=== PATIENT | male | born 1945 | race Caucasian/White ===

== ENCOUNTER 2016-10-11 10:42 | Emergency (ER) | payer OTHER ==
[~2016-10-11] VITALS: Ht 170.2 cm; Wt 93.2 kg
[~2016-10-11 10:42] MED LIST: ADVIN25/60 INH; AMLO-114 PO; ASPI-435 PO; CLR10 PO; CZR25 PO; FLUT0.15 NAE; HYDR25TA4 PO; MELA1TAB5 PO; ONDA8TAB6 PO; PRLSR20 PO; TAMS0.4C38 PO; VNTHFA/IN INH
[2016-10-11 10:55] VITALS: TEMP 36.9; Ht 170.2 cm; Wt 93.2 kg
[2016-10-11] MEDS ORDERED: SODIUM CHLORIDE 0.9% 1000ML 1,000 ML IV STA (11:31)
[2016-10-11 11:40] LABS: BASO % 0.4 %; BASO ABS # 0.02 K/uL (0-0.2); COMPLETE YES; EOS % 0.7 %; HEMATOCRIT 41.5 % (42-52); LYMPH % 12.1 %; LYMPH ABS # 0.68 K/uL (1.2-3.4); MEAN CELL VOLUME 82.7 fL (80-100); MEAN CORPUSCULAR HEMOGLOBIN 29.5 pg (25-34); MEAN CORPUSCULAR HGB CONC 35.7 g/dl (32-36); MEAN PLATELET VOLUME 9.1 fL (7.4-10.4); NEUT % 78.8 %; PLATELET COUNT 169 K/uL (130-400); RED BLOOD COUNT 5.02 M/uL (4.7-6.1)
[2016-10-11 11:44] VITALS: O2SAT 95
[2016-10-11 11:49] LABS: BUN/CREATININE RATIO 13.7 (10-20); CALCIUM 8.9 mg/dl (8.5-10.1); CREATININE 0.94 mg/dl (0.60-1.40); MAGNESIUM 2.2 mg/dl (1.8-2.4); POTASSIUM 3.7 mmol/L (3.5-5.1)
[2016-10-11 12:00] LABS: ALB/GLOB RATIO 1.2 (0.9-2); CKMB/CK RATIO 1.2 (0-3.0); THYROID STIMULATING HORMONE 1.34 uIu/ml (0.300-4.500)
[2016-10-11 12:10] LABS: MANUAL MICROSCOPIC REQUIRED? NO; REVIEW REQ? NO; URINE APPEARANCE CLEAR (CLEAR); URINE BILIRUBIN NEG (NEG); URINE COLOR YELLOW; URINE NITRITE NEG (NEG); URINE PH 6.5 (4.5-7.5); UROBILINOGEN NEG (NEG); ZZUR CULT IF INDIC CLEAN CATCH NO
--- NOTE | 2016-10-11 12:28 | DIAGNOSTIC IMAGING REPORT ---
CHEST 2 VIEWS ROUTINE CLINICAL HISTORY: chest congestion cough COMPARISON STUDY: 07/14/2015 FINDINGS: The bones soft tissues and hemidiaphragms are normal. The cardiomediastinal silhouette is normal. The lungs are clear. The pulmonary vasculature is normal. IMPRESSION: Negative chest. Electronically signed by: Ez Frank M.D. 10/11/2016 12:27 PM Dictated Date/Time: 10/11/2016 12:27 PM
[2016-10-11] MEDS ORDERED: RANI300T2 PO (12:46)
[2016-10-11] MEDS ORDERED: ZINC1TAB PO (12:46)
[2016-10-11] MEDS ORDERED: QUET1TAB30 PO (12:46)
[2016-10-11] MEDS ORDERED: LIDOCAINE HCL 2% VISCOUS SOLN 1.25 ML, DiphenhydrAMINE HCL SYRUP 3.125 MG, ALUMINUM/MAG... MT SCH ×4 (13:15)
[2016-10-11] MEDS ORDERED: MAGIC SWIZZLE PO ONE (13:15)
--- NOTE | 2016-10-11 13:38 | EMERGENCY ROOM VISIT NOTE ---
ED Visit Note First contact with patient: 11:22 This Patient was discussed with the physician assistant shift supervisor, Yassine Chatman PA-C. The pertinent historical and physical exam findings were confirmed. I agree with the studies ordered and with the interpretations of these studies. I agree with the disposition and care plan.
--- NOTE | 2016-10-11 13:47 | EMERGENCY ROOM VISIT NOTE ---
History First contact with patient: 11:22 Chief Complaint: OTHER COMPLAINT Stated Complaint: GAGS WHEN EATING, TONGUE IS BURNING, WATER IS SOUR History of Present Illness The patient is a 70 year old male who presents to the Emergency Department by private vehicle for evaluation of his ongoing tongue burning sensation for the past year. He is tried multiple medications including nystatin which was prescribed by his primary care provider without relief of symptoms. The patient also reports that water is tasted sour recently. He reports the symptoms are not new. He complains of some chest congestion and cough for the past week. He's had no fevers, chills, chest pain, but dictations, shortness of breath, nausea, vomiting, or abdominal pain. The patient rates his current discomfort as a 0/10. He denies any headaches, dizziness, lightheadedness, nausea, or vomiting. He reports no slurred speech, facial droop, or unilateral weakness/numbness. Review of Systems A complete 10-point Review of Systems was discussed with the patient, with pertinent positives and negatives listed in the History of Present Illness. All remaining Review of Systems questions can be considered negative unless otherwise specified. Past Medical/Surgical History Medical Problems: (1) Appendectomy (2) Benign hypertension (3) Chronic back pain (4) Insomnia Family History Diabetes mellitus FH: heart disease Social History Smoking Status: Former Smoker Alcohol Use: none Drug Use: none Marital Status: Occupation Status: retired Current/Historical Medications Scheduled Albuterol Hfa (Ventolin Hfa), 2 PUFFS INH Q4 Amlodipine (Norvasc), 10 MG PO DAILY Aspirin (Aspirin 81), 81 MG PO DAILY Fluticasone Propionate (Nasal) (Flonase Allergy Relief), 2 SPRAYS BATSHEVA DAILY Loratadine (Claritin), 10 MG PO DAILY Losartan Potassium (Losartan Potassium), 12.5 MG PO DAILY Omeprazole (Prilosec), 20 MG PO DAILY Quetiapine Fumarate (Seroquel), 25 MG PO HS Ranitidine (Zantac), 300 MG PO HS Tamsulosin Hcl (Flomax), 0.4 MG PO DAILY Zinc Gluconate (Zinc), 50 MG PO DAILY Allergies Coded Allergies: No Known Allergies (Unverified , 10/11/16) Physical Exam Vital Signs Date Time Temp Pulse Resp B/P Pulse Ox O2 Delivery O2 Flow Rate FiO2 10/11/16 13:55 63 18 151/90 96 10/11/16 12:41 58 18 165/94 96 Room Air 10/11/16 11:44 95 Room Air 10/11/16 11:20 62 10/11/16 10:55 36.9 102 20 151/95 96 Room Air Pain Rating (0-10): 0 Physical Exam VITAL SIGNS - Vital signs and nursing notes were reviewed. GENERAL - 70-year-old male appearing his stated age who is in no acute distress. Communicates well with provider and answers questions appropriately. HEAD - NC/AT. EYES - PERRL with EOMI bilaterally. Sclera anicteric. Palpebral conjunctiva pink and moist with no injection noted. EARS - No deformities of external structures noted on gross examination bilaterally. No pain elicited with palpation of the tragus bilaterally. External auditory canals without discharge or otorrhea. Tympanic membranes pearly [place] without retraction or bulging. NOSE - Midline and without cyanosis. No epistaxis or purulent drainage noted. Septum midline without deviation or septal hematoma noted. MOUTH/OROPHARYNX - Without perioral cyanosis. Buccal mucosa pink and moist and without leukoplakia. Tongue midline with equal elevation of palate bilaterally. No tonsillar hypertrophy, erythema, or exudates noted. Poor dentition noted. NECK - Neck with FROM. Supple to palpation. LUNGS - Chest wall symmetric without accessory muscle use, intercostals retractions, or central cyanosis. Normal vesicular breath sounds CTA B/L. No wheezes, rales, or rhonchi appreciated. CARDIAC - RRR with S1/S2. No murmur, rubs, or gallops appreciated. No reproducible tenderness to palpation appreciated over the anterior chest wall. ABDOMEN - Abdominal contour obese and without pulsations or visible masses. BS normoactive all four quadrants. No tenderness, palpable masses, hepatosplenomegaly, or ascites noted. EXTREMITIES - No clubbing or peripheral cyanosis. No pretibial edema present. +3 /5 radial and dorsalis pedis pulses palpated throughout. +5/5 strength noted in UE/LE bilaterally. NEUROLOGIC - Cranial nerves II through XII grossly intact. Sensory intact to light touch throughout. PSYCH - A&Ox3 and cooperates fully with examiner. Pt is very pleasant and interacts well with examiner. Medical Decision & Procedures ER Provider Diagnostic Interpretation: Radiological imaging and reports were reviewed by myself. Radiologist's Interpretation as follows: CHEST 2 VIEWS ROUTINE CLINICAL HISTORY: chest congestion cough COMPARISON STUDY: 07/14/2015 FINDINGS: The bones soft tissues and hemidiaphragms are normal. The cardiomediastinal silhouette is normal. The lungs are clear. The pulmonary vasculature is normal. IMPRESSION: Negative chest. Laboratory Results 10/11/16 11:10 Red Blood Count 5.02, Mean Corpuscular Volume 82.7, Mean Corpuscular Hemoglobin 29.5, Mean Corpuscular Hemoglobin Concent 35.7, Mean Platelet Volume 9.1, Neutrophils (%) (Auto) 78.8, Lymphocytes (%) (Auto) 12.1, Monocytes (%) (Auto) 8.0, Eosinophils (%) (Auto) 0.7, Basophils (%) (Auto) 0.4, Neutrophils # (Auto) 4.41, Lymphocytes # (Auto) 0.68, Monocytes # (Auto) 0.45, Eosinophils # (Auto) 0.04, Basophils # (Auto) 0.02 10/11/16 11:10 Test 10/11/16 11:10 10/11/16 11:45 White Blood Count 5.60 K/uL (4.8-10.8) Red Blood Count 5.02 M/uL (4.7-6.1) Hemoglobin 14.8 g/dL (14.0-18.0) Hematocrit 41.5 % (42-52) Mean Corpuscular Volume 82.7 fL (80-100) Mean Corpuscular Hemoglobin 29.5 pg (25-34) Mean Corpuscular Hemoglobin Concent 35.7 g/dl (32-36) Platelet Count 169 K/uL (130-400) Mean Platelet Volume 9.1 fL (7.4-10.4) Neutrophils (%) (Auto) 78.8 % Lymphocytes (%) (Auto) 12.1 % Monocytes (%) (Auto) 8.0 % Eosinophils (%) (Auto) 0.7 % Basophils (%) (Auto) 0.4 % Neutrophils # (Auto) 4.41 K/uL (1.4-6.5) Lymphocytes # (Auto) 0.68 K/uL (1.2-3.4) Monocytes # (Auto) 0.45 K/uL (0.11-0.59) Eosinophils # (Auto) 0.04 K/uL (0-0.5) Basophils # (Auto) 0.02 K/uL (0-0.2) RDW Standard Deviation 39.7 fL (36.4-46.3) RDW Coefficient of Variation 13.1 % (11.5-14.5) Immature Granulocyte % (Auto) 0.0 % Immature Granulocyte # (Auto) 0.00 K/uL (0.00-0.02) Anion Gap 11.0 mmol/L (3-11) Est Creatinine Clear Calc Drug Dose 77.3 ml/min Estimated GFR () 93.5 Estimated GFR (Non- 80.7 BUN/Creatinine Ratio 13.7 (10-20) Calcium Level 8.9 mg/dl (8.5-10.1) Magnesium Level 2.2 mg/dl (1.8-2.4) Total Bilirubin 0.6 mg/dl (0.2-1) Aspartate Amino Transf (AST/SGOT) 20 U/L (15-37) Alanine Aminotransferase (ALT/SGPT) 32 U/L (12-78) Alkaline Phosphatase 93 U/L (45-117) Total Creatine Kinase 131 U/L (39-308) Creatine Kinase MB 1.6 ng/ml (0.5-3.6) Creatine Kinase MB Ratio 1.2 (0-3.0) Troponin I < 0.015 ng/ml (0-0.045) Total Protein 8.2 gm/dl (6.4-8.2) Albumin 4.4 gm/dl (3.4-5.0) Globulin 3.8 gm/dl (2.5-4.0) Albumin/Globulin Ratio 1.2 (0.9-2) Lipase 182 U/L (73-393) Thyroid Stimulating Hormone (TSH) 1.340 uIu/ml (0.300-4.500) Urine Color YELLOW Urine Appearance CLEAR (CLEAR) Urine pH 6.5 (4.5-7.5) Urine Specific [place] 1.000 (1.000-1.030) Urine Protein NEG (NEG) Urine Glucose (UA) NEG (NEG) Urine Ketones NEG (NEG) Urine Occult Blood NEG (NEG) Urine Nitrite NEG (NEG) Urine Bilirubin NEG (NEG) Urine Urobilinogen NEG (NEG) Urine Leukocyte Esterase TRACE (NEG) Urine WBC (Auto) 1-5 /hpf (0-5) Urine RBC (Auto) 0-4 /hpf (0-4) Urine Hyaline Casts (Auto) 0 /lpf (0-5) Urine Epithelial Cells (Auto) 5-10 /lpf (0-5) Urine Bacteria (Auto) NEG (NEG) Medications Administered Medications (Trade) Dose Ordered Sig/Radha Route Start Time Stop Time Status Last Admin Dose Admin Sodium Chloride 1,000 ml @ 125 mls/hr Q8H STAT IV 10/11/16 11:31 10/11/16 14:29 DC 10/11/16 11:31 125 MLS/HR Lidocaine HCl/ Diphenhydramine HCl/Al Hydroxide/ Mg Hydroxide/ Glycerin/Barcode (VISCOUS LIDOCAINE 2% Soln/ Benadryl Syrup/ Maalox Susp/ Glycerin Anhydrous Soln) TODAY@1315 MT 10/11/16 13:15 10/11/16 14:29 DC 10/11/16 13:15 5 ML Procedure Patient was placed on the monitor and storage bin tender and monitored throughout the entire extent of their stay. In addition, the patient's pulse oximetry was monitored throughout the entire stay. Any abnormalities or aberrancies were addressed appropriately. ECG Indication: other (cough) Rate (beats per minute): 64 Rhythm: normal sinus Findings: 1st degree AV block, no acute ischemic change Change: no significant change (from 07/14/2015.) ED Course Patient was seen and evaluated by myself. Labs were drawn, saline lock in place. EKG and chest x-rays were obtained. The patient was hydrated with normal saline at a rate of 125 mL per hour. Laboratory results demonstrate no acute leukocytosis, worrisome anemia, or bandemia. The patient has no significant electrolyte abnormalities. Cardiac enzymes are negative. Troponin is unremarkable. Patient was provided magic's was allowed to wash with mild relief of symptoms. The patient will continue to follow with his primary care provider for ongoing symptoms. The case was discussed with my attending physician who independently evaluated the patient and agrees with the diagnostic approach and treatment plan. Patient educated on worrisome symptoms for return visit to the emergency department. Patient discharged home in good condition. Medical Decision Given the patient's presentation and stated complaint, I did elect to perform the above-mentioned workup. The patient presents today with multiple complaints. He complains of a dry tongue which seems to be his primary complaint today. This is been ongoing for the last year or so. The patient was provided magic swizzle mouthwash. His cardiac evaluation is negative given the patient's complaint of chest congestion. He has had no chest pain or other concerning symptoms. His cardiac evaluation was negative. Chest x-ray demonstrates no consolidation. The patient will continue to follow with his primary care provider from today's visit. He was educated on worrisome symptoms for return visit to the emergency department. Patient discharged home afebrile and in good condition. In the evaluation and treatment of this patient, the following differential diagnoses were considered: NV, ASC, Dysrhythmia, Angina, Mediastinitis, GERD, Esophagitis, PE, Pneumonia, Bronchitis, Costochondritis, Rib Fracture, Zoster. Impression Primary Impression: Tongue burning sensation Additional Impression: Chest congestion Departure Information Dispostion Home / Self-Care Condition GOOD Referrals Radha Dias M.D. (PCP) Patient Instructions My [facility] Additional Instructions You have been treated in the Emergency Department for your Chest Congestion and burning tongue. You can use Biotene over the counter for ongoing symptoms. For pain control, you can use the following [id number] medicines (if >12 yo): - Regular strength (325mg/tab) Tylenol (acetaminophen) 2 tabs every 4-6 hours as needed. Do not exceed 12 tablets in a 24 hour period. Avoid taking more than 4 grams (4000 mg) of Tylenol per day. This includes any other sources of acetaminophen you may take on a regular basis. - Regular strength (200 mg/tab) Advil (ibuprofen) 1-2 tabs every 4-6 hours as needed. Do not exceed a dose of 3200 mg per day. You should schedule a follow-up appointment with your Primary Care Provider in 2 -3 days for further evaluation from today's Emergency Department visit. Return to the Emergency Department if your current symptoms worsen despite treatment course outlined above, or if you develop any of the following symptoms : worsening chest pain, associated jaw/arm pain, nausea, dizziness, shortness of breath, bloody cough, or fainting. Problem Qualifiers
[2016-10-11 13:55] VITALS: BP 151/90; PULSE 63; O2SAT 96
== END 2016-10-11 13:56 | disposition home or self-care (01) ==
LOC: C.EDB 10:45 → C.EDA 13:56
DX: K14.6 Glossodynia (principal); R09.89 Other specified symptoms and signs involving the circulatory and respiratory systems; I10 Essential (primary) hypertension; Z83.3 Family history of diabetes mellitus; Z82.49 Family history of ischemic heart disease and other diseases of the circulatory system; Z87.891 Personal history of nicotine dependence; Z79.82 Long term (current) use of aspirin; Z79.899 Other long term (current) drug therapy

== ENCOUNTER 2017-05-20 09:38 | Emergency (ER) | payer OTHER ==
[~2017-05-20] VITALS: Ht 170.2 cm; Wt 93.4 kg
[~2017-05-20 09:38] MED LIST changes: -ADVIN25/60 INH; -HYDR25TA4 PO; -MELA1TAB5 PO; -ONDA8TAB6 PO; +QUET1TAB30 PO; +RANI300T2 PO; +ZINC1TAB PO
[2017-05-20 09:54] VITALS: TEMP 36.7; Ht 170.2 cm; Wt 93.4 kg
[2017-05-20 10:02] VITALS: O2SAT 95
[2017-05-20] MEDS ORDERED: TRAZ100T29 PO (10:06)
[2017-05-20] MEDS ORDERED: ADVIN10/60 INH (10:06)
[2017-05-20] MEDS ORDERED: QUET1TAB9 PO (10:06)
[2017-05-20] MEDS ORDERED: MECLIZINE HCL 25 MG TAB PO STA (10:20)
[2017-05-20] MEDS ORDERED: SODIUM CHLORIDE 0.9% 1000ML 1,000 ML IV STA (10:20)
[2017-05-20 10:53] LABS: COMPLETE YES; HEMATOCRIT 42.4 % (42-52); IG% 0.6 %; LYMPH % 3.7 %; LYMPH ABS # 0.53 K/uL (1.2-3.4); MEAN CELL VOLUME 86.9 fL (80-100); MEAN CORPUSCULAR HEMOGLOBIN 29.1 pg (25-34); MEAN CORPUSCULAR HGB CONC 33.5 g/dl (32-36); MEAN PLATELET VOLUME 8.9 fL (7.4-10.4); MONO % 4.5 %; NEUT % 91.2 %; PLATELET COUNT 213 K/uL (130-400); RED BLOOD COUNT 4.88 M/uL (4.7-6.1); URINE APPEARANCE CLEAR (CLEAR); URINE BILIRUBIN NEG (NEG); URINE COLOR YELLOW; URINE NITRITE NEG (NEG); URINE SPECIFIC GRAVITY 1.011 (1.000-1.030); UROBILINOGEN NEG (NEG); WHITE BLOOD COUNT 14.22 K/uL (4.8-10.8)
--- NOTE | 2017-05-20 10:55 | DIAGNOSTIC IMAGING REPORT ---
HEAD CT NONCONTRAST CT DOSE: 537.48 mGy.cm HISTORY: EVALUATE WEAKNESS TECHNIQUE: Multiaxial CT images of the head were performed without the use of intravenous contrast. Automated exposure control was utilized for this study. A dose lowering technique was utilized adhering to the principles of ALARA. Comparison: None. Findings: The paranasal sinuses and mastoid air cells are clear. The calvarium and skull base are intact. The ventricles and sulci are within normal limits. There is no mass, hematoma, midline shift, or acute infarct. Impression: No acute intracranial abnormality. Electronically signed by: Shadi Fiore M.D. 05/20/2017 10:54 AM Dictated Date/Time: 05/20/2017 10:53 AM
[2017-05-20 10:57] LABS: MANUAL MICROSCOPIC REQUIRED? NO; REVIEW REQ? NO
[2017-05-20 11:11] LABS: INR 1.1 (0.9-1.1); PARTIAL THROMBOPLASTIN RATIO 1.1; PROTHROMBIN TIME (PATIENT) 11.9 SECONDS (9.0-12.0)
[2017-05-20 11:14] LABS: ALT/SGPT 34 U/L (12-78); BLOOD UREA NITROGEN 19 mg/dl (7-18); BUN/CREATININE RATIO 21.4 (10-20); CARBON DIOXIDE 23 mmol/L (21-32); CHLORIDE 97 mmol/L (98-107); CREATININE 0.87 mg/dl (0.60-1.40); GLUCOSE 104 mg/dl (70-99); POTASSIUM 4.2 mmol/L (3.5-5.1); SODIUM 132 mmol/L (136-145)
[2017-05-20 11:19] LABS: ALKALINE PHOSPHATASE 76 U/L (45-117); AST/SGOT 21 U/L (15-37)
--- NOTE | 2017-05-20 11:32 | DIAGNOSTIC IMAGING REPORT ---
Brain MRI WITHOUT CONTRAST HISTORY: dizzy TECHNIQUE: Multiplanar multisequence MRI of the brain was performed without the use of contrast. COMPARISON STUDY: Head CT 05/20/2017. FINDINGS: There is no mass, hematoma, midline shift, or acute infarct. Small retention cysts within the right maxillary sinus. The mastoid air cells are clear. The ventricles and sulci are within normal limits. A few scattered foci of T2 hyperintensity seen within the periventricular and subcortical white matter are nonspecific but suggestive of minimal microvascular ischemic changes. The major vascular flow voids at the skull base are well-maintained. IMPRESSION: No acute intracranial abnormality. Electronically signed by: Shadi Fiore M.D. 05/20/2017 11:30 AM Dictated Date/Time: 05/20/2017 11:26 AM
--- NOTE | 2017-05-20 11:35 | DIAGNOSTIC IMAGING REPORT ---
CHEST ONE VIEW PORTABLE HISTORY: EVALUATE WEAKNESS COMPARISON: Chest 10/11/2016. FINDINGS: The lungs are clear. Cardiac silhouette is normal in size. No pleural effusions. No pneumothorax. Low lung volumes. IMPRESSION: No acute process. Electronically signed by: Shadi Fiore M.D. 05/20/2017 11:34 AM Dictated Date/Time: 05/20/2017 11:31 AM
[2017-05-20] MEDS ORDERED: MECL-91 PO (12:08)
[2017-05-20 12:27] VITALS: BP 163/96; PULSE 77; O2SAT 96
--- NOTE | 2017-05-20 14:39 | EMERGENCY ROOM VISIT NOTE ---
History Report prepared by Sb: Hyun Jackson Under the Supervision of: Dr. Misha Rodríguez D.O. First contact with patient: 10:03 Chief Complaint: DIZZY Stated Complaint: DIZZINESS/PRESSURE IN EAR Nursing Triage Summary: PT presents from home via ALS. C/o left ear pressure/dizziness for one week, seen at [place] ED yesterday and diagnosed with sinusitis, sent home with decongestant. Pt verbalizes dizziness worsened today despite taking decongestant, difficulty ambulating because of it. History of Present Illness The patient is a 71 year old male who presents to the Emergency Room with complaints of persistent dizziness with movement that began today. The patient states that he went to [facility] emergency department yesterday for left ear pain. He additionally reports a cough, tongue burning, dry mouth, and sore throat. The patient states that he woke this morning feeling dizzy. He denies ever having this in the past. Dizziness is only present with changing positions. If he stays still completely abates. No trauma. No weakness or numbness in his arms or legs. Patient does not some fullness in his left ear. He is currently being treated for a sinusitis. The patient reports increased symptoms with dizziness. Pt denies headache, change in vision, runny nose, fevers, ringing in his ears, chest pain, shortness of breath, nausea, vomiting, diarrhea, pain with urination, and melena. He denies any history of a previous stroke. Source of History: patient Onset: today Position: other (global) Quality: other (dizziness) Timing: other (persistent) Modifying Factors (Worsening): movement Associated Symptoms: + sorethroat, + cough Note: Associated symptoms: tongue burning, dry mouth Review of Systems See HPI for pertinent positives & negatives. A total of 10 systems reviewed and were otherwise negative. Past Medical & Surgical Medical Problems: (1) Appendectomy (2) Benign hypertension (3) Chronic back pain (4) Insomnia Family History Diabetes mellitus FH: heart disease Social History Smoking Status: Never Smoker Alcohol Use: none Drug Use: none Marital Status: Occupation Status: retired Current/Historical Medications Scheduled Albuterol Hfa (Ventolin Hfa), 2 PUFFS INH Q4 Amlodipine (Norvasc), 10 MG PO DAILY Aspirin (Aspirin 81), 81 MG PO DAILY Fluticasone Propionate (Nasal) (Flonase Allergy Relief), 2 SPRAYS BATSHEVA DAILY Loratadine (Claritin), 10 MG PO DAILY Losartan Potassium (Losartan Potassium), 12.5 MG PO DAILY Meclizine HCl (Meclizine 25), 25 MG PO TID Omeprazole (Prilosec), 20 MG PO BID Quetiapine Fumarate (Seroquel), 100 MG PO TID Ranitidine (Zantac), 300 MG PO HS Tamsulosin Hcl (Flomax), 0.4 MG PO DAILY Trazodone Hcl (Trazodone), 100 MG PO TID Zinc Gluconate (Zinc), 50 MG PO DAILY Allergies Coded Allergies: No Known Allergies (Unverified , 05/20/17) Physical Exam Vital Signs Date Time Temp Pulse Resp B/P (MAP) Pulse Ox O2 Delivery O2 Flow Rate FiO2 05/20/17 12:27 77 18 163/96 96 Room Air 05/20/17 11:23 66 18 164/94 96 Room Air 05/20/17 10:02 95 Room Air 05/20/17 09:58 70 137/78 73 145/87 78 130/81 05/20/17 09:54 36.7 67 18 145/78 95 Room Air 05/20/17 09:47 68 Physical Exam GENERAL: alert, sitting up in bed, well appearing, well nourished, no distress, non-toxic, talking in full sentences. EYE EXAM: disconjugate gaze, PERRL and EOM's grossly intact EARS: TMs clear bilaterally OROPHARYNX: no exudate, no erythema, lips, buccal mucosa, and tongue normal and mucous membranes are moist NECK: supple, no nuchal rigidity, no adenopathy, non-tender LUNGS: Clear to auscultation. Normal chest wall mechanics HEART: no murmurs, S1 normal and S2 normal ABDOMEN: abdomen soft, non-tender, normo-active bowel sounds, no masses, no rebound or guarding. BACK: Back is symmetrical on inspection and there is no deformity, no midline tenderness, no CVA tenderness. SKIN: no rashes and no bruising UPPER EXTREMITIES: upper extremities are grossly normal. LOWER EXTREMITIES: No pitting edema. NEURO EXAM: Normal sensorium, cranial nerves II-XII intact, normal speech, no weakness of arms, no weakness of legs. No drift. Finger to nose intact. Gross sensation intact. Rapid alternating movements of upper extremities are intact. Ambulates without difficulty in the room and into the hallway. Medical Decision & Procedures ER Provider Diagnostic Interpretation: Radiology results as stated below per my review and the radiologist's interpretation: HEAD CT NONCONTRAST CT DOSE: 537.48 mGy.cm HISTORY: EVALUATE WEAKNESS TECHNIQUE: Multiaxial CT images of the head were performed without the use of intravenous contrast. Automated exposure control was utilized for this study. A dose lowering technique was utilized adhering to the principles of ALARA. Comparison: None. Findings: The paranasal sinuses and mastoid air cells are clear. The calvarium and skull base are intact. The ventricles and sulci are within normal limits. There is no mass, hematoma, midline shift, or acute infarct. Impression: No acute intracranial abnormality. Electronically signed by: Shadi Fiore M.D. 05/20/2017 10:54 AM Dictated Date/Time: 05/20/2017 10:53 AM CHEST ONE VIEW PORTABLE HISTORY: EVALUATE WEAKNESS COMPARISON: Chest 10/11/2016. FINDINGS: The lungs are clear. Cardiac silhouette is normal in size. No pleural effusions. No pneumothorax. Low lung volumes. IMPRESSION: No acute process. Electronically signed by: Shadi Fiore M.D. 05/20/2017 11:34 AM Dictated Date/Time: 05/20/2017 11:31 AM Brain MRI WITHOUT CONTRAST HISTORY: dizzy TECHNIQUE: Multiplanar multisequence MRI of the brain was performed without the use of contrast. COMPARISON STUDY: Head CT 05/20/2017. FINDINGS: There is no mass, hematoma, midline shift, or acute infarct. Small retention cysts within the right maxillary sinus. The mastoid air cells are clear. The ventricles and sulci are within normal limits. A few scattered foci of T2 hyperintensity seen within the periventricular and subcortical white matter are nonspecific but suggestive of minimal microvascular ischemic changes. The major vascular flow voids at the skull base are well-maintained. IMPRESSION: No acute intracranial abnormality. Electronically signed by: Shadi Fiore M.D. 05/20/2017 11:30 AM Dictated Date/Time: 05/20/2017 11:26 AM Laboratory Results 05/20/17 09:40 Red Blood Count 4.88, Mean Corpuscular Volume 86.9, Mean Corpuscular Hemoglobin 29.1, Mean Corpuscular Hemoglobin Concent 33.5, Mean Platelet Volume 8.9, Neutrophils (%) (Auto) 91.2, Lymphocytes (%) (Auto) 3.7, Monocytes (%) (Auto) 4.5, Eosinophils (%) (Auto) 0.0, Basophils (%) (Auto) 0.0, Neutrophils # (Auto) 12.97, Lymphocytes # (Auto) 0.53, Monocytes # (Auto) 0.64, Eosinophils # (Auto) 0.00, Basophils # (Auto) 0.00 05/20/17 09:40 Test 05/20/17 09:40 05/20/17 10:30 White Blood Count 14.22 K/uL (4.8-10.8) Red Blood Count 4.88 M/uL (4.7-6.1) Hemoglobin 14.2 g/dL (14.0-18.0) Hematocrit 42.4 % (42-52) Mean Corpuscular Volume 86.9 fL (80-100) Mean Corpuscular Hemoglobin 29.1 pg (25-34) Mean Corpuscular Hemoglobin Concent 33.5 g/dl (32-36) Platelet Count 213 K/uL (130-400) Mean Platelet Volume 8.9 fL (7.4-10.4) Neutrophils (%) (Auto) 91.2 % Lymphocytes (%) (Auto) 3.7 % Monocytes (%) (Auto) 4.5 % Eosinophils (%) (Auto) 0.0 % Basophils (%) (Auto) 0.0 % Neutrophils # (Auto) 12.97 K/uL (1.4-6.5) Lymphocytes # (Auto) 0.53 K/uL (1.2-3.4) Monocytes # (Auto) 0.64 K/uL (0.11-0.59) Eosinophils # (Auto) 0.00 K/uL (0-0.5) Basophils # (Auto) 0.00 K/uL (0-0.2) RDW Standard Deviation 44.2 fL (36.4-46.3) RDW Coefficient of Variation 14.1 % (11.5-14.5) Immature Granulocyte % (Auto) 0.6 % Immature Granulocyte # (Auto) 0.08 K/uL (0.00-0.02) Prothrombin Time 11.9 SECONDS (9.0-12.0) Prothromb Time International Ratio 1.1 (0.9-1.1) Activated Partial Thromboplast Time 27.3 SECONDS (21.0-31.0) Partial Thromboplastin Ratio 1.1 Urine Color YELLOW Urine Appearance CLEAR (CLEAR) Urine pH 7.0 (4.5-7.5) Urine Specific [place] 1.011 (1.000-1.030) Urine Protein NEG (NEG) Urine Glucose (UA) NEG (NEG) Urine Ketones NEG (NEG) Urine Occult Blood NEG (NEG) Urine Nitrite NEG (NEG) Urine Bilirubin NEG (NEG) Urine Urobilinogen NEG (NEG) Urine Leukocyte Esterase NEG (NEG) Anion Gap 12.0 mmol/L (3-11) Est Creatinine Clear Calc Drug Dose 82.4 ml/min Estimated GFR () 99.2 Estimated GFR (Non- 85.6 BUN/Creatinine Ratio 21.4 (10-20) Calcium Level 9.0 mg/dl (8.5-10.1) Total Bilirubin 0.8 mg/dl (0.2-1) Direct Bilirubin 0.2 mg/dl (0-0.2) Aspartate Amino Transf (AST/SGOT) 21 U/L (15-37) Alanine Aminotransferase (ALT/SGPT) 34 U/L (12-78) Alkaline Phosphatase 76 U/L (45-117) Troponin I < 0.015 ng/ml (0-0.045) Total Protein 7.5 gm/dl (6.4-8.2) Albumin 3.8 gm/dl (3.4-5.0) Bedside Glucose 102 mg/dl (70-99) Laboratory results per my review. Medications Administered Medications (Trade) Dose Ordered Sig/Radha Route Start Time Stop Time Status Last Admin Dose Admin Sodium Chloride 1,000 ml @ 999 mls/hr Q1H1M STAT IV 05/20/17 10:20 05/20/17 11:20 DC 05/20/17 11:23 999 MLS/HR Meclizine HCl (Antivert Tab) 25 mg NOW STAT PO 05/20/17 10:20 05/20/17 10:22 DC 05/20/17 11:22 25 MG ECG Indication: other (dizziness) Rate (beats per minute): 66 Rhythm: sinus rhythm Findings: PAC, other (normal axis, normal intervals) ED Course ED COURSE: Vital signs were reviewed and showed hypertensive The patients medical record was reviewed The above diagnostic studies were performed and reviewed. ED treatments and interventions as stated above. 1013: The patient was evaluated in room B7. A complete history and physical examination was performed. 1020: Ordered Antivert Tab 25 mg PO, Sodium Chloride 1000 ml @ 999 mls/hr IV. 1201: Upon reevaluation, the patient is resting comfortably. I ambulated the patient in the hallway without difficulty. I discussed my findings with the patient and he understands and agrees with the treatment plan. Based on the patients age, coexisting illnesses, exam and lab findings the decision to treat as an outpatient was made. The patient remained stable while under my care. The patient appeared well at the time of discharge. Medical Decision Differential diagnosis includes etiologies such as benign positional vertigo, dehydration, hypovolemia, anemia, tumor, infection, hypoglycemia, electrolyte abnormalities, cardiac sources, intracerebral event, toxicologic, neurologic, as well as others were entertained. Patient is a 71-year-old male that presents to ER for dizziness which started this morning along with left ear fullness. TMs clear. His pain treated for sinusitis. CT head was negative. He is completely neurologically intact. He is able to ambulate without difficulty. No cerebellar signs on exam. MRI brain was unremarkable. He had minimal improvement with Antivert. Slight leukocytosis of 14,000. No signs meningitis or encephalitis. No nuchal rigidity. BMP is unremarkable. Bilirubin all LFTs and troponin was negative. UA was negative. Chest x-ray was unremarkable. Patient was updated in regards to findings and was discharged to follow-up with PCP. I do not believe that this is a CVA with his unremarkable exam and negative MRI brain at this time. He was discharged with Antivert follow-up with PCP. Instructed not to drive until symptoms completely resolved. Discussed with Pt concerning signs and symptoms to watch out for. Pt was instructed to follow up with their PCP and discussed with the patient their option to return to the ED at anytime for persistent or worsening symptoms. The appropriate anticipatory guidance and out- patient management, including indications for return to the emergency department , were explained at length to the patient and understood. Medication Reconcilliation Current Medication List: was personally reviewed by me Blood Pressure Screening Patient's blood pressure: Elevated blood pressure Blood pressure disposition: Elevated BP felt to be situational, Did not require urgent referral Impression Primary Impression: Benign positional vertigo Scribe Attestation The scribe's documentation has been prepared under my direction and personally reviewed by me in its entirety. I confirm that the note above accurately reflects all work, treatment, procedures, and medical decision making performed by me. Departure Information Dispostion Home / Self-Care Prescriptions Meclizine HCl (Meclizine 25) 25 Mg Tab 25 MG PO TID, #30 Prov: Misha Rodríguez, DO 05/20/17 Referrals Radha Dias M.D. (PCP) Forms HOME CARE DOCUMENTATION FORM, IMPORTANT VISIT INFORMATION Patient Instructions ED BPV Vertigo, My [facility] Additional Instructions Please follow up with your primary care doctor or if you are a student, [facility] with in the next 24 hours. Any worsening of your symptoms, please return to the ED immediately. This includes any fevers greater than 100.4, worsening pain, chest pain, shortness breath, weakness in arms or legs, persistent nausea, vomiting, unable to eat or drink, or any other concerning signs or symptoms from your standpoint. You were found to have a blood pressure greater than 120 systolic over 90 diastolic. Due to the new Medicare guidelines, we are now recommending that you follow up with your primary care doctor in regards to this elevated blood pressure. Problem Qualifiers Primary Impression: Benign positional vertigo Laterality: unspecified laterality Qualified Codes: H81.10 - Benign paroxysmal vertigo, unspecified ear
== END 2017-05-20 12:31 | disposition home or self-care (01) ==
LOC: EDBD 09:38 → C.EDB 09:42
DX: H81.10 Benign paroxysmal vertigo, unspecified ear (principal); I10 Essential (primary) hypertension; Z90.89 Acquired absence of other organs; G47.00 Insomnia, unspecified; Z83.3 Family history of diabetes mellitus; Z79.82 Long term (current) use of aspirin; Z79.899 Other long term (current) drug therapy

== ENCOUNTER 2017-05-25 07:06 | Emergency (ER) | payer OTHER ==
[~2017-05-25] VITALS: Ht 170.2 cm; Wt 93.6 kg
[2017-05-25 07:01] VITALS: TEMP 36.6; Ht 170.2 cm; Wt 93.6 kg
[~2017-05-25 07:06] MED LIST changes: +MECL-91 PO; -QUET1TAB30 PO; +QUET1TAB9 PO; +TRAZ100T29 PO
[2017-05-25] MEDS ORDERED: MDRDP21 PO (07:51)
[2017-05-25] MEDS ORDERED: BXN500 PO (07:51)
[2017-05-25] MEDS ORDERED: BENZOCAINE 20% (ORAJEL) 11.9 GM TUBE MT ONE (09:45)
--- NOTE | 2017-05-25 09:59 | EMERGENCY ROOM VISIT NOTE ---
History Report prepared by Sb: Jen Hollingsworth Under the Supervision of: Dr. Fermín Love D.O. First contact with patient: 07:17 Chief Complaint: HEADACHE Stated Complaint: HEAD PAIN History of Present Illness The patient is a 71 year old male who presents to the Emergency Room with complaints of a constant headache for the past week. His pain is located in the front of his head and he rates it as a 5/10 in severity. He is also complaining of left ear pain, dry mouth, and burning tongue pain for the past week. The patient called his PCP earlier this week and was unable to get an appointment so he was advised to come to the ED for further evaluation. He was brought to the ED today by ambulance. The patient's was moved to a longterm about 1 month ago. The patient was evaluated at [place] ER less than 48 hours ago for these same symptoms. He had a CT of the head that was unremarkable and a CXR that was normal. He had blood work and a urinalysis. He was discharged with nystatin. He was also seen on the for similar complaints at [facility]. and was discharged with clarithromycin and methylprednisolone. He was also provided with ENT referral at that time. Source of History: patient, EMS Onset: 1 week ago Position: head Symptom Intensity: 5/10 Quality: burning Timing: constant Note: Pt has left ear pain, tongue pain, and dry mouth. Review of Systems See HPI for pertinent positives & negatives. A total of 10 systems reviewed and were otherwise negative. Past Medical & Surgical Medical Problems: (1) Appendectomy (2) Benign hypertension (3) Chronic back pain (4) Insomnia Family History Diabetes mellitus FH: heart disease Social History Smoking Status: Never Smoker Alcohol Use: none Drug Use: none Marital Status: Housing Status: lives alone Occupation Status: retired Current/Historical Medications Scheduled Albuterol Hfa (Ventolin Hfa), 2 PUFFS INH Q4 Amlodipine (Norvasc), 10 MG PO DAILY Aspirin (Aspirin 81), 81 MG PO DAILY Clarithromycin (Clarithromycin), 500 MG PO DAILY Fluticasone Propionate (Nasal) (Flonase Allergy Relief), 2 SPRAYS BATSHEVA DAILY Loratadine (Claritin), 10 MG PO DAILY Losartan Potassium (Losartan Potassium), 12.5 MG PO DAILY Meclizine HCl (Meclizine 25), 25 MG PO TID Methylprednisolone (Methylprednisolone Dose P), 1 DOSE PO UD Omeprazole (Prilosec), 20 MG PO BID Quetiapine Fumarate (Seroquel), 100 MG PO TID Ranitidine (Zantac), 300 MG PO HS Tamsulosin Hcl (Flomax), 0.4 MG PO DAILY Trazodone Hcl (Trazodone), 100 MG PO TID Zinc Gluconate (Zinc), 50 MG PO DAILY Allergies Coded Allergies: No Known Allergies (Unverified , 05/20/17) Physical Exam Vital Signs Date Time Temp Pulse Resp B/P (MAP) Pulse Ox O2 Delivery O2 Flow Rate FiO2 05/25/17 10:02 76 16 145/97 94 05/25/17 09:17 76 16 145/97 94 Room Air 05/25/17 07:01 36.6 75 17 129/55 94 Room Air Physical Exam CONSTITUTIONAL/VITAL SIGNS: Reviewed / noted above. GENERAL: Non-toxic in appearance. INTEGUMENTARY: Warm, dry, and [place]. HEAD: Normocephalic. EYES: without scleral icterus or trauma. ENT/OROPHARYNX: clear and moist. LYMPHADENOPATHY/NECK: Is supple without lymphadenopathy or meningismus. RESPIRATORY: Lungs clear and equal. CARDIOVASCULAR: Regular rate and rhythm. GI/ABDOMEN: Soft and nontender. No organomegaly or pulsatile mass. No rebound or guarding. Normal bowel sounds. EXTREMITIES: Warm and well perfused. BACK: No CVA tenderness. NEUROLOGICAL: Intact without focal deficits. PSYCHIATRIC: normal affect. MUSCULOSKELETAL: Normally developed with good muscle tone. Medical Decision & Procedures Medications Administered Medications (Trade) Dose Ordered Sig/Radha Route Start Time Stop Time Status Last Admin Dose Admin Benzocaine (Orajel 20% Oral Gel) 1 appln ONE ONCE MT 05/25/17 09:45 05/25/17 09:46 DC 05/25/17 09:54 1 APPLN ED Course 0717: Previous medical records were reviewed. The patient was evaluated in room B5. A complete history and physical examination was performed. 0931: I reassessed the patient at this time. He is feeling better and resting comfortably. I discussed the results and treatment plan with the patient. I answered all pertaining questions that he had. He expressed understanding and verbalized agreement. The patient will be discharged home. 0945: Benzocaine 1 appln [place] Medical Decision Differential includes: Acute intracranial bleed, trauma, meningitis, encephalitis, increased intracranial pressure, mass or mass effect, facial or dental infection, temporal arteritis, CVA, TIA, acute hypertensive emergency, sinusitis, and carbon monoxide exposure. This is a 71-year-old male who presents to the ED with a chief complaint of burning of his tongue and a sensation of dry mouth. The patient has had the symptoms in addition to a headache for a couple of weeks. The patient's symptoms have been evaluated at least 3 times in the past week. The patient was at [facility] emergency Department twice and here once. The last time he was at [place] emergency department was less than 48 hours ago. He was discharged on nystatin swish and swallow. The patient has been using this without improvement. He reports that the anterior portion of his tongue is burning and he feels like his mouth is dry. He has recently on his other 2 visits had a CAT scan of his head, MRI of his brain, blood work and is also had a course of antibiotics which did not help. The patient's did not reveal any abnormalities to his tongue and his mucous membranes are moist. He does have some decayed dentition in the lower aspect of his mouth. He has no lymphadenopathy and his exam is otherwise normal. The patient after reviewing his records and discussing options, was placed on benzocaine oral. This did help with his symptoms. He was told to follow-up with his dentist. He was also noted to have been given a referral to see ENT specialist in [place]. Medication Reconcilliation Current Medication List: was personally reviewed by me Blood Pressure Screening Patient's blood pressure: Normal blood pressure Impression Primary Impression: Tongue burning sensation Scribe Attestation The scribe's documentation has been prepared under my direction and personally reviewed by me in its entirety. I confirm that the note above accurately reflects all work, treatment, procedures, and medical decision making performed by me. Departure Information Dispostion Home / Self-Care Referrals Radha Dias M.D. (PCP) Patient Instructions My [facility] Additional Instructions Benzocaine up to 5 times daily to the tip of the tongue for burning sensation. Follow-up with your doctor and your dentist for further evaluation. Call today for an appointment. Follow-up with your doctor for further care and evaluation in 1-2 days. Return to the emergency department for worsening or new symptoms or any concerns. You have been examined and treated today on an emergency basis only. This is not a substitute for, or an effort to provide, complete comprehensive medical care. It is impossible to recognize and treat all injuries or illnesses in a single emergency department visit. It is therefore important that you follow up closely with your doctor. Call as soon as possible for an appointment.
[2017-05-25 10:02] VITALS: BP 145/97; PULSE 76; O2SAT 94
== END 2017-05-25 10:02 | disposition home or self-care (01) ==
LOC: EDBD 07:06 → C.EDB 07:07
DX: K14.6 Glossodynia (principal); R68.2 Dry mouth, unspecified; R51 Headache; K02.9 Dental caries, unspecified; I10 Essential (primary) hypertension; M54.9 Dorsalgia, unspecified; G89.29 Other chronic pain; G47.00 Insomnia, unspecified; Z83.3 Family history of diabetes mellitus; Z79.82 Long term (current) use of aspirin

== ENCOUNTER → 2017-10-26 | Outpatient (CLI) | payer OTHER ==
[~2017-10-26] MED LIST changes: +BXN500 PO; +MDRDP21 PO
== END | disposition home or self-care (01) ==
LOC: C.LABSPEC 14:59
PROVIDERS: ATTEND Internal Medicine
DX: C61 Malignant neoplasm of prostate (principal)

== ENCOUNTER 2022-01-02 07:06 | Inpatient (IN) ==
[2022-01-02] MEDS ORDERED: ACETAMINOPHEN 500 MG TAB PO STA (07:18)
--- NOTE | 2022-01-02 07:23 | Emergency Department Note ---
Impression & Plan Weakness, Fatigue, Acute hyponatremia, Persistent cough ED Provider Note Name: RAYSA BELLE Age: 76 Sex: M Arrives Via: Ambulance Informant: Patient ED Provider: Alexandro Lopez MD Chief Complaint: weakness Impression: As Per Impressions Above Medical Decision Making: Pleasant 76-year-old gentleman with past medical history of hypertension GERD, depression amongst other comorbidities arrives for evaluation of persistent cough in the setting of increasing weakness over the last few days/week. On examination he is comfortable not hypoxic and is breathing without difficulty. His work-up is quite remarkable for significant hyponatremia which is new for the patient. He does not appear septic or in acute renal failure. I do not see any clear evidence of acute infection at this time. Patient is comfortable plan for hospitalization for further work-up on his cause of hyponatremia. Prior Medical Record and Triage/Nursing Notes reviewed by Me Additional history obtained from differentials:Infection, dehydration, metabolic abnormality, hypo/hyperglycemia, electrolyte disturbance, anemia, hypoxia, cardiac sources, intracerebral event, toxicologic, neurologic, as well as other pathologies. Vital Signs: reviewed and remarkable for no significant abnormalities Labs:Reviewed and remarkable for acute hyponatremia Imaging:See Below EKG:Per My Interpretation: Indication weakness: Sinus with first-degree AV block at 65 bpm and a QTC of 422. When compared to November 29, 2018 EKG there is no significant changes. Cardiac/Tele Monitoring: Cardiac Monitoring: An Order was placed for continuous cardiac monitoring. The monitor shows a rate of 60with a normal sinus rhythm. Consults:Hospitalist Plan: Disposition:Hospitalization. Condition: Good History of Present Illness:68-year-old gentleman arrives for evaluation of shortness of breath. Patient notes he has been sick for about a week. He has had a productive cough, shortness of breath and some exertional dyspnea. Over the last few days he started develop a right flank discomfort. He notes it is worse with movement and better with rest. This last day he states he has been urinating as much. He denies any urinary burning or frequency. He just says that it does not urinate very much. He reports being on a steroid and antibiotic for the last few days. He does not know when he was last tested for COVID and has not had a chest x-ray. He states he could use some Tylenol for the pain. He denies any falls, trauma, injuries. He denies any fevers, syncope, chest pain, back pain, abdominal pain, nausea, vomiting, leg swelling b eyond baseline, rashes, headache, sore throat, runny nose no other symptoms. He had COVID last year and was vaccinated now. ROS: See above HPI for pertinent positives & negatives. A total of 10 systems reviewed and were otherwise negative. Past Medical History:GERD, anxiety depression, sleep difficulty, hypertension, BPH Past Surgical History:See Below Family History:See Below Social History:See Below Home Medications:See Below Allergies:NKDA Vitals:Blood Pressure: 151/79, Pulse 60, RR 20, T 36.6 C, O2 97% on RA Physical Exam: GENERAL: Patient is tired/anxious appearing and in mild distress. EYES: No scleral icterus, unremarkable pupils. ENT: Mucous membranes moist, no nasal congestion. NECK: No masses appreciated, nomeningismus, trachea is midline. RESPIRATORY: No dyspnea. Clear to auscultation and equal bilaterally. No wheeze, no rhonchi. CARDIOVASCULAR: Regular rate and rhythm.No murmurs, rubs, gallops appreciated. GASTROINTESTINAL: Abdomen soft, non-tender, no peritonitis.Bowel sounds positive.No masses appreciated. BACK: No midline tenderness, mild left CVA tenderness EXTREMITIES: Normal motion all extremities, no cyanosis, no edema. NEUROLOGIC: Alert and oriented, no acute motor or sensory deficits, no focal weakness, cranial nerves grossly intact. SKIN: No rash, no jaundice, no diaphoresis. PSYCH: Appropriate GCS: 15 ED Course: Times/Reassessments: Patient appears well throughout no distress and breathing comfortably. He is agreeable to hospitalization for further work-up and evaluation. Alexandro Lopez MD Past Med/Surg History Medical History Allergic rhinitis Anemia BPH (benign prostatic hyperplasia) Chronic back pain Degenerative disc disease Depression GERD (gastroesophageal reflux disease) HTN (hypertension) Insomnia MRSA (methicillin resistant Staphylococcus aureus) Osteoarthritis Prostate cancer (04/21/15) Renal calculus Rising PSA level Surgical History H/O adenoidectomy H/O colonoscopy H/O esophagogastroduodenoscopy H/O prostatectomy 10/03/17 Dr. Renee H/O sinus surgery History of cystoscopy Hx of appendectomy Hx of tonsillectomy Family History Mother , 75yo Myocardial infarction Father , 74yo Myocardial infarction Liver disease "Drank too much beer" Brother Prostate cancer Brother Myocardial infarction Brother Suicide Brother Accident Sister Cancer Sister Natural with unknown cause Son No problems noted. Son Hypertension Other Family history non-contributory Social History Smoking Status: Unknown if ever smoked Second Hand Exposure: No; Do You Dip or Chew Tobacco: No; Tobacco Cessation Education Requested by Patient: No Hx Alcohol Use: No Hx Substance Use: No Preferred Language: Maldivian Communication Ability: Effective Visual Impairment: No Limitations Hearing Ability: Normal Oriental Rug Stretcher Required: No Beliefs That Will Affect Care: None marital status: / Current Living Situation: Alone current occupational status: retired Other Information That Helps Us Care for You: No Feels Safe at Home: Yes Safety Concerns: Feels Safe At This Time caffeine: Yes (3 cups/day) during the past year weight has: remained stable Assistive Devices: Cane Allergies Allergies Allergy/AdvReac Type Severity Reaction Status Date / Time No Known Allergies Allergy Verified 01/02/22 07:59 Home Meds Home Medications Medication Instructions Recorded Confirmed amlodipine 10 mg tablet (Norvasc) 10 mg PO QAM 11/29/18 01/02/22 aspirin 81 mg tablet,delayed 81 mg PO QAM 11/29/18 01/02/22 release loratadine 10 mg tablet (Claritin) 10 mg PO QAM 11/29/18 01/02/22 omeprazole 20 mg capsule,delayed 20 mg PO BIDM 11/29/18 01/02/22 release trazodone 150 mg tablet 150 mg PO HS 11/29/18 01/02/22 zinc 50 mg tablet 50 mg PO QAM 11/29/18 01/02/22 quetiapine 50 mg tablet (Seroquel) 50 mg PO HS 08/11/19 01/02/22 docusate sodium 100 mg capsule 100 mg PO DAILY PRN cap 11/19/20 01/02/22 (Colace) losartan 50 mg-hydrochlorothiazide 1 tab PO DAILY 11/19/20 01/02/22 12.5 mg tablet mecobalamin (vitamin B12) 1,000 1,000 mcg SUBLINGUAL DAILY 11/19/20 01/02/22 mcg disintegrating tablet,sublingual pregabalin 50 mg capsule 50 mg PO TID 11/19/20 01/02/22 amoxicillin 875 mg-potassium 1 tab PO DAILY 01/02/22 01/02/22 clavulanate 125 mg tablet pantoprazole 20 mg tablet,delayed 20 mg PO DAILY 01/02/22 01/02/22 release prednisone 20 mg tablet 20 mg PO DAILY 01/02/22 01/02/22 Results & Data (ED) Vital Signs Vital Signs - 24 hr 01/02/22 07:15 01/02/22 07:26 Temperature 36.8 C Temperature Source Oral Pulse Rate 68 Pulse Rhythm Regular Pulse Strength Normal Respiratory Rate 20 Respiratory Effort / Characteristics Non-Labored Respiratory Depth Normal Respiratory Pattern Regular Blood Pressure 164/85 H Blood Pressure Mean 111 Blood Pressure Position Lying Pulse Oximetry 98 Oxygen Delivery Method Room Air Room Air Oxygen Flow Rate 98 Sepsis Recent Fever Within 48 Hours No Sepsis New/Unexplained Change in Mental Status N/A Sepsis Action Taken by Nursing No Action Required Laboratory Data Result diagrams: 01/04/22 06:47 01/04/22 06:47 Lab Results 01/02/22 01/02/22 01/02/22 Range/Units 07:25 07:25 07:25 WBC (4.8-10.8) K/uL RBC (4.7-6.1) M/uL Hgb (14.0-18.0) g/dL Hct (42-52) % MCV (80-100) fL MCH (25-34) pg MCHC (32-36) g/dL RDW Std Deviation (36.4-46.3) fL RDW Coeff of Thanh (11.5-14.5) % Plt Count (130-400) K/uL MPV (7.4-10.4) fL Immature Gran % (Auto) % Neut % (Auto) % Lymph % (Auto) % Isabella % (Auto) % Eos % (Auto) % Baso % (Auto) % Neut # (Auto) (1.4-6.5) K/uL Lymph # (Auto) (1.2-3.4) K/uL Isabella # (Auto) (0.11-0.59) K/uL Eos # (Auto) (0-0.5) K/uL Baso # (Auto) (0-0.2) K/uL Immature Gran # (Auto) (0.00-0.02) K/uL Sodium (136-145) mmol/L Potassium (3.5-5.1) mmol/L Chloride (98-107) mmol/L Carbon Dioxide (21-32) mmol/L Anion Gap (3-11) BUN (6-23) mg/dl Creatinine (0.6-1.4) mg/dl Est Cr Clr Drug Dosing ml/min Est GFR ( Amer) ml/min Est GFR (Non-Af Amer) ml/min BUN/Creatinine Ratio (10-20) Glucose (70-99(Fasting)) mg/dl Osmolality (280-300) mOsm/kg Calcium (8.5-10.1) mg/dl Total Bilirubin (0.2-1.0) mg/dl Direct Bilirubin (0-0.2) mg/dl AST (13-39) U/L ALT (7-52) U/L Alkaline Phosphatase (34-104) U/L Troponin I High Sens (0-20) pg/ml B-Natriuretic Peptide 32 (0-100) pg/ml Total Protein (6.0-8.3) gm/dl Albumin (3.4-5.0) gm/dl Lipase (11-82) U/L Procalcitonin (0-0.5) ng/ml TSH (0.300-4.500) uIu/ml Free T4 (0.61-1.60) ng/dl Urine Color Yellow Urine Appearance Clear (Clear) Urine pH 6.5 (4.5-7.5) Ur Specific [place] 1.015 (1.000-1.030) Urine Protein Negative (Negative) Urine Glucose (UA) Negative (Negative) Urine Ketones Negative (Negative) Urine Blood 1+ H (Negative) Urine Nitrite Negative (Negative) Urine Bilirubin Negative (Negative) Urine Urobilinogen Negative (Negative) Ur Leukocyte Esterase Negative (Negative) Urine WBC (Auto) 1-5 (0-5) /hpf Urine RBC (Auto) 10-30 H (0-4) /hpf U Hyaline Cast (Auto) 1-5 (0-5) /lpf U Epithel Cells (Auto) 10-20 H (0-5) /lpf Urine Bacteria (Auto) Negative (Negative) SARS-CoV-2 (PCR) NEGATIVE (Negative) Influenza Type A (PCR) Negative (Neg) Influenza Type B (PCR) Negative (Neg) RSV (RT-PCR) Negative (Neg) 01/02/22 01/02/22 01/02/22 Range/Units 07:27 07:27 07:27 WBC 6.29 (4.8-10.8) K/uL RBC 4.62 L (4.7-6.1) M/uL Hgb 13.6 L (14.0-18.0) g/dL Hct 39.7 L (42-52) % MCV 85.9 (80-100) fL MCH 29.4 (25-34) pg MCHC 34.3 (32-36) g/dL RDW Std Deviation 43.7 (36.4-46.3) fL RDW Coeff of Thanh 13.9 (11.5-14.5) % Plt Count 195 (130-400) K/uL MPV 9.6 (7.4-10.4) fL Immature Gran % (Auto) 0.3 % Neut % (Auto) 74.8 % Lymph % (Auto) 13.5 % Isabella % (Auto) 10.0 % Eos % (Auto) 1.1 % Baso % (Auto) 0.3 % Neut # (Auto) 4.70 (1.4-6.5) K/uL Lymph # (Auto) 0.85 L (1.2-3.4) K/uL Isabella # (Auto) 0.63 H (0.11-0.59) K/uL Eos # (Auto) 0.07 (0-0.5) K/uL Baso # (Auto) 0.02 (0-0.2) K/uL Immature Gran # (Auto) 0.02 (0.00-0.02) K/uL Sodium 123 L (136-145) mmol/L Potassium 3.2 L (3.5-5.1) mmol/L Chloride 89 L (98-107) mmol/L Carbon Dioxide 24 (21-32) mmol/L Anion Gap 10 (3-11) BUN 17 (6-23) mg/dl Creatinine 0.90 (0.6-1.4) mg/dl Est Cr Clr Drug Dosing 80.8 ml/min Est GFR ( Amer) 94.5 ml/min Est GFR (Non-Af Amer) 81.5 ml/min BUN/Creatinine Ratio 18.9 (10-20) Glucose 174 H (70-99(Fasting)) mg/dl Osmolality 266 L (280-300) mOsm/kg Calcium 8.6 (8.5-10.1) mg/dl Total Bilirubin 0.8 (0.2-1.0) mg/dl Direct Bilirubin 0.1 (0-0.2) mg/dl AST 56 H (13-39) U/L ALT 53 H (7-52) U/L Alkaline Phosphatase 76 (34-104) U/L Troponin I High Sens 9.7 (0-20) pg/ml B-Natriuretic Peptide (0-100) pg/ml Total Protein 6.9 (6.0-8.3) gm/dl Albumin 4.0 (3.4-5.0) gm/dl Lipase 44 (11-82) U/L Procalcitonin (0-0.5) ng/ml TSH (0.300-4.500) uIu/ml Free T4 (0.61-1.60) ng/dl Urine Color Urine Appearance (Clear) Urine pH (4.5-7.5) Ur Specific [place] (1.000-1.030) Urine Protein (Negative) Urine Glucose (UA) (Negative) Urine Ketones (Negative) Urine Blood (Negative) Urine Nitrite (Negative) Urine Bilirubin (Negative) Urine Urobilinogen (Negative) Ur Leukocyte Esterase (Negative) Urine WBC (Auto) (0-5) /hpf Urine RBC (Auto) (0-4) /hpf U Hyaline Cast (Auto) (0-5) /lpf U Epithel Cells (Auto) (0-5) /lpf Urine Bacteria (Auto) (Negative) SARS-CoV-2 (PCR) (Negative) Influenza Type A (PCR) (Neg) Influenza Type B (PCR) (Neg) RSV (RT-PCR) (Neg) 01/02/22 01/02/22 Range/Units 07:27 07:27 WBC (4.8-10.8) K/uL RBC (4.7-6.1) M/uL Hgb (14.0-18.0) g/dL Hct (42-52) % MCV (80-100) fL MCH (25-34) pg MCHC (32-36) g/dL RDW Std Deviation (36.4-46.3) fL RDW Coeff of Thanh (11.5-14.5) % Plt Count (130-400) K/uL MPV (7.4-10.4) fL Immature Gran % (Auto) % Neut % (Auto) % Lymph % (Auto) % Isabella % (Auto) % Eos % (Auto) % Baso % (Auto) % Neut # (Auto) (1.4-6.5) K/uL Lymph # (Auto) (1.2-3.4) K/uL Isabella # (Auto) (0.11-0.59) K/uL Eos # (Auto) (0-0.5) K/uL Baso # (Auto) (0-0.2) K/uL Immature Gran # (Auto) (0.00-0.02) K/uL Sodium (136-145) mmol/L Potassium (3.5-5.1) mmol/L Chloride (98-107) mmol/L Carbon Dioxide (21-32) mmol/L Anion Gap (3-11) BUN (6-23) mg/dl Creatinine (0.6-1.4) mg/dl Est Cr Clr Drug Dosing ml/min Est GFR ( Amer) ml/min Est GFR (Non-Af Amer) ml/min BUN/Creatinine Ratio (10-20) Glucose (70-99(Fasting)) mg/dl Osmolality (280-300) mOsm/kg Calcium (8.5-10.1) mg/dl Total Bilirubin (0.2-1.0) mg/dl Direct Bilirubin (0-0.2) mg/dl AST (13-39) U/L ALT (7-52) U/L Alkaline Phosphatase (34-104) U/L Troponin I High Sens (0-20) pg/ml B-Natriuretic Peptide (0-100) pg/ml Total Protein (6.0-8.3) gm/dl Albumin (3.4-5.0) gm/dl Lipase (11-82) U/L Procalcitonin 0.10 (0-0.5) ng/ml TSH 5.962 H (0.300-4.500) uIu/ml Free T4 0.94 (0.61-1.60) ng/dl Urine Color Urine Appearance (Clear) Urine pH (4.5-7.5) Ur Specific [place] (1.000-1.030) Urine Protein (Negative) Urine Glucose (UA) (Negative) Urine Ketones (Negative) Urine Blood (Negative) Urine Nitrite (Negative) Urine Bilirubin (Negative) Urine Urobilinogen (Negative) Ur Leukocyte Esterase (Negative) Urine WBC (Auto) (0-5) /hpf Urine RBC (Auto) (0-4) /hpf U Hyaline Cast (Auto) (0-5) /lpf U Epithel Cells (Auto) (0-5) /lpf Urine Bacteria (Auto) (Negative) SARS-CoV-2 (PCR) (Negative) Influenza Type A (PCR) (Neg) Influenza Type B (PCR) (Neg) RSV (RT-PCR) (Neg) Administered Medications Amlodipine Besylate (Amlodipine Besylate 5 Mg Tab) 10 mg PO [facility] Stop: 02/01/22 09:59 Last Admin: 01/04/22 07:48 Dose: 10 mg Documented by: [id number] Admin: 01/03/22 08:19 Dose: 10 mg Documented by: [id number] Admin: 01/02/22 10:16 Dose: 10 mg Documented by: [id number] Aspirin (Aspirin 81 Mg Ectab) 81 mg PO [facility] Stop: 02/02/22 08:59 Last Admin: 01/04/22 07:49 Dose: 81 mg Documented by: [id number] Admin: 01/03/22 08:17 Dose: 81 mg Documented by: [id number] Calcium Carbonate (Calcium Carbonate 500 Mg Chewable Tab) 1,000 mg PO TID [facility] Stop: 01/05/22 09:01 Last Admin: 01/04/22 07:49 Dose: 1,000 mg Documented by: [id number] Admin: 01/03/22 21:06 Dose: 1,000 mg Documented by: [id number] Admin: 01/03/22 14:08 Dose: 1,000 mg Documented by: [id number] Admin: 01/03/22 08:24 Dose: 1,000 mg Documented by: [id number] Admin: 01/02/22 21:28 Dose: 1,000 mg Documented by: [id number] Admin: 01/02/22 13:25 Dose: 1,000 mg Documented by: [id number] Cyanocobalamin (Cyanocobalamin (B-12) 500 Mcg Tablet) 1,000 mcg PO DAILY [facility] Stop: 02/02/22 08:59 Last Admin: 01/04/22 07:49 Dose: 1,000 mcg Documented by: [id number] Admin: 01/03/22 08:18 Dose: 1,000 mcg Documented by: [id number] Enoxaparin Sodium (Enoxaparin Inj 40 Mg/0.4 Ml Syr) 40 mg SQ QAM [facility] Stop: 02/02/22 08:59 Last Admin: 01/04/22 07:49 Dose: 40 mg Documented by: [id number] Admin: 01/03/22 09:45 Dose: Not Given Documented by: [id number] Famotidine (Famotidine 20 Mg Tab) 20 mg PO BID [facility] Stop: 02/01/22 10:15 Last Admin: 01/04/22 07:50 Dose: 20 mg Documented by: [id number] Admin: 01/03/22 21:06 Dose: 20 mg Documented by: [id number] Admin: 01/03/22 08:17 Dose: 20 mg Documented by: [id number] Admin: 01/02/22 21:27 Dose: 20 mg Documented by: [id number] Admin: 01/02/22 13:21 Dose: 20 mg Documented by: [id number] Loratadine (Loratadine 10 Mg Tab) 10 mg PO QAM [facility] Stop: 02/02/22 08:59 Last Admin: 01/04/22 07:50 Dose: Not Given Documented by: [id number] Admin: 01/03/22 08:18 Dose: 10 mg Documented by: [id number] Losartan Potassium (Losartan Potassium 50 Mg Tab) 50 mg PO QAM [facility] Stop: 02/01/22 09:59 Last Admin: 01/04/22 07:50 Dose: 50 mg Documented by: [id number] Admin: 01/03/22 08:18 Dose: 50 mg Documented by: [id number] Admin: 01/02/22 13:22 Dose: 50 mg Documented by: [id number] Nystatin (Nystatin Susp 500,000 U/5 Ml Udc) 5 ml PO QID [facility] Stop: 01/14/22 12:59 Last Admin: 01/04/22 11:39 Dose: 5 ml Documented by: [id number] Pantoprazole Sodium (Pantoprazole 40 Mg Tab) 40 mg PO BID [facility] Stop: 02/01/22 10:15 Last Admin: 01/04/22 07:50 Dose: 40 mg Documented by: [id number] Admin: 01/03/22 21:07 Dose: 40 mg Documented by: [id number] Admin: 01/03/22 08:17 Dose: 40 mg Documented by: [id number] Admin: 01/02/22 21:28 Dose: 40 mg Documented by: [id number] Admin: 01/02/22 13:22 Dose: 40 mg Documented by: [id number] Pregabalin (Pregabalin 50 Mg Cap) 50 mg PO TID [facility] Stop: 02/01/22 13:59 Last Admin: 01/04/22 07:50 Dose: 50 mg Documented by: [id number] Admin: 01/03/22 21:09 Dose: 50 mg Documented by: [id number] Admin: 01/03/22 13:44 Dose: 50 mg Documented by: [id number] Admin: 01/03/22 08:23 Dose: 50 mg Documented by: [id number] Admin: 01/02/22 21:28 Dose: 50 mg Documented by: [id number] Admin: 01/02/22 13:25 Dose: 50 mg Documented by: [id number] Quetiapine Fumarate (Quetiapine Fumarate 25 Mg Tablet) 50 mg PO HS [facility] Stop: 02/01/22 20:59 Last Admin: 01/03/22 21:05 Dose: 50 mg Documented by: [id number] Admin: 01/02/22 21:28 Dose: 50 mg Documented by: [id number] Zinc Sulfate (Zinc Sulfate 220 Mg Capsule) 220 mg PO QAM [facility] Stop: 02/02/22 08:59 Last Admin: 01/04/22 07:50 Dose: 220 mg Documented by: [id number] Admin: 01/03/22 08:18 Dose: 220 mg Documented by: [id number] Discontinued Medications Acetaminophen (Acetaminophen 500 Mg Tab) 1,000 mg PO NOW STA Stop: 01/02/22 07:19 Last Admin: 01/02/22 07:34 Dose: 1,000 mg Documented by: [id number] Sodium Chloride (Nss 1000ml) 500 mls @ 999 mls/hr IV .Q31M ONE Stop: 01/02/22 09:15 Last Infusion: 01/02/22 09:59 Dose: 0 mls/hr Documented by: [id number] Admin: 01/02/22 09:28 Dose: 999 mls/hr Documented by: [id number] Sodium Chloride (Nss 1000ml) 1,000 mls @ 80 mls/hr IV .[id number] [facility] Stop: 01/03/22 10:59 Last Infusion: 01/03/22 14:03 Dose: 0 mls/hr Documented by: [id number] Admin: 01/03/22 01:27 Dose: 80 mls/hr Documented by: [id number] Infusion: 01/03/22 01:25 Dose: 0 mls/hr Documented by: [id number] Admin: 01/02/22 12:20 Dose: 80 mls/hr Documented by: [id number] Potassium Chloride (K Sumeet / Wtr) 10 meq in 100 mls @ 100 mls/hr IV Q1H [facility]; Protocol Stop: 01/02/22 13:59 Last Infusion: 01/02/22 16:38 Dose: 0 mls/hr Documented by: [id number] Admin: 01/02/22 15:35 Dose: 100 mls/hr Documented by: [id number] Infusion: 01/02/22 15:06 Dose: 0 mls/hr Documented by: [id number] Admin: 01/02/22 13:21 Dose: 100 mls/hr Documented by: [id number] Infusion: 01/02/22 13:21 Dose: 0 mls/hr Documented by: [id number] Admin: 01/02/22 12:20 Dose: 100 mls/hr Documented by: [id number] Infusion: 01/02/22 11:32 Dose: 0 mls/hr Documented by: [id number] Admin: 01/02/22 10:18 Dose: 100 mls/hr Documented by: [id number] Sodium Chloride (Nss 1000ml) 1,000 mls @ 80 mls/hr IV .[id number] [facility] Stop: 02/02/22 16:59 Last Infusion: 01/04/22 11:39 Dose: 0 mls/hr Documented by: [id number] Admin: 01/04/22 05:48 Dose: 80 mls/hr Documented by: [id number] Infusion: 01/04/22 05:47 Dose: 0 mls/hr Documented by: [id number] Admin: 01/03/22 17:22 Dose: 80 mls/hr Documented by: [id number] Menthol (Cough Drop (Sugar Free) Leydi 24 Leydi/1 Box) Confirm Administered Dose 24 leydi BUCCAL .STK-MED ONE Stop: 01/04/22 09:59 Last Admin: 01/04/22 10:15 Dose: 24 leydi Documented by: [id number] Potassium Chloride (Potassium Chloride Crtab 20 Meq Tabcr) 40 meq PO NOW STA Stop: 01/02/22 09:58 Last Admin: 01/02/22 10:16 Dose: 40 meq Documented by: [id number] Imaging Data Radiologist's Impression: Chest X-Ray 01/02/22 07:18 XR chest 1V portable CLINICAL HISTORY: shortness of breath COMPARISON STUDY: Chest radiograph May 20, 2017. FINDINGS: Patient is rotated. This accounts for the prominence. Mild cardiomegaly. No pneumothorax or pleural effusion present. Mild interstitial thickening is present. IMPRESSION: Cardiomegaly. Interstitial thickening which may reflect mild pulmonary edema or less likely an infectious process. ACT 112: Negative or not required by law. Electronically signed by: Vci Avendaño M.D. 01/02/2022 7:38 AM Discharge Plan Visit Data Chief Complaint: Shortness of Breath/Dyspnea ED Provider: Alexandro Lopez Discharge Problem: Weakness, Fatigue, Acute hyponatremia, Persistent cough Patient Disposition: Admitted As Inpatient Discharge Instructions Interventions: ED Discharge Assessment Last Done: 01/02/22 10:51 Discharge Problem: Fatigue Qualifiers: Fatigue type: unspecified Qualified Code(s): R53.83 - Other fatigue
--- NOTE | 2022-01-02 07:39 | XRay Report ---
XR chest 1V portable CLINICAL HISTORY: shortness of breath COMPARISON STUDY: Chest radiograph May 20, 2017. FINDINGS: Patient is rotated. This accounts for the prominence. Mild cardiomegaly. No pneumothorax or pleural effusion present. Mild interstitial thickening is present. IMPRESSION: Cardiomegaly. Interstitial thickening which may reflect mild pulmonary edema or less lik sal an infectious process. ACT 112: Negative or not required by law. Electronically signed by: Vic Avendaño M.D. 01/02/2022 7:38 AM
[2022-01-02 07:54] LABS: Basophils # (auto) 0.02 K/uL (0-0.2); Basophils % (auto) 0.3 %; Eosinophils # (auto) 0.07 K/uL (0-0.5); Eosinophils % (auto) 1.1 %; Hematocrit (blood only) 39.7 % (42-52); Hemoglobin 13.6 g/dL (14.0-18.0); Immature Granulocytes # (auto) 0.02 K/uL (0.00-0.02); Immature Granulocytes % (auto) 0.3 %; Lymphocytes # (auto) 0.85 K/uL (1.2-3.4); Lymphocytes % (auto) 13.5 %; Mean Corpuscular Hemoglobin 29.4 pg (25-34); Mean Corpuscular Hgb Conc 34.3 g/dL (32-36); Mean Corpuscular Volume 85.9 fL (80-100); Mean Platelet Volume 9.6 fL (7.4-10.4); Monocytes # (auto) 0.63 K/uL (0.11-0.59); Neutrophils % (auto) 74.8 %; Platelet Count 195 K/uL (130-400); RDW Coefficient of Variation 13.9 % (11.5-14.5); RDW Standard Deviation 43.7 fL (36.4-46.3); Red Blood Count 4.62 M/uL (4.7-6.1); White Blood Count 6.29 K/uL (4.8-10.8)
[2022-01-02 08:00] LABS: Appearance Urine Clear (Clear); Bacteria Urine Automated Negative (Negative); Bilirubin Urine Negative (Negative); Blood Urine 1+ (Negative); Color Urine Yellow; Glucose Urine UA Negative (Negative); Ketones Urine Negative (Negative); Leukocyte Esterase Urine Negative (Negative); Nitrite Urine Negative (Negative); Protein Urine Negative (Negative); Specific Gravity Urine 1.015 (1.000-1.030); Urobilinogen Urine Negative (Negative); pH Urine 6.5 (4.5-7.5)
[2022-01-02 08:16] LABS: BUN Creatinine Ratio 18.9 (10-20); Bilirubin Direct 0.1 mg/dl (0-0.2); Bilirubin,Total 0.8 mg/dl (0.2-1.0); Calcium 8.6 mg/dl (8.5-10.1); Creatinine Clr Calc Pharmacy 80.8 ml/min; Est GFR (African American) 94.5 ml/min; Est GFR (Non-African American) 81.5 ml/min; Potassium 3.2 mmol/L (3.5-5.1); Total Protein 6.9 gm/dl (6.0-8.3)
[2022-01-02 08:18] LABS: Troponin I High Sensitivity 9.7 pg/ml (0-20)
[2022-01-02 08:34] LABS: Influenza A virus by PCR Negative (Neg); Influenza B virus by PCR Negative (Neg); RSV by PCR Negative (Neg); SARS CoV2 RNA(COVID-19) InHosp NEGATIVE (Negative)
[2022-01-02] MEDS ORDERED: SODIUM CHLORIDE 0.9% 1000ML 500 ML IV ONE (08:45)
[2022-01-02] MEDS ORDERED: POTASSIUM CHLORIDE CRTAB 20 MEQ TABCR PO STA (09:57)
[2022-01-02 10:08] LABS: Thyroid Stimulating Hormone 5.962 uIu/ml (0.300-4.500)
--- NOTE | 2022-01-02 10:15 | History & Physical Report ---
Date of Service January 02, 2022 Assessment & Plan (1) Hyponatremia: Plan: #. Hyponatremia: unsure of chronicity #. Hypokalemia Outpatient lab review with sodium level around 140 Admitting sodium of 123, patient reports decreased appetite due to dry mouth since last 1 week and had 3 diarrhea on the day of arrival. Admitting potassium 3.2 Likely secondary to decreased oral intake coupled with diarrhea versus medication side effect [patient is on high-dose antipsychotic therapy] Will hold trazodone only at this point, continue with other antipsychotics, follow-up BMP. HCTZ held. Get urine sodium, urine osmole, serum osmolality, TSH. NSS at 80 mL an hour. Nephrology consult. Get BNP, if elevated get echo to rule out heart failure. Some concern of pulmonary edema and admitting CXR. Repeat BMP at 4 PM, follow-up results. Correct hypokalemia. #. History of GERD #. Likely worsening GERD Patient complains of increased burping and some belly discomfort, recently completed course of steroid We will put him on PPI, H2 gemma and Tums Continue to monitor clinically, softer diet as tolerated due to dry mouth. #. Major depressive disorder #. On high-dose antipsychotic therapy We will continue home antipsychotics, currently trazodone on hold due to concerns of hyponatremia If further change in medications needed, consider psychiatry consult. #. Mild transaminitis #. History of Marvin Admitting AST and ALT minimally elevated, consistent with outpatient lab review. Continue to monitor. #. Mild pulmonary edema Admitting CXR suggestive of mild pulmonary edema versus infectious process [patient recently was treated with Augmentin for 6 days for sinusitis] Get BNP, echo if BNP elevated. Clinically crackles could not be appreciated. reviewed, sinus rhythm with first-degree heart block with no acute ST or T changes. Continue to monitor clinically, patient on IV fluid, monitor for volume overload . #. Other chronic medical conditions: Resume/continue with home meds as and when appropriate. DVT prophylaxis: Enoxaparin DNR/DNI History of Present Illness Chief Complaint: Generalized complaints for a week. Primary Care Provider: Wendi Love DO 76-year-old male with PMH of Marvin [with minimal transaminitis upon OP lab review], GERD, esophageal dysmotility, history of prostate cancer status post treatment, prediabetes, major depressive disorder on high-dose antipsychotic drug therapy, tardive dyskinesia presented to our ED 01/02 with a week worth of generalized complaints. Per patient, he was started on prednisone and Augmentin almost a week ago for his sinusitis. He is done with prednisone course and he took 6 days worth of Augmentin. Patient is complaining of having headache, dizziness, dry mouth, dry cough, difficulty eating due to dry mouth for about a week. Patient denies sore throat, chest pain, palpitation, belly pain, pain or burning while passing urine, increased frequency or change in color of the urine. Patient also reports having diarrhea 3 times on the day of arrival. Patient reports he is trying to drink enough to keep up with fluid intake. Patient also complains of bloating sensation and burping which has increased lately. Patient denies smoking tobacco/alcohol use/recreational drug use. No personal family history of blood clot. Personal history of prostate cancer status posttreatment. Family history of bowel cancer in nephew and may be lung cancer in sister. He worked in [employer]. DNR/DNI. Allergies Allergy/AdvReac Type Severity Reaction Status Date / Time No Known Allergies Allergy Verified 01/02/22 07:59 Home Medications Medication Instructions Recorded Confirmed Type amlodipine 10 mg tablet (Norvasc) 10 mg PO QAM 11/29/18 01/02/22 History aspirin 81 mg tablet,delayed 81 mg PO QAM 11/29/18 01/02/22 History release loratadine 10 mg tablet (Claritin) 10 mg PO QAM 11/29/18 01/02/22 History omeprazole 20 mg capsule,delayed 20 mg PO BIDM 11/29/18 01/02/22 History release trazodone 150 mg tablet 150 mg PO HS 11/29/18 01/02/22 History zinc 50 mg tablet 50 mg PO QAM 11/29/18 01/02/22 History quetiapine 50 mg tablet (Seroquel) 50 mg PO HS 08/11/19 01/02/22 History docusate sodium 100 mg capsule 100 mg PO DAILY PRN cap 11/19/20 01/02/22 History (Colace) losartan 50 mg-hydrochlorothiazide 1 tab PO DAILY 11/19/20 01/02/22 History 12.5 mg tablet mecobalamin (vitamin B12) 1,000 1,000 mcg SUBLINGUAL DAILY 11/19/20 01/02/22 History mcg disintegrating tablet,sublingual pregabalin 50 mg capsule 50 mg PO TID 11/19/20 01/02/22 History amoxicillin 875 mg-potassium 1 tab PO DAILY 01/02/22 01/02/22 History clavulanate 125 mg tablet pantoprazole 20 mg tablet,delayed 20 mg PO DAILY 01/02/22 01/02/22 History release prednisone 20 mg tablet 20 mg PO DAILY 01/02/22 01/02/22 History Past Med/Surg History Medical History (Updated 01/02/22 @ 10:22 by Jose Li MD) Allergic rhinitis Anemia BPH (benign prostatic hyperplasia) Chronic back pain Degenerative disc disease Depression GERD (gastroesophageal reflux disease) HTN (hypertension) Insomnia MRSA (methicillin resistant Staphylococcus aureus) Osteoarthritis Prostate cancer (04/21/15) Renal calculus Rising PSA level Surgical History (Updated 11/19/20 @ 10:50 by Dyana Ramirez, ASA) H/O adenoidectomy H/O colonoscopy H/O esophagogastroduodenoscopy H/O prostatectomy 10/03/17 Dr. Duran H/O sinus surgery History of cystoscopy Hx of appendectomy Hx of tonsillectomy Family History (Updated 11/19/20 @ 10:15 by Dyana Ramirez, RN) Mother , 75yo Myocardial infarction Father , 74yo Myocardial infarction Liver disease "Drank too much beer" Brother Prostate cancer Brother Myocardial infarction Brother Suicide Brother Accident Sister Cancer Sister Natural with unknown cause Son No problems noted. Son Hypertension Other Family history non-contributory Social History (Updated 11/19/20 @ 10:22 by Dyana Ramirez, RN) Smoking Status: Never smoker Hx Alcohol Use: No Preferred Language: Swedish Communication Ability: Effective Visual Impairment: No Limitations Hearing Ability: Normal Cable Braider Required: No Beliefs That Will Affect Care: None marital status: / Current Living Situation: Alone current occupational status: retired Feels Safe at Home: Yes caffeine: Yes (3 cups/day) during the past year weight has: remained stable Review of Systems Review of Systems: Negative as otherwise mentioned in H&P Physical Exam Physical Exam: GENERAL: Alert and oriented x3. Mild distress, on RA. HEENT: No pallor, no icterus. Pupils equal, round and reactive to light. Oral mucosa dry. NECK: No JVD, no neck masses. HEART: S1 and S2 heard. Regular rate and rhythm. No murmur, no gallop. RESPIRATORY SYSTEM: Normal AP diameter. No accessory muscle use. No wheezing, no crackles. Decreased breath sounds. ABDOMEN: Soft, bowel sounds present, nontender, no distention. CENTRAL NERVOUS SYSTEM: No facial droop. Speech is clear. Obeys simple commands. Moves extremities. EXTREMITIES: No edema, no erythema seen. Results & Data Results & Data ([facility]) Vital Signs (Past 12 Hours) Vital Signs Temp Pulse Resp BP Pulse Ox 01/02/22 09:00 57 L 25 H 148/85 H 96 01/02/22 08:30 60 18 147/86 H 97 01/02/22 08:00 63 21 150/86 H 95 01/02/22 07:30 70 20 156/78 H 97 01/02/22 07:15 36.8 C 68 20 164/85 H 98 Code Status & VTE Plan VTE Prophylaxis Plan VTE Prophylaxis will be ordered: Yes
[2022-01-02] MEDS: amLODIPine BESYLATE 5 MG TAB PO SCH (10:16)
[2022-01-02] MEDS: POTASSIUM CHLORIDE / WTR 10 MEQ/100 ML PLCT IV SCH ×4 (10:18→15:35)
[2022-01-02 10:54] LABS: T4 Free Thyroxine 0.94 ng/dl (0.61-1.60)
[2022-01-02] MEDS ORDERED: DOCUSATE SODIUM 100 MG CAP PO PRN (11:30)
[2022-01-02] MEDS: SODIUM CHLORIDE 0.9% 1000ML 1,000 ML IV SCH (12:20)
--- NOTE | 2022-01-02 12:32 | Nephrology Consultation ---
Date of Consultation January 02, 2022 Assessment & Plan (1) Hyponatremia: Chronic hyponatremia, ie unknown duration therefore presumed chronic; hypovolemic by history, though at risk for euvolemic /SIADH hyponatremia in the setting of decreased oral intake with a day of diarrhea and pre-existing thiazide use. Goal sNa for tomorrow AM is 129. Continue normal saline for now current rate Recheck basic metabolic panel now -40 mEq K repletion will not likely be enough > getting IV K; give po if/as possible -agree w/ no fluid limit for now -agree w/ holding ARB/thiazide, though could likely give former if needed -Further recommendations to depend on f/u labs History of Present Illness Reason for Consultation: Hyponatremia Requesting Physician: Dr. Li Attending Physician: Jose Li MD History of Present Illness 76-year-old male whom I am asked to evaluate for hyponatremia was admitted this morning for sodium 123 in the setting of outpatient thiazide use with poor p.o. intake for the past week and 1 day of diarrhea prior to admission. Past medical history includes hypertension on losartan/hydrochlorothiazide and amlodipine, JOHN, esophageal dysmotility and GERD, major depressive disorder on high-dose antipsychotic medication complicated by tardive dyskinesia, history of prostate cancer status posttreatment. The patient presented 1 week into a course of prednisone and Augmentin therapy for sinusitis. He endorses significant dry mouth in the same timeframe which contributed to challenges maintaining oral intake. Also had 3 loose bowel movements on day of presentation. He was started this morning on normal saline at 80 mL hourly. Osmolality studies and urine sodium are pending. Allergies Allergy/AdvReac Type Severity Reaction Status Date / Time No Known Allergies Allergy Verified 01/02/22 07:59 Home Medications Medication Instructions Recorded Confirmed Type amlodipine 10 mg tablet (Norvasc) 10 mg PO QAM 11/29/18 01/02/22 History aspirin 81 mg tablet,delayed 81 mg PO QAM 11/29/18 01/02/22 History release loratadine 10 mg tablet (Claritin) 10 mg PO QAM 11/29/18 01/02/22 History omeprazole 20 mg capsule,delayed 20 mg PO BIDM 11/29/18 01/02/22 History release trazodone 150 mg tablet 150 mg PO HS 11/29/18 01/02/22 History zinc 50 mg tablet 50 mg PO QAM 11/29/18 01/02/22 History quetiapine 50 mg tablet (Seroquel) 50 mg PO HS 08/11/19 01/02/22 History docusate sodium 100 mg capsule 100 mg PO DAILY PRN cap 11/19/20 01/02/22 History (Colace) losartan 50 mg-hydrochlorothiazide 1 tab PO DAILY 11/19/20 01/02/22 History 12.5 mg tablet mecobalamin (vitamin B12) 1,000 1,000 mcg SUBLINGUAL DAILY 11/19/20 01/02/22 History mcg disintegrating tablet,sublingual pregabalin 50 mg capsule 50 mg PO TID 11/19/20 01/02/22 History amoxicillin 875 mg-potassium 1 tab PO DAILY 01/02/22 01/02/22 History clavulanate 125 mg tablet pantoprazole 20 mg tablet,delayed 20 mg PO DAILY 01/02/22 01/02/22 History release prednisone 20 mg tablet 20 mg PO DAILY 01/02/22 01/02/22 History Patient History Medical History Allergic rhinitis Anemia BPH (benign prostatic hyperplasia) Chronic back pain Degenerative disc disease Depression GERD (gastroesophageal reflux disease) HTN (hypertension) Insomnia MRSA (methicillin resistant Staphylococcus aureus) Osteoarthritis Prostate cancer (04/21/15) Renal calculus Rising PSA level Surgical History H/O adenoidectomy H/O colonoscopy H/O esophagogastroduodenoscopy H/O prostatectomy 10/03/17 Dr. Duran H/O sinus surgery History of cystoscopy Hx of appendectomy Hx of tonsillectomy Family History Mother , 75yo Myocardial infarction Father , 74yo Myocardial infarction Liver disease "Drank too much beer" Brother Prostate cancer Brother Myocardial infarction Brother Suicide Brother Accident Sister Cancer Sister Natural with unknown cause Son No problems noted. Son Hypertension Other Family history non-contributory Social History Smoking Status: Unknown if ever smoked Second Hand Exposure: No; Do You Dip or Chew Tobacco: No; Tobacco Cessation Education Requested by Patient: No Hx Alcohol Use: No Hx Substance Use: No Preferred Language: Persian Communication Ability: Effective Visual Impairment: No Limitations Hearing Ability: Normal Churn Operator Margarine Required: No Beliefs That Will Affect Care: None marital status: / Current Living Situation: Alone current occupational status: retired Other Information That Helps Us Care for You: No Feels Safe at Home: Yes Safety Concerns: Feels Safe At This Time caffeine: Yes (3 cups/day) during the past year weight has: remained stable Assistive Devices: Cane Review of Systems Review of Systems: All systems reviewed & are unremarkable except as noted in HPI & below Physical Exam Constitutional: well developed and + obese; no acute distress Eyes: EOM intact bilaterally ENMT: Ears: no external ear abnormality Nose: no external nose abnormality Mouth: + dry oral mucous membranes Neck: no nuchal rigidity Respiratory: normal respiratory effort Auscultation: lungs clear to auscultation bilaterally (on RA) and + diminished lung sounds Cardiovascular: Rate/Rhythm: regular rate and regular rhythm Extremities: no edema Gastrointestinal (Abdomen): Inspection/Auscultation: normal bowel sounds Percussion/Palpation: abdomen soft; abdomen nontender Musculoskeletal: Extremities: strength 5/5 throughout Skin: no rashes, warm and dry Neurologic: harris, fluent though limited speech, no tremor; some abnormal but symmetric facial grimaces Psychiatric: Orientation: oriented x 3 Results & Data ([facility]) Vital Signs (Past 12 Hours) Vital Signs Temp Pulse Pulse Resp BP BP Pulse Ox 01/02/22 11:51 36.2 C L 68 16 174/80 H 98 01/02/22 09:00 57 L 25 H 148/85 H 96 01/02/22 08:30 60 18 147/86 H 97 01/02/22 08:00 63 21 150/86 H 95 01/02/22 07:30 70 20 156/78 H 97 01/02/22 07:15 36.8 C 68 20 164/85 H 98 Laboratory Results 01/02/22 07:27 01/02/22 07:27 Diagnostic Findings Chest x-ray this morning IMPRESSION: Cardiomegaly. Interstitial thickening which may reflect mild pulmonary edema or less likely an infectious process.
[2022-01-02] MEDS: FAMOTIDINE 20 MG TAB PO SCH ×2 (13:21→21:27)
[2022-01-02] MEDS: LOSARTAN POTASSIUM 50 MG TAB PO SCH (13:22)
[2022-01-02] MEDS: PANTOprazole 40 MG TAB PO SCH ×2 (13:22→21:28)
[2022-01-02] MEDS: PREGABALIN 50 MG CAP PO SCH ×2 (13:25→21:28)
[2022-01-02] MEDS: CALCIUM CARBONATE 500 MG CHEWABLE TAB PO SCH ×2 (13:25→21:28)
[2022-01-02 15:24] LABS: BUN Creatinine Ratio 12.2 (10-20); Calcium 8.8 mg/dl (8.5-10.1); Creatinine Clr Calc Pharmacy 74.2 ml/min; Est GFR (African American) 85.2 ml/min; Est GFR (Non-African American) 73.6 ml/min; Potassium 4.3 mmol/L (3.5-5.1)
[2022-01-02] MEDS ORDERED: traZODone HCL 50 MG TAB PO SCH ×2 (21:00)
[2022-01-02] MEDS: QUEtiapine FUMARATE 25 MG TABLET PO SCH (21:28)
[2022-01-02 23:37] LABS: BUN Creatinine Ratio 13.3 (10-20); Calcium 8.7 mg/dl (8.5-10.1); Creatinine Clr Calc Pharmacy 80.8 ml/min; Est GFR (African American) 94.5 ml/min; Est GFR (Non-African American) 81.5 ml/min; Potassium 4.2 mmol/L (3.5-5.1)
[2022-01-03] MEDS: SODIUM CHLORIDE 0.9% 1000ML 1,000 ML IV SCH ×2 (01:27→17:22)
--- NOTE | 2022-01-03 04:19 | Communication Note ---
Date of Service: January 03, 2022 12:15 AM Patient with either sinus pauses or block PACs on the monitor as per RN. Patient sleeping as per RN. AP Episodic sinus pauses Rule out symptomatic bradycardia as explanation for patient dizziness complaints stated in HPI Continue telemetry monitoring Cardiology consult Re: Episodic sinus pauses N.p.o. until patient evaluated by cardiology. Will relay to AM provider.
--- NOTE | 2022-01-03 06:07 | Electrocardiogram Report ---
Test Reason : Blood Pressure : / mmHG Vent. Rate : 065 BPM Atrial Rate : 065 BPM P-R Int : 224 ms QRS Dur : 116 ms QT Int : 406 ms P-R-T Axes : 048 -10 038 degrees QTc Int : 422 ms Poor data quality, interpretation may be adversely affected Sinus rhythm with 1st degree A-V block Incomplete right bundle branch block Borderline ECG When compared with ECG of 29-NOV-2018 07:16, No significant change was found Confirmed by Jarocho Sands ([id number]) on 01/03/2022 6:07:24 AM Referred By: REFERRED SELF Confirmed By:Jarocho Sands
[2022-01-03 06:29] LABS: Hematocrit (blood only) 39.7 % (42-52); Hemoglobin 13.4 g/dL (14.0-18.0); Mean Corpuscular Hemoglobin 29.5 pg (25-34); Mean Corpuscular Hgb Conc 33.8 g/dL (32-36); Mean Corpuscular Volume 87.3 fL (80-100); Mean Platelet Volume 9.5 fL (7.4-10.4); Platelet Count 204 K/uL (130-400); RDW Coefficient of Variation 14.1 % (11.5-14.5); RDW Standard Deviation 45.4 fL (36.4-46.3); Red Blood Count 4.55 M/uL (4.7-6.1); White Blood Count 5.76 K/uL (4.8-10.8)
[2022-01-03 07:06] LABS: Anion Gap 4 (3-11); BUN Creatinine Ratio 14.6 (10-20); Blood Urea Nitrogen 14 mg/dl (6-23); Calcium 8.9 mg/dl (8.5-10.1); Carbon Dioxide 30 mmol/L (21-32); Chloride 95 mmol/L (98-107); Creatinine Clr Calc Pharmacy 71.6 ml/min; Est GFR (African American) 87.4 ml/min; Est GFR (Non-African American) 75.4 ml/min; Glucose 100 mg/dl (70-99(Fasting)); Magnesium 2.2 mg/dl (1.7-2.4); Phosphorus 2.9 mg/dl (2.5-4.9); Sodium 129 mmol/L (136-145)
[2022-01-03] MEDS: PANTOprazole 40 MG TAB PO SCH ×2 (08:17→21:07)
[2022-01-03] MEDS: FAMOTIDINE 20 MG TAB PO SCH ×2 (08:17→21:06)
[2022-01-03] MEDS: ASPIRIN 81 MG ECTAB PO SCH (08:17)
[2022-01-03] MEDS: LORATADINE 10 MG TAB PO SCH (08:18)
[2022-01-03] MEDS: LOSARTAN POTASSIUM 50 MG TAB PO SCH (08:18)
[2022-01-03] MEDS: CYANOCOBALAMIN (B-12) 500 MCG TABLET PO SCH (08:18)
[2022-01-03] MEDS: ZINC SULFATE 220 MG CAPSULE PO SCH (08:18)
[2022-01-03] MEDS: amLODIPine BESYLATE 5 MG TAB PO SCH (08:19)
--- NOTE | 2022-01-03 08:22 | Cardiology Consultation ---
Date of Consultation January 03, 2022 Assessment & Plan (1) PAC (premature atrial contraction): (2) Hyponatremia: (3) Weakness: (4) Fatigue: Telemetry reviewed, sinus rhythm with blocked PAC's while sleeping no structural abnormality on echo may consider outpatient sleep study or nocturnal pulse ox while admitted no treatment necessary at this time History of Present Illness Reason for Consultation: pause Requesting Physician: Dr. Diaz Attending Physician: Purvi Guillermo DO History of Present Illness 76 yo male admitted for symptomatic hyponatremia. On tele found to have possible sinus pauses or blocked PAC's while sleeping. Denies cardiac symptoms. Main complaint is that of a dry mouth Allergies Allergy/AdvReac Type Severity Reaction Status Date / Time No Known Allergies Allergy Verified 01/02/22 07:59 Home Medications Medication Instructions Recorded Confirmed Type amlodipine 10 mg tablet (Norvasc) 10 mg PO QAM 11/29/18 01/02/22 History aspirin 81 mg tablet,delayed 81 mg PO QAM 11/29/18 01/02/22 History release loratadine 10 mg tablet (Claritin) 10 mg PO QAM 11/29/18 01/02/22 History omeprazole 20 mg capsule,delayed 20 mg PO BIDM 11/29/18 01/02/22 History release trazodone 150 mg tablet 150 mg PO HS 11/29/18 01/02/22 History zinc 50 mg tablet 50 mg PO QAM 11/29/18 01/02/22 History quetiapine 50 mg tablet (Seroquel) 50 mg PO HS 08/11/19 01/02/22 History docusate sodium 100 mg capsule 100 mg PO DAILY PRN cap 11/19/20 01/02/22 History (Colace) losartan 50 mg-hydrochlorothiazide 1 tab PO DAILY 11/19/20 01/02/22 History 12.5 mg tablet mecobalamin (vitamin B12) 1,000 1,000 mcg SUBLINGUAL DAILY 11/19/20 01/02/22 History mcg disintegrating tablet,sublingual pregabalin 50 mg capsule 50 mg PO TID 11/19/20 01/02/22 History amoxicillin 875 mg-potassium 1 tab PO DAILY 01/02/22 01/02/22 History clavulanate 125 mg tablet pantoprazole 20 mg tablet,delayed 20 mg PO DAILY 01/02/22 01/02/22 History release prednisone 20 mg tablet 20 mg PO DAILY 01/02/22 01/02/22 History Patient History Medical History Allergic rhinitis Anemia BPH (benign prostatic hyperplasia) Chronic back pain Degenerative disc disease Depression GERD (gastroesophageal reflux disease) HTN (hypertension) Insomnia MRSA (methicillin resistant Staphylococcus aureus) Osteoarthritis Prostate cancer (04/21/15) Renal calculus Rising PSA level Surgical History H/O adenoidectomy H/O colonoscopy H/O esophagogastroduodenoscopy H/O prostatectomy 10/03/17 Dr. Duran H/O sinus surgery History of cystoscopy Hx of appendectomy Hx of tonsillectomy Family History Mother , 75yo Myocardial infarction Father , 74yo Myocardial infarction Liver disease "Drank too much beer" Brother Prostate cancer Brother Myocardial infarction Brother Suicide Brother Accident Sister Cancer Sister Natural with unknown cause Son No problems noted. Son Hypertension Other Family history non-contributory Social History Smoking Status: Unknown if ever smoked Second Hand Exposure: No; Do You Dip or Chew Tobacco: No; Tobacco Cessation Education Requested by Patient: No Hx Alcohol Use: No Hx Substance Use: No Preferred Language: Croatian Communication Ability: Effective Visual Impairment: No Limitations Hearing Ability: Normal Hotel Breakfast Attendant Required: No Beliefs That Will Affect Care: None marital status: / Current Living Situation: Alone current occupational status: retired Other Information That Helps Us Care for You: No Feels Safe at Home: Yes Safety Concerns: Feels Safe At This Time caffeine: Yes (3 cups/day) during the past year weight has: remained stable Assistive Devices: Cane Review of Systems Review of Systems: All systems reviewed & are unremarkable except as noted in HPI & below Physical Exam Physical Exam: General: Awake, alert and oriented x 3. No acute distress. HEENT: Normocephalic, atraumatic. Pupils equal, round and reactive to light and accommodation. Extraocular muscles are intact. Anicteric sclera. Moist mucous membranes. Neck: No JVD. No bruit. Cardiovascular: Regular. Positive S-4. Normal S-1 and S-2. No S-3. No murmurs or rubs. Pulmonary: Clear to auscultation B/L. No rales, rhonchi or wheezing Abdomen: Bowel sounds x 4, soft. No rebound, guarding or tenderness. No o rganomegaly. Extremities: No clubbing, cyanosis or edema. +2 pedal pulses bilaterally. Skin: Warm and dry. Results & Data ([facility]) Vital Signs (Past 12 Hours) Vital Signs Temp Pulse Pulse Resp BP BP Pulse Ox 01/03/22 07:48 36.5 C 60 18 161/85 H 96 01/03/22 06:15 59 L 01/03/22 04:16 36.8 C 60 18 137/82 94 01/02/22 23:41 36.8 C 54 L 18 134/74 95 01/02/22 23:00 51 L (1) Fatigue Fatigue type: unspecified Qualified Code(s): R53.83 - Other fatigue
[2022-01-03] MEDS: PREGABALIN 50 MG CAP PO SCH ×3 (08:23→21:09)
[2022-01-03] MEDS: CALCIUM CARBONATE 500 MG CHEWABLE TAB PO SCH ×3 (08:24→21:06)
[2022-01-03] MEDS: ENOXAPARIN INJ 40 MG/0.4 ML SYR SQ SCH (09:45)
--- NOTE | 2022-01-03 13:25 | Hospitalist Progress Note ---
Date of Service January 03, 2022 Assessment & Plan (1) Hyponatremia: Plan: Multifactorial. Cont plan per nephrology including NSS and holding ARB/thiazide. Close monitoring with BMP. (2) Cough: Plan: Procalcitonin is normal, cough is improved, no overt infectious symptoms and patient recently completed a short course of Augmentin as outpatient for a presumed "sinus infection." No facial pain at this time. There was interstitial thickening on CXR which may reflect mild pulmonary edema. Would consider Lasix but only if cough persists and once sodium is more normalized. Currently he is breathing well on room air. (3) Hypokalemia: Plan: replaced and now at goal. (4) Belching: Plan: recently completed a 5-day course of prednisone. Home protonix was increased from 20mg daily to 40mg PO BID. Pepcid was added twice daily. (5) Depression: Plan: Continues on home seroquel. Trazodone on hold in setting of low sodium (6) Transaminitis: Plan: Mild LFT elevation and known h/o JOHN. Will trend in am. (7) DVT prophylaxis: Plan: Lovenox DNR Dispo-uncertain at this time. Awaiting correction of electrolytes and for patient to feel better clinically. Purvi [facility]ill[facility] Ad[facility] and Anticipated Discharge Date Admission Date: January 02, 2022 Subjective 76 yo M presented with weakness after recent URI. No longer reporting fevers, and productive cough is now more dry. He is hungry Asking for ice cream and soda. Nurses report he told them he has been eating ice cream and drinking soda all weekend. Overnight there was concern for sinus pauses, and pt was held NPO Denies CP, SOB. Review of Systems Review of Systems: All systems reviewed & are unremarkable except as noted in Subjective Physical Exam Physical Exam: CONSTITUTIONAL: WNWD, vitals as above, generally well- appearing, NAD EYES: normal conjunctivae, no scleral icterus ENT: external ear and nose normal, MMM NECK: trachea midline RESPIRATORY: clear to auscultation bilaterally, no crackles, rales or wheezes, normal respiratory effort CARDIOVASCULAR: regular rate and rhythm, S1 and 2 heard without murmurs, gallops or rubs, no JVD, no peripheral edema CHEST: inspection of chest was normal GASTROINTESTINAL: soft, nontender, ND, no guarding MUSCULOSKELETAL: strength 5/5 throughout, head is normocephalic and atraumatic, neck supple, normal palpation of chest wall without tenderness SKIN: warm and dry NEUROLOGIC: +tardive dyskinesia, CN 2-12 grossly intact, no sensory deficit, normal cognition, normal speech, no tremor PSYCHIATRIC: alert cooperative and oriented to person, place and time. Results & Data Results & Data ([facility]) Vital Signs (Past 12 Hours) Vital Signs Temp Pulse Pulse Resp BP Pulse Ox 01/03/22 11:38 36.4 C L 61 18 157/75 H 97 01/03/22 07:48 36.5 C 60 18 161/85 H 96 01/03/22 06:15 59 L 01/03/22 04:16 36.8 C 60 18 137/82 94 Laboratory Results Short CBC 01/03/22 Range/Units 05:58 WBC 5.76 (4.8-10.8) K/uL Hgb 13.4 L (14.0-18.0) g/dL Hct 39.7 L (42-52) % Plt Count 204 (130-400) K/uL BMP 01/02/22 01/02/22 01/03/22 14:36 22:33 05:58 Sodium 125 L 127 L 129 L Potassium 4.3 D 4.2 TNP Chloride 92 L 95 L 95 L Carbon Dioxide 25 27 30 BUN 12 12 14 Creatinine 0.98 0.90 0.96 Glucose 160 H 110 H 100 H Calcium 8.8 8.7 8.9 01/03/22 07:20 Sodium Potassium 4.3 Chloride Carbon Dioxide BUN Creatinine Glucose Calcium Medications Administered Current Inpatient Medications Amlodipine Besylate (Amlodipine Besylate 5 Mg Tab) [facility] [place]: 02/01/22 09:59 Last Admin: 01/03/22 08:19 Dose: 10 mg Documented by: Aspirin (Aspirin 81 Mg Ectab) [facility]: 02/02/22 08:59 Last Admin: 01/03/22 08:17 Dose: 81 mg Documented by: Calcium Carbonate (Calcium Carbonate 500 Mg Chewable Tab) 1,000 mg PO TID [facility] Stop: 01/05/22 09:01 Last Admin: 01/03/22 08:24 Dose: 1,000 mg Documented by: Cyanocobalamin (Cyanocobalamin (B-12) 500 Mcg Tablet) 1,000 mcg PO DAILY [facility] Stop: 02/02/22 08:59 Last Admin: 01/03/22 08:18 Dose: 1,000 mcg Documented by: Docusate Sodium (Docusate Sodium 100 Mg Cap) 100 mg PO DAILY PRN PRN Reason: Constipation Stop: 02/01/22 11:29 Enoxaparin Sodium (Enoxaparin Inj 40 Mg/0.4 Ml Syr) 40 mg SQ QAM [facility] Stop: 02/02/22 08:59 Last Admin: 01/03/22 09:45 Dose: Not Given Documented by: Famotidine (Famotidine 20 Mg Tab) 20 mg PO BID [facility] Stop: 02/01/22 10:15 Last Admin: 01/03/22 08:17 Dose: 20 mg Documented by: Loratadine (Loratadine 10 Mg Tab) 10 mg PO QAM [facility] Stop: 02/02/22 08:59 Last Admin: 01/03/22 08:18 Dose: 10 mg Documented by: Losartan Potassium (Losartan Potassium 50 Mg Tab) 50 mg PO QAM [facility] Stop: 02/01/22 09:59 Last Admin: 01/03/22 08:18 Dose: 50 mg Documented by: Pantoprazole Sodium (Pantoprazole 40 Mg Tab) 40 mg PO BID [facility] Stop: 02/01/22 10:15 Last Admin: 01/03/22 08:17 Dose: 40 mg Documented by: Pregabalin (Pregabalin 50 Mg Cap) 50 mg PO TID [facility] Stop: 02/01/22 13:59 Last Admin: 01/03/22 08:23 Dose: 50 mg Documented by: Quetiapine Fumarate (Quetiapine Fumarate 25 Mg Tablet) 50 mg PO HS [facility] Stop: 02/01/22 20:59 Last Admin: 01/02/22 21:28 Dose: 50 mg Documented by: Zinc Sulfate (Zinc Sulfate 220 Mg Capsule) 220 mg PO QAM [facility] Stop: 02/02/22 08:59 Last Admin: 01/03/22 08:18 Dose: 220 mg Documented by: (1) Depression Depression Type: unspecified Qualified Code(s): F32.A - Depression, unspecified
--- NOTE | 2022-01-03 16:53 | Nephrology Progress Note ---
Date of Service January 03, 2022 Assessment & Plan (1) Hyponatremia: Plan: Chronic hyponatremia, ie unknown duration therefore presumed chronic; hypovolemic by history and clinically, though at risk for euvolemic /SIADH hyponatremia in the setting of decreased oral intake with a day of diarrhea and pre-existing thiazide use. Goal sNa for today was 129. Goal sNa for tomorrow is wnl sNa. Continue normal saline for now 80 ml/hr-- this was running when I saw him; will reorder Recheck basic metabolic panel daily -if K needed, give po if/as possible -agree w/ no fluid limit for now -agree w/ holding ARB/thiazide, though could likely give former if needed Admission and Anticipated Discharge Date Admission Date: January 02, 2022 Subjective getting TTE today and cardiology eval for PACs on monitor w/ sleep; OP sleep study or noct pulse ox pt c/o dry mouth, missing his dog. no sob, no n/v, no edema, no uncontrolled musculoskeletal pain Review of Systems Review of Systems: All systems reviewed & are unremarkable except as noted in Subjective Physical Exam Constitutional: well developed and + obese; no acute distress Eyes: EOM intact bilaterally ENMT: Ears: no external ear abnormality Nose: no external nose abnormality Mouth: + dry oral mucous membranes Neck: no nuchal rigidity Respiratory: normal respiratory effort Auscultation: lungs clear to auscultation bilaterally (on RA) and + diminished lung sounds Cardiovascular: Rate/Rhythm: regular rate and regular rhythm Extremities: no edema Gastrointestinal (Abdomen): Inspection/Auscultation: + abdomen distended, normal bowel sounds and + caput medusae present Percussion/Palpation: abdomen soft; abdomen nontender Musculoskeletal: Extremities: strength 5/5 throughout Skin: no rashes, warm and dry Neurologic: harris, fluent speech; some facial grimaces at times Psychiatric: Orientation: oriented x 3 Results & Data ([facility]) Vital Signs (Past 12 Hours) Vital Signs Temp Pulse Pulse Resp BP Pulse Ox 01/03/22 16:39 36.5 C 64 16 136/64 95 01/03/22 14:17 70 01/03/22 11:38 36.4 C L 61 18 157/75 H 97 01/03/22 07:48 36.5 C 60 18 161/85 H 96 05/09/22 06:15 59 L Laboratory Results 01/03/22 05:58 01/03/22 07:20
[2022-01-03] MEDS ORDERED: CALCIUM CARBONATE 500 MG CHEWABLE TAB PO PRN (18:13)
[2022-01-03] MEDS: QUEtiapine FUMARATE 25 MG TABLET PO SCH (21:05)
[2022-01-04] MEDS: SODIUM CHLORIDE 0.9% 1000ML 1,000 ML IV SCH (05:48)
[2022-01-04 07:06] LABS: Hematocrit (blood only) 40.2 % (42-52); Hemoglobin 13.6 g/dL (14.0-18.0); Mean Corpuscular Hgb Conc 33.8 g/dL (32-36); Mean Corpuscular Volume 88.5 fL (80-100); Mean Platelet Volume 9.1 fL (7.4-10.4); Platelet Count 201 K/uL (130-400); RDW Coefficient of Variation 13.8 % (11.5-14.5); RDW Standard Deviation 45.2 fL (36.4-46.3); Red Blood Count 4.54 M/uL (4.7-6.1); White Blood Count 5.72 K/uL (4.8-10.8)
--- NOTE | 2022-01-04 07:40 | Nephrology Progress Note ---
Date of Service January 04, 2022 Assessment & Plan (1) Hyponatremia: Plan: Chronic hyponatremia, ie unknown duration therefore presumed chronic; hypovolemic by history and clinically, though at risk for euvolemic /SIADH hyponatremia in the setting of decreased oral intake with a day of diarrhea and pre-existing thiazide use. ? thrush on 01/04 per hospitalist. Goal sNa for today was wnl sNa but sodium moved only minimally -- change/transition approach from hypovolemic to euvolemic stopped NS 1130 am -rechecked labs > 128 Na, K 4.1 this PM -ordered FR 1.5L Recheck basic metabolic panel daily -if K needed, give po if/as possible -agree w/ holding ARB/thiazide, though could likely give former if needed Admission and Anticipated Discharge Date Admission Date: January 02, 2022 Subjective no inteval events. c/o of "greasy" taste in his mouth and poor po d/t this. tells me he had diarrhea again today Review of Systems Review of Systems: All systems reviewed & are unremarkable except as noted in Subjective Physical Exam Constitutional: well developed and + obese; no acute distress Eyes: EOM intact bilaterally ENMT: Ears: no external ear abnormality Nose: no external nose abnormality Mouth: + dry oral mucous membranes Neck: no nuchal rigidity Respiratory: normal respiratory effort Auscultation: lungs clear to auscultation bilaterally (on RA) and + diminished lung sounds Cardiovascular: Rate/Rhythm: regular rate and regular rhythm Extremities: no edema Gastrointestinal (Abdomen): Inspection/Auscultation: + abdomen distended, normal bowel sounds and + caput medusae present Percussion/Palpation: abdomen soft; abdomen nontender Musculoskeletal: Extremities: strength 5/5 throughout Skin: no rashes, warm and dry Psychiatric: Orientation: oriented x 3 Results & Data ([facility]) Vital Signs (Past 12 Hours) Vital Signs Temp Pulse Pulse Resp BP Pulse Ox 01/04/22 06:16 75 01/04/22 03:32 36.8 C 53 L 18 142/74 H 94 01/03/22 23:00 54 L 01/03/22 22:35 36.8 C 54 L 18 106/60 94 Laboratory Results 01/04/22 06:47 01/04/22 15:42 01/04/22 06:47
[2022-01-04 07:45] LABS: BUN Creatinine Ratio 14.4 (10-20); Calcium 8.9 mg/dl (8.5-10.1); Creatinine Clr Calc Pharmacy 75.1 ml/min; Est GFR (African American) 94.5 ml/min; Est GFR (Non-African American) 81.5 ml/min; Magnesium 2.1 mg/dl (1.7-2.4)
[2022-01-04] MEDS: amLODIPine BESYLATE 5 MG TAB PO SCH (07:48)
[2022-01-04] MEDS: CALCIUM CARBONATE 500 MG CHEWABLE TAB PO SCH ×3 (07:49→20:20)
[2022-01-04] MEDS: CYANOCOBALAMIN (B-12) 500 MCG TABLET PO SCH (07:49)
[2022-01-04] MEDS: ENOXAPARIN INJ 40 MG/0.4 ML SYR SQ SCH (07:49)
[2022-01-04] MEDS: ASPIRIN 81 MG ECTAB PO SCH (07:49)
[2022-01-04] MEDS: LOSARTAN POTASSIUM 50 MG TAB PO SCH (07:50)
[2022-01-04] MEDS: PREGABALIN 50 MG CAP PO SCH ×3 (07:50→20:20)
[2022-01-04] MEDS: FAMOTIDINE 20 MG TAB PO SCH ×2 (07:50→20:20)
[2022-01-04] MEDS: PANTOprazole 40 MG TAB PO SCH ×2 (07:50→20:19)
[2022-01-04] MEDS: ZINC SULFATE 220 MG CAPSULE PO SCH (07:50)
[2022-01-04] MEDS: LORATADINE 10 MG TAB PO SCH (07:50)
[2022-01-04] MEDS ORDERED: COUGH DROP (SUGAR FREE) LOZ 24 LOZ/1 BOX BUCCAL ONE (09:58)
--- NOTE | 2022-01-04 10:36 | XRay Report ---
XR chest 1V portable HISTORY: cough, r/o pneumonia COMPARISON: Chest 01/02/2022. FINDINGS: The heart remains enlarged. Mild diffuse interstitial thickening persists.. No new focal yoel ng consolidations to suggest pneumonia. Stable volume loss within the right hemithorax with elevation of the right hemidiaphragm. No pleural effusions. No pneumothorax. IMPRESSION: 1. Stable cardiomegaly and diffuse interstitial thickening. This may be chronic or represent mild con gestive change. 2. No new focal lung consolidations. ACT 112: Negative or not required by law. Electronically signed by: Shadi Fiore M.D. 01/04/2022 10:35 AM
--- NOTE | 2022-01-04 10:44 | Hospitalist Progress Note ---
Date of Service January 04, 2022 Assessment & Plan (1) Hyponatremia: Plan: per Dr. Guillermo's notes with addendum: Multifactorial component of Dehydration Cont plan per nephrology including NSS and holding ARB/thiazide. 01/04 Na still at 130 continue NSS holding ARB/thiazide. (2) Cough: Plan: Procalcitonin is normal, cough is improved, no overt infectious symptoms and patient recently completed a short course of Augmentin as outpatient for a presumed "sinus infection." No facial pain at this time. There was interstitial thickening on CXR which may reflect mild pulmonary edema. Would consider Lasix but only if cough persists and once sodium is more normalized. Currently he is breathing well on room air. 01/04 repeat CXR: no signs of pneumonia sputum culture pending no leukocytosis will not start additional antibiotics at this time Oral Thrush - start Nystatin (3) Hypokalemia: Plan: replaced and now at goal. (4) Belching: Plan: recently completed a 5-day course of prednisone. Home protonix was increased from 20mg daily to 40mg PO BID. Pepcid was added twice daily. 01/04 resolved (5) Depression: Plan: Continues on home seroquel. Trazodone on hold in setting of low sodium 01/04 will consult Psych for medication management (6) Transaminitis: Plan: Mild LFT elevation and known h/o JOHN. Will trend in am. add LFTs to labs today (7) DVT prophylaxis: Plan: Lovenox DNR Dispo-uncertain at this time. Awaiting correction of electrolytes and for patient to feel better clinically. PT/OT ordered Admission and Anticipated Discharge Date Admission Date: January 02, 2022 Subjective ff up for weakness, hyponatremia, etc seen sitting up at the edge of the bed, comfortable states he feels about the same still has some weakness (+) cough with white phlegm, no fever/chills, shortness of breath mouth feels very dry no chest pain, dyspnea, palpitations, dizziness no other symptoms Review of Systems Review of Systems: all noted and negative except for above Physical Exam Constitutional: General- oriented x 3, not in distress, speaks in sentences with no effort or accessory muscle use Head- atraumatic Eyes- PERRL, EOMI, anicteric ENT- (+) mild thrush Neck- supple, no JVD, no adenopathy, no thyromegaly; carotids +2/2, no bruits appreciated Lungs- clear to auscultation bilaterally, no rales/wheezes Heart- normal rate, regular rhythm; no murmur, no gallop, no rub appreciated Abdomen- normal bowel sounds, nondistended, soft, nontender, no masses or hepatosplenomegaly Extremities- no pretibial edema, no calf tenderness; peripheral pulses intact Neuro- alert, oriented x 3; CN 2-12 grossly intact; motor 5/5 bilaterally;sensation 100% on all extremities; no other gross focal neurologic deficits Skin- warm & dry Results & Data Results & Data ([facility]) Vital Signs (Past 12 Hours) Vital Signs Temp Pulse Pulse Resp BP Pulse Ox 01/04/22 07:44 36.6 C 104 H 18 153/79 H 94 01/04/22 06:16 75 01/04/22 03:32 36.8 C 53 L 18 142/74 H 94 01/03/22 23:00 54 L all noted and reviewed including below (1) Depression Depression Type: unspecified Qualified Code(s): F32.A - Depression, unspecified
[2022-01-04 11:30] LABS: Bilirubin Direct 0.2 mg/dl (0-0.2); Bilirubin,Total 0.8 mg/dl (0.2-1.0); Total Protein 7.2 gm/dl (6.0-8.3)
[2022-01-04] MEDS: NYSTATIN SUSP 500,000 U/5 ML UDC PO SCH ×3 (11:39→20:20)
[2022-01-04 16:20] LABS: Calcium 9.3 mg/dl (8.5-10.1); Creatinine Clr Calc Pharmacy 72.6 ml/min; Est GFR (African American) 90.8 ml/min; Est GFR (Non-African American) 78.4 ml/min; Potassium 4.1 mmol/L (3.5-5.1)
[2022-01-04] MEDS ORDERED: COUGH DROP (SUGAR FREE) LOZ 24 LOZ/1 BOX BUCCAL PRN (17:09)
[2022-01-04] MEDS: QUEtiapine FUMARATE 25 MG TABLET PO SCH (20:19)
[2022-01-05] MEDS: amLODIPine BESYLATE 5 MG TAB PO SCH (08:24)
[2022-01-05] MEDS: CYANOCOBALAMIN (B-12) 500 MCG TABLET PO SCH (08:24)
[2022-01-05] MEDS: ASPIRIN 81 MG ECTAB PO SCH (08:24)
[2022-01-05] MEDS: CALCIUM CARBONATE 500 MG CHEWABLE TAB PO SCH (08:24)
[2022-01-05] MEDS: ENOXAPARIN INJ 40 MG/0.4 ML SYR SQ SCH (08:24)
[2022-01-05] MEDS: PANTOprazole 40 MG TAB PO SCH ×2 (08:25→20:03)
[2022-01-05] MEDS: NYSTATIN SUSP 500,000 U/5 ML UDC PO SCH ×4 (08:25→20:03)
[2022-01-05] MEDS: LOSARTAN POTASSIUM 50 MG TAB PO SCH (08:25)
[2022-01-05] MEDS: FAMOTIDINE 20 MG TAB PO SCH ×2 (08:25→20:02)
[2022-01-05] MEDS: ZINC SULFATE 220 MG CAPSULE PO SCH (08:25)
[2022-01-05] MEDS: PREGABALIN 50 MG CAP PO SCH ×3 (08:25→20:03)
[2022-01-05] MEDS: LORATADINE 10 MG TAB PO SCH (08:25)
[2022-01-05] MEDS ORDERED: FUROSEMIDE INJ 20 MG/2 ML VIAL IV ONE (09:55)
[2022-01-05] MEDS ORDERED: POTASSIUM CHLORIDE CRTAB 20 MEQ TABCR PO ONE (09:56)
--- NOTE | 2022-01-05 09:57 | Nephrology Progress Note ---
Date of Service January 05, 2022 Assessment & Plan (1) Hyponatremia: Plan: Chronic hyponatremia, ie unknown duration therefore presumed chronic; hypovolemic by history and clinically, though at risk for euvolemic /SIADH hyponatremia in the setting of decreased oral intake with a day of diarrhea and pre-existing thiazide use. ? thrush on 01/04 per hospitalist. Goal sNa for today was wnl sNa but sodium moved only minimally -- change/transition approach from hypovolemic to euvolemic stopped NS 01/04 -rechecked labs > 129 Na, K 4.1 this PM ; 128 this am -cont FR 1.5L -lasix 20 mg IV x 1 and K 20 mEq po x 1 ordered Recheck basic metabolic panel 1600 -if K needed, give po if/as possible -hold thiazide; agree w/ continue ARB Admission and Anticipated Discharge Date Admission Date: January 02, 2022 Subjective c/o dry mouth is back and very bothersome to pt; biotene spray, sponge solutions do not help he states; no pain. no sob Review of Systems Review of Systems: All systems reviewed & are unremarkable except as noted in Subjective Physical Exam Constitutional: well developed and + obese; no acute distress Eyes: EOM intact bilaterally ENMT: Ears: no external ear abnormality Nose: no external nose abnormality Mouth: + dry oral mucous membranes Neck: no nuchal rigidity Respiratory: normal respiratory effort Auscultation: lungs clear to auscultation bilaterally (on RA) and + diminished lung sounds Cardiovascular: Rate/Rhythm: regular rate and regular rhythm Extremities: no edema Gastrointestinal (Abdomen): Inspection/Auscultation: + abdomen distended, normal bowel sounds and + caput medusae present Percussion/Palpation: abdomen soft; abdomen nontender Musculoskeletal: Extremities: strength 5/5 throughout Skin: no rashes, warm and dry Neurologic: harris, fluent speech, no tremor but + involuntary movement tics facial/limbs Psychiatric: Orientation: oriented x 3 Results & Data ([facility]) Vital Signs (Past 12 Hours) Vital Signs Temp Pulse Resp BP Pulse Ox 01/05/22 07:44 36.7 C 62 20 141/65 H 95 01/05/22 03:31 36.7 C 60 16 134/68 95 01/04/22 23:29 36.7 C 54 L 16 122/69 97 Laboratory Results 01/04/22 06:47 01/04/22 15:42
--- NOTE | 2022-01-05 13:54 | Hospitalist Progress Note ---
Date of Service January 05, 2022 Assessment & Plan (1) Hyponatremia: Plan: per Dr. Guillermo's notes with addendum: Multifactorial component of Dehydration Cont plan per nephrology including NSS and holding ARB/thiazide. 01/05 Na pending NSS on hold holding ARB/thiazide. (2) Cough: Plan: Procalcitonin is normal, cough is improved, no overt infectious symptoms and patient recently completed a short course of Augmentin as outpatient for a presumed "sinus infection." No facial pain at this time. There was interstitial thickening on CXR which may reflect mild pulmonary edema. Would consider Lasix but only if cough persists and once sodium is more normalized. Currently he is breathing well on room air. 01/05 repeat CXR: no signs of pneumonia sputum culture pending no leukocytosis will not start additional antibiotics at this time Oral Thrush - started Nystatin (3) Hypokalemia: Plan: replaced and now at goal. (4) Belching: Plan: recently completed a 5-day course of prednisone. Home protonix was increased from 20mg daily to 40mg PO BID. Pepcid was added twice daily. 01/04 resolved (5) Depression: Plan: Continues on home seroquel. Trazodone on hold in setting of low sodium 01/04 will consult Psych for medication management (6) Transaminitis: Plan: Mild LFT elevation and known h/o JOHN. Will trend in am. add LFTs to labs today (7) DVT prophylaxis: Plan: Lovenox DNR Dispo-uncertain at this time. Awaiting correction of electrolytes and for patient to feel better clinically. PT/OT ordered Admission and Anticipated Discharge Date Admission Date: January 02, 2022 Subjective Follow-up for hyponatremia, etc. Seen resting in bedside chair, not in distress Chief complaint is that his mouth feels very dry Denies pain in his oral mucosa No fevers or chills Weakness gradually improved No other symptom Review of Systems Review of Systems: all noted and negative except for above Physical Exam Physical Exam: General- oriented x 3, not in distress, speaks in sentences with no effort or accessory muscle use Eyes- anicteric Oral mucosa-positive thrush on the tongue Moist Neck- no JVD Lungs- clear breath sounds bilaterally, no rales/wheezes Heart- normal rate, regular rhythm; no murmurs Abdomen- normal bowel sounds, nondistended, soft, nontender Extremities- no pretibial edema, no calf tenderness Neuro- alert, oriented x 3; no gross focal neurologic deficits Skin- warm & dry Results & Data Results & Data ([facility]) Vital Signs (Past 12 Hours) Vital Signs Temp Pulse Pulse Resp BP Pulse Ox 01/05/22 11:03 36.5 C 60 18 148/73 H 97 01/05/22 09:56 63 01/05/22 07:44 36.7 C 62 20 141/65 H 95 01/05/22 03:31 36.7 C 60 16 134/68 95 all noted and reviewed including below (1) Depression Depression Type: unspecified Qualified Code(s): F32.A - Depression, unspecified
[2022-01-05 15:09] LABS: BUN Creatinine Ratio 12.8 (10-20); Calcium 9.3 mg/dl (8.5-10.1); Creatinine Clr Calc Pharmacy 78.1 ml/min; Est GFR (African American) 89.6 ml/min; Est GFR (Non-African American) 77.3 ml/min; Potassium 3.8 mmol/L (3.5-5.1)
[2022-01-05] MEDS: QUEtiapine FUMARATE 25 MG TABLET PO SCH (20:02)
[2022-01-06 06:25] LABS: BUN Creatinine Ratio 15.7 (10-20); Calcium 9.2 mg/dl (8.5-10.1); Creatinine Clr Calc Pharmacy 88.4 ml/min; Est GFR (African American) 97.7 ml/min; Est GFR (Non-African American) 84.3 ml/min; Potassium 3.8 mmol/L (3.5-5.1)
[2022-01-06] MEDS: PREGABALIN 50 MG CAP PO SCH ×3 (07:50→20:13)
[2022-01-06] MEDS: ASPIRIN 81 MG ECTAB PO SCH (07:50)
[2022-01-06] MEDS: NYSTATIN SUSP 500,000 U/5 ML UDC PO SCH ×4 (07:50→20:12)
[2022-01-06] MEDS: CYANOCOBALAMIN (B-12) 500 MCG TABLET PO SCH (07:51)
[2022-01-06] MEDS: FAMOTIDINE 20 MG TAB PO SCH ×2 (07:51→20:12)
[2022-01-06] MEDS: ENOXAPARIN INJ 40 MG/0.4 ML SYR SQ SCH (07:51)
[2022-01-06] MEDS: ZINC SULFATE 220 MG CAPSULE PO SCH (07:51)
[2022-01-06] MEDS: PANTOprazole 40 MG TAB PO SCH ×2 (07:51→20:13)
[2022-01-06] MEDS: LOSARTAN POTASSIUM 50 MG TAB PO SCH (07:51)
[2022-01-06] MEDS: amLODIPine BESYLATE 5 MG TAB PO SCH (07:51)
--- NOTE | 2022-01-06 08:44 | Nephrology Progress Note ---
Date of Service January 06, 2022 Assessment & Plan (1) Hyponatremia: Plan: Chronic hyponatremia, ie unknown duration therefore presumed chronic; hypovolemic by history and clinically, though at risk for euvolemic /SIADH hyponatremia in the setting of decreased oral intake with a day of diarrhea and pre-existing thiazide use. ? thrush on 01/04 per hospitalist. Goal sNa for today was wnl sNa but sodium moved only minimally -- change/transition approach from hypovolemic to euvolemic stopped NS 01/04 -rechecked labs > 129 Na, K 4.1 this PM ; 128 this am -tightened FR to 1.2L Recheck basic metabolic panel 1600 <>K 3.8 and K 129; for more K, lasix this evening -if K needed, give po if/as possible -hold thiazide; agree w/ continue ARB DISCHARGE RECOMMENDATIONS (FOR TOMORROW at [facility]) -check bmp next monday then weekly x 3 total > to be ordered by renal nurse at d/c -hospital follow up appt sussy xie or Dr Sanchez in 1-2 weeks after discharge -d/c med recommendations to follow Admission and Anticipated Discharge Date Admission Date: January 02, 2022 Subjective seen on rounds this am 0950; c/o dry mouth; no sob, no n/v, no voiding c/o Review of Systems Review of Systems: All systems reviewed & are unremarkable except as noted in Subjective Physical Exam Constitutional: well developed and + obese; no acute distress Eyes: EOM intact bilaterally ENMT: Ears: no external ear abnormality Nose: no external nose abnormality Mouth: + dry oral mucous membranes Neck: no nuchal rigidity Respiratory: normal respiratory effort Auscultation: lungs clear to auscult ation bilaterally (on RA) and + diminished lung sounds Cardiovascular: Rate/Rhythm: regular rate and regular rhythm Extremities: + edema (trace) Gastrointestinal (Abdomen): Inspection/Auscultation: + abdomen distended, normal bowel sounds and + caput medusae present Percussion/Palpation: abdomen soft; abdomen nontender Musculoskeletal: Extremities: strength 5/5 throughout Skin: no rashes, warm and dry Psychiatric: Orientation: oriented x 3 Results & Data ([facility]) Vital Signs (Past 12 Hours) Vital Signs Temp Pulse Resp BP BP Pulse Ox 01/06/22 07:11 37 C 66 20 156/79 H 93 01/06/22 03:31 36.6 C 57 L 18 134/74 94 01/05/22 23:00 36.8 C 66 18 139/72 95 Laboratory Results 01/04/22 06:47 01/06/22 05:48
[2022-01-06] MEDS: FUROSEMIDE 40 MG/4 ML VIAL IV SCH ×2 (09:25→16:48)
[2022-01-06] MEDS: POTASSIUM CHLORIDE CRTAB 20 MEQ TABCR PO SCH ×2 (09:25→16:47)
--- NOTE | 2022-01-06 13:20 | Hospitalist Progress Note ---
Date of Service January 06, 2022 Assessment & Plan (1) Hyponatremia: Plan: per Dr. Guillermo's notes with addendum: Multifactorial component of Dehydration Cont plan per nephrology including NSS and holding ARB/thiazide. 01/06 Na 129 NSS on hold Lasix given holding ARB/thiazide. Nephrology on board (2) Cough: Plan: Procalcitonin is normal, cough is improved, no overt infectious symptoms and patient recently completed a short course of Augmentin as outpatient for a presumed "sinus infection." No facial pain at this time. There was interstitial thickening on CXR which may reflect mild pulmonary edema. Would consider Lasix but only if cough persists and once sodium is more normalized. Currently he is breathing well on room air. 01/06 repeat CXR: no signs of pneumonia sputum culture moderate normal mariya no leukocytosis Cough resolved will not start additional antibiotics at this time Oral Thrush -Continue nystatin day #3 (3) Hypokalemia: Plan: replaced and now at goal. (4) Belching: Plan: recently completed a 5-day course of prednisone. Home protonix was increased from 20mg daily to 40mg PO BID. Pepcid was added twice daily. 01/06 resolved (5) Depression: Plan: Continues on home seroquel. Trazodone on hold in setting of low sodium (6) Transaminitis: Plan: Mild LFT elevation and known h/o JOHN. Improving (7) DVT prophylaxis: Plan: Lovenox DNR Dispo-uncertain at this time. Awaiting correction of electrolytes and for patient to feel better clinically. PT/OT ordered Admission and Anticipated Discharge Date Admission Date: January 02, 2022 Subjective Follow-up for hyponatremia, weakness, etc. Seen sitting up in bed, comfortable, not distressed Main complaint today is still having dry mouth No mucosal pain, sore throat, dysphagia No cough, no fevers or chills Weakness improving No other symptoms Review of Systems Review of Systems: all noted and negative except for above Physical Exam Physical Exam: General- oriented x 3, not in distress, speaks in sentences with no effort or accessory muscle use Eyes- anicteric Neck- no JVD Lungs- clear breath sounds,, no crackles or wheezing bilaterally Heart- normal rate, regular rhythm; no murmurs Abdomen- normal bowel sounds, nondistended, soft, nontender Extremities- no pretibial edema, no calf tenderness Neuro- alert, oriented x 3; no gross focal neurologic deficits Skin- warm & dry Results & Data Results & Data ([facility]) Vital Signs (Past 12 Hours) Vital Signs Temp Pulse Pulse Resp BP BP Pulse Ox 01/06/22 10:45 36.8 C 66 18 120/67 94 01/06/22 09:45 65 01/06/22 09:44 68 151/73 H 01/06/22 09:43 68 150/77 H 01/06/22 07:11 37 C 66 20 156/79 H 93 01/06/22 03:31 36.6 C 57 L 18 134/74 94 all noted and reviewed including below (1) Depression Depression Type: unspecified Qualified Code(s): F32.A - Depression, unspecified
[2022-01-06] MEDS: QUEtiapine FUMARATE 25 MG TABLET PO SCH (20:13)
[2022-01-07 07:32] VITALS: O2SAT 95
[2022-01-07] MEDS: POTASSIUM CHLORIDE CRTAB 20 MEQ TABCR PO SCH (07:44)
[2022-01-07] MEDS: ENOXAPARIN INJ 40 MG/0.4 ML SYR SQ SCH (07:45)
[2022-01-07] MEDS: ASPIRIN 81 MG ECTAB PO SCH (07:45)
[2022-01-07] MEDS: CYANOCOBALAMIN (B-12) 500 MCG TABLET PO SCH (07:45)
[2022-01-07] MEDS: amLODIPine BESYLATE 5 MG TAB PO SCH (07:45)
[2022-01-07 07:46] LABS: BUN Creatinine Ratio 14.5 (10-20); Calcium 9.4 mg/dl (8.5-10.1); Creatinine Clr Calc Pharmacy 55.6 ml/min; Est GFR (Non-African American) 51.8 ml/min
[2022-01-07] MEDS: FUROSEMIDE 40 MG/4 ML VIAL IV SCH (07:46)
[2022-01-07] MEDS: LOSARTAN POTASSIUM 50 MG TAB PO SCH (07:46)
[2022-01-07] MEDS: FAMOTIDINE 20 MG TAB PO SCH (07:46)
[2022-01-07] MEDS: ZINC SULFATE 220 MG CAPSULE PO SCH (07:47)
[2022-01-07] MEDS: NYSTATIN SUSP 500,000 U/5 ML UDC PO SCH ×2 (07:47→12:04)
[2022-01-07] MEDS: PANTOprazole 40 MG TAB PO SCH (07:47)
[2022-01-07] MEDS: PREGABALIN 50 MG CAP PO SCH ×2 (07:48→14:28)
--- NOTE | 2022-01-07 09:50 | Nephrology Progress Note ---
Date of Service January 07, 2022 Assessment & Plan (1) Hyponatremia: Plan: Chronic hyponatremia, ie unknown duration therefore presumed chronic; hypovolemic by history and clinically, though at risk for euvolemic /SIADH hyponatremia in the setting of decreased oral intake with a day of diarrhea and pre-existing thiazide use. ? thrush on 01/04 per hospitalist. Goal sNa for today was wnl sNa but sodium moved only minimally -- change/transition approach from hypovolemic to euvolemic sodium stable/slightly better; K ok -will sign off DISCHARGE RECOMMENDATIONS -check bmp next monday then weekly x 3 total > to be ordered by renal nurse at d/c -hospital follow up appt with me or Dr Sanchez in 1-2 weeks after discharge -discharge on fluid limit 1.2L daily -discharge on lasix 80 mg po twice daily with 2nd dose no less than 4 hrs after first -discharge on current losartan dose -discharge on K 20 mEq po bid -do not resume thiazide at d/c Admission and Anticipated Discharge Date Admission Date: January 02, 2022 Subjective seen on rounds at 1025; c/o ongoing dry mouth as previous days; no n/v, no edema, no sob Review of Systems Review of Systems: All systems reviewed & are unremarkable except as noted in Subjective Physical Exam Constitutional: well developed and + obese; no acute distress Eyes: EOM intact bilaterally ENMT: Ears: no external ear abnormality Nose: no external nose abnormality Mouth: + dry oral mucous membranes Neck: no nuchal rigidity Respiratory: normal respiratory effort Auscultation: lungs clear to auscultation bilaterally (on RA) and + diminished lung sounds Cardiovascular: Rate/Rhythm: regular rate and regular rhythm Extremities: + edema (trace) Gastrointestinal (Abdomen): Inspection/Auscultation: + abdomen distended, normal bowel sounds and + caput medusae present Percussion/Palpation: abdomen soft; abdomen nontender Musculoskeletal: Extremities: strength 5/5 throughout Skin: no rashes, warm and dry Psychiatric: Orientation: oriented x 3 Results & Data ([facility]) Vital Signs (Past 12 Hours) Vital Signs Temp Pulse Pulse Resp BP BP Pulse Ox 01/07/22 07:31 36.3 C L 63 18 134/75 95 01/07/22 06:13 62 01/07/22 05:03 51 L 01/07/22 04:00 36.5 C 88 18 121/77 96 01/06/22 23:00 36.7 C 57 L 18 109/68 94 Laboratory Results 01/04/22 06:47 01/07/22 06:26
[2022-01-07 11:50] VITALS: PULSE 76; TEMP 98.1
--- NOTE | 2022-01-07 12:07 | Hospitalist Progress Note ---
Date of Service January 07, 2022 Assessment & Plan (1) Hyponatremia: Plan: per Dr. Guillermo's notes with addendum: Multifactorial component of Dehydration Cont plan per nephrology including NSS and holding ARB/thiazide. 01/07 Na has been steadily improving gradually though, 1 28-1 29-1 30 Initially was given NSS then held Transition to Lasix holding ARB/thiazide. Nephrology on board-Dr. Paul Discharge recommendations: -check bmp next monday then weekly x 3 total > to be ordered by renal nurse at d/c -hospital follow up appt with me or Dr Sanchez in 1-2 weeks after discharge -discharge on fluid limit 1.2L daily -discharge on lasix 80 mg po twice daily with 2nd dose no less than 4 hrs after first -discharge on current losartan dose -discharge on K 20 mEq po bid -do not resume thiazide at d/c (2) Cough: Plan: Procalcitonin is normal, cough is improved, no overt infectious symptoms and patient recently completed a short course of Augmentin as outpatient for a presumed "sinus infection." No facial pain at this time. There was interstitial thickening on CXR which may reflect mild pulmonary edema. Would consider Lasix but only if cough persists and once sodium is more normalized. Currently he is breathing well on room air. 01/07 repeat CXR: no signs of pneumonia sputum culture moderate normal mariya no leukocytosis Cough resolved No antibiotics given while admitted Oral Thrush -Continue nystatin day #4/10 Sensation dry mouth -Positive moist oral mucosa -From oral thrush? On nystatin -From Claritin? Claritin discontinued -Encouraged frequent sips of water, ice chips, chew gum/use lozenges -Follow-up with PCP next week (3) Hypokalemia: Plan: replaced and now at goal. (4) Belching: Plan: recently completed a 5-day course of prednisone. Home protonix was increased from 20mg daily to 40mg PO BID. Pepcid was added twice daily. 01/06 resolved (5) Depression: Plan: Continues on home seroquel. Trazodone on hold in setting of low sodium-okay as per psych (6) Transaminitis: Plan: Mild LFT elevation and known h/o JOHN. Improving (7) DVT prophylaxis: Plan: Lovenox DNR Dispo-PT OT recommend to return home Discharge to home with home health services Follow-up with PCP in 1 week Follow-up with cnc grinder Dr. Paul or Dr. Sanchez in 1 to 2 weeks Admission and Anticipated Discharge Date Admission Date: January 02, 2022 Subjective Follow-up for weakness, hyponatremia, etc. Seen sitting up in bedside chair, comfortable, not in distress States he feels fine overall Still reports mouth feels dry No cough, sore throat, dysphagia, shortness of breath No headache, no dizziness, no chest pain, no palpitations, no nausea vomiting, no problems with urination or bowel movement States he is ambulating well No other symptoms States he is ready and agreeable for discharge today Review of Systems Review of Systems: all noted and negative except for above Physical Exam Physical Exam: General- oriented x 3, not in distress, speaks in sentences with no effort or accessory muscle use Eyes- anicteric Neck- no JVD Lungs- clear breath sounds bilaterally, no wheezing, no crackles noted Mouth-very moist oral mucosa Thrush on the proximal tongue improving No erythema/lesions/exudates noted Heart- normal rate, regular rhythm; no murmurs Abdomen- normal bowel sounds, nondistended, soft, nontender Extremities- no pretibial edema, no calf tenderness Neuro- alert, oriented x 3; no gross focal neurologic deficits Skin- warm & dry Results & Data Results & Data ([facility]) Vital Signs (Past 12 Hours) Vital Signs Temp Pulse Pulse Resp BP BP Pulse Ox 01/07/22 11:49 36.7 C 76 20 147/73 H 95 01/07/22 07:31 36.3 C L 63 18 134/75 95 01/07/22 06:13 62 01/07/22 05:03 51 L 01/07/22 04:00 36.5 C 88 18 121/77 96 all noted and reviewed including below (1) Depression Depression Type: unspecified Qualified Code(s): F32.A - Depression, unspecified
[2022-01-07 12:14] VITALS: BP 134/75
--- NOTE | 2022-01-07 12:30 | Discharge Summary ---
Date of Service January 07, 2022 Admission HPI Per Admitting Provider 76-year-old male with PMH of Marvin [with minimal transaminitis upon OP lab review], GERD, esophageal dysmotility, history of prostate cancer status post treatment, prediabetes, major depressive disorder on high-dose antipsychotic drug therapy, tardive dyskinesia presented to our ED 01/02 with a week worth of generalized complaints. Per patient, he was started on prednisone and Augmentin almost a week ago for his sinusitis. He is done with prednisone course and he took 6 days worth of Augmentin. Patient is complaining of having headache, dizziness, dry mouth, dry cough, difficulty eating due to dry mouth for about a week. Patient denies sore throat, chest pain, palpitation, belly pain, pain or burning while passing urine, increased frequency or change in color of the urine. Patient also reports having diarrhea 3 times on the day of arrival. Patient reports he is trying to drink enough to keep up with fluid intake. Patient also complains of bloating sensation and burping which has increased lately. Patient denies smoking tobacco/alcohol use/recreational drug use. No personal family history of blood clot. Personal history of prostate cancer status posttreatment. Family history of bowel cancer in nephew and may be lung cancer in sister. He worked in [employer]. DNR/DNI. Admission Exam Per Admitting Provider GENERAL: Alert and oriented x3. Mild distress, on RA. HEENT: No pallor, no icterus. Pupils equal, round and reactive to light. Oral mucosa dry. NECK: No JVD, no neck masses. HEART: S1 and S2 heard. Regular rate and rhythm. No murmur, no gallop. RESPIRATORY SYSTEM: Normal AP diameter. No accessory muscle use. No wheezing, no crackles. Decreased breath sounds. ABDOMEN: Soft, bowel sounds present, nontender, no distention. CENTRAL NERVOUS SYSTEM: No facial droop. Speech is clear. Obeys simple commands. Moves extremities. EXTREMITIES: No edema, no erythema seen. Principal Diagnosis Hyponatremia, weakness Discharge Exam General- oriented x 3, not in distress, speaks in sentences with no effort or accessory muscle use Eyes- anicteric Neck- no JVD Lungs- clear breath sounds bilaterally, no wheezing, no crackles noted Mouth-very moist oral mucosa Thrush on the proximal tongue improving No erythema/lesions/exudates noted Heart- normal rate, regular rhythm; no murmurs Abdomen- normal bowel sounds, nondistended, soft, nontender Extremities- no pretibial edema, no calf tenderness Neuro- alert, oriented x 3; no gross focal neurologic deficits Skin- warm & dry Discharge Data Allergies Allergy/AdvReac Type Severity Reaction Status Date / Time No Known Allergies Allergy Verified 01/02/22 07:59 Consultations 01/02/22 09:09 ED Decision to Admit Stat 01/02/22 09:57 Consult Nephrology Routine 01/03/22 00:25 Consult Cardiology Routine Hospital Course (1) Hyponatremia: per Dr. Guillermo's notes with addendum: Multifactorial component of Dehydration Cont plan per nephrology including NSS and holding ARB/thiazide. 01/07 Na has been steadily improving gradually though, 1 28-1 29-1 30 Initially was given NSS then held Transition to Lasix holding ARB/thiazide. Nephrology on board-Dr. Paul Discharge recommendations: -check bmp next monday then weekly x 3 total > to be ordered by renal nurse at d/c -hospital follow up appt with me or Dr Sanchez in 1-2 weeks after discharge -discharge on fluid limit 1.2L daily -discharge on lasix 80 mg po twice daily with 2nd dose no less than 4 hrs after first -discharge on current losartan dose -discharge on K 20 mEq po bid -do not resume thiazide at d/c (2) Cough: Procalcitonin is normal, cough is improved, no overt infectious symptoms and patient recently completed a short course of Augmentin as outpatient for a presumed "sinus infection." No facial pain at this time. There was interstitial thickening on CXR which may reflect mild pulmonary edema. Would consider Lasix but only if cough persists and once sodium is more normalized. Currently he is breathing well on room air. 01/07 repeat CXR: no signs of pneumonia sputum culture moderate normal mariya no leukocytosis Cough resolved No antibiotics given while admitted Oral Thrush -Continue nystatin day #4/10 Sensation dry mouth -Positive moist oral mucosa -From oral thrush? On nystatin -From Claritin? Claritin discontinued -Encouraged frequent sips of water, ice chips, chew gum/use lozenges -Follow-up with PCP next week (3) Hypokalemia: replaced and now at goal. (4) Belching: recently completed a 5-day course of prednisone. Home protonix was increased from 20mg daily to 40mg PO BID. Pepcid was added twice daily. 01/06 resolved (5) Depression: Continues on home seroquel. Trazodone on hold in setting of low sodium- okay as per psych (6) Transaminitis: Mild LFT elevation and known h/o MARVIN. Improving (7) DVT prophylaxis: Lovenox DNR Dispo-PT OT recommend to return home Discharge to home with home health services Follow-up with PCP in 1 week Follow-up with education spec Dr. Paul or Dr. Sanchez in 1 to 2 weeks Total Time Total Time Spent Total Time Spent (In Minutes): >30 minutes Discharge Plan Discharge Items Patient Disposition: Home - Home Health Services Reason For Visit: GENERALIZED COMPLAINTS Discharge Diagnosis: WEAKNESS, HYPONATREMIA Activity: Resume your previous activity Activity Comment: Always be careful with ambulation to prevent falls Driving/Machine Use: No driving until reevaluated and allowed by primary care physician Non-emergency contact: Primary Care Provider Call non-emergency contact if: you have any medication questions, your symptoms worsen, your pain is not controlled, your pain is worsening, your pain is unusual for you, your pain is concerning for you and you have a fever Follow-up/Referrals: Ignacia Abrams MD, PhD [Physician] - (Date & Time 01/28/2022 1:00 PM Provider Ignacia Abrams [place] [address] ) Wendi Love DO [Primary Care Provider] - (Date & Time 01/14/2022 2:50 PM Provider Wendi Love DO Department Family Medicine [facility] ) Diet: Heart Healthy Fluids: 1200ml (5 cups) Addtl Attending Provider Instructions: PLEASE REFER TO YOUR NEW MEDICATION LIST AND FOLLOW INSTRUCTIONS CAREFULLY. YOUR NEW MEDICATIONS INCLUDE: Lasix-diuretic for low sodium level Potassium supplement Nystatin-for treatment of oral thrush PLEASE CALL YOUR PRIMARY CARE PHYSICIAN OR RETURN TO THE ER IF WITH WORSENING OF SYMPTOMS, INCLUDING Weakness, persistent dryness of the mouth or pain in your mouth, Problems with urination or decreased urination, Fever/chills, cough, shortness of breath FOLLOW UP WITH PRIMARY CARE PHYSICIAN AND KIDNEY SPECIALIST OUTLINED ABOVE. Pending Studies at Discharge: Yes Studies:: Repeat blood work on basic metabolic profile on Monday, January 10, 2022. Stand-Alone Forms: [facility] [employer], Smoking Cessation Medications and DC Order Prescriptions: New losartan 50 mg Tablet 50 mg PO QAM 30 Days Qty: 30 RF: 2 nystatin 100,000 unit/mL Suspension 5 ml PO QID 6 Days Qty: 120 RF: 0 furosemide [Lasix] 80 mg tablet 80 mg PO BID 30 Days Qty: 60 RF: 0 potassium chloride 20 mEq Tablet,Er Particles/Crystals 20 meq PO BIDM 30 Days Qty: 60 RF: 0 Continued pregabalin 50 mg capsule 50 mg PO TID RF: 0 mecobalamin (vitamin B12) 1,000 mcg tablet,disintegrating 1,000 mcg sublingual DAILY RF: 0 aspirin 81 mg Tablet,Delayed Release (Dr/Ec) 81 mg PO QAM RF: 0 amlodipine [Norvasc] 10 mg Tablet 10 mg PO QAM RF: 0 zinc 50 mg Tablet 50 mg PO QAM RF: 0 docusate sodium [Colace] 100 mg capsule 100 mg PO DAILY PRN (Reason: Constipation) RF: 0 quetiapine [Seroquel] 50 mg tablet 50 mg PO HS RF: 0 pantoprazole 20 mg tablet,delayed release (DR/EC) 20 mg PO DAILY RF: 0 Discontinued losartan-hydrochlorothiazide 50-12.5 mg tablet 1 tab PO DAILY RF: 0 trazodone 150 mg Tablet 150 mg PO HS RF: 0 omeprazole 20 mg Capsule,Delayed Release(Dr/Ec) 20 mg PO BIDM RF: 0 loratadine [Claritin] 10 mg Tablet 10 mg PO QAM RF: 0 prednisone 20 mg tablet 20 mg PO DAILY RF: 0 amoxicillin-pot clavulanate 875-125 mg tablet 1 tab PO DAILY RF: 0 Discharge Orders: Discharge Order (Routine); Ordered 01/07/22 Ordered By: Robert Armenta Admission Data Admit Date/Time: 01/02/22 09:47 Attending Provider: Robert Armenta Admit Provider: Jose Li Primary Care Provider: Wendi Love Other Providers: Jose Li ; Kartik Sanchez ; Joseph Wahl ; Bryson Liu ; Enrique Villafuerte ; Rufino Hope ; Zheng Maddox. ; Ez Valentin ; Deborah Adams ; Fe Blood ; Beth Chang ; Thai farfan ; Fidencio Huerta [facility] ; Purvi Guillermo Other Interventions: Discharge Summary Assessment (RN) Last Done: 01/07/22 12:11
== END 2022-01-07 15:15 | disposition home health service (06) | DRG 641 ==
LOC: ED 07:06 → 2N 09:47 → SUATTDRO 09:47 → 2N 10:51

== ENCOUNTER 2022-01-10 02:01 | Inpatient (IN) ==
[2022-01-10] MEDS ORDERED: SODIUM CHLORIDE 0.9% 500 ML IV STA (02:17)
--- NOTE | 2022-01-10 02:19 | Emergency Department Note ---
Impression & Plan Hyponatremia ADMIT ED Provider Note HPI: The patient is a 76-year-old gentleman with history of recently diagnosed hyponatremia thought to be multifactorial and with a component of dehydration, presents the emergency department with chief complaint of generalized weakness, lightheadedness, and a sensation of dry mouth that has been worsening over the past 2 days. Patient did recently have an inpatient stay for hyponatremia that was thought to be multifactorial in nature. He is on diuretic therapy. Patient states he has had a sensation of dry mouth during this time which is given him some difficulty with p.o. intake. He arrives to the emergency department hyp ertensive but otherwise in no acute distress on my initial evaluation. ROS: -General: Generalized weakness -HEENT: Sensation of dry mouth *10 point review systems was conducted and is otherwise negative unless stated above *Outpatient medications and allergy history reviewed PE: General: Alert, NAD HEENT: Normocephalic, atraumatic, mildly dry mucous membranes Eyes: Extraocular eye movement is intact, no scleral erythema Pulmonary: Clear to auscultation bilaterally, no wheezing Cardio: Regular rate and rhythm GI: Abdomen is soft, nontender : No suprapubic tenderness MSK: No evidence of trauma or malformation of the extremities, no edema Skin: No evidence of rash Neuro: Alert, no focal deficits Psychiatric: Cooperative monitor car operator: - An order was placed for continuous cardiac monitoring - Patient was noted to be in sinus rhythm with rate of 59 EKG: Rate: 56 Rhythm: Sinus rhythm Intervals: MA interval 242 ms, QRS 122 ms, QTC [address] changes: No ST elevation Time: 0231 Medical Decision Making: Patient presented to the emergency department with a chief complaint of concern for dehydration, lack of urination, states he also has a dry mouth and some generalized weakness. Lab work shows evidence of hyponatremia again at 129, slight hypochloremia as well. Patient's lab work is otherwise generally unremarkable. EKG shows sinus rhythm with a rate of 56. Patient was given some oral intake here in the ED without issue. He also later complained of a se nsation of some diminished urine output but denies any sensation of urinary retention, denies any suprapubic pain. Denies any flank pain or abdominal pain. Patient was given a small bolus of IV fluid of 500 cc normal saline. On my reassessment he states he continues to have some generalized weakness and does not feel well for home. I did therefore discussed the case with the [facility] hospitalist, Dr. Martin, and [facility] of symptomatic hyponatremia. Urinalysis is pending at the time of admission. Diagnosis: 1. Symptomatic hyponatremia 2. Generalized weakness 3. Diminished urine output 4. Sensation of dry mouth Disposition: Admission Ez Weldon DO Emergency Medicine Past Med/Surg History Medical History Allergic rhinitis Anemia BPH (benign prostatic hyperplasia) Chronic back pain Degenerative disc disease Depression GERD (gastroesophageal reflux disease) HTN (hypertension) Insomnia MRSA (methicillin resistant Staphylococcus aureus) Osteoarthritis Prostate cancer (04/21/15) Renal calculus Rising PSA level Surgical History H/O adenoidectomy H/O colonoscopy H/O esophagogastroduodenoscopy H/O prostatectomy 10/03/17 Dr. Duran H/O sinus surgery History of cystoscopy Hx of appendectomy Hx of tonsillectomy Family History Mother , 75yo Myocardial infarction Father , 74yo Myocardial infarction Liver disease "Drank too much beer" Brother Prostate cancer Brother Myocardial infarction Brother Suicide Brother Accident Sister Cancer Sister Natural with unknown cause Son No problems noted. Son Hypertension Other Family history non-contributory Social History Smoking Status: Never smoker Second Hand Exposure: No; Hx Alcohol Use: No Hx Substance Use: No Preferred Language: Cook Islander Communication Ability: Effective Visual Impairment: No Limitations Hearing Ability: Normal E Commerce Marketing Manager Required: No Beliefs That Will Affect Care: None marital status: / Current Living Situation: Alone current occupational status: retired Feels Safe at Home: Yes caffeine: Yes (3 cups/day) during the past year weight has: remained stable Assistive Devices: Cane Allergies Allergies Allergy/AdvReac Type Severity Reaction Status Date / Time No Known Allergies Allergy Verified 01/10/22 02:31 Home Meds Home Medications Medication Instructions Recorded Confirmed amlodipine 10 mg tablet (Norvasc) 10 mg PO QAM 11/29/18 01/10/22 aspirin 81 mg tablet,delayed 81 mg PO QAM 11/29/18 01/10/22 release zinc 50 mg tablet 50 mg PO QAM 11/29/18 01/10/22 quetiapine 50 mg tablet (Seroquel) 50 mg PO HS 08/11/19 01/10/22 docusate sodium 100 mg capsule 100 mg PO DAILY PRN cap 11/19/20 01/10/22 (Colace) mecobalamin (vitamin B12) 1,000 1,000 mcg SUBLINGUAL DAILY 11/19/20 01/10/22 mcg disintegrating tablet,sublingual pregabalin 50 mg capsule 50 mg PO TID 11/19/20 01/10/22 pantoprazole 20 mg tablet,delayed 20 mg PO DAILY 01/02/22 01/10/22 release trazodone 150 mg tablet 150 mg PO HS 01/10/22 01/10/22 Previous Rx's Medication Instructions Recorded furosemide 80 mg tablet (Lasix) 80 mg PO BID 30 Days #60 tab 01/07/22 losartan 50 mg tablet 50 mg PO QAM 30 Days #30 tab 01/07/22 nystatin 100,000 unit/mL oral 5 ml PO QID 6 Days #120 ml 01/07/22 suspension potassium chloride 20 mEq 20 meq PO BIDM 30 Days #60 tab 01/07/22 tablet,extended release(part/cryst) Results & Data (ED) Vital Signs Vital Signs - 24 hr 01/10/22 02:06 01/10/22 02:32 01/10/22 02:33 Temperature 36.9 C Temperature Source Oral Pulse Rate 62 58 L Pulse Rate [Apical] 57 L Pulse Rhythm Regular Pulse Rhythm [Apical] Regular Pulse Strength [Apical] Normal Respiratory Rate 20 18 18 Respiratory Effort / Characteristics Non-Labored Spontaneous Non-Labored Spontaneous Respiratory Depth Normal Normal Respiratory Pattern Regular Blood Pressure 173/74 H Blood Pressure [Left Arm] 173/74 H Blood Pressure Mean 107 Blood Pressure Mean [Left Arm] 107 Blood Pressure Position Sitting Blood Pressure Position [Left Arm] Semi-fowlers Pulse Oximetry 96 96 96 Oxygen Delivery Method Room Air Room Air Sepsis New/Unexplained Change in Mental Status No Sepsis Action Taken by Nursing No Action Required Laboratory Data Result diagrams: 01/10/22 02:40 01/10/22 02:40 Lab Results 01/10/22 01/10/22 Range/Units 02:40 02:40 WBC 5.31 (4.8-10.8) K/uL RBC 4.34 L (4.7-6.1) M/uL Hgb 13.0 L (14.0-18.0) g/dL Hct 38.5 L (42-52) % MCV 88.7 (80-100) fL MCH 30.0 (25-34) pg MCHC 33.8 (32-36) g/dL RDW Std Deviation 44.9 (36.4-46.3) fL RDW Coeff of Thanh 13.8 (11.5-14.5) % Plt Count 156 (130-400) K/uL MPV 8.9 (7.4-10.4) fL Immature Gran % (Auto) 0.0 % Neut % (Auto) 68.9 % Lymph % (Auto) 16.8 % [place] % (Auto) 11.5 % Eos % (Auto) 2.4 % Baso % (Auto) 0.4 % Neut # (Auto) 3.66 (1.4-6.5) K/uL Lymph # (Auto) 0.89 L (1.2-3.4) K/uL [place] # (Auto) 0.61 H (0.11-0.59) K/uL Eos # (Auto) 0.13 (0-0.5) K/uL Baso # (Auto) 0.02 (0-0.2) K/uL Immature Gran # (Auto) 0.00 (0.00-0.02) K/uL Sodium 129 L (136-145) mmol/L Potassium 3.6 (3.5-5.1) mmol/L Chloride 96 L (98-107) mmol/L Carbon Dioxide 25 (21-32) mmol/L Anion Gap 8 (3-11) BUN 17 (6-23) mg/dl Creatinine 0.74 (0.6-1.4) mg/dl Est Cr Clr Drug Dosing Not Reportable Est GFR ( Amer) 102.4 ml/min Est GFR (Non-Af Amer) 88.3 ml/min BUN/Creatinine Ratio 23.0 H (10-20) Glucose 119 H (70-99(Fasting)) mg/dl Calcium 8.8 (8.5-10.1) mg/dl Total Bilirubin 0.8 (0.2-1.0) mg/dl AST 39 (13-39) U/L ALT 40 (7-52) U/L Alkaline Phosphatase 68 (34-104) U/L Total Protein 6.9 (6.0-8.3) gm/dl Albumin 3.9 (3.4-5.0) gm/dl Globulin 3.0 (2.5-4.0) gm/dl Albumin/Globulin Ratio 1.3 (0.9-2) Lipase 51 (11-82) U/L Administered Medications Discontinued Medications Sodium Chloride (Nss) 500 mls @ 999 mls/hr IV .Q31M STA Stop: 01/10/22 02:47 Last Infusion: 01/10/22 03:23 Dose: 0 mls/hr Documented by: [id number] Admin: 01/10/22 02:44 Dose: 999 mls/hr Documented by: [id number] Discharge Plan Visit Data Chief Complaint: Dehydration Stated Complaint: DIZZY, TROUBLE URINATING ED Provider: Ez Weldon Discharge Problem: Hyponatremia Forms Stand Alone Forms: [facility] Prescriptions Prescriptions: No Action pregabalin 50 mg capsule 50 mg PO TID RF: 0 mecobalamin (vitamin B12) 1,000 mcg tablet,disintegrating 1,000 mcg sublingual DAILY RF: 0 aspirin 81 mg Tablet,Delayed Release (Dr/Ec) 81 mg PO QAM RF: 0 amlodipine [Norvasc] 10 mg Tablet 10 mg PO QAM RF: 0 zinc 50 mg Tablet 50 mg PO QAM RF: 0 docusate sodium [Colace] 100 mg capsule 100 mg PO DAILY PRN (Reason: Constipation) RF: 0 quetiapine [Seroquel] 50 mg tablet 50 mg PO HS RF: 0 trazodone 150 mg tablet 150 mg PO HS RF: 0 pantoprazole 20 mg tablet,delayed release (DR/EC) 20 mg PO DAILY RF: 0 losartan 50 mg Tablet 50 mg PO QAM 30 Days Qty: 30 RF: 2 nystatin 100,000 unit/mL Suspension 5 ml PO QID 6 Days Qty: 120 RF: 0 furosemide [Lasix] 80 mg tablet 80 mg PO BID 30 Days Qty: 60 RF: 0 potassium chloride 20 mEq Tablet,Er Particles/Crystals 20 meq PO BIDM 30 Days Qty: 60 RF: 0 Referrals Referrals: Wendi Love DO [Primary Care Provider] -
[2022-01-10 02:52] LABS: Basophils # (auto) 0.02 K/uL (0-0.2); Basophils % (auto) 0.4 %; Eosinophils # (auto) 0.13 K/uL (0-0.5); Eosinophils % (auto) 2.4 %; Hematocrit (blood only) 38.5 % (42-52); Lymphocytes # (auto) 0.89 K/uL (1.2-3.4); Lymphocytes % (auto) 16.8 %; Mean Corpuscular Hgb Conc 33.8 g/dL (32-36); Mean Corpuscular Volume 88.7 fL (80-100); Mean Platelet Volume 8.9 fL (7.4-10.4); Monocytes # (auto) 0.61 K/uL (0.11-0.59); Monocytes % (auto) 11.5 %; Neutrophils # (auto) 3.66 K/uL (1.4-6.5); Neutrophils % (auto) 68.9 %; Platelet Count 156 K/uL (130-400); RDW Coefficient of Variation 13.8 % (11.5-14.5); RDW Standard Deviation 44.9 fL (36.4-46.3); Red Blood Count 4.34 M/uL (4.7-6.1); White Blood Count 5.31 K/uL (4.8-10.8)
[2022-01-10 03:14] LABS: Alanine Aminotransferase 40 U/L (7-52); Albumin Globulin Ratio 1.3 (0.9-2); Albumin Level 3.9 gm/dl (3.4-5.0); Alkaline Phosphatase 68 U/L (34-104); Anion Gap 8 (3-11); Aspartate Aminotransferase 39 U/L (13-39); Bilirubin,Total 0.8 mg/dl (0.2-1.0); Blood Urea Nitrogen 17 mg/dl (6-23); Calcium 8.8 mg/dl (8.5-10.1); Carbon Dioxide 25 mmol/L (21-32); Chloride 96 mmol/L (98-107); Est GFR (African American) 102.4 ml/min; Est GFR (Non-African American) 88.3 ml/min; Glucose 119 mg/dl (70-99(Fasting)); Lipase 51 U/L (11-82); Potassium 3.6 mmol/L (3.5-5.1); Sodium 129 mmol/L (136-145); Total Protein 6.9 gm/dl (6.0-8.3)
[2022-01-10] MEDS ORDERED: NITROGLYCERIN SL 0.4 MG/TAB TAB SL PRN (06:09)
[2022-01-10] MEDS ORDERED: DOCUSATE SODIUM 100 MG CAP PO PRN (06:09)
[2022-01-10] MEDS ORDERED: ACETAMINOPHEN 325 MG TAB PO PRN (06:09)
[2022-01-10] MEDS ORDERED: POLYETHYLENE (MIRALAX) 17 GM PACK PO PRN (06:09)
--- NOTE | 2022-01-10 06:42 | XRay Report ---
XR chest 1V portable HISTORY: 76 years-old Male Weak acute weakness COMPARISON: Chest radiograph 01/04/2022 TECHNIQUE: Portable AP view of the chest FINDINGS: The cardiac silhouette is enlarged. Stable right hemidiaphragmatic elevation. Pulmonary vascular marquita estion with slightly progressed interstitial coarsening. There is no pneumothorax or large pleural ef fusion. Mild bibasilar densities. Degenerative changes of the shoulders and spine. IMPRESSION: Cardiomegaly with pulmonary vascular congestion and slightly progressed interstitial coar sening suggestive of pulmonary edema. ACT 112: Negative or not required by law. The above report was generated using voice recognition software. It may contain grammatical, syntax o r spelling errors. Electronically signed by: Joss Mirza M.D. 01/10/2022 6:41 AM
[2022-01-10 07:28] LABS: BUN Creatinine Ratio 17.9 (10-20); Calcium 8.8 mg/dl (8.5-10.1); Est GFR (African American) 97.2 ml/min; Est GFR (Non-African American) 83.9 ml/min; Potassium 4.2 mmol/L (3.5-5.1)
[2022-01-10] MEDS: HEPARIN SOD 5,000 UNIT/0.5 ML VIAL SQ SCH ×3 (08:12→20:25)
[2022-01-10] MEDS: LOSARTAN POTASSIUM 50 MG TAB PO SCH (08:12)
[2022-01-10] MEDS: amLODIPine BESYLATE 5 MG TAB PO SCH (08:12)
[2022-01-10] MEDS: ZINC SULFATE 220 MG CAPSULE PO SCH (08:13)
[2022-01-10] MEDS: ASPIRIN 81 MG ECTAB PO SCH (08:13)
[2022-01-10] MEDS: CYANOCOBALAMIN (B-12) 500 MCG TABLET PO SCH (08:13)
[2022-01-10] MEDS: PANTOprazole 40 MG TAB PO SCH (08:14)
[2022-01-10] MEDS: PREGABALIN 50 MG CAP PO SCH ×3 (08:17→20:25)
[2022-01-10] MEDS ORDERED: NYSTATIN SUSP 500,000 U/5 ML UDC PO SCH (09:00)
--- NOTE | 2022-01-10 10:07 | History and Physical Report ---
DATE OF ADMISSION: 01/10/2022. CHIEF COMPLAINT: Hyponatremia. HISTORY OF PRESENT ILLNESS: This is a 76-year-old male with past medical history significant for JOHN, GERD, esophageal dysmotility, history of prostate cancer, status post treatment, prediabetes, depression, history of tardive dyskinesia who was recently in the hospital, treated for hyponatremia, thought to be multifactorial. His thiazide was stopped and was placed on Lasix at discharge. Initially was given normal saline and then stopped. He was discharged on a fluid limit of 1.2 liters daily, Lasix 80 mg p.o. b.i.d. and potassium supplements. The patient says he has a lot of dry mouth. It looks like he is not following the fluid restrictions and he is drinking water, but it is not helping and feeling generalized weakness and feeling sore mouth, not eating much because of the dry and sore mouth, dry mouth causing some cough and sore throat. That is the reason he came to the ER. His sodium was 129, given 500 mL of fluids by the ER and tried to discharge, but the patient did not feel like going home, so we were called for admission. He feels some dizziness. Denies any headache. No blurred visions, no earache, no runny nose, no chest pain, no shortness of breath, no fevers, no nausea, no vomiting, no abdominal pain. Normal bladder movements. He says he is micturating very less, only dribbling some amount of urine. No swelling in the legs. ALLERGIES: No known drug allergies. PAST MEDICAL HISTORY: As mentioned above. PAST SURGICAL HISTORY: Colonoscopy, cystoscopy, EGD with biopsy, nasal endoscopy, radical prostate removal, appendectomy, tonsillectomy and adenoidectomy, upper teeth removed. MEDICATIONS: The patient is on amlodipine 10 mg p.o. daily, aspirin 81 mg p.o. daily, Colace 100 mg p.o. daily p.r.n., Lasix 80 mg p.o. b.i.d., losartan 50 mg p.o. a.m., vitamin B12 1000 mcg sublingual daily, nystatin 5 mL p.o. q.i.d., Protonix 20 mg p.o. daily, potassium chloride 20 mEq p.o. b.i.d., pregabalin 50 mg p.o. t.i.d., Seroquel 50 mg p.o. at bedtime, trazodone 150 mg p.o. at bedtime, zinc 50 mg p.o. a.m. FAMILY HISTORY: Significant for maternal grandmother had leukemia; brother had diabetes; sister has diabetes; father has heart disorder, liver problems; mother has heart disorder. SOCIAL HISTORY: . Former smoker, quit in 1979, smoked 20 years. No alcohol use. No drug use. REVIEW OF SYSTEMS: As per HPI. Rest of review of systems is negative. PHYSICAL EXAMINATION: GENERAL: The patient is obese, not in acute distress. VITAL SIGNS: Temperature 36.9, pulse 57, respiratory rate 18, blood pressure 173/74, oxygen 96% on room air. HEENT: Pupils equal, round and reactive to light. Oral mucosa dry and some thrush seen. NECK: No JVD. No neck masses. CARDIOVASCULAR: S1 and S2 heard. Regular rate and rhythm. No murmur, no gallop. RESPIRATORY SYSTEM: Normal AP diameter. No accessory muscle use. No wheezing, no crackles. ABDOMEN: Soft. Bowel sounds are present, nontender, no distention. CENTRAL NERVOUS SYSTEM: Cranial nerves II through XII grossly intact, nonfocal. EXTREMITIES: No edema, no erythema. LABORATORY: WBC 5.3, hemoglobin 13, hematocrit 38.5, platelets 156. Sodium 129, potassium 3.6, chloride 96, bicarb 25, BUN 17, creatinine 0.7, serum glucose 109, calcium 8.8, total bilirubin 0.8, AST 39, ALT 40, alkaline phosphatase 68, lipase 51. SARS-CoV-2 rapid test negative. Chest x-ray: No acute findings. EKG: Sinus bradycardia with sinus arrhythmia, first-degree AV block at a rate of 56, no significant change was found. ASSESSMENT AND PLAN: This is a 76-year-old male who was recently in the hospital for hyponatremia comes because of significant dry mouth and found to have sodium of 129. 1. Hyponatremia: The patient was discharged and thiazide was stopped and placed on Lasix 80 mg b.i.d. and potassium supplements, plus 1.2 liter fluid restriction. The patient seems to be not following fluid restrictions, complaining a lot of dry mouth, not able to eat and drink much because of dry mouth and sore throat. His sodium is 129, given a dose of 500 mL of normal saline in the Emergency Room. We will follow BMP q.6 hours and we will hold further fluids for now, hold the Lasix and potassium supplements for now, and consult nephrology in the a.m. for further recommendations. 2. Oral thrush: Continue nystatin, complete the course. 3. History of hypokalemia: Currently, holding the potassium supplements because Lasix will be held. We will follow the laboratories. 4. Depression: Continue Seroquel. Trazodone was discontinued on last admission because of hyponatremia. 5. History of transaminitis: Follow his liver function tests. 6. Hypertension: Continue his losartan, amlodipine and Lasix. 8. Deep venous thrombosis prophylaxis: Place him on heparin subcutaneously and sequential compression devices. DISPOSITION: Closely monitor in the [employer]. PT/OT prior to discharge. Social Service to help with discharge planning. Level 1, full code. Job ID: [id number] [facility]
[2022-01-10] MEDS ORDERED: FLUCONAZOLE 100 MG TAB PO ONE (11:00)
--- NOTE | 2022-01-10 12:05 | Hospitalist Progress Note ---
Date of Service January 10, 2022 Assessment & Plan (1) Hyponatremia: Plan: ASSESSMENT AND PLAN: This is a 76-year-old male readmitted for weakness and dry mouth, found to have mild hyponatremia 1. Hyponatremia Recently discharged January 07, 2022 after being admitted for multifactorial hyponatremia of 123, nephrology consulted, discharged home on Lasix 80 mg twice a day with potassium supplement and nystatin for oral candidiasis Returned to the ER 01/10/2022 for weakness, found to have mild hyponatremia, still having dry mouth Sodium today 130 Director Radio consulted-awaiting recommendations 2. Oral candidiasis Localized on the tongue No response with trial of nystatin, will start fluconazole 200 mg now, then 100 mg daily x7 to 10 days QT corrected interval 416 Monitor QT corrected interval daily with daily EKGs while on fluconazole 3. History of hypokalemia Potassium 4.2 4. Depression: Continue Seroquel. Trazodone was discontinued on last admission because it was causing hyponatremia. This was discussed with Dr. Tan from psychiatry service. Mood stable 5. History of transaminitis Left is within normal range today 6. Hypertension: Continue losartan, amlodipine 7. Deep venous thrombosis prophylaxis: Heparin subcutaneous Disposition Lives at home PT/OT evaluation Admission and Anticipated Discharge Date Admission Date: January 10, 2022 Subjective Follow-up for mild hyponatremia, weakness, dry mouth, etc. Seen resting in bed, sleeping but easily awakened, not in distress, comfortable Chief complaint is dry mouth with mild pain No dysphagia, odynophagia Denies active dizziness, headache, shortness of breath, cough, abdominal pain, nausea vomiting, fevers or chills States his mood is okay No other symptoms Review of Systems Review of Systems: all noted and negative except for above Physical Exam Physical Exam: General- oriented x 3, not in distress, speaks in sentences with no effort or accessory muscle use Head- atraumatic Eyes- PERRL, EOMI, anicteric ENT-positive for thrush on the tongue (worse than discharge day last week) on the oral mucosa Neck- supple, no JVD, no adenopathy, no thyromegaly; carotids +2/2, no bruits appreciated Lungs- clear to auscultation bilaterally, no rales/wheezes Heart- normal rate, regular rhythm; no murmur, no gallop, no rub appreciated Abdomen- normal bowel sounds, nondistended, soft, nontender, no masses or hepatosplenomegaly Extremities- no pretibial edema, no calf tenderness; peripheral pulses intact Neuro- alert, oriented x 3; CN 2-12 grossly intact; motor 5/5 bilaterally;sensation 100% on all extremities; no other gross focal neurologic deficits Skin- warm & dry Results & Data Results & Data ([facility]) Vital Signs (Past 12 Hours) Vital Signs Temp Pulse Pulse Pulse Resp BP BP 01/10/22 11:03 36.4 C L 81 20 150/68 H 01/10/22 07:05 63 01/10/22 06:37 36.4 C L 73 18 166/90 H 01/10/22 06:20 36.4 C L 73 18 166/90 H 01/10/22 05:23 65 22 165/86 H 01/10/22 02:33 57 L 18 173/74 H 01/10/22 02:32 58 L 18 01/10/22 02:06 36.9 C 62 20 173/74 H Pulse Ox 01/10/22 11:03 97 01/10/22 07:05 01/10/22 06:37 96 01/10/22 06:20 96 01/10/22 05:23 96 01/10/22 02:33 96 01/10/22 02:32 96 01/10/22 02:06 96 all noted and reviewed including below
--- NOTE | 2022-01-10 13:04 | Electrocardiogram Report ---
Test Reason : Blood Pressure : / mmHG Vent. Rate : 056 BPM Atrial Rate : 056 BPM P-R Int : 242 ms QRS Dur : 122 ms QT Int : 432 ms P-R-T Axes : 035 002 016 degrees QTc Int : 416 ms Sinus bradycardia with sinus arrhythmia with 1st degree A-V block Non-specific intra-ventricular conduction delay Borderline ECG When compared with ECG of 02-JAN-2022 07:16, No significant change was found Confirmed by Robbin Balderas ([id number]) on 01/10/2022 1:04:00 PM Referred By: REFERRED SELF Confirmed By:Goldy Balderas
--- NOTE | 2022-01-10 13:15 | Electrocardiogram Report ---
Test Reason : Blood Pressure : / mmHG Vent. Rate : 071 BPM Atrial Rate : 071 BPM P-R Int : 238 ms QRS Dur : 114 ms QT Int : 396 ms P-R-T Axes : 038 -09 028 degrees QTc Int : 430 ms Sinus rhythm with 1st degree A-V block Incomplete right bundle branch block Otherwise normal ECG When compared with ECG of 10-JAN-2022 02:31, (unconfirmed) No significant change was found Confirmed by Robbin Balderas ([id number]) on 01/10/2022 1:15:12 PM Referred By: REFERRED SELF Confirmed By:Goldy Balderas
[2022-01-10 13:46] LABS: Anion Gap 6 (3-11); BUN Creatinine Ratio 16.9 (10-20); Blood Urea Nitrogen 13 mg/dl (6-23); Calcium 8.7 mg/dl (8.5-10.1); Carbon Dioxide 27 mmol/L (21-32); Chloride 95 mmol/L (98-107); Est GFR (African American) 100.7 ml/min; Est GFR (Non-African American) 86.9 ml/min; Glucose 124 mg/dl (70-99(Fasting)); Sodium 128 mmol/L (136-145)
[2022-01-10 13:52] LABS: Appearance Urine Clear (Clear); Bilirubin Urine Negative (Negative); Blood Urine Negative (Negative); Color Urine Yellow; Glucose Urine UA Negative (Negative); Ketones Urine Negative (Negative); Leukocyte Esterase Urine Negative (Negative); Nitrite Urine Negative (Negative); Protein Urine Negative (Negative); Specific Gravity Urine 1.012 (1.000-1.030); Urobilinogen Urine Negative (Negative)
[2022-01-10 19:54] LABS: Calcium 9.2 mg/dl (8.5-10.1); Creatinine Clr Calc Pharmacy 91.3 ml/min; Est GFR (African American) 98.7 ml/min; Est GFR (Non-African American) 85.1 ml/min; Potassium 4.5 mmol/L (3.5-5.1)
[2022-01-10] MEDS ORDERED: QUEtiapine FUMARATE 25 MG TABLET PO SCH (21:00)
--- NOTE | 2022-01-10 21:48 | Consultation Report ---
NEPHROLOGY CONSULTATION NOTE DATE OF SERVICE: 01/10/2022 REASON FOR CONSULTATION: Hyponatremia. HISTORY OF PRESENT ILLNESS: The patient is a 76-year-old male with JOHN, GERD, esophageal dysmotility and various other medical problems, who was recently in the hospital when he was treated with hyponatremia and was discharged. Hyponatremia was attributed to multifactorial, but he was on thiazide prior to hospitalization, which was stopped and he was placed on Lasix at the time of discharge. He was discharged on a fluid limit of 1.2 liters daily and Lasix 80 twice daily with potassium supplement. He presented to the hospital via an ambulance because of feeling of burning tongue. The patient at the time of my history and physical examination was somewhat irritable and wanted to mention about the burning tongue. His sodium was 129 in the Emergency Department. The patient was not following fluid restriction at home as he was complaining of burning in his tongue and he is not eating much food because of burning mouth and tongue. Sodium initially was 129, which then became 130. He got a little bit of IV fluid, but since then has been stopped. ALLERGIES: None. PAST MEDICAL AND PAST SURGICAL HISTORY: Includes JOHN, GERD, esophageal dysmotility, history of prostate cancer, status post treatment, prediabetes, depression, history of tardive dyskinesia, recent history of hyponatremia, radical prostate surgery, appendicectomy, tonsillectomy, adenoidectomy, upper teeth removal, EGD with biopsy, colonoscopy, cystoscopy. MEDICATIONS: At home include amlodipine, aspirin, Colace, Lasix 80 twice daily, which was started recently during the hospital discharge, losartan 50 daily, vitamin B12, nystatin, Protonix, potassium chloride 20 twice daily, Lyrica 50 three times a day, Seroquel, trazodone, and zinc. FAMILY HISTORY: No significant history of renal disease or dialysis. SOCIAL HISTORY: . Former smoker, quit in 1979, smoked for 20 years. No alcohol, no drugs at this time. REVIEW OF SYSTEMS: Very hard to obtain as the patient was not very cooperative with the history and physical. PHYSICAL EXAMINATION: GENERAL: The patient is morbidly obese. He is not in any acute respiratory distress. He is awake, alert, oriented x3. VITAL SIGNS: Show blood pressure 150/68, pulse rate 81, temperature 36.4, 97% on room air. HEENT: Mucous membrane is moist. NECK: Supple. No jugular venous distention. CHEST: Bilaterally clear to auscultation. CARDIOVASCULAR: S1 and S2 regular. ABDOMEN: Soft, nontender. EXTREMITIES: Show trace edema. LABORATORY TEST: The patient had a serum sodium of 130 at the time of discharge on 01/07. He came into the hospital with exactly the same sodium and it is still around 130. ASSESSMENT AND RECOMMENDATIONS: At this point, there is no further workup needed for hyponatremia. This is most likely secondary to multifactorial etiology with excessive fluid intake with some underlying syndrome of inappropriate antidiuretic hormone, which was worsened by the use of hydrochlorothiazide recently; however, there has not been a massive improvement in his sodium even after hydrochlorothiazide was stopped a while ago. However, the serum sodium is not at a dangerous level. 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 Most critical is to follow the fluid restriction, which he is not doing because of his complaint of burning tongue and mouth. I do not know what is the etiology of his burning tongue, but the tongue does not look dry. I will defer the etiology and management of burning tongue to the primary team. I would restart the Lasix 80 twice daily, no more IV fluid. Check urine osmolality and urine sodium. Laboratories once a day at this point. Job ID: [id number] [facility]
[2022-01-11] MEDS: HEPARIN SOD 5,000 UNIT/0.5 ML VIAL SQ SCH ×3 (05:34→20:03)
[2022-01-11 05:55] LABS: Basophils # (auto) 0.01 K/uL (0-0.2); Basophils % (auto) 0.2 %; Eosinophils # (auto) 0.09 K/uL (0-0.5); Eosinophils % (auto) 1.7 %; Hematocrit (blood only) 38.5 % (42-52); Hemoglobin 13.1 g/dL (14.0-18.0); Immature Granulocytes # (auto) 0.01 K/uL (0.00-0.02); Immature Granulocytes % (auto) 0.2 %; Lymphocytes # (auto) 1.14 K/uL (1.2-3.4); Lymphocytes % (auto) 22.1 %; Mean Corpuscular Hemoglobin 30.3 pg (25-34); Mean Corpuscular Volume 88.9 fL (80-100); Mean Platelet Volume 9.2 fL (7.4-10.4); Monocytes # (auto) 0.54 K/uL (0.11-0.59); Monocytes % (auto) 10.5 %; Neutrophils # (auto) 3.37 K/uL (1.4-6.5); Neutrophils % (auto) 65.3 %; Platelet Count 165 K/uL (130-400); RDW Coefficient of Variation 13.6 % (11.5-14.5); RDW Standard Deviation 44.6 fL (36.4-46.3); Red Blood Count 4.33 M/uL (4.7-6.1); White Blood Count 5.16 K/uL (4.8-10.8)
[2022-01-11 06:24] LABS: Albumin Level 3.8 gm/dl (3.4-5.0); BUN Creatinine Ratio 16.9 (10-20); Bilirubin Direct 0.2 mg/dl (0-0.2); Bilirubin,Total 0.8 mg/dl (0.2-1.0); Calcium 9.2 mg/dl (8.5-10.1); Creatinine Clr Calc Pharmacy 88.6 ml/min; Est GFR (African American) 97.7 ml/min; Est GFR (Non-African American) 84.3 ml/min; Magnesium 2.1 mg/dl (1.7-2.4); Potassium 4.2 mmol/L (3.5-5.1); Total Protein 6.7 gm/dl (6.0-8.3)
[2022-01-11] MEDS: PANTOprazole 40 MG TAB PO SCH (07:40)
[2022-01-11] MEDS: ZINC SULFATE 220 MG CAPSULE PO SCH (07:40)
[2022-01-11] MEDS: ASPIRIN 81 MG ECTAB PO SCH (07:41)
[2022-01-11] MEDS: CYANOCOBALAMIN (B-12) 500 MCG TABLET PO SCH (07:41)
[2022-01-11] MEDS: amLODIPine BESYLATE 5 MG TAB PO SCH (07:41)
[2022-01-11] MEDS: LOSARTAN POTASSIUM 50 MG TAB PO SCH (07:41)
[2022-01-11] MEDS: PREGABALIN 50 MG CAP PO SCH ×3 (07:45→20:08)
[2022-01-11] MEDS ORDERED: FLUCONAZOLE 100 MG TAB PO SCH (09:00)
--- NOTE | 2022-01-11 09:49 | Nephrology Progress Note ---
Date of Service January 11, 2022 Assessment & Plan Admission and Anticipated Discharge Date Admission Date: January 10, 2022 Subjective S--no new issues. C/o dry/Burning tongue and mouth. PHYSICAL EXAMINATION: GENERAL: The patient is morbidly obese. He is not in any acute respiratory distress. He is awake, alert, oriented x3. HEENT: Mucous membrane is moist. NECK: Supple. No jugular venous distention. CHEST: Bilaterally clear to auscultation. CARDIOVASCULAR: S1 and S2 regular. ABDOMEN: Soft, nontender. EXTREMITIES: Show trace edema. LABORATORY TEST: The patient had a serum sodium of 130 at the time of discharge on 01/07. He came into the hospital with exactly the same sodium and it is still around 130. ASSESSMENT AND RECOMMENDATIONS: At this point, there is no further workup needed for hyponatremia. This is most likely secondary to multifactorial etiology with excessive fluid intake with some underlying syndrome of inappropriate antidiuretic hormone, which was worsened by the use of hyd rochlorothiazide recently; however, there has not been a massive improvement in his sodium even after hydrochlorothiazide was stopped a while ago. However, the serum sodium is not at a dangerous level. 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 Most critical is to follow the fluid restriction, which he is not doing because of his complaint of burning tongue and mouth. I do not know what is the etiology of his burning tongue, but the tongue does not look dry. I will defer the etiology and management of burning tongue to the primary team. Rec for today: : 1 fluid limit 1500 ml per day. 2 na remains around 130 without lasix. so Will continue with FFR alone and no lasix. 3 urine osm and urine na is consistent with SIADH 4 labs daily at this point Results & Data ([facility]) Vital Signs (Past 12 Hours) Vital Signs Temp Pulse Pulse Resp BP Pulse Ox 01/11/22 07:14 52 L 01/11/22 06:19 36.4 C L 57 L 18 162/83 H 95 01/11/22 02:23 36.6 C 51 L 18 102/56 L 94 01/10/22 22:18 36.7 C 54 L 20 131/76 94 01/10/22 22:17 50 L
[2022-01-11] MEDS: FIRST - Mouthwash BLM 119 ML PO SCH ×2 (17:18→20:08)
--- NOTE | 2022-01-11 17:56 | Hospitalist Progress Note ---
Date of Service January 11, 2022 Assessment & Plan (1) Xerostomia: Plan: Multiple possible etiologies, and is one of his main concerns. Reviewed outpatient chart. Started on Seroquel in 2016 and has been on various dosages. Currently on 50mg qHS and this can have a side effect of dry mouth. Will reduce this to 25mg qHS and ideally he should come off this altogether. He saw Neurology in 2019 and reported tongue burning and a sour taste for 3 years at that time. This is consistent with Seroquel usage. Would attempt a trial off this as a priority and if he still had dry mouth, would walk down a further investigation into autoimmune disease, etc. Also important is good dental health and a checkup will be recommended if he hasn't had one in the last 6 months. Added stomatitis solution today-swish and spit QID for comfort. Encourage sour candies, sugar free lozenges, dried fruit to act as non-drug sialogogue. (2) Lightheadedness: Plan: Lightheadedness and weakness present on readmission, also multifactorial. This patient is deconditioned and had a recent hospitalization. Persistent hyponatremia and home Lasix may have been contributing with dehydration. Medications may also be contributing including pregabalin, Lasix, trazodone, and Seroquel. Seroquel decreased by 50% and trazodone has not been continued. Lasix is currently on hold. 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 PT/OT (3) Hyponatremia: Plan: Sodium remains at 130, likely multifactorial etiology including excessive fluid intake with some underlying syndrome of inappropriate antidiuretic hormone, worsened by the recent use of hydrochlorothiazide. Serum sodium is not at a dangerous level and most critical is to follow the fluid restriction per an hour nephrology who saw him today. Continue fluid restriction of 1500 cc/day we will not start Lasix per nephrology. Continue to trend daily labs. (4) DVT prophylaxis: Plan: Heparin Full code Disposition-pending PT/OT evaluation and recommendations Purvi Guillermo DO [facility] Hospitalist Admission and Anticipated Discharge Date Admission Date: January 10, 2022 Subjective S--no new issues. C/o dry/Burning tongue and mouth. PHYSICAL EXAMINATION: GENERAL: The patient is morbidly obese. He is not in any acute respiratory distress. He is awake, alert, oriented x3. HEENT: Mucous membrane is moist. NECK: Supple. No jugular venous distention. CHEST: Bilaterally clear to auscultation. CARDIOVASCULAR: S1 and S2 regular. ABDOMEN: Soft, nontender. EXTREMITIES: Show trace edema. LABORATORY TEST: The patient had a serum sodium of 130 at the time of discharge on 01/07. He came into the hospital with exactly the same sodium and it is still around 130. ASSESSMENT AND RECOMMENDATIONS: At this point, there is no further workup needed for hyponatremia. This is most likely secondary to multifactorial etiology with excessive fluid intake with some underlying syndrome of inappropriate antidiuretic hormone, which was worsened by the use of hydrochlorothiazide recently; however, there has not been a massive improvement in his sodium even after hydrochlorothiazide was stopped a while ago. However, the serum sodium is not at a dangerous level. 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 Most critical is to follow the fluid restriction, which he is not doing because of his complaint of burning tongue and mouth. I do not know what is the etiology of his burning tongue, but the tongue does not look dry. I will defer the etiology and management of burning tongue to the primary team. Rec for today: : 1 fluid limit 1500 ml per day. 2 na remains around 130 without lasix. so Will continue with FFR alone and no lasix. 3 urine osm and urine na is consistent with SIADH 4 labs daily at this point Results & Data Results & Data ([facility]) Vital Signs (Past 12 Hours) Vital Signs Temp Pulse Pulse Resp BP Pulse Ox 01/11/22 15:38 36.7 C 62 16 128/67 96 01/11/22 14:57 67 01/11/22 10:44 37.0 C 60 18 126/68 94 01/11/22 07:14 52 L 01/11/22 06:19 36.4 C L 57 L 18 162/83 H 95 Laboratory Results Short CBC 01/11/22 Range/Units 05:19 WBC 5.16 (4.8-10.8) K/uL Hgb 13.1 L (14.0-18.0) g/dL Hct 38.5 L (42-52) % Plt Count 165 (130-400) K/uL BMP 01/10/22 01/11/22 19:07 05:19 Sodium 128 L 130 L Potassium 4.5 4.2 Chloride 95 L 95 L Carbon Dioxide 28 28 BUN 13 14 Creatinine 0.81 0.83 Glucose 107 H 103 H Calcium 9.2 9.2 Liver Function 01/11/22 Range/Units 05:19 Total Bilirubin 0.8 (0.2-1.0) mg/dl Direct Bilirubin 0.2 (0-0.2) mg/dl AST 33 (13-39) U/L ALT 39 (7-52) U/L Alkaline Phosphatase 71 (34-104) U/L Albumin 3.8 (3.4-5.0) gm/dl Medications Administered Current Inpatient Medications Acetaminophen (Acetaminophen 325 Mg Tab) 650 mg PO Q4H PRN PRN Reason: Pain or Fever Stop: 02/09/22 06:08 Amlodipine Besylate (Amlodipine Besylate 5 Mg Tab) 10 mg PO [facility] Stop: 02/09/22 08:59 Last Admin: 01/11/22 07:41 Dose: 10 mg Documented by: Aspirin (Aspirin 81 Mg Ectab) 81 mg PO [facility] Stop: 02/09/22 08:59 Last Admin: 01/11/22 07:41 Dose: 81 mg Documented by: Cyanocobalamin (Cyanocobalamin (B-12) 500 Mcg Tablet) 1,000 mcg PO DAILY [facility] Stop: 02/09/22 08:59 Last Admin: 01/11/22 07:41 Dose: 1,000 mcg Documented by: Docusate Sodium (Docusate Sodium 100 Mg Cap) 100 mg PO DAILY PRN PRN Reason: Constipation Stop: 02/09/22 06:08 Fluconazole (Fluconazole 100 Mg Tab) 100 mg PO [facility] Stop: 01/21/22 08:59 Last Admin: 01/11/22 07:40 Dose: 100 mg Documented by: Heparin Sodium (Porcine) (Heparin Sod 5,000 Unit/0.5 Ml Vial) 5,000 units SQ Q8 [facility] Stop: 02/09/22 06:29 Last Admin: 01/11/22 13:28 Dose: 5,000 units Documented by: Losartan Potassium (Losartan Potassium 50 Mg Tab) [facility] Stop: 02/09/22 08:59 Last Admin: 01/11/22 07:41 Dose: 50 mg Documented by: Multi-Ingredient Mouthwash/Gargle (First - Mouthwash Blm 119 Ml) 15 ml PO QID [facility] Stop: 02/10/22 16:59 Last Admin: 01/11/22 17:18 Dose: 15 ml Documented by: Nitroglycerin (Nitroglycerin Sl 0.4 Mg/Tab Tab) 0.4 mg SL UD PRN PRN Reason: Chest Pain Stop: 02/09/22 06:08 Pantoprazole Sodium (Pantoprazole 40 Mg Tab) 40 mg PO DAILY [facility] Stop: 02/09/22 08:59 Last Admin: 01/11/22 07:40 Dose: 40 mg Documented by: Polyethylene Glycol (Polyethylene (Miralax) 17 Gm Pack) 17 gm PO DAILY PRN PRN Reason: Constipation Stop: 02/09/22 06:08 Pregabalin (Pregabalin 50 Mg Cap) 50 mg PO TID [facility] Stop: 02/09/22 08:59 Last Admin: 01/11/22 13:28 Dose: 50 mg Documented by: Quetiapine Fumarate (Quetiapine Fumarate 25 Mg Tablet) 50 mg PO HS [facility] Stop: 02/09/22 20:59 Last Admin: 01/10/22 20:25 Dose: 50 mg Documented by: Zinc Sulfate (Zinc Sulfate 220 Mg Capsule) 220 mg PO QAM [facility] Stop: 02/09/22 08:59 Last Admin: 01/11/22 07:40 Dose: 220 mg Documented by:
[2022-01-11] MEDS: QUEtiapine FUMARATE 25 MG TABLET PO SCH (20:03)
[2022-01-12] MEDS: HEPARIN SOD 5,000 UNIT/0.5 ML VIAL SQ SCH ×3 (05:23→20:03)
[2022-01-12] MEDS: ZINC SULFATE 220 MG CAPSULE PO SCH (07:51)
[2022-01-12] MEDS: CYANOCOBALAMIN (B-12) 500 MCG TABLET PO SCH (07:51)
[2022-01-12] MEDS: LOSARTAN POTASSIUM 50 MG TAB PO SCH (07:52)
[2022-01-12] MEDS: PANTOprazole 40 MG TAB PO SCH (07:52)
[2022-01-12] MEDS: FIRST - Mouthwash BLM 119 ML PO SCH ×4 (07:52→20:03)
[2022-01-12] MEDS: amLODIPine BESYLATE 5 MG TAB PO SCH (07:53)
[2022-01-12] MEDS: ASPIRIN 81 MG ECTAB PO SCH (07:53)
[2022-01-12] MEDS: PREGABALIN 50 MG CAP PO SCH ×3 (07:57→20:02)
[2022-01-12 08:11] LABS: BUN Creatinine Ratio 17.5 (10-20); Calcium 9.4 mg/dl (8.5-10.1); Creatinine Clr Calc Pharmacy 75.8 ml/min; Est GFR (African American) 86.3 ml/min; Est GFR (Non-African American) 74.5 ml/min; Potassium 4.6 mmol/L (3.5-5.1)
--- NOTE | 2022-01-12 13:50 | Hospitalist Progress Note ---
Date of Service January 12, 2022 Assessment & Plan (1) Xerostomia: Plan: Multiple possible etiologies, and is one of his main concerns. Reviewed outpatient chart. Started on Seroquel in 2016 and has been on various dosages. Cont on reduced 25mg qHS, and ideally he should come off this altogether. He saw Neurology in 2019 and reported tongue burning and a sour taste for 3 years at that time. This is consistent with Seroquel usage with dyskinetic movements also concerning as a side effect of long-term Seroquel usage. Would attempt a trial off this as a priority and if he still had dry mouth, would walk down a further investigation into autoimmune disease, etc. Also important is good dental health and a checkup will be recommended if he hasn't had one in the last 6 months. Added stomatitis solution today-swish and spit QID for comfort. Encourage sour candies, sugar free lozenges, dried fruit to act as non-drug sialogogue. (2) Lightheadedness: Plan: Lightheadedness and weakness present on readmission, also multifactorial. This patient is deconditioned and had a recent hospitalization. Persistent hyponatremia and home Lasix may have been contributing with dehydration. Medications may also be contributing including pregabalin, Lasix, trazodone, and Seroquel. Seroquel decreased by 50% and trazodone has not been continued. Lasix is currently on hold. 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 PT/OT. May need to consider reducing pregabalin to help with lightheadedness if persistent. (3) Hyponatremia: Plan: hyponatremia likely a combination of excess fluid intake and underlying SIADH Sodium remains at 130, likely multifactorial etiology including excessive fluid intake with some underlying syndrome of inappropriate antidiuretic hormone, worsened by the recent use of hydrochlorothiazide. Serum sodium is not at a dangerous level and most critical is to follow the fluid restriction per an hour nephrology who saw him today. Continue fluid restriction of 1500 cc/day we will not start Lasix per nephrology. Continue to trend daily labs. (4) DVT prophylaxis: Plan: Heparin Full code Disposition-pending PT/OT evaluation and recommendations Purvi Guillermo DO [facility] Hospitalist Admission and Anticipated Discharge Date Admission Date: January 10, 2022 Subjective 76-year-old man who presents for readmission for lightheadedness and persistent dry mouth with burning tongue Patient reports some improvement with stomatitis solution but he is a poor historian and unsure if this He continues to discuss his dry mouth and does not know if his lightheadedness is better, but thinks so I tried to discuss side effects of Seroquel and how we are cutting this down and he continued to redirect towards his dry mouth He denies any andrew pain and I reiterated the pant plan a couple of times His questions appeared to be answered and he seems to understand the days plan Including physical and occupational therapy evaluation today. 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, PERRL, normal conjunctivae, no scleral icterus ENT: external ear and nose normal, oropharynx clear, poor dentition, MMM, no tongue changes NECK: trachea midline, no lymphadenopathy RESPIRATORY: clear to auscultation bilaterally, no crackles, rales or wheezes, normal respiratory effort CARDIOVASCULAR: regular rate and rhythm, S1 and 2 heard without murmurs, gallops or rubs, no JVD, no peripheral edema CHEST: inspection of chest was normal GASTROINTESTINAL: soft, nontender, ND, no guarding MUSCULOSKELETAL: strength 5/5 throughout, head is normocephalic and atraumatic, neck supple SKIN: warm and dry NEUROLOGIC: No facial palsy, no dysarthria. Some tongue flicking activity. CN 2-12 grossly intact, no sensory deficit, normal cognition, normal speech, no obvious tremor but there is constant movement of his hands and arms, almost suggestive of an involuntary dyskinesia. PSYCHIATRIC: alert cooperative and oriented to person, place and time. Results & Data Results & Data ([facility]) Vital Signs (Past 12 Hours) Vital Signs Temp Pulse Pulse Resp BP BP Pulse Ox 01/12/22 10:58 36.6 C 60 20 149/77 H 97 01/12/22 07:19 71 01/12/22 06:31 36.4 C L 66 20 157/77 H 95 01/12/22 03:34 36.8 C 58 L 20 125/68 95 Laboratory Results BMP 01/12/22 06:32 Sodium 130 L Potassium 4.6 Chloride 95 L Carbon Dioxide 29 BUN 17 Creatinine 0.97 Glucose 111 H Calcium 9.4 Medications Administered Current Inpatient Medications Acetaminophen (Acetaminophen 325 Mg Tab) 650 mg PO Q4H PRN PRN Reason: Pain or Fever Stop: 02/09/22 06:08 Amlodipine Besylate (Amlodipine Besylate 5 Mg Tab) [facility] Stop: 02/09/22 08:59 Last Admin: 01/12/22 07:53 Dose: 10 mg Documented by: Aspirin (Aspirin 81 Mg Ectab) [facility] Stop: 02/09/22 08:59 Last Admin: 01/12/22 07:53 Dose: 81 mg Documented by: Cyanocobalamin (Cyanocobalamin (B-12) 500 Mcg Tablet) 1,000 mcg PO DAILY [facility] Stop: 02/09/22 08:59 Last Admin: 01/12/22 07:51 Dose: 1,000 mcg Documented by: Docusate Sodium (Docusate Sodium 100 Mg Cap) 100 mg PO DAILY PRN PRN Reason: Constipation Stop: 02/09/22 06:08 Heparin Sodium (Porcine) (Heparin Sod 5,000 Unit/0.5 Ml Vial) 5,000 units SQ Q8 [facility] Stop: 02/09/22 06:29 Last Admin: 01/12/22 13:28 Dose: 5,000 units Documented by: Losartan Potassium (Losartan Potassium 50 Mg Tab) 50 mg PO QAM [facility] Stop: 02/09/22 08:59 Last Admin: 01/12/22 07:52 Dose: 50 mg Documented by: Multi-Ingredient Mouthwash/Gargle (First - Mouthwash Blm 119 Ml) 15 ml PO QID [facility] Stop: 02/10/22 16:59 Last Admin: 01/12/22 13:28 Dose: 15 ml Documented by: Nitroglycerin (Nitroglycerin Sl 0.4 Mg/Tab Tab) 0.4 mg SL UD PRN PRN Reason: Chest Pain Stop: 02/09/22 06:08 Pantoprazole Sodium (Pantoprazole 40 Mg Tab) 40 mg PO DAILY [facility] Stop: 02/09/22 08:59 Last Admin: 01/12/22 07:52 Dose: 40 mg Documented by: Polyethylene Glycol (Polyethylene (Miralax) 17 Gm Pack) 17 gm PO DAILY PRN PRN Reason: Constipation Stop: 02/09/22 06:08 Pregabalin (Pregabalin 50 Mg Cap) 50 mg PO TID [facility] Stop: 02/09/22 08:59 Last Admin: 01/12/22 13:33 Dose: 50 mg Documented by: Quetiapine Fumarate (Quetiapine Fumarate 25 Mg Tablet) 25 mg PO HS [facility] Stop: 02/10/22 20:59 Last Admin: 01/11/22 20:03 Dose: 25 mg Documented by: Zinc Sulfate (Zinc Sulfate 220 Mg Capsule) 220 mg PO QAM [facility] Stop: 02/09/22 08:59 Last Admin: 01/12/22 07:51 Dose: 220 mg Documented by:
--- NOTE | 2022-01-12 14:52 | Electrocardiogram Report ---
Test Reason : Blood Pressure : / mmHG Vent. Rate : 060 BPM Atrial Rate : 060 BPM P-R Int : 258 ms QRS Dur : 112 ms QT Int : 410 ms P-R-T Axes : 048 002 039 degrees QTc Int : 410 ms Sinus rhythm with sinus arrhythmia with 1st degree A-V block Otherwise normal ECG When compared with ECG of 11-JAN-2022 05:48, (unconfirmed) Incomplete left bundle block is no longer Present Confirmed by Robbin Balderas ([id number]) on 01/12/2022 2:52:07 PM Referred By: REFERRED SELF Confirmed By:Goldy Balderas
--- NOTE | 2022-01-12 16:12 | Electrocardiogram Report ---
Test Reason : Blood Pressure : / mmHG Vent. Rate : 062 BPM Atrial Rate : 062 BPM P-R Int : 234 ms QRS Dur : 114 ms QT Int : 416 ms P-R-T Axes : 034 004 033 degrees QTc Int : 422 ms Sinus rhythm with sinus arrhythmia with 1st degree A-V block Borderline ECG Confirmed by Robbin Balderas ([id number]) on 01/12/2022 4:11:51 PM Referred By: REFERRED SELF Confirmed By:Goldy Balderas
[2022-01-12] MEDS: QUEtiapine FUMARATE 25 MG TABLET PO SCH (20:02)
[2022-01-13] MEDS: HEPARIN SOD 5,000 UNIT/0.5 ML VIAL SQ SCH ×3 (05:11→21:16)
[2022-01-13] MEDS: ASPIRIN 81 MG ECTAB PO SCH (07:33)
[2022-01-13] MEDS: amLODIPine BESYLATE 5 MG TAB PO SCH (07:34)
[2022-01-13] MEDS: LOSARTAN POTASSIUM 50 MG TAB PO SCH (07:34)
[2022-01-13] MEDS: ZINC SULFATE 220 MG CAPSULE PO SCH (07:34)
[2022-01-13] MEDS: PREGABALIN 50 MG CAP PO SCH ×3 (07:34→21:16)
[2022-01-13] MEDS: CYANOCOBALAMIN (B-12) 500 MCG TABLET PO SCH (07:34)
[2022-01-13] MEDS: PANTOprazole 40 MG TAB PO SCH (07:34)
[2022-01-13] MEDS: FIRST - Mouthwash BLM 119 ML PO SCH ×4 (07:35→21:16)
--- NOTE | 2022-01-13 10:36 | Hospitalist Progress Note ---
Date of Service January 13, 2022 Assessment & Plan (1) Xerostomia: Plan: Multiple possible etiologies, and is one of his main concerns. Reviewed outpatient chart. Started on Seroquel in 2016 and has been on various dosages. Currently on 50mg qHS and this can have a side effect of dry mouth. Reduced to 25mg qHS foro past two nights, and ideally he should come off this altogether. He saw Neurology in 2019 and reported tongue burning and a sour taste for 3 years at that time. This is consistent with Seroquel usage. Would attempt a trial off this as a priority and if he still had dry mouth, would walk down a further investigation into autoimmune disease, etc. Also important is good dental health and a checkup will be recommended if he hasn't had one in the last 6 months. Added stomatitis solution -swish and spit QID for comfort. Encourage sour candies, sugar free lozenges, dried fruit to act as non-drug sialogogue. This is helping. Will add Mallory maguire to help him with severe insomnia. Educated him on the possibility of additional side effects. (2) Lightheadedness: Plan: Lightheadedness and weakness present on readmission, also multifactorial. This patient is deconditioned and had a recent hospitalization. Persistent hyponatremia and home Lasix may have been contributing with dehydration. Medications may also be contributing including pregabalin, Lasix, trazodone, and Seroquel. Seroquel decreased by 50% and trazodone has not been continued. Lasix is currently on hold. 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 PT/OT ok with returning home. Encouraged to ambulate and he is around the hallways. He now thinks this may be related to no sleep. Mallory maguire as above. (3) Hyponatremia: Plan: Sodium remains at 130, likely multifactorial etiology including excessive fluid intake with some underlying syndrome of inappropriate antidiuretic hormone, worsened by the recent use of hydrochlorothiazide. Serum sodium is not at a dangerous level and most critical is to follow the fluid restriction per an hour nephrology who saw him today. Continue fluid restriction of 1500 cc/day we will not start Lasix per nephrology. Continue to trend daily labs. (4) DVT prophylaxis: Plan: Heparin Full code Disposition-pending PT/OT evaluation and recommendations Purvi Guillermo DO [facility] Hospitalist Admission and Anticipated Discharge Date Admission Date: January 10, 2022 Subjective 76-year-old man who presents for readmission for lightheadedness and persistent dry mouth with burning tongue mouth still greasy but burning sensation has decreased he is concerned because he hasn't slept in two days otherwise not issues walking around without issue 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, PERRL, normal conjunctivae, no scleral icterus ENT: external ear and nose normal, oropharynx clear, poor dentition, MMM, no tongue changes NECK: trachea midline RESPIRATORY: clear to auscultation bilaterally, no crackles, rales or wheezes, normal respiratory effort CARDIOVASCULAR: regular rate and rhythm, S1 and 2 heard without murmurs, gallops or rubs, no JVD, no peripheral edema CHEST: inspection of chest was normal GASTROINTESTINAL: soft, nontender, ND, no guarding MUSCULOSKELETAL: strength 5/5 throughout, head is normocephalic and atraumatic, neck supple SKIN: warm and dry NEUROLOGIC: No facial palsy, no dysarthria. Some tongue flicking activity. CN 2-12 grossly intact, no sensory deficit, normal cognition, normal speech, no obvious tremor but there is constant movement of his hands and arms, almost suggestive of an involuntary dyskinesia. PSYCHIATRIC: alert cooperative and oriented to person, place and time. Results & Data Results & Data ([facility]) Vital Signs (Past 12 Hours) Vital Signs Temp Pulse Resp BP Pulse Ox 01/13/22 06:43 36.9 C 63 18 152/71 H 95 01/13/22 03:07 37.0 C 58 L 18 110/68 94 01/12/22 23:28 37.0 C 59 L 18 120/75 94 Medications Administered Current Inpatient Medications Acetaminophen (Acetaminophen 325 Mg Tab) 650 mg PO Q4H PRN PRN Reason: Pain or Fever Stop: 02/09/22 06:08 Amlodipine Besylate (Amlodipine Besylate 5 Mg Tab) 10 mg PO QAM [facility] Stop: 02/09/22 08:59 Last Admin: 01/13/22 07:34 Dose: 10 mg Documented by: Aspirin (Aspirin 81 Mg Ectab) 81 mg PO QAM [facility] Stop: 02/09/22 08:59 Last Admin: 01/13/22 07:33 Dose: 81 mg Documented by: Cyanocobalamin (Cyanocobalamin (B-12) 500 Mcg Tablet) 1,000 mcg PO DAILY [facility] Stop: 02/09/22 08:59 Last Admin: 01/13/22 07:34 Dose: 1,000 mcg Documented by: Docusate Sodium (Docusate Sodium 100 Mg Cap) 100 mg PO DAILY PRN PRN Reason: Constipation Stop: 02/09/22 06:08 Heparin Sodium (Porcine) (Heparin Sod 5,000 Unit/0.5 Ml Vial) 5,000 units SQ Q8 [facility] Stop: 02/09/22 06:29 Last Admin: 01/13/22 05:11 Dose: 5,000 units Documented by: Losartan Potassium (Losartan Potassium 50 Mg Tab) 50 mg PO QAM [facility] Stop: 02/09/22 08:59 Last Admin: 01/13/22 07:34 Dose: 50 mg Documented by: Multi-Ingredient Mouthwash/Gargle (First - Mouthwash Blm 119 Ml) 15 ml PO QID [facility] Stop: 02/10/22 16:59 Last Admin: 01/13/22 07:35 Dose: 15 ml Documented by: Nitroglycerin (Nitroglycerin Sl 0.4 Mg/Tab Tab) 0.4 mg SL UD PRN PRN Reason: Chest Pain Stop: 02/09/22 06:08 Pantoprazole Sodium (Pantoprazole 40 Mg Tab) 40 mg PO DAILY [facility] Stop: 02/09/22 08:59 Last Admin: 01/13/22 07:34 Dose: 40 mg Documented by: Polyethylene Glycol (Polyethylene (Miralax) 17 Gm Pack) 17 gm PO DAILY PRN PRN Reason: Constipation Stop: 02/09/22 06:08 Pregabalin (Pregabalin 50 Mg Cap) 50 mg PO TID [facility] Stop: 02/09/22 08:59 Last Admin: 01/13/22 07:34 Dose: 50 mg Documented by: Quetiapine Fumarate (Quetiapine Fumarate 25 Mg Tablet) 25 mg PO HS [facility] Stop: 02/10/22 20:59 Last Admin: 01/12/22 20:02 Dose: 25 mg Documented by: Zinc Sulfate (Zinc Sulfate 220 Mg Capsule) [facility] [place] Stop: 02/09/22 08:59 Last Admin: 01/13/22 07:34 Dose: 220 mg Documented by:
[2022-01-13] MEDS ORDERED: ZOLPIDEM TARTRATE 5 MG TAB PO SCH (21:00)
[2022-01-14] MEDS: HEPARIN SOD 5,000 UNIT/0.5 ML VIAL SQ SCH ×2 (05:46→14:46)
[2022-01-14] MEDS: CYANOCOBALAMIN (B-12) 500 MCG TABLET PO SCH (07:40)
[2022-01-14] MEDS: PANTOprazole 40 MG TAB PO SCH (07:41)
[2022-01-14] MEDS: amLODIPine BESYLATE 5 MG TAB PO SCH (07:41)
[2022-01-14] MEDS: ASPIRIN 81 MG ECTAB PO SCH (07:41)
[2022-01-14] MEDS: ZINC SULFATE 220 MG CAPSULE PO SCH (07:41)
[2022-01-14] MEDS: LOSARTAN POTASSIUM 50 MG TAB PO SCH (07:41)
[2022-01-14] MEDS: FIRST - Mouthwash BLM 119 ML PO SCH ×2 (07:44→13:08)
[2022-01-14] MEDS: PREGABALIN 50 MG CAP PO SCH ×2 (07:47→14:46)
[2022-01-14 08:19] LABS: BUN Creatinine Ratio 21.7 (10-20); Calcium 9.5 mg/dl (8.5-10.1); Creatinine Clr Calc Pharmacy 79.9 ml/min; Est GFR (Non-African American) 79.4 ml/min; Potassium 4.3 mmol/L (3.5-5.1)
--- NOTE | 2022-01-14 10:32 | Nephrology Progress Note ---
Date of Service January 14, 2022 Assessment & Plan Admission and Anticipated Discharge Date Admission Date: January 10, 2022 Subjective Subjective S--no new issues. Not C//o dry/Burning tongue and mouth anymore. Na dropped a bit. PHYSICAL EXAMINATION: GENERAL: The patient is morbidly obese. He is not in any acute respiratory distress. He is awake, alert, oriented x3. HEENT: Mucous membrane is moist. NECK: Supple. No jugular venous distention. CHEST: Bilaterally clear to auscultation. CARDIOVASCULAR: S1 and S2 regular. ABDOMEN: Soft, nontender. EXTREMITIES: Show trace edema. LABORATORY TEST: na dropped a bit now to 128. ASSESSMENT AND RECOMMENDATIONS: At this point, there is no further workup needed for hyponatremia. This is most likely secondary to multifactorial etiology with excessive fluid intake with some underlying syndrome of inappropriate antidiuretic hormone, which was worsened by the use of hydrochlorothiazide recently; however, there has not been a massive improvement in his sodium even after hydrochlorothiazide was stopped a while ago. However, the serum sodium is not at a dangerous level. 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 Most critical is to follow the fluid restriction, which he is not doing because of his complaint of burning tongue and mouth. I do not know what is the etiology of his burning tongue, but the tongue does not look dry. I will defer the etiology and management of burning tongue to the primary team. Rec for today: : 1 fluid limit 1500 ml per day. 2 na dropped without lasix. restart his home lasix 80 bid. 3 urine osm and urine na is consistent with SIADH but he also drinks a lot of fluid at home 4 labs daily at this point Results & Data ([place]) Vital Signs (Past 12 Hours) Vital Signs Temp Pulse Resp BP Pulse Ox 01/14/22 07:54 36.6 C 62 16 138/72 96
[2022-01-14] MEDS ORDERED: FUROSEMIDE 80 MG TAB PO SCH (10:45)
[2022-01-14 14:13] VITALS: TEMP 98.1; O2SAT 94
--- NOTE | 2022-01-14 16:14 | Discharge Summary ---
Date of Service January 14, 2022 Admission HPI Per Admitting Provider This is a 76-year-old male with past medical history significant for JOHN, GERD, esophageal dysmotility, history of prostate cancer, status post treatment, prediabetes, depression, history of tardive dyskinesia who was recently in the hospital, treated for hyponatremia, thought to be multifactorial. His thiazide was stopped and was placed on Lasix at discharge. Initially was given normal saline and then stopped. He was discharged on a fluid limit of 1.2 liters daily, Lasix 80 mg p.o. b.i.d. and potassium supplements. The patient says he has a lot of dry mouth. It looks like he is not following the fluid restricti ons and he is drinking water, but it is not helping and feeling generalized weakness and feeling sore mouth, not eating much because of the dry and sore mouth, dry mouth causing some cough and sore throat. That is the reason he came to the ER. His sodium was 129, given 500 mL of fluids by the ER and tried to discharge, but the patient did not feel like going home, so we were called for admission. He feels some dizziness. Denies any headache. No blurred visions, no earache, no runny nose, no chest pain, no shortness of breath, no fevers, no nausea, no vomiting, no abdominal pain. Normal bladder movements. He says he is micturating very less, only dribbling some amount of urine. No swelling in the legs. Admission Exam Per Admitting Provider GENERAL: The patient is obese, not in acute distress. VITAL SIGNS: Temperature 36.9, pulse 57, respiratory rate 18, blood pressure 173/74, oxygen 96% on room air. HEENT: Pupils equal, round and reactive to light. Oral mucosa dry and some thrush seen. NECK: No JVD. No neck masses. CARDIOVASCULAR: S1 and S2 heard. Regular rate and rhythm. No murmur, no gallop. RESPIRATORY SYSTEM: Normal AP diameter. No accessory muscle use. No wheezing, no crackles. ABDOMEN: Soft. Bowel sounds are present, nontender, no distention. CENTRAL NERVOUS SYSTEM: Cranial nerves II through XII grossly intact, nonfocal. EXTREMITIES: No edema, no erythema. 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, PERRL, normal conjunctivae, no scleral icterus ENT: external ear and nose normal, oropharynx clear, poor dentition, MMM, no tongue changes NECK: trachea midline RESPIRATORY: clear to auscultation bilaterally, no crackles, rales or wheezes, normal respiratory effort CARDIOVASCULAR: regular rate and rhythm, S1 and 2 heard without murmurs, gallops or rubs, no JVD, no peripheral edema CHEST: inspection of chest was normal GASTROINTESTINAL: soft, nontender, ND, no guarding MUSCULOSKELETAL: strength 5/5 throughout, head is normocephalic and atraumatic, neck supple SKIN: warm and dry NEUROLOGIC: No facial palsy, no dysarthria. Some tongue flicking activity. CN 2-12 grossly intact, no sensory deficit, normal cognition, normal speech, no obvious tremor but there is constant movement of his hands and arms, almost suggestive of an involuntary dyskinesia. PSYCHIATRIC: alert cooperative and oriented to person, place and time. Discharge Data Allergies Allergy/AdvReac Type Severity Reaction Status Date / Time No Known Allergies Allergy Verified 01/10/22 02:31 Consultations 01/10/22 08:00 Consult Nephrology Routine Hospital Course (1) Xerostomia: (2) Lightheadedness: (3) Hyponatremia: 76 yo M readmitted with lightheadedness. This patient lives alone and was recently admitted for lightheadedness, hyponatremia and xerostomia, the last of which has been a significant concern of his for over 6 years. Labs revealed a sodium of 129. He was given 500cc IV NSSS and admitted to the hospitalist service. He was recently on a thiazide which had been stopped and Lasix 80mg BID started in its place. Nephrology was consulted and the patient reported not following the fluid restriction that was prescribed because of his tongue symptoms, specifically burning and a greasy taste to food. There was no further workup for this hyponatremia, considered to be from excessive fluid intake with some underlying SIADH. Lasix was restarted and his sodium remained around 130 during his hospital stay. He continued to report lightheadedness and some tongue flicking and involuntary movements with his arms and head, which may be consistent with an involuntary dyskinesia was noted. With this in the setting of xerostomia that was severe, Seroquel was thought to be the culprit and he was slowly weaned off this. He should remain off this and follow-up with PCP in 1-2 weeks to monitor for symptom improvement. He should also remain off trazodone and work on his insomnia from another angle. He was educated again on fluid restriction. He did report his lightheadedness was likely from not sleeping well. He was stable for discharge home with close primary care follow-up recommended. Total Time Total Time Spent Total Time Spent (In Minutes): 60 Discharge Plan Discharge Items Patient Disposition: Home - Home Health Services Reason For Visit: DEHYDRATION Discharge Diagnosis: Lightheadedness Xerostomia Hyponatremia Condition on Discharge: Good Activity: Resume your previous activity Non-emergency contact: Primary Care Provider Call non-emergency contact if: you have any medication questions, your symptoms worsen, your pain is not controlled, your pain is worsening, your pain is unusual for you, your pain is concerning for you and you have a fever Follow-up/Referrals: Ignacia Abrams MD, PhD [Physician] - (Date & Time 01/28/2022 1:00 PM Provider Ignacia Abrams MD Department Nephrology, [facility] ) Wendi Love DO [Primary Care Provider] - (Date & Time 01/19/2022 1:40 PM Provider Minda Spencer MD Department Family Medicine [facility] ) Diet: Regular Addtl Attending Provider Instructions: Please take all medications as instructed on the medication list below. Please note changes include: STOP Seroquel (quietapine) STOP Trazodone DECREASE Pregabalin (Lyrica) to 50mg twice daily It is recommended that you follow-up with your kidney doctor and primary care doctor at the dates/times above to check on your sodium level and ensure you are doing well with these medication changes. Please continue to restrict water intake to 1.5 L daily. It was a pleasure taking care of you! Please call if you have any questions or problems. You can reach a [facility] hospitalist on duty at [facility] 24 hours a day by calling [phone]. Take care of yourself. Purvi Guillermo [facility] P[facility] Studies at Discharge: No Stand-Alone Forms: My [facility] Medications and DC Order Prescriptions: Continued mecobalamin (vitamin B12) 1,000 mcg tablet,disintegrating 1,000 mcg sublingual DAILY RF: 0 aspirin 81 mg Tablet,Delayed Release (Dr/Ec) 81 mg PO QAM RF: 0 amlodipine [Norvasc] 10 mg Tablet 10 mg PO QAM RF: 0 zinc 50 mg Tablet 50 mg PO QAM RF: 0 docusate sodium [Colace] 100 mg capsule 100 mg PO DAILY PRN (Reason: Constipation) RF: 0 pantoprazole 20 mg tablet,delayed release (DR/EC) 20 mg PO DAILY RF: 0 losartan 50 mg Tablet 50 mg PO QAM 30 Days Qty: 30 RF: 2 furosemide [Lasix] 80 mg tablet 80 mg PO BID 30 Days Qty: 60 RF: 0 potassium chloride 20 mEq Tablet,Er Particles/Crystals 20 meq PO BIDM 30 Days Qty: 60 RF: 0 Changed pregabalin 50 mg capsule 50 mg PO BID Qty: 0 RF: 0 Discontinued quetiapine [Seroquel] 50 mg tablet 50 mg PO HS RF: 0 trazodone 150 mg tablet 150 mg PO HS RF: 0 nystatin 100,000 unit/mL Suspension 5 ml PO QID 6 Days Qty: 120 RF: 0 Discharge Orders: Discharge Order (Routine); Ordered 01/14/22 Ordered By: Purvi Guillermo Admission Data Admit Date/Time: 01/10/22 04:33 Attending Provider: Purvi Guillermo Admit Provider: Ishan Martin Primary Care Provider: Wendi Love Other Providers: Fidencio Huerta [facility] ; Ignacia Abrams Other Interventions: Discharge Summary Assessment (RN) Last Done: 01/14/22 16:18
[2022-01-14 16:19] VITALS: BP 163/74; PULSE 62
== END 2022-01-14 17:16 | disposition home health service (06) | DRG 644 ==
LOC: ED 02:01 → 2N 04:33 → SUATTDRO 04:33 → 2N 06:06 → 3W 01-13 18:05

== ENCOUNTER 2023-11-13 03:32 | Inpatient (IN) ==
--- OUTSIDE RECORDS SUMMARY | 2023-11-13 03:38 | External Medical Summary | Summary of Care ---
Author Name Unknown Organization [facility] Address [address] [place] [address] Phone [phone] Care Team Providers Care Training Technician Name Role Phone Wendi Love DO Primary Care Provider Reason for Visit * Reason Onset Date Comments Advice 10/30/2023 Encounter Details Date Type Department Care Team (Late st Contact Info) Description 10/30/2023 Telephone Ancillary [address] [place] [phone] Wendi Love DO [address] [place] [address] [place] [id number] Advice Allergies Active Allergy Reactions Criticality Noted Date Comments No Known Drug Allergy 02/10/2009 documented as of this encounter (statuses as of 11/08/2023) Medications Medication Sig Dispensed Refills Start Date End Date Status aspirin enteric coated 81 MG TBEC Take 1 Tab by mouth daily. 100 Tab 0 10/20/2017 Active Zinc Gluconate 50 MG CAPS Take 1 Cap by mouth daily. 30 Cap 0 10/20/2017 Active Alpha Lipoic Acid 200 MG CAPSIndications:Burn ing mouth syndrome Take 1 Cap by mouth daily. 30 Cap 2 10/03/2019 Active Additional Information Patient taking differently:1 Capsule Oral Daily(AM),Pt is taking 100mg daily per pharmacy, Reported on 04/26/2023 B-12 2000 MCG Oral Tablet Take 2,000 mcg by mouth once. Daily 0 Active Albuterol Sulfate HFA 108 (90 Base) MCG/ACT Inhalation Aerosol SolutionIndications: COPD, moderate (HCC) inhale 2 puffs every 4 hours as needed for wheezing, shortness of breath or cough 6.7 g 5 01/18/2022 Active Mirtazapine 15 MG Oral Tablet (Remeron) Take 1 Tablet by mouth at bedtime. 30 Tablet 5 04/12/2023 Active Levothyroxine Sodium 50 MCG Oral Tablet (Levoxyl)Indications :Subclinical hypothyroidism Take 1 Tablet by mouth in the morning. In the morning.. 90 Tablet 3 05/08/2023 Active metFORMIN HCl ER 500 MG Oral Tablet Extended Release 24 Hour (Glucophage XR)Indications:Diabe nam mellitus without complication (HCC),Burning mouth syndrome TAKE ONE TABLET IN THE MORNING 90 Tablet 1 06/30/2023 Active Pantoprazole Sodium 20 MG Oral Tablet Delayed Release (Protonix)Indication s:Burning mouth syndrome,Gastro-esop hageal reflux disease without esophagitis TAKE ONE TABLET IN THE MORNING 90 Tablet 3 08/01/2023 Active Losartan Potassium 50 MG Oral Tablet (Cozaar)Indications: Essential hypertension with goal blood pressure less than 140/90 Take 1 Tablet by mouth in the morning. 90 Tablet 3 08/01/2023 Active Clotrimazole 10 MG Mouth/Throat Giselle (Mycelex Giselle) Take 1 Lozenge by mouth 5 times a day. Allow tablet to slowly dissolve in your mouth 70 Giselle 0 08/18/2023 Active Tamsulosin HCl 0.4 MG Oral Capsule (Flomax)Indications: BPH with obstruction/lower urinary tract symptoms Take 1 Capsule by mouth in the morning. 90 Capsule 3 08/30/2023 Active Vitron-C 65-125 MG Oral Tablet (Iron-Vitamin C 65-125 mg per tab) Take 1 Tablet by mouth in the morning. 30 Tablet 5 08/31/2023 Active oxyCODONE HCl 5 MG Oral Tablet (Oxy IR) Take 0.5 Tablets by mouth daily as needed for Pain, Severe. 10 Tablet 0 09/08/2023 Active amLODIPine Besylate 5 MG Oral Tablet (Norvasc) Take 1 Tablet by mouth in the morning. 30 Tablet 5 09/25/2023 Active LORazepam 0.5 MG Oral Tablet (Ativan) Take 1 Tablet by mouth every night at bedtime. 30 Tablet 2 09/25/2023 Active Zolpidem Tartrate 5 MG Oral Tablet (Ambien) Take 1 Tablet by mouth at bedtime as needed for Sleep. 30 Tablet 0 10/20/2023 Active CertaVite Senior/Antioxidant Oral Tablet Take 1 Tablet by mouth in the morning. In the morning.. 0 09/26/2023 Active Losartan Potassium 25 MG Oral Tablet (Cozaar) Take 1 Tablet by mouth in the morning. 90 Tablet 1 10/23/2023 Active Cevimeline HCl 30 MG Oral Capsule Take 1 Capsule by mouth in the morning and 1 Capsule at noon and 1 Capsule before bedtime. 270 Capsule 5 10/23/2023 Active Ramelteon 8 MG Oral Tablet (Rozerem)Indications :Primary insomnia Take 1 Tablet by mouth at bedtime. 30 Tablet 2 10/31/2023 Active Hospital, Clinic, or Other Facility Administered Medication Ordered Dose Route Frequency Start Date End Date Status albuterol sulfate (PROVENTIL) (2.5 MG/3ML) 0.083% inhalation solution 2.5 mgIndications:COPD, moderate (HCC) 2.5 mg NEBULIZER Q4H PRN 06/20/2017 Active documented as of this encounter (statuses as of 11/08/2023) Active Problems Problem Noted Date Diagnosed Date Sjogren's syndrome with dental involvement 08/29 Acquired hypothyroidism 08/29/2023 COPD, group B, by GOLD 2017 classification 05/08 Overview: Per COPD GOLD Classification Sjogren's syndrome 04/04/2023 Diabetes mellitus without complication 3 Subclinical hypothyroidism 08/03/2022 Gastro-esophageal reflux disease without esophag itis 12/27/2021 History of 2019 novel coronavirus disease (COVID -19) 01/26/2021 Overview: 08/2020 Primary osteoarthritis of left hip 01/26/2021 Unspecified asthma, uncomplicated 10/16/2020 Chronic pain of right knee 02/21/2020 Tardive dyskinesia 01/16/2019 History of MRSA infection 09/11/2018 Dry mouth 06/13/2018 Overview: (+) RO antibody. On high dose antipsychotic drug therapy 11/02/19 18 Overview: Seroquel therapy for sleep Major depressive disorder, single episode, mild 05/12/2017 Last Assessment & Plan: Difficult to get pt to engage in visit today. Admits he is depressed and thought of self harm, did not verbalize a plan. Discussed Crisis referral and he would be agreeable to talk with someone. He also reports he has family that checks on him. He is taking seroquel at this time, he denies seeing a psychiatrist. Referral made to Crisis to evaluate pt. Spoke with Carissa. Given [facility] number to call with update regarding whether he is agreeable to support. Advised pt to keep pcp appt tomorrow. Update/chart routed to provider seeing pt and pcp. 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 Avoided mirapex d/t possibly making dyskinesia worse, changed to lyrica. Patient had extensive lab work to evaluate for burning mouth syndrome including B6 and zinc all of which been unremarkable. Lumbar degenerative disc disease 08/19/2015 Esophageal dysmotility 08/12/2015 Prostate cancer 04/27/2015 Overview: Giovanna score = 6. Radiation therapy 10/2020 due to rising PSA following radical prostatectomy Last Assessment & Plan: S/p radical prostatectomy 10/10/17. Referred to [facility] 10/2020 d/t rising PSA Continues to follow up with [facility] urology JOHN (nonalcoholic steatohepatitis) 04/02/2015 Last Assessment & Plan: Mildly elevated ALT, continue to monitor. Other allergic rhinitis 12/28/2010 Overview: ICD-10 update of inactive term documented as of this encounter (statuses as of 11/08/2023) Resolved Problems Problem Noted Date Diagnosed Date Resolved Date Hypokalemia 03/25/2022 02/17/2023 Hyponatremia 03/25/2022 02/17/2023 Morbid (severe) obesity due to excess calories 03/02/2022 08/03/2022 Type 2 diabetes mellitus wit h diabetic nephropathy 03/02/2022 03/02/2022 BPH with obstruction/lower u rinary tract symptoms 01/26/2022 02/17/2023 Acute respiratory failure with hypoxia 10/16/2020 01/26/2021 Morbid (severe) obesity due to excess calories 10/16/2020 01/26/2021 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 01/26/2021 Type 2 diabetes mellitus wit h hemoglobin A1c goal of less than 8.0% 08/05/2019 03/02/2022 Overview: Per Prediabetes protocol H/O prostate cancer 05/18/2018 01/27/20 21 Moderate persistent asthma w ithout complication 06/07/2017 06/07/2017 Esophageal ring, acquired 10/13/2015 Benign esophageal stricture 10/13/2015 06/07/2017 Gastroesophageal reflux dise ase with esophagitis 08/19/2015 01/17/2022 Esophageal stricture 08/17/2015 015 Stricture esophagus 08/12/2015 06/07/20 17 Overview: At GE junction Degenerative disc disease, cervical 08/03/2015 06/07/2017 Gastroesophageal reflux dise ase without esophagitis 06/15/2015 06/15/2015 Constipation due to slow transit 10/16/2014 06/07/2017 COPD, moderate 08/02/2013 05/11/2023 Overview: Per COPD GOLD Classification Impaired fasting glucose 07/26/201306/2017 Asthma, mild persistent 07/18/201306/29 Benign prostatic hyperplasia with urinary obstruction 02/06/2013 05/18/2018 Overview: ICD-10 update of inactive term MRSA (methicillin resistant staph aureus) culture positive 06/07/2012 09/11/2018 Persistent insomnia 10/27/2011 02/21/20 20 BPH without obstruction/lowe r urinary tract symptoms 10/05/2011 02/06/2013 Slow transit constipation 09/24/2011 HTN, goal below 140/90 08/12/200907/26 Degeneration of lumbosacral intervertebral disc 03/07/2009 06/07/2017 HYPERTENSION NOS 07/15/2009 Overview: Modified per HTN protocol #16. SPINAL STENOSIS-LUMBAR 06/07 Anemia 06/15/2010 Calculus of kidney 7 Localized osteoarthrosis not specified whether primary or secondary, pelvic region and thigh 06/07/2017 Polyp of intestine 7 Jessie esophagitis 06/07/20 12 Diverticulosis 02/26/2014 documented as of this encounter (statuses as of 11/08/2023) Immunizations Name Administration Dates Next Due COVID-19 mRNA, LNP-s, No Pre serve, 2-Dose Series (V-Key) 08/03/2021,12/10/2020,11/12/2020 Covid-19, Mrna, Lnp-s, Pf, B ivalent, 30 Mcg, IM, 12 yrs and above (Pfizer) 06/28/2022 Pneumococcal Conjugate Vacc, 13 Valent (Prevnar) 10/16/2014 Pneumococcal Polysaccharide PPV23 (Pneumovax) 02/10/2009 Season Influenza, Quad, PF, Adjuvanted, 65+ Yrs, IM (FLUAD) 05/14/2020 Seasonal Influenza Virus Vac cine, Unspecified Formulation 05/11/2021,05/14/2020,05/07/2019,05/18,06/07/2017,05/18/2016,06/30/2014 ,06/11/2013,06/02/2012,05/23/2011,05/28,10/13/2009 Seasonal Influenza, PF, 6 M & above, IM , (FluLaval or Fluzone) 05/18/2018,06/07/2017 Seasonal Influenza, Quadriva lent Hd (Fluzone Hd) 05/10/2023,05/12/2022,05/11/2021 Seasonal Influenza, Quadriva lent, No Preserve, IM 05/18/2016,05/27/2015 Seasonal Influenza, Split, I IV3, With Preserve, Inj 06/30/2014,06/11/2013,06/02/2012,05/23,06/15/2010,10/13/2009 Seasonal Influenza, Trivalen t, Adjuvanted, 65+ yrs 05/07/2019 TDAP (age 10 and older)(Boostrix) 09/27/2017 Zoster Vaccine Recombinant (Shingrix) 08/03/2022 documented as of this encounter Social History Tobacco Use Types Packs/Day Years Used Date Smoking Tobacco: Former Cigars Smokeless Tobacco: Former Chew Quit: 02/25/2012 Comments:Occasional cigars Alcohol Use Standard Drinks/Week Comments No 0 (1 standard drink = 0.6 oz pur e alcohol) none since 1981 PHQ-2 Answer Date Recorded PHQ Adult Total Score 1 04/17/2023 Hunger Vital Sign Answer Date Recorded Within the past 12 months, y ou worried that your food would run out before you got the money to buy more. Never true 04/17/20 23 Within the past 12 months, t he food you bought just didn't last and you didn't have money to get more. Never true 04/17/2023 Sex and Gender Information Value Date Recorded Sex Assigned at Male 03/23/2021 10:08 AM EDT Gender Identity Male 03/23/2021 10:08 AM EDT Sexual Orientation Straight 03/23/2021 10 :08 AM EDT Job Start Date Occupation Industry Not on file Not on file Not on file documented as of this encounter Miscellaneous Notes * Telephone Encounter - Gabby Roberst RN - 11/08/2023 8:06 AM EDT Patient called me from [facility], patient states he went to the ER around 6am, patient states his mouth is so dry " he can't even spit" Patient states tongue is "white like paste". Patient did not sleep at all last night, patient states he just sat in the recliner and couldn't fall asleep. I asked if the ER looked in his mouth to see if he possible had thrush, but he said they did not look in his mouth and told him there is nothing they can do for him. I counseled patient Dr. Love will be in later this morning. Patient daughter in law was picking him up from the hospital and takinghim home. Message sent to provider for advice. Reason for Call: Advice Contact: Telephone Call Contact Type: Advice Outcome: see note Face to face time spent with Patient (minutes): 0 Total Time including non face to face (minutes): 20 * Telephone Encounter - Gabby Roberts RN - 11/07/2023 12:11 PM EDT Patient called me states he only slept from 930-130 last night with the new medication. Patient states tongue is "really bad today", burning and sour paste" patient states tongue is moist but said itlooks white all over. Patient did eat Dearal with milk and toast for breakfast Lunch he had white rice and chicken yves , jello and the water "dried his mouth out" He said his symptoms are worse after he eats. Message sent to provider. Reason for Call: Advice Contact: Telephone Call Contact Type: Advice Outcome: see note Face to face time spent with Patient (minutes): 0 Total Time including non face to face (minutes): 20 * Telephone Encounter - Gabby Roberts RN - 11/06/2023 4:21 PM EDT Patient called back states tongue is more sour and "paste", counsled patient to continue doing whathe's doing , pushing water, sugar free sour candy. And give it a few days to see if symptoms improve with the sleep. I counsled him I will let Wendi Love, DO know he called. Reason for Call: Advice Contact: Telephone Call Contact Type: Advice Outcome: see note Face to face time spent with Patient (minutes): 0 Total Time including non face to face (minutes): 20 * Telephone Encounter - Gabby Roberts RN - 11/06/2023 10:09 AM EDT Mr. Walsh called again this morning, patient did sleep better he slept from 10pm -4am , continued to reassure him he is doing well. Patient is to continue lemon water with honey, his son did get him some SF sour candy and bottled marce. Patient to continue doing what his is, he will call me back if no improvements. 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 We did suggest increasing his water if bottle water is available then do that add lemon juice and honey to water, maybe try nick to help with the nausea and stimulate saliva , also try sugar free gum or sugar free sour candy. Patient to stay away from sugary foods, sodas, salty or spicey foods. Patient to give a few days of taking his new medication at bedtime to see if sleep improves. * Telephone Encounter - Gabby Roberts RN - 11/01/2023 8:40 AM EST Patient called back states he only slept 2 hours, and his new meds aren't working. I counseled patient its going to take a few days for his body to regulate. Patient states he went to the ER at [facility] for a "dry mouth" at approx 5am. Patient states they told him they couldn't help and he needed to call his doctor. Patient called me states his mouth is "so dry, paste, and sour" I asked specifically if this was different then prior due to dryness, he said no its the same symptoms . Per Dr. Spencer patient can try sour hard candy, but its important that patient get some regular sleep. Counseled patient to try and nap a few hours today, patient states he doesn't think he can because of his mouth. Patient states he is going to the store for sugar free gum and SF candy and will call back if not any better. Counseled patient cucumbers and watermelon on good food that may notdry mouth out. Patient states he is not going to buy any. I can tell patient is very frustrated with symptoms today. Reason for Call: Advice Contact: Telephone Call Contact Type: Advice Outcome: see notes Face to face time spent with Patient (minutes): 0 Total Time including non face to face (minutes): 30 * Telephone Encounter - Gabby Roberts RN - 10/31/2023 9:53 AM EST Patient notified, I did also go to the pharmacy , patient is requesting it be delivered . Per Dr. Spencer we will not include it in our pill pack as of now. Patient states he will call me back ifsymptoms worsen. * Telephone Encounter - Minda Spencer MD - 10/31/2023 8:04 AM EST Ill try remelteon with his current meds * Telephone Encounter - Gabby Roberts RN - 10/31/2023 7:52 AM EST Patient called states his tongue is "really bad this morning" Patient states is getting worse. Patient states it kept him up all night . Patient only slept about 2hrs , Patient has noticed nose running and not sure if its sinus issues, patient states he has blew his nose 4 times this morning, and coughing slight mucous and clearing throat on the phone. Counseled patient to continue to push fluidsand that will help thin the mucous. * Telephone Encounter - Gabby Roberts RN - 10/30/2023 8:07 AM EST Patient called me this morning, his toungue is "burning and greasy", patient states he did get his new pill packs and he also received a letter from his insurance stating the Zolpidem is not on formulary and may be limited to the amount he can get. Patient states it did not cost him any more money as of now. Counseled patient to give the new pill a week and we will see if his sleep improves. Patient to make sure he brushes his gums and tongue and he states he will call me if symptoms worsen. Reason for Call: Advice Contact: Telephone Call Contact Type: Advice Outcome: see note Face to face time spent with Patient (minutes): 0 Total Time including non face to face (minutes): 10 documented in this encounter Plan of Treatment Upcoming Encounters Date Type Department Care Team (Late st Contact Info) Description 03/29/2024 10:30 AM EDT Office Visit Family Medicine [address] [place] [phone] Wendi [address] [place] [address] 04/19/2024 11:00 AM EDT Nurse Only Ancillary [address] [place] [address] Karie[place], Nurse [address] [place] [address] 09/23/2024 9:40 AM EST Office Visit Rheumatology [address] [place] [phone] Akin Will MD [address] [facility] [place] [address] Health Maintenance Due Date Last Done Comments Alpha-1 Antitrypsin 12/24/1963 Diabetic Eye Exam 12/24/1963 Hepatitis C Screening 12/24/1963 Zoster Vaccines (2 of 2) 09/28/2022 08/03/2022 COVID-19 Vaccine (2022- season) 2023 06/28/2022, 08/03/2021, 12/10/2020, Additional history exists Diabetic Foot Exam 02/18/2024 02/17/2023 HbA1c 02/27/2024 08/29/2023, 09/2022, 01/18/2022, Additional history exists Depression Screening 04/17/2024 04/17/2023 Albumin/Creatinine Ratio 06/16/2024 06/16/2023, 02/2022 GFR 08/29/2024 08/29/2023, 03/28, 03/10/2023, Additional history exists O2 ASSESSMENT COMPLETED IN PAST YEAR FOR COPD 08/29/2024 08/29/2023, 02/15/2017 TSH 08/29/2024 08/29/2023, 10/2022, 08/03/2022, Additional history exists DTaP,Tdap,and Td Vaccines (2 - Td or Tdap) 09/27/2027 09/27/2017 Pneumococcal Vaccine: 65+ Years Completed 10/16/2014, 02/10/2009 Influenza Vaccine (FLU shot) Completed , 05/12/2022, 05/11/2021, Additional history exists GARDASIL-HPV IMMUNIZATION SERIES Aged Out No longer eligible based on patient's age to complete this topic Hepatitis B Aged Out No longer eligi ble based on patient's age to complete this topic MENINGOCOCCAL (MENACTRA/MENVEO) Aged Out No longer eligible based on patient's age to complete this topic documented as of this encounter Medical Devices Not on filedocumented as of this encounter Visit Diagnoses Diagnosis Primary insomnia- Primary Persistent disorder of initiating or maintaining sleep documented in this encounter Care Teams Training Technician Relationship Specialty Start Date End Date Wendi Love DO [address] [place] [address] [place] [id number] PCP - General Internal Medicine 06/07/17 documented as of this encounter
--- OUTSIDE RECORDS SUMMARY | 2023-11-13 03:39 | External Medical Summary | Summary of Care ---
Author Name Unknown Organization [facility] Address [address] [place] [address] Phone [phone] Care Team Providers Care Vegetable Washing Machine Operator Name Role Phone Wendi Love DO Primary Care Provider Reason for Visit * Reason Onset Date Comments Advice 10/30/2023 Encounter Details Date Type Department Care Team (Late st Contact Info) Description 10/30/2023 Telephone Ancillary [address] [place] [phone] Wendi Love DO [address] [place] [address] [place] [phone] Advice Allergies Active Allergy Reactions Criticality Noted Date Comments No Known Drug Allergy 02/10/2009 documented as of this encounter (statuses as of 11/01/2023) Medications Medication Sig Dispensed Refills Start Date [...] as of this encounter (statuses as of 11/01/2023) Active Problems Problem Noted Date Diagnosed Date [...] to evaluate pt. Spoke with Carissa. Given [facility] number to call with update regarding [...] rising PSA Continues to follow up with [facility] urology JOHN (nonalcoholic steatohepatitis) 04/02/2015 Last Assessment & Plan: Mildly elevated ALT, continue to monitor. Other allergic rhinitis 12/28/2010 Overview: ICD-10 update of inactive term documented as of this encounter (statuses as of 11/01/2023) Resolved Problems Problem Noted Date Diagnosed Date [...] as of this encounter (statuses as of 11/01/2023) Immunizations Name Administration Dates Next Due COVID-19 mRNA, LNP-s, No Pre serve, 2-Dose Series (Smartvue) 08/03/2021,12/10/2020,11/12/2020 Covid-19, Mrna, Lnp-s, Pf, B ivalent, [...] Miscellaneous Notes * Telephone Encounter - Gabby Roberts RN - 11/01/2023 1:53 PM EST Spoke to patient son Mikel, patient verbally gave me permission to discuss some suggestions and if I would 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 [...] states he went to the ER at [facility] for a "dry mouth" at approx 5am. [...] 10:30 AM EDT Office Visit Family Medicine [address] [place] [phone] Wendi Love, [address] [place] [address] 04/19/2024 11:00 AM EDT Nurse Only Ancillary [address] [place] [address] [place], Nurse [address] [place] [address] 09/23/2024 9:40 AM EST Office Visit Rheumatology [address] [place] [phone] Akin Will MD [address] [email or web address] [place] [id number] Health Maintenance Due Date Last Done Comments Alpha-1 Antitrypsin 12/24/1963 Diabetic Eye Exam 12/24/1963 Hepatitis C Screening 12/24/1963 Zoster Vaccines (2 of 2) 09/28/2022 08/03/2022 COVID-19 Vaccine (2022- season) 2023 06/28/2022, 08/03/2021, 12/10/2020, Additional history exists Diabetic Foot Exam 02/18/2024 02/17/2023 HbA1c 02/27/2024 08/29/2023, 0609/2022, 01/18/2022, Additional history exists Depression Screening 04/17/2024 04/17/2023 Albumin/Creatinine Ratio 06/16/2024 06/16/2023, 12/0 02/2022 GFR 08/29/2024 08/29/2023, 0801/2023, 03/10/2023, Additional history exists O2 ASSESSMENT COMPLETED IN PAST YEAR FOR COPD 08/29/2024 08/29/2023, 02/15/2017 TSH 08/29/2024 08/29/2023, 04/0 10/2022, 08/03/2022, Additional history exists DTaP,Tdap,and Td [...] sleep documented in this encounter Care Teams Vegetable Washing Machine Operator Relationship Specialty Start Date End Date Wendi Love DO [address] [place] [address] [place] [phone] PCP - General Internal Medicine 06/07/17 documented as of this encounter
--- OUTSIDE RECORDS SUMMARY | 2023-11-13 03:39 | External Medical Summary | Summary of Care ---
Author Name Unknown Organization [facility] Address [address] [place] [address] Phone [phone] Care Team Providers Care Welt Slasher Name Role Phone Wendi Love DO Primary Care Provider [phone] Reason for Visit * Reason Onset Date Comments Advice 10/30/2023 Encounter Details Date Type Department Care Team (Late st Contact Info) Description 10/30/2023 Telephone Ancillary [address] [place] [address] Wendi Love DO [address] [place] [address] [place] [address] Advice Allergies Active Allergy Reactions Criticality Noted Date Comments No Known Drug Allergy 02/10/2009 documented as of this encounter (statuses as of 10/31/2023) Medications Medication Sig Dispensed Refills Start Date [...] as of this encounter (statuses as of 10/31/2023) Active Problems Problem Noted Date Diagnosed Date [...] to evaluate pt. Spoke with Carissa. Given [facility] number to call with update regarding whether [...] rising PSA Continues to follow up with [facility] urology JOHN (nonalcoholic steatohepatitis) 04/02/2015 Last Assessment & Plan: Mildly elevated ALT, continue to monitor. Other allergic rhinitis 12/28/2010 Overview: ICD-10 update of inactive term documented as of this encounter (statuses as of 10/31/2023) Resolved Problems Problem Noted Date Diagnosed Date [...] as of this encounter (statuses as of 10/31/2023) Immunizations Name Administration Dates Next Due COVID-19 mRNA, LNP-s, No Pre serve, 2-Dose Series ([employer]) 08/03/2021,12/10/2020,11/12/2020 Covid-19, Mrna, Lnp-s, Pf, B ivalent, [...] 10:30 AM EDT Office Visit Family Medicine [address] [place] [phone] [place] [address] 04/19/2024 11:00 AM EDT Nurse Only Ancillary [address] [place] [address] Movkezia, Nurse [address] [place] [address] 09/23/2024 9:40 AM EST Office Visit Rheumatology [address] [place] [phone] Akin Will MD [address] [facility] [place] [address] Health Maintenance Due Date Last Done Comments Alpha-1 Antitrypsin 12/24/1961 Diabetic Eye Exam 12/24/1961 Hepatitis C Screening 12/24/1961 Zoster Vaccines (2 of 2) 09/28/2022 08/03/2022 COVID-19 Vaccine ( season) 2023 06/28/2022, 08/03/2021, 12/10/2020, Additional history [...] sleep documented in this encounter Care Teams Welt Slasher Relationship Specialty Start Date End Date Wendi Love DO [address] [place] [address] [place] [phone] PCP - General Internal Medicine 06/07/17 documented as of this encounter
--- OUTSIDE RECORDS SUMMARY | 2023-11-13 03:39 | External Medical Summary | Summary of Care ---
Author Name Unknown Organization [facility] Address [address] [place] [address] Phone [phone] Care Team Providers Care Instructional Interventionist Name Role Phone Wedni Love DO Primary Care Provider Reason for Visit * Reason Onset Date Comments Advice 10/30/2023 Encounter Details Date Type Department Care Team (Late st Contact Info) Description 10/30/2023 Telephone Ancillary [address] [place] [address] Wendi Love DO [address] [place] [address] [place] [address] Advice Allergies Active Allergy Reactions Criticality Noted Date Comments No Known Drug Allergy 02/10/2009 documented as of this encounter (statuses as of 11/06/2023) Medications Medication Sig Dispensed Refills Start Date [...] as of this encounter (statuses as of 11/06/2023) Active Problems Problem Noted Date Diagnosed Date [...] to evaluate pt. Spoke with Carissa. Given [facility] number to call with update regarding whether [...] rising PSA Continues to follow up with [facility] urology JOHN (nonalcoholic steatohepatitis) 04/02/2015 Last Assessment & Plan: Mildly elevated ALT, continue to monitor. Other allergic rhinitis 12/28/2010 Overview: ICD-10 update of inactive term documented as of this encounter (statuses as of 11/06/2023) Resolved Problems Problem Noted Date Diagnosed Date [...] as of this encounter (statuses as of 11/06/2023) Immunizations Name Administration Dates Next Due COVID-19 mRNA, LNP-s, No Pre serve, 2-Dose Series ([employer]) 08/03/2021,12/10/2020,11/12/2020 Covid-19, Mrna, Lnp-s, Pf, B ivalent, [...] and if I would ask him to tack picker the things on his way home. We [...] states he went to the ER at [facility] for a "dry mouth" at approx [...] - 10/31/2023 8:04 AM EST Ill try remvenuseon with his current meds * Telephone Encounter [...] 10:30 AM EDT Office Visit Family Medicine [address] [place] [phone] Wnedi Love [address] [place] [address] 04/19/2024 11:00 AM EDT Nurse Only Ancillary [address] [place] [address] Kariey, Nurse [facility] [address] [place] [address] [place] [address] 09/23/2024 9:40 AM EST Office Visit Rheumatology [address] [place] [phone] Akin Will MD [address] [facility] [place] [address] Health Maintenance Due Date Last Done Comments Alpha-1 Antitrypsin 12/24/1961 Diabetic Eye Exam 12/24/1961 Hepatitis C Screening 12/24/1961 Zoster Vaccines (2 of 2) 09/28/2022 08/03/2022 COVID-19 Vaccine (2022- season) 2023 06/28/2022, 08/03/2021, 12/10/2020, Additional history exists Diabetic Foot Exam 02/18/2024 02/17/2023 HbA1c 02/27/2024 08/29/2023, 0609/2022, 01/18/2022, Additional history exists Depression Screening 04/17/2024 04/17/2023 Albumin/Creatinine Ratio 06/16/2024 06/16/2023, 120 02/2022 GFR 08/29/2024 08/29/2023, 03/28, 03/10/2023, Additional history exists O2 ASSESSMENT COMPLETED IN PAST YEAR FOR COPD 08/29/2024 08/29/2023, 02/15/2017 TSH 08/29/2024 08/29/2023, 040 10/2022, 08/03/2022, Additional history exists DTaP,Tdap,and Td [...] sleep documented in this encounter Care Teams Instructional Interventionist Relationship Specialty Start Date End Date Wendi Love DO [address] [place] [address] [place] [address] PCP - General Internal Medicine 06/07/17 documented as of this encounter
--- OUTSIDE RECORDS SUMMARY | 2023-11-13 03:39 | External Medical Summary | Summary of Care ---
Author Name Unknown Organization [facility] Address [address] [place] [address] Phone [phone] Care Team Providers Care Wire Stretcher Name Role Phone Wendi Love Primary Care Provider [phone] Encounter Details Date Type Department Care Team (Late st Contact Info) Description 11/01/2023 Result Scan Unspecified Department <No scans attached> Allergies Active Allergy Reactions Criticality Noted Date Comments No Known Drug Allergy 02/10/2009 documented as of this encounter (statuses as of 11/02/2023) Medications Medication Sig Dispensed Refills Start Date [...] as of this encounter (statuses as of 11/02/2023) Active Problems Problem Noted Date Diagnosed Date [...] On high dose antipsychotic drug therapy 11/02/19 Overview: Seroquel therapy for sleep Major depressive [...] to evaluate pt. Spoke with Carissa. Given [facility] number to call with update regarding [...] Esophageal dysmotility 08/12/2015 Prostate cancer 04/27/2015 Overview: [place]rom[place] score = 6. Radiation therapy 10/2020 due to rising PSA following radical prostatectomy Last Assessment & Plan: S/p radical prostatectomy 10/10/17. Referred to RT 10/2020 d/t rising PSA Continues to follow up with [facility] urology JOHN (nonalcoholic steatohepatitis) 04/02/2015 Last Assessment & Plan: Mildly elevated ALT, continue to monitor. Other allergic rhinitis 12/28/2010 Overview: ICD-10 update of inactive term documented as of this encounter (statuses as of 11/02/2023) Resolved Problems Problem Noted Date Diagnosed Date [...] as of this encounter (statuses as of 11/02/2023) Immunizations Name Administration Dates Next Due COVID-19 mRNA, LNP-s, No Pre serve, 2-Dose Series ([employer]) 08/03/2021,12/10/2020,11/12/2020 Covid-19, Mrna, Lnp-s, Pf, B ivalent, [...] on file documented as of this encounter Plan of Treatment Upcoming Encounters Date Type Department Care Team (Late st Contact Info) Description 03/29/2024 10:30 AM EDT Office Visit Family Medicine [address] [place] [phone] Wendi Loev, [address] [place] [address] 04/19/2024 11:00 AM EDT Nurse Only Ancillary [address] [place] [address] Moval[place], Nurse Annual [address] [place] [address] 09/23/2024 9:40 AM EST Office Visit Rheumatology [address] [place] [phone] Akin Will MD [facility] [place] [address] Health Maintenance Due Date Last Done Comments Alpha-1 Antitrypsin 12/24/1961 Diabetic Eye Exam 12/24/1961 Hepatitis C Screening 12/24/1961 Zoster Vaccines (2 of 2) 09/28/2022 08/03/2022 COVID-19 Vaccine ( season) 2023 06/28/2022, 08/03/2021, 12/10/2020, Additional history exists Diabetic Foot Exam 02/18/2024 02/17/2023 HbA1c 02/27/2024 08/29/2023, 060 09/2022, 01/18/2022, Additional history exists Depression Screening [...] Not on filedocumented as of this encounter Procedures Procedure Name Priority Date/Time Associated Diagnosis Comments OUTSIDE LAB RESULTS 11/01/2023 RADIOLOGY SCANNED RESULT 11/01/2023 documented in this encounter Results * RADIOLOGY SCANNED RESULT (11/01/2023) 11/01/2023 No Physician Data Unknown DIAGNOSTIC RAD IOLOGY SERVICES * OUTSIDE LAB RESULTS (11/01/2023) 11/01/2023 No Physician Data Unknown LABORATORY documented in this encounter Care Teams Wire Stretcher Relationship Specialty Start Date End Date Wendi Love DO [address] [place] [address] [place] [address] PCP - General Internal Medicine 06/07/17 documented as of this encounter
--- OUTSIDE RECORDS SUMMARY | 2023-11-13 03:39 | External Medical Summary | Summary of Care ---
Author Name Unknown Organization [facility] Address [address] [place] [address] Phone [phone] Care Team Providers Care Behavior Interventionist Name Role Phone Wendi Love DO Primary Care Provider [phone] Reason for Visit * Reason Onset Date Comments Advice 10/30/2023 Encounter Details Date Type Department Care Team (Late st Contact Info) Description 10/30/2023 Telephone Ancillary [address] [place] [address] Wendi Love DO [address] [place] [address] [place] [address] Advice Allergies Active Allergy Reactions Criticality Noted [...] to evaluate pt. Spoke with Carissa. Given [facility] number to call with update regarding [...] PSA Continues to follow up with [facility] urology JOHN (nonalcoholic steatohepatitis) 04/02/2015 Last [...] mRNA, LNP-s, No Pre serve, 2-Dose Series ([employer]) 08/03/2021,12/10/2020,11/12/2020 Covid-19, Mrna, Lnp-s, Pf, B ivalent, [...] states he went to the ER at [facility] for a "dry mouth" at approx 5am. [...] he is going to the store for gum and candy and will call back if not any better. * Telephone Encounter - Gabby Roberts RN [...] - 10/31/2023 8:04 AM EST Ill try bryanna with his current meds * Telephone Encounter [...] 10:30 AM EDT Office Visit Family Medicine [address] [place] [phone] [address] [place] [address] 04/19/2024 11:00 AM EDT Nurse Only Ancillary [address] [place] [address] Moval[place], Nurse [address] [place] [address] 09/23/2024 9:40 AM EST Office Visit Rheumatology [address] [place] [phone] Akin Will MD [facility] [place] [address] Health Maintenance Due Date Last Done Comments Alpha-1 Antitrypsin 12/24/1961 Diabetic Eye Exam 12/24/1961 Hepatitis C Screening 12/24/1961 Zoster Vaccines (2 of 2) 09/28/2022 08/03/2022 COVID-19 Vaccine ( season) 2023 06/28/2022, 08/03/2021, 12/10/2020, Additional history exists Diabetic Foot Exam 02/18/2024 02/17/2023 HbA1c 02/27/2024 08/29/2023, 06/0 09/2022, 01/18/2022, Additional history exists Depression Screening 04/17/2024 04/17/2023 Albumin/Creatinine Ratio 06/16/2024 06/16/2023, 12/0 02/2022 GFR 08/29/2024 08/29/2023, 08/1 01/2023, 03/10/2023, Additional history exists O2 ASSESSMENT COMPLETED [...] sleep documented in this encounter Care Teams Behavior Interventionist Relationship Specialty Start Date End Date Wendi Love DO [address] [place] [address] [place] [address] PCP - General Internal Medicine 06/07/17 documented as of this encounter
--- OUTSIDE RECORDS SUMMARY | 2023-11-13 03:39 | External Medical Summary | Summary of Care ---
Author Name Unknown Organization [facility] Address [address] [place] [address] Phone [phone] Care Team Providers Care Color Buffer Name Role Phone Wendi Love DO Primary Care Provider Reason for Visit * Reason Onset Date Comments Advice 10/30/2023 Encounter Details Date Type Department Care Team (Late st Contact Info) Description 10/30/2023 Telephone Ancillary [address] [place] [address] Wendi Love DO [address] [place] [address] [place] [address] Advice Allergies Active Allergy Reactions Criticality Noted [...] to evaluate pt. Spoke with Carissa. Given [facility] number to call with update regarding whether [...] rising PSA Continues to follow up with [facility] urology JOHN (nonalcoholic steatohepatitis) 04/02/2015 Last [...] mRNA, LNP-s, No Pre serve, 2-Dose Series ([employer]) 08/03/2021,12/10/2020,11/12/2020 Covid-19, Mrna, Lnp-s, Pf, B ivalent, [...] states he went to the ER at [facility] for a "dry mouth" at [...] 10:30 AM EDT Office Visit Family Medicine [address] [place] [phone] Wendi Love, [address] [place] [address] 04/19/2024 11:00 AM EDT Nurse Only Ancillary [address] [place] [address] Movalley, Nurse [address] [place] [address] 09/23/2024 9:40 AM EST Office Visit Rheumatology [address] [place] [phone] Akin Will MD [facility] [facility] [place] [address] Health Maintenance Due Date Last Done Comments [...] sleep documented in this encounter Care Teams Color Buffer Relationship Specialty Start Date End Date Wendi Love DO [address] [place] [address] [place] [phone] PCP - General Internal Medicine 06/07/17 documented as of this encounter
--- OUTSIDE RECORDS SUMMARY | 2023-11-13 03:39 | External Medical Summary | Summary of Care ---
Author Name Unknown Organization [facility] Address [address] [place] [address] Phone [phone] Care Team Providers Care Shop Hand Name Role Phone Wendi Love DO Primary Care Provider Reason for Visit * Reason Onset Date Comments Advice 10/30/2023 Encounter Details Date Type Department Care Team (Late st Contact Info) Description 10/30/2023 Telephone Ancillary [address] [place] [address] Wendi Love DO [address] [place] [address] [place] [address] Advice Allergies Active Allergy Reactions Criticality Noted [...] to evaluate pt. Spoke with Carissa. Given [facility] number to call with update regarding [...] rising PSA Continues to follow up with [facility] urology JOHN (nonalcoholic steatohepatitis) 04/02/2015 Last Assessment [...] mRNA, LNP-s, No Pre serve, 2-Dose Series ([employer]) 08/03/2021,12/10/2020,11/12/2020 Covid-19, Mrna, Lnp-s, Pf, B ivalent, [...] and if I would ask him to moss picker the things on his way home. [...] MD - 10/31/2023 8:04 AM EST Ill dusty gould with his current meds * Telephone Encounter [...] 10:30 AM EDT Office Visit Family Medicine [address] [place] [phone] Wendi Love, [address] [place] [address] 04/19/2024 11:00 AM EDT Nurse Only Ancillary [address] [place] [address] M[place], Nurse [address] [place] [address] 09/23/2024 9:40 AM EST Office Visit Rheumatology [address] [place] [phone] Akin Will MD [facility] [place] [address] Health Maintenance Due Date Last Done Comments Alpha-1 Antitrypsin 12/24/1961 Diabetic Eye Exam 12/24/1961 Hepatitis C Screening 12/24/1961 Zoster Vaccines (2 of 2) 09/28/2022 08/03/2022 COVID-19 Vaccine ( season) 2023 06/28/2022, 08/03/2021, 12/10/2020, Additional history exists Diabetic Foot Exam 02/18/2024 02/17/2023 HbA1c 02/27/2024 08/29/2023, 0609/2022, 01/18/2022, Additional history exists Depression Screening 04/17/2024 04/17/2023 Albumin/Creatinine Ratio 06/16/2024 06/16/2023, 12/0 02/2022 GFR 08/29/2024 08/29/2023, 03/28, 03/10/2023, Additional [...] sleep documented in this encounter Care Teams Shop Hand Relationship Specialty Start Date End Date Wendi Love DO [address] [place] [address] [place] [phone] PCP - General Internal Medicine 06/07/17 documented as of this encounter
--- OUTSIDE RECORDS SUMMARY | 2023-11-13 03:39 | External Medical Summary | Summary of Care ---
Author Name Unknown Organization [facility] Address [address] [place] [address] Phone [phone] Care Team Providers Care Closing Coordinator Name Role Phone Wendi Love DO Primary Care Provider Reason for Visit * Reason Onset Date Comments Advice 10/30/2023 Encounter Details Date Type Department Care Team (Late st Contact Info) Description 10/30/2023 Telephone Ancillary [address] [place] [address] Wendi Love DO [address] [place] [address] [place] [address] Advice Allergies Active Allergy Reactions Criticality Noted [...] to evaluate pt. Spoke with Carissa. Given [facility] number to call with update regarding whether [...] rising PSA Continues to follow up with [facility] urology JOHN (nonalcoholic steatohepatitis) 04/02/2015 [...] mRNA, LNP-s, No Pre serve, 2-Dose Series ([employer]) 08/03/2021,12/10/2020,11/12/2020 Covid-19, Mrna, Lnp-s, Pf, B ivalent, [...] states he went to the ER at [facility] for a "dry mouth" at approx [...] back ifsymptoms worsen. * Telephone Encounter - Midna Spencer MD - 10/31/2023 8:04 AM EST [...] 10:30 AM EDT Office Visit Family Medicine [address] [place] [phone] Wendi Love, [address] [place] [address] 04/19/2024 11:00 AM EDT Nurse Only Ancillary [address] [place] [address] [place], Nurse [address] [place] [address] 09/23/2024 9:40 AM EST Office Visit Rheumatology [address] [place] [phone] Akin Will MD [address] [facility] [place] [address] Health Maintenance Due Date Last Done Comments [...] sleep documented in this encounter Care Teams Closing Coordinator Relationship Specialty Start Date End Date Wendi Love DO [address] [place] [address] [place] [phone] PCP - General Internal Medicine 06/07/17 documented as of this encounter
--- OUTSIDE RECORDS SUMMARY | 2023-11-13 03:39 | External Medical Summary | Summary of Care ---
Author Name Unknown Organization [facility] Address [address] [place] [address] Phone [phone] Care Team Providers Care Auto Radiator Specialist Name Role Phone Wendi Love DO Primary Care Provider Reason for Visit * Reason Onset Date Comments Advice 10/30/2023 Encounter Details Date Type Department Care Team (Late st Contact Info) Description 10/30/2023 Telephone Ancillary [address] [place] [address] Wendi Love DO [address] [place] [address] [place] [address] Advice Allergies Active Allergy Reactions Criticality Noted Date Comments No Known Drug Allergy 02/10/2009 documented as of this encounter (statuses as of 11/07/2023) Medications Medication Sig Dispensed Refills Start Date [...] as of this encounter (statuses as of 11/07/2023) Active Problems Problem Noted Date Diagnosed Date [...] to evaluate pt. Spoke with Carissa. Given [facility] number to call with update regarding [...] rising PSA Continues to follow up with [facility] urology JOHN (nonalcoholic steatohepatitis) 04/02/2015 Last Assessment & Plan: Mildly elevated ALT, continue to monitor. Other allergic rhinitis 12/28/2010 Overview: ICD-10 update of inactive term documented as of this encounter (statuses as of 11/07/2023) Resolved Problems Problem Noted Date Diagnosed Date [...] as of this encounter (statuses as of 11/07/2023) Immunizations Name Administration Dates Next Due COVID-19 mRNA, LNP-s, No Pre serve, 2-Dose Series ([employer]) 08/03/2021,12/10/2020,11/12/2020 Covid-19, Mrna, Lnp-s, Pf, B ivalent, [...] and if I would ask him to picker and packer the things on his way home. We [...] states he went to the ER at [facility] for a "dry mouth" at approx [...] AM EDT Office Visit Family Medicine [address] [place] [phone] Wendi [address] [place] [address] 04/19/2024 11:00 AM EDT Nurse Only Ancillary [address] [place] [address] [place], Nurse [address] [place] [address] 09/23/2024 9:40 AM EST Office Visit Rheumatology [address] [place] [phone] Akin Will MD [address] [facility] [place] [address] Health Maintenance Due Date Last Done Comments [...] sleep documented in this encounter Care Teams Auto Radiator Specialist Relationship Specialty Start Date End Date Wendi Love DO [address] [place] [address] [place] [address] PCP - General Internal Medicine 06/07/17 documented as of this encounter
--- OUTSIDE RECORDS SUMMARY | 2023-11-13 03:39 | External Medical Summary | Summary of Care ---
Author Name Unknown Organization [facility] Address [address] [place] [address] Phone [phone] Care Team Providers Care Acute Care Physical Therapist Name Role Phone Wendi Love DO Primary Care Provider Reason for Visit * Reason Onset Date Comments Advice 10/30/2023 Encounter Details Date Type Department Care Team (Late st Contact Info) Description 10/30/2023 Telephone Ancillary [address] [place] [address] Wendi Love DO [address] [place] [address] [place] [address] Advice Allergies Active Allergy Reactions Criticality Noted [...] to evaluate pt. Spoke with Carissa. Given [facility] number to call with update regarding [...] PSA Continues to follow up with [facility] urology JOHN (nonalcoholic steatohepatitis) 04/02/2015 Last [...] mRNA, LNP-s, No Pre serve, 2-Dose Series ([employer]) 08/03/2021,12/10/2020,11/12/2020 Covid-19, Mrna, Lnp-s, Pf, B ivalent, [...] and if I would ask him to fern picker the things on his way home. [...] states he went to the ER at [facility] for a "dry mouth" at approx 5am. [...] 10:30 AM EDT Office Visit Family Medicine [address] [place] [phone] Wendi Love, [address] [place] [address] 04/19/2024 11:00 AM EDT Nurse Only Ancillary [address] [place] [address] [place], Nurse [address] [place] [address] 09/23/2024 9:40 AM EST Office Visit Rheumatology [address] [place] [phone] Akin Will MD [facility] [place] [address] Health Maintenance Due Date Last Done Comments [...] sleep documented in this encounter Care Teams Acute Care Physical Therapist Relationship Specialty Start Date End Date Wendi Love DO [address] [place] [address] [place] [phone] PCP - General Internal Medicine 06/07/17 documented as of this encounter
--- OUTSIDE RECORDS SUMMARY | 2023-11-13 03:39 | External Medical Summary | Summary of Care ---
Author Name Unknown Organization [facility] Address [address] [place] [address] Phone [phone] Care Team Providers Care State Historical Society Director Name Role Phone Wendi Love DO Primary Care Provider Reason for Visit * Reason Onset Date Comments Advice 10/30/2023 Encounter Details Date Type Department Care Team (Late st Contact Info) Description 10/30/2023 Telephone Ancillary [address] [place] [address] Wendi Love DO [address] [place] [address] [place] [address] Advice Allergies Active Allergy Reactions Criticality Noted [...] to evaluate pt. Spoke with Carissa. Given [facility] number to call with update regarding [...] rising PSA Continues to follow up with [facility] urology JOHN (nonalcoholic steatohepatitis) 04/02/2015 Last Assessment [...] mRNA, LNP-s, No Pre serve, 2-Dose Series ([employer]) 08/03/2021,12/10/2020,11/12/2020 Covid-19, Mrna, Lnp-s, Pf, B ivalent, [...] states he went to the ER at [facility] for a "dry mouth" at approx [...] his current meds * Telephone Encounter - Gabyb Roberts RN - 10/31/2023 7:52 AM EST [...] 10:30 AM EDT Office Visit Family Medicine [address] [place] [phone] Wendi Love, [address] [place] [address] 04/19/2024 11:00 AM EDT Nurse Only Ancillary [address] [place] [address] [place], Nurse [address] [place] [address] 09/23/2024 9:40 AM EST Office Visit Rheumatology [address] [place] [phone] Akin Will MD [address] [facility] [place] [address] Health Maintenance Due Date Last Done Comments [...] sleep documented in this encounter Care Teams State Historical Society Director Relationship Specialty Start Date End Date Wendi Love DO [address] [place] [address] [place] [phone] PCP - General Internal Medicine 06/07/17 documented as of this encounter
--- OUTSIDE RECORDS SUMMARY | 2023-11-13 03:39 | External Medical Summary | Summary of Care ---
Author Name Unknown Organization [facility] Address [address] [place] [address] Phone [phone] Care Team Providers Care Wet Mix Operator Name Role Phone Wendi Love DO Primary Care Provider [phone] Reason for Visit * Reason Onset Date Comments Advice 10/30/2023 Encounter Details Date Type Department Care Team (Late st Contact Info) Description 10/30/2023 Telephone Ancillary [address] [place] [address] Wendi Love DO [address] [place] [address] [place] [address] Advice Allergies Active Allergy Reactions Criticality Noted [...] to evaluate pt. Spoke with Carissa. Given [facility] number to call with update regarding [...] rising PSA Continues to follow up with [facility] urology JOHN (nonalcoholic steatohepatitis) 04/02/2015 Last [...] mRNA, LNP-s, No Pre serve, 2-Dose Series ([employer]) 08/03/2021,12/10/2020,11/12/2020 Covid-19, Mrna, Lnp-s, Pf, B ivalent, [...] will call back if not any better. I can tell patient is very frustrated [...] AM EDT Office Visit Family Medicine [address] [place] [phone] [address] [place] [address] 04/19/2024 11:00 AM EDT Nurse Only Ancillary [address] [place] [address] [place], Nurse Annual [address] [place] [address] 09/23/2024 9:40 AM EST Office Visit Rheumatology [address] [place] [phone] Akin Will [facility] [facility] [address] Health Maintenance Due Date Last Done Comments [...] sleep documented in this encounter Care Teams Wet Mix Operator Relationship Specialty Start Date End Date Wendi Love DO [address] [place] [address] [place] [address] PCP - General Internal Medicine 06/07/17 documented as of this encounter
--- OUTSIDE RECORDS SUMMARY | 2023-11-13 03:40 | External Medical Summary | Summary of Care ---
Author Name Unknown Organization [facility] Address [address] [place] [address] Phone [phone] Care Team Providers Care Mangle Catcher Name Role Phone Reji Mathews DO Primary Care Provider Reason for Visit * Reason Onset Date Comments Medication Refill 09/22/2023 Encounter Details Date Type Department Care Team (Late st Contact Info) Description 09/22/2023 Refill Family Medicine [address] [place] [phone] Reji Mathews DO [address] [place] [address] [place] [address] Allergies Active Allergy Reactions Criticality Noted Date Comments No Known Drug Allergy 02/10/2009 documented as of this encounter (statuses as of 09/25/2023) Medications Medication Sig Dispensed Refills Start Date End Date Status aspirin enteric coated 81 MG TBEC Take 1 Tab by mouth daily. 100 Tab 0 10/20/2017 Active Zinc Gluconate 50 MG CAPS Take 1 Cap by mouth daily. 30 Cap 0 10/20/2017 Active Alpha Lipoic Acid 200 MG CAPSIndications:Bur antoine mouth syndrome Take 1 Cap by mouth daily. 30 Cap 2 10/03/2019 Active Additional Information Patient taking differently:1 Capsule Oral Daily(AM),Pt is taking 100mg daily per pharmacy, Reported on 04/26/2023 B-12 2000 MCG Oral Tablet Take 2,000 mcg by mouth once. Daily 0 Active Albuterol Sulfate HFA 108 (90 Base) MCG/ACT Inhalation Aerosol SolutionIndications :COPD, moderate (HCC) inhale 2 puffs every 4 hours as needed for wheezing, shortness of breath or cough 6.7 g 5 01/18/2022 Active Cevimeline HCl 30 MG Oral Capsule Take 1 Capsule by mouth in the morning and 1 Capsule at noon and 1 Capsule before bedtime. 90 Capsule 5 04/12/2023 Active Mirtazapine 15 MG Oral Tablet (Remeron) Take 1 Tablet by mouth at bedtime. 30 Tablet 5 04/12/2023 Active Levothyroxine Sodium 50 MCG Oral Tablet (Levoxyl)Indication s:Subclinical hypothyroidism Take 1 Tablet by mouth in the morning. In the morning.. 90 Tablet 3 05/08/2023 Active Losartan Potassium 25 MG Oral Tablet (Cozaar) Take 1 Tablet by mouth in the morning. 90 Tablet 1 05/10/2023 Active metFORMIN HCl ER 500 MG Oral Tablet Extended Release 24 Hour (Glucophage XR)Indications:Diab etes mellitus without complication (HCC),Burning mouth syndrome TAKE ONE TABLET IN THE MORNING 90 Tablet 1 06/30/2023 Active Pantoprazole Sodium 20 MG Oral Tablet Delayed Release (Protonix)Indicatio ns:Burning mouth syndrome,Gastro-eso phageal reflux disease without esophagitis TAKE ONE TABLET IN THE MORNING 90 Tablet 3 08/01/2023 Active Losartan Potassium 50 MG Oral Tablet (Cozaar)Indications :Essential hypertension with goal blood pressure less than 140/90 Take 1 Tablet by mouth in the morning. 90 Tablet 3 08/01/2023 Active Multi-Vitamins Oral Tablet Take 1 Tablet by mouth in the morning. 30 Tablet 5 08/01/2023 Active Clotrimazole 10 MG Mouth/Throat Giselle (Mycelex Giselle) Take 1 Lozenge by mouth 5 times a day. Allow tablet to slowly dissolve in your mouth 70 Giselle 0 08/18/2023 Active Tamsulosin HCl 0.4 MG Oral Capsule (Flomax)Indications :BPH with obstruction/lower urinary tract symptoms Take 1 [...] at bedtime. 30 Tablet 2 09/25/2023 Active amLODIPine Besylate 5 MG Oral Tablet (Norvasc) Take 1 Tablet by mouth in the morning. 30 Tablet 5 04/12/2023 4 Discontinu ed(Refill) LORazepam 0.5 MG Oral Tablet (Ativan) Take 1 Tablet by mouth every night at bedtime. 30 Tablet 0 06/30/2023 4 Discontinu ed(Refill) Hospital, Clinic, or Other Facility Administered Medication Ordered Dose Route Frequency Start Date End Date Status albuterol sulfate (PROVENTIL) (2.5 MG/3ML) 0.083% inhalation solution 2.5 mgIndications:COPD, moderate (HCC) 2.5 mg NEBULIZER Q4H PRN 06/20/2017 Active documented as of this encounter (statuses as of 09/25/2023) Active Problems Problem Noted Date Diagnosed Date [...] to evaluate pt. Spoke with Carissa. Given [facility] number to call with update regarding whether [...] Esophageal dysmotility 08/12/2015 Prostate cancer 04/27/2015 Overview: [place] score = 6. Radiation therapy 10/2020 due to rising PSA following radical prostatectomy Last Assessment & Plan: S/p radical prostatectomy 10/10/17. Referred to RT 10/2020 d/t rising PSA Continues to follow up with [facility] urology JOHN (nonalcoholic steatohepatitis) 04/02/2015 Last Assessment & Plan: Mildly elevated ALT, continue to monitor. Other allergic rhinitis 12/28/2010 Overview: ICD-10 update of inactive term documented as of this encounter (statuses as of 09/25/2023) Resolved Problems Problem Noted Date Diagnosed Date [...] as of this encounter (statuses as of 09/25/2023) Immunizations Name Administration Dates Next Due COVID-19 mRNA, LNP-s, No Pre serve, 2-Dose Series ([employer]) 08/03/2021,12/10/2020,11/12/2020 Covid-19, Mrna, Lnp-s, Pf, B ivalent, 30 Mcg, IM, 12 yrs and above ([employer]) 06/28/2022 Pneumococcal Conjugate Vacc, 13 Valent (Prevnar) [...] Years Used Date Smoking Tobacco: Former Cigars Q uit: 08/28/1979 Smokeless Tobacco: Former Chew Quit: 02/25/2012 Comments:Occasional [...] encounter Miscellaneous Notes * Telephone Encounter - Reji Mathews DO - 09/25/2023 1:33 PM ESTSigned Prescriptions: Disp Refills amLODIPine Besylate 5 MG Oral Tablet (Norv*30 Tab*5 Sig: Take 1 Tablet by mouth in the morning.Authorizing Provider: REJI MATHEWS LORazepam 0.5 MG Oral Tablet (Ativan) 30 Tab*2 Sig: Take 1 Tablet by mouth every night at bedtime.Authorizing Provider: REJI MATHEWS * Telephone Encounter - Reji Mathews DO - 09/25/2023 1:32 PM EST I have reviewed the patients controlled substance dispensing history in the Prescription Drug Monitoring Program in compliance with the [facility] regulations before prescribing a controlled substance. Last Tox Screen Results: No results found. However, due to the size of the patient record, not all encounters were searched.Please check Results Review for a complete set of results. * Telephone Encounter - Amy Mcknight RN - 09/25/2023 10:07 AM ESTPending Prescriptions: Disp Refills amLODIPine Besylate 5 MG Oral Tablet (Norv*30 Tab*5 Sig: Take 1 Tablet by mouth in the morning. LORazepam 0.5 MG Oral Tablet (Ativan) 30 Tab*0 Sig: Take 1 Tablet by mouth every night at bedtime. * Telephone Encounter - Zaina Peck OSA - 09/22/2023 1:16 PM EST Did you pend patient's preferred pharmacy and medication before forwarding?yes Pharmacy: [facility], [address] [place] Pending Prescriptions: Disp Refills amLODIPine Besylate 5 MG Oral Tablet (Nor*30 Tab*5 Sig: Take 1 Tablet by mouth in the morning. LORazepam 0.5 MG Oral Tablet (Ativan) 30 Tab*0 Sig: Take 1 Tablet by mouth every night at bedtime. Last Visit: 08/29/2023 (in office), Visit date not found (telemedicine) Next Visit: 03/29/2024 If no future appointments scheduled, and last appointment is greater than a year ago, please schedule patient for a follow-up appointment Last date the medication was ordered: 04.12.2023 Is this request for a controlled substance?No Urine Drug Screen:No results found. However, due to the size of the patient record, not all encounters were searched. Please check Results Review for a complete set of results. Patient Phone Numbers Labs: Lab Results Component Value Date/Time CREAT 0.8 08/29/2023 09:36 AM CREAT 1.14 03/10/2023 12:00 AM CREAT 1.0 07/08/2020 08:13 AM POTASSIUM 4.2 08/29/2023 09:36 AM POTASSIUM 4.1 03/10/2023 12:00 AM POTASSIUM 4.0 07/08/2020 08:13 AM TSH 3.10 08/29/2023 09:36 AM TSH 2.90 07/31/2019 09:51 AM LDLCALC 65 08/29/2023 09:36 AM LDLCALC 52 02/21/2020 03:49 PM LDLDIRECT NOT APPLICABLE 02/21/2020 03:49 PM ALT 28 08/29/2023 09:36 AM ALT 52 (H) 07/08/2020 08:13 AM HGBA1C 5.8 (H) 08/29/2023 09:36 AM HGBA1C 6.0 (H) 07/08/2020 08:13 AM documented in this encounter Plan of Treatment Upcoming Encounters Date Type Department Care Team (Late st Contact Info) Description 10/23/2023 11:20 AM EST Office Visit Rheumatology [address] [place] [phone] Akin Will MD [facility] [facility] [place] [address] 03/29/2024 10:30 AM EDT Office Visit Family Medicine [address] [place] [phone] [address] [place] [address] 04/19/2024 11:00 AM EDT Nurse Only Ancillary [address] [place] [address] [place], Nurse [address] [place] [address] Health Maintenance Due Date Last Done Comments Alpha-1 Antitrypsin 12/24/1961 Diabetic Eye Exam 12/24/1961 Hepatitis C Screening 12/24/1961 Hepatitis B (1 of 3 - Risk 3-dose series) 2003 Zoster Vaccines (2 of 2) 09/28/2022 08/03/2022 COVID-19 Vaccine ( season) 2023 06/28/2022, 08/03/2021, 12/10/2020, Additional history exists Diabetic Foot Exam 02/18/2024 02/17/2023 HbA1c 02/27/2024 08/29/2023, 06/0 09/2022, 01/18/2022, Additional history exists Depression Screening 04/17/2024 04/17/2023 Albumin/Creatinine Ratio 06/16/2024 06/16/2023, 12/0 02/2022 GFR 08/29/2024 08/29/2023, 081 01/2023, 03/10/2023, Additional history exists O2 ASSESSMENT [...] Not on filedocumented as of this encounter Care Teams Mangle Catcher Relationship Specialty Start Date End Date Reji Mathews DO [address] [place] [address] [place] [phone] PCP - General Internal Medicine 06/07/17 documented as of this encounter
--- OUTSIDE RECORDS SUMMARY | 2023-11-13 03:40 | External Medical Summary | Summary of Care ---
Author Name Unknown Organization [facility] Address [address] [place] [facility] [place] [address] Phone [phone] Care Team Providers Care Tight Rope Walker Name Role Phone Wendi Love DO Primary Care Provider Reason for Visit * Reason Onset Date Comments Advice 10/19/2023 I will call nigel ent Monday Encounter Details Date Type Department Care Team (Late st Contact Info) Description 10/19/2023 Refill Ancillary [place] [place] [address] Wendi Love DO [address] [place] [address] [place] [address] Allergies Active Allergy Reactions Criticality Noted Date Comments No Known Drug Allergy 02/10/2009 documented as of this encounter (statuses as of 10/20/2023) Medications Medication Sig Dispensed Refills Start Date [...] for Sleep. 30 Tablet 0 10/20/2023 Active Hospital, Clinic, or Other Facility Administered Medication Ordered Dose Route Frequency Start Date End Date Status albuterol sulfate (PROVENTIL) (2.5 MG/3ML) 0.083% inhalation solution 2.5 mgIndications:COPD, moderate (HCC) 2.5 mg NEBULIZER Q4H PRN 06/20/2017 Active documented as of this encounter (statuses as of 10/20/2023) Active Problems Problem Noted Date Diagnosed Date [...] to evaluate pt. Spoke with Carissa. Given [facility] number to call with update [...] Esophageal dysmotility 08/12/2015 Prostate cancer 04/27/2015 Overview: [place] score = 6. Radiation therapy 10/2020 due to rising PSA following radical prostatectomy Last Assessment & Plan: S/p radical prostatectomy 10/10/17. Referred to RT 10/2020 d/t rising PSA Continues to follow up with [facility] urology JOHN (nonalcoholic steatohepatitis) 04/02/2015 Last Assessment & Plan: Mildly elevated ALT, continue to monitor. Other allergic rhinitis 12/28/2010 Overview: ICD-10 update of inactive term documented as of this encounter (statuses as of 10/20/2023) Resolved Problems Problem Noted Date Diagnosed Date [...] Modified per HTN protocol #16. SPINAL STENOSIS-LUMBAR 10/11 /2017 Anemia 06/15/2010 Calculus of kidney 7 Localized osteoarthrosis not specified whether primary or secondary, pelvic region and thigh 06/07/2017 Polyp of intestine 7 Jessie esophagitis 06/07/20 12 Diverticulosis 02/26/2014 documented as of this encounter (statuses as of 10/20/2023) Immunizations Name Administration Dates Next Due COVID-19 mRNA, LNP-s, No Pre serve, 2-Dose Series ([employer]) 08/03/2021,12/10/2020,11/12/2020 Covid-19, Mrna, Lnp-s, Pf, B ivalent, 30 Mcg, IM, 12 yrs and above ([employer]) 06/28/2022 Pneumococcal Conjugate Vacc, 13 Valent (Prevnar) [...] Telephone Encounter - Gabby Roberts RN - 10/20/2023 12:51 PM EST Patient notified that we will start ambien with the next pill packs, patient is aware it will replace the lorazepam. Patient ok with advice. * Telephone Encounter - Gabby Roberts RN - 10/20/2023 11:33 AM EST I did speak to Kamille at the pharmacy and patient is due for new packs on October 27. Message sent to provider to see if she wants to wait until then. * Telephone Encounter - Gabby Roberts RN - 10/19/2023 4:22 PM EST I will check with the pharmacy tomorrow to see when he is scheduled for a delivery. * Telephone Encounter - Wendi Love DO - 10/19/2023 2:31 PM EST Do you know how many more days he has left in his current pill packs? I do not want him taking bothlorazepam and ambien, so it would be easiest to make the switch in his next set of pill packs. * Telephone Encounter - Gabby Roberts RN - 10/19/2023 8:39 AM EST Patient called back states he is still not sleeping well on the lorazepam. Patient states he has only got 3-4 hours of sleep the last 2 days. Patient states he just can't go back to sleep when he's up. Patient states his tongue is burning and "sour taste has been really bad this week. " Patient hasnoticed that the burning sensation only starts after taking his morning meds. Patient is willing to try the Ambien at night now. Message to Wendi Love DO for advice and new prescription. Reason for Call: Advice (I will call patient Monday) Contact: Telephone Call Contact Type: Advice Outcome: see tele encounter Face to face time spent with Patient (minutes): 0 Total Time including non face to face (minutes): 20 documented in this encounter Plan of Treatment Upcoming Encounters Date Type Department Care Team (Late st Contact Info) Description 10/23/2023 11:20 AM EST Office Visit Rheumatology [address] [place] [phone] Akin Will MD [facility] [address] 03/29/2024 10:30 AM EDT Office Visit Family Medicine [address] [place] [phone] Wendi Love DO [address] [place] [address] [place] [address] 04/19/2024 11:00 AM EDT Nurse Only Ancillary Efrain Rivera[address] [place] [address] Mai, Nurse [address] [place] [address] Health Maintenance Due Date Last Done Comments [...] filedocumented as of this encounter Care Teams Tight Rope Walker Relationship Specialty Start Date End Date Wendi Love DO [address] [place] [address] [place] [phone] PCP - General Internal Medicine 06/07/17 documented as of this encounter
--- OUTSIDE RECORDS SUMMARY | 2023-11-13 03:40 | External Medical Summary | Summary of Care ---
Author Name Unknown Organization [facility] Address [address] [place] [place] [place] [address] Phone [phone] Care Team Providers Care Travel Registered Nurse Icu Name Role Phone Wendi Love DO Primary Care Provider [phone] Reason for Visit * Reason Comments NEW PATIENT Right hip * Evaluate & Treat - Unlimited Visits (Within 10 days (routine)) - Authorized Specialty Diagnoses / Procedures Referred By Weston schroeder Referred To Contact Orthopaedic Surgery / Orthopedics Diagnoses Primary osteoarthritis of both hips Wendi Love DO [address] [place] [address] [place] [id number] Referral ID Status Reason Start Date Expiration Date Visits Requested Visits Authorized [id number] Authorized Specialty Services Required 08/29/[phone] Encounter Details Date Type Department Care Team (Latest Contact Info) Description 09/14/2023 9:00 AM EST Office Visit Orthopaedics [address] [phone] Harry Daniel MD [address] [place] [address] Primary osteoarthritis of right hip*; Osteoarthritis of lumbar spine, unspecified spinal osteoarthritis complication status Allergies Active Allergy Reactions Criticality Noted Date Comments No Known Drug Allergy 02/10/2009 documented as of this encounter (statuses as of 09/15/2023) Medications Medication Sig Dispensed Refills Start Date [...] or cough 6.7 g 5 01/18/2022 Active amLODIPine Besylate 5 MG Oral Tablet (Norvasc) Take 1 Tablet by mouth in the morning. 30 Tablet 5 04/12/2023 Active Cevimeline HCl 30 MG Oral Capsule [...] THE MORNING 90 Tablet 1 06/30/2023 Active LORazepam 0.5 MG Oral Tablet (Ativan) Take 1 Tablet by mouth every night at bedtime. 30 Tablet 0 06/30/2023 Active Pantoprazole Sodium 20 MG Oral [...] Pain, Severe. 10 Tablet 0 09/08/2023 Active Hospital, Clinic, or Other Facility Administered Medication Ordered Dose Route Frequency Start Date End Date Status albuterol sulfate (PROVENTIL) (2.5 MG/3ML) 0.083% inhalation solution 2.5 mgIndications:COPD, moderate (HCC) 2.5 mg NEBULIZER Q4H PRN 06/20/2017 Active Triamcinolone Acetonide (Kenalog) 40 MG/ML inj 40 mgIndications:Primary osteoarthritis of right hip 40 mg IX ONCE 09/14/2023 09/14/2023 Ended lidocaine 1 % inj 10 mgIndications:Primary osteoarthritis of right hip 10 mg IX ONCE 09/14/2023 09/14/2023 Ended documented as of this encounter (statuses as of 09/15/2023) Active Problems Problem Noted Date Diagnosed Date [...] to evaluate pt. Spoke with Carissa. Given [facility] number to call with update [...] Esophageal dysmotility 08/12/2015 Prostate cancer 04/27/2015 Overview: Nahant score = 6. Radiation therapy 10/2020 due to rising PSA following radical prostatectomy Last Assessment & Plan: S/p radical prostatectomy 10/10/17. Referred to RT 10/2020 d/t rising PSA Continues to follow up with [facility] urology JOHN (nonalcoholic steatohepatitis) 04/02/2015 Last Assessment & Plan: Mildly elevated ALT, continue to monitor. Other allergic rhinitis 12/28/2010 Overview: ICD-10 update of inactive term documented as of this encounter (statuses as of 09/15/2023) Resolved Problems Problem Noted Date Diagnosed Date [...] as of this encounter (statuses as of 09/15/2023) Immunizations Name Administration Dates Next Due COVID-19 mRNA, LNP-s, No Pre serve, 2-Dose Series ([employer]) 08/03/2021,12/10/2020,11/12/2020 Covid-19, Mrna, Lnp-s, Pf, B ivalent, 30 Mcg, IM, 12 yrs and above ([employer]) 06/28/2022 Pneumococcal Conjugate Vacc, 13 Valent (Prevnar) [...] on file documented as of this encounter Progress Notes * Harry Daniel MD - 09/14/2023 9:00 AM EST Alhaji Walsh [phone] Alhaji Walsh is a 77 year old male who presents for consultation for bilateralhip injury/pain to [facility]\. Consult requested by Wendi Love DO. Alhaji Walsh is here unaccompanied Quality: reviewed and agree with Nursing Notes for HPI elements History: History - Referred by Dr. Love for bilateral hip pain. Right lower back and hip pain that radiates down leg to salgado. right hip pain x 7-8 months. Denies numbness or tingling. Pain 6/10 today. difficulty sleeping wakes, pt up at night. 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 Calculus of kidney Jessie esophagitis (HCC) 11/02/2011 Constipation due to slow transit 10/16/2014 COPD, moderate (HCC) 08/02/2013 COVID-19 08/31/2020 Degeneration of lumbosacral intervertebral disc Degenerative disc disease, cervical 08/03/2015 Diverticulosis Esophageal dysmotility 08/12/2015 Esophageal ring, acquired 10/13/2015 Esophageal stricture 08/17/2015 Essential hypertension with goal blood pressure less than 140/90 07/26/2016 Gastroesophageal reflux disease with esophagitis 08/19/2015 Gastroesophageal reflux disease without esophagitis 06/15/2015 Impaired fasting glucose 07/26/2013 Localized osteoarthrosis not specified whether primary or secondary, pelvic region and thigh Lumbar degenerative disc disease 08/19/2015 MRSA (methicillin resistant staph aureus) culture positive 06/07/2012 JOHN (nonalcoholic steatohepatitis) 04/02/2015 On high dose antipsychotic drug therapy 11/01/2017 Seroquel therapy for sleep Persistent insomnia 10/27/2011 Polyp of intestine tubular adenoma Prostate cancer (HCC) 04/27/2015 Giovanna score = 6. 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 Employer: [employer] 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 Tobacco Use Smoking status: Former Types: Cigars Quit date: 08/28/1979 Years since quittin.0 Smokeless tobacco: Former Types: Chew Quit date: 02/25/2012 Tobacco comments: Occasional cigars Vaping Use Vaping Use: Never used Substance and Sexual Activity Alcohol use: No Comment: none since 1981 Drug use: No Sexual activity: Yes Partners: Female Other Topics Concern Service No Blood Transfusions No Caffeine Concern Yes Occupational Exposure No Hobby Hazards No Sleep Concern No Stress Concern No Weight Concern No Special Diet No Back Care Yes Exercise Yes Bike Helmet Not Asked Seat Belt Yes Self-Exams Yes Social History Narrative 07/2019. Social Determinants of Health Financial Resource Strain: Not on file Food Insecurity: No Food Insecurity (04/17/2023) Hunger Vital Sign Worried About Running Out of Food in the Last Year: Never true Ran Out of Food in the Last Year: Never true Transportation Needs: Not on file Physical Activity: Not on file Stress: Not on file Social Connections: Not on file Intimate Partner Violence: Not on file Housing Stability: Not on file Physical Exam Constitutional: Generally well-nourished and in no acute distress Psychiatric: Mood and Affect normal Eyes: EOMI Respiratory: Normal respiratory effort with regular rate and rhythm Cardiovascular: No edema in the affected extremity (s) Hip and Pelvis Exam Gait: Limp: Positive Antalgic: Positive Scars / Previous Surgery or Trauma: None Alignment: Normal Palpation: Tender palpate over the anterior hip joint Hernia: No ROM: Flexion (normal 120-130): L - 120, R - 90 Internal at 90 (normal 45): L - 30, R - 0 External at 90 (normal 50): L - 30, R - 30 Was well as flexion of the hip Strength: 5/5 with hip flexion bilateral Lumbar Spine Tests: negative SLR Radiology (I have personally reviewed the following films): 01/12/2023: X-ray series of the lumbar spine: AP, lateral and coned-down lateral views of the lumbosacral spine were obtained. FINDINGS Five [id number] lumbar type vertebral bodies. No fracture. Reversal of the lumbar lordosis. Nolisthesis. Multilevel flowing endplate osteophyte formation compatible with diffuse idiopathic skeletal hyperostosis (DISH). Moderate to advanced multilevel disc height loss and facet arthropathy throughout the lumbar spine. Moderate SI and pubic symphysis osteoarthritis. Severe right and moderate to severe left hip osteoarthritis, progressed. Surgical clips in the pelvis. IMPRESSION IMPRESSION 1. Moderate to advanced multilevel lumbar degenerative change as above. No acute findings. 2. Severe right and moderate to severe left hip osteoarthritis, progressed. Assessment and Plan: 1) right hip pain Suspect multifactorial but greatest etiology is likely the severe hip arthritis, also severe changes in his lower back and likely has a component of lumbar radiculopathy Although he also has degenerative changes noted in the left hip noted to be moderate to severe he is asymptomatic on that side Discussed treatment options including physical therapy, steroid injection, referral to Surgical colleague for evaluation for total hip replacement/arthroplasty Patient desired to try steroid injection In office follow-up in 3-5 weeks Depending on symptoms at that time may require MRI of his lumbar spine referral to pain management and/or referral to Surgical colleague related to his hip Note: Other conditions of note include diabetes, hypothyroidism, nonalcoholic steatohepatitis, tardive dyskinesia, Sjogren's syndrome and prostate cancer Note: Patient is a diabetic Most recent hemoglobin A1c value was 5.8 from 08/29/2023. He does not routinely check his blood sugar. I discussed with them that this injection may cause his blood sugar to increase in if he begins feeling abnormally he needs to call his primary care office for guidance Procedure note (hip injection), right : Time out: Prior to injection, a time out was called to confirm the administration of appropriate medicine, patient name, procedure and confirm to the best of our ability and knowledge the presence of any necessary risks and benefits. Patient verbalizes understanding. Ultrasound utilized to guide injection Ultrasound required due to: need to visualize specific joint recess Sterile techinique applied. Skin sterilized with alcohol swab. Hip injected using 3.5 inch, 22 gauge needle. Injected with 1 ml lidocaine 1%, triamcinolone acetonide 40mg/ml 1 ml. Patient tolerated procedure with no significant bleeding or adverse reaction. Patient instructed to call or return to clinic for fever or warmth and redness at injection site for potential infection. Patient also advised as to potential for steroid flare reaction including increased pain and redness at injection site which should be treated with ice and resolve within 24 hours. Note: Injection was technically difficult due to patient positioning related to his severe hip arthritis. 2 videos taken. the 1st 1 is of the injection and the 2nd video is of the needle being withdrawn from within the distal portion of the joint capsule Harry Daniel MD Primary Care Sports Medicine Orthopaedics [address] [address] documented in this encounter Nursing Notes * Alisa Fleming, RN - 09/14/2023 9:23 AM EST Pt referred by Dr. Love for bilateral hip pain. Right lower back and hip pain that radiates down leg to salgado. right hip pain x 7-8 months. Denies numbness or tingling. Pain 6/10 today. difficulty sleeping wakes, pt up at night. xr l-spine done 01/12/23 Alisa Fleming, RN documented in this encounter Plan of Treatment Upcoming Encounters Date Type Department Care Team (Late st Contact Info) Description 10/23/2023 11:20 AM EST Office Visit Rheumatology [address] [place] [phone] Akin Will MD [address] [place], [place] [address] [address] 03/29/2024 10:30 AM EDT Office Visit Family Medicine [address] [place] [phone] Wendi Love, [address] [place] [address] 04/19/2024 11:00 AM EDT Nurse Only Ancillary [address] [place] [address] [place], Nurse [address] [place] [address] Scheduled Orders Name Type Priority Associated Diagnoses Orde r Schedule POINT OF CARE US MAJOR JOINT INJECTION, ORTHO Medical Imaging Routine Primary osteoarthritis of right hip Ordered: 09/14/2023 Health Maintenance Due Date Last Done Comments [...] of this encounter Visit Diagnoses Diagnosis Primary osteoarthritis of right hip- Primary Primary localized osteoarthrosis, pelvic region and thigh Osteoarthritis of lumbar spine, unspecified spinal osteoarthritis complication status documented in this encounter Administered Medications Inactive Administered Medications - up to 3 most recent administrations Medication Order MAR Action Action Date Dose Rate Site lidocaine 1 % inj 10 mg 10 mg (1 mL), Intra-Articular, ONCE, On Beatriz 09/14/23 at 1045, For 1 dose Given 09/14/2023 2:15 PM EST 10 mg Hip R ight Triamcinolone Acetonide (Kenalog) 40 MG/ML inj 40 mg 40 mg, Intra-Articular, ONCE, On Beatriz 09/14/23 at 1045, For 1 dose Given 09/14/2023 2:15 PM EST 40 mg Hip R ight documented in this encounter Care Teams Travel Registered Nurse Icu Relationship Specialty Start Date End Date Wendi Love DO [address] [place] [address] [place] [phone] PCP - General Internal Medicine 06/07/17 documented as of this encounter
--- OUTSIDE RECORDS SUMMARY | 2023-11-13 03:40 | External Medical Summary | Summary of Care ---
Author Name Unknown Organization [facility] Address [address] [place] [address] Phone [phone] Care Team Providers Care Diesel Service Technician Name Role Phone Reji Mathews DO Primary Care Provider Reason for Visit * Reason Onset Date Comments Medication Refill 09/08/2023 Make sure nigel ent keeps ortho appointment 09/14 Encounter Details Date Type Department Care Team (Late st Contact Info) Description 09/08/2023 Telephone Ancillary [address] [place] [address] Reji Mathews DO [address] [place] [address] [place] [phone] Medication Refill (Make sure patient keeps... Allergies Active Allergy Reactions Criticality Noted Date Comments No Known Drug Allergy 02/10/2009 documented as of this encounter (statuses as of 09/14/2023) Medications Medication Sig Dispensed Refills Start Date [...] Pain, Severe. 10 Tablet 0 09/08/2023 Active oxyCODONE HCl 5 MG Oral Tablet (Oxy IR) Take 0.5 Tablets by mouth daily as needed for Pain, Severe. 5 Tablet 0 08/29/2023 4 Discontinu ed(Refill) Hospital, Clinic, or Other Facility Administered Medication Ordered Dose Route Frequency Start Date End Date Status albuterol sulfate (PROVENTIL) (2.5 MG/3ML) 0.083% inhalation solution 2.5 mgIndications:COPD, moderate (HCC) 2.5 mg NEBULIZER Q4H PRN 06/20/2017 Active documented as of this encounter (statuses as of 09/14/2023) Active Problems Problem Noted Date Diagnosed Date [...] to evaluate pt. Spoke with Carissa. Given [facility] number to call with update regarding [...] rising PSA Continues to follow up with [facility] urology JOHN (nonalcoholic steatohepatitis) 04/02/2015 Last Assessment & Plan: Mildly elevated ALT, continue to monitor. Other allergic rhinitis 12/28/2010 Overview: ICD-10 update of inactive term documented as of this encounter (statuses as of 09/14/2023) Resolved Problems Problem Noted Date Diagnosed Date [...] as of this encounter (statuses as of 09/14/2023) Immunizations Name Administration Dates Next Due COVID-19 mRNA, LNP-s, No Pre serve, 2-Dose Series ([employer]) 08/03/2021,12/10/2020,11/12/2020 Covid-19, Mrna, Lnp-s, Pf, B ivalent, [...] Telephone Encounter - Gabby Roberts RN - 09/14/2023 3:13 PM EST Patient did keep appointment with Dr. Daniel today and did get an injection. Message sent to DO christoph German * Telephone Encounter - Gabby Roberts RN - 09/12/2023 2:06 PM ESTSigned Prescriptions: Disp Refills oxyCODONE HCl 5 MG Oral Tablet (Oxy IR) 10 Tab*0 Sig: Take 0.5 Tablets by mouth daily as needed for Pain, Severe.Authorizing Provider: REJI MATHEWS * Telephone Encounter - Gabby Roberts RN - 09/12/2023 2:05 PM EST Patient does have an appointment on 09/14 with ortho * Telephone Encounter - Gabby Roberts RN - 09/08/2023 8:20 AM EST Patient calling was seen on 08/29/23 for hip pain, patient was given pain meds, patient requesting a RF of Pending Prescriptions: Disp Refills oxyCODONE HCl 5 MG Oral Tablet (Oxy IR) 5 Tabl*0 Sig: Take 0.5 Tablets by mouth daily as needed for Pain, Severe. will need sent to [facility], [address] RONALD CARRERO Counseled patient he was to use 1/2 tab prn. Patient states he was having pain every day and has taken 1/2 tab daily. Patient states pain is currently a 5/10 but gets worse with walking. Patient is sched with Dr. Daniel on 09/14/23 for eval. Message sent to provider for advice. Reason for Call: Medication Refill Contact: Telephone Call Contact Type: Follow-up Outcome: see note Face to face time spent with Patient (minutes): 0 Total Time including non face to face (minutes): 20 documented in this encounter Plan of Treatment Upcoming Encounters Date Type Department Care Team (Late st Contact Info) Description 10/23/2023 11:20 AM EST Office Visit Rheumatology [address] [place] [phone] Akin Will MD [address] [facility] [place] [address] 03/29/2024 10:30 AM EDT Office Visit Family Medicine [address] [place] [phone] Kate Reji Rivera[address] [place] [address] 04/19/2024 11:00 AM EDT Nurse Only Ancillary [address] [place] [address] [place], Nurse [facility] [address] [place] [address] [place] [address] Health Maintenance Due Date Last Done Comments [...] filedocumented as of this encounter Care Teams Diesel Service Technician Relationship Specialty Start Date End Date Reji Mathews DO [address] [place] [address] [place] [phone] PCP - General Internal Medicine 06/07/17 documented as of this encounter
--- OUTSIDE RECORDS SUMMARY | 2023-11-13 03:40 | External Medical Summary | Summary of Care ---
Author Name Unknown Organization [facility] Address [address] [place] [address] Phone [phone] Care Team Providers Care Mold Polisher Name Role Phone Wendi Love DO Primary Care Provider Reason for Visit * Reason Onset Date Comments Advice 10/13/2023 Encounter Details Date Type Department Care Team (Late st Contact Info) Description 10/13/2023 Telephone Family Medicine [address] [phone] [address]i Love [address] [address] Advice Allergies Active Allergy Reactions Criticality Noted Date Comments No Known Drug Allergy 02/10/2009 documented as of this encounter (statuses as of 10/19/2023) Medications Medication Sig Dispensed Refills Start Date [...] at bedtime. 30 Tablet 2 09/25/2023 Active Hospital, Clinic, or Other Facility Administered Medication Ordered Dose Route Frequency Start Date End Date Status albuterol sulfate (PROVENTIL) (2.5 MG/3ML) 0.083% inhalation solution 2.5 mgIndications:COPD, moderate (HCC) 2.5 mg NEBULIZER Q4H PRN 06/20/2017 Active documented as of this encounter (statuses as of 10/19/2023) Active Problems Problem Noted Date Diagnosed Date [...] to evaluate pt. Spoke with Carissa. Given [facility] number to call with update regarding [...] Esophageal dysmotility 08/12/2015 Prostate cancer 04/27/2015 Overview: Lund score = 6. Radiation therapy 10/2020 due to rising PSA following radical prostatectomy Last Assessment & Plan: S/p radical prostatectomy 10/10/17. Referred to RT 10/2020 d/t rising PSA Continues to follow up with [facility] urology JOHN (nonalcoholic steatohepatitis) 04/02/2015 Last Assessment & Plan: Mildly elevated ALT, continue to monitor. Other allergic rhinitis 12/28/2010 Overview: ICD-10 update of inactive term documented as of this encounter (statuses as of 10/19/2023) Resolved Problems Problem Noted Date Diagnosed Date [...] as of this encounter (statuses as of 10/19/2023) Immunizations Name Administration Dates Next Due COVID-19 mRNA, LNP-s, No Pre serve, 2-Dose Series ([employer]) 08/03/2021,12/10/2020,11/12/2020 Covid-19, Mrna, Lnp-s, Pf, B ivalent, [...] Telephone Encounter - Gabby Roberts RN - 10/13/2023 1:36 PM EST Patient notified, Patient notified and states he would like to stick with the lorazepam for now andwill follow up with Dr. Conklin. * Telephone Encounter - Wendi Love DO - 10/13/2023 1:21 PM EST I do not remember talking to him about an ENT referral. He is going to see rheumatology later this month. They can refer him at that time if they feel it is appropriate. We could try switching his lorazepam to Ambien if he would like to see if this helps him sleep better. * Telephone Encounter - Gabby Roberts RN - 10/13/2023 9:10 AM EST Patient called states his mouth was bad last Sat and then got better, and now bad again today with burning and paste. Patient has been trying to stay away from the salty foods. Patient is only sleeping about 3 1/2 hours the last couple nights. Patient states he has been falling asleep ok and then up 3.5 hours later and then can't get back sleep. Patient has been up since 330am. Patient is also tofollow up with Dr. Will for hip pain, patient states pain is ok when sitting or lying but whenpatient has to walk pain is a 7/10. Its not the pain that wakes him up at night. He just gets awakeand can't fall asleep again. Patient thought Wendi Love, DO was going to refer patient to a ?ENT doc for evaluation of his mouth? I do not see any other appts in [place] for mouth Message sent to provider for advice documented in this encounter Plan of Treatment Upcoming Encounters Date Type Department Care Team (Late st Contact Info) Description 10/23/2023 11:20 AM EST Office Visit Rheumatology [address] [place] [phone] Akin Will MD [address] [place] [address] [place] [address] 03/29/2024 10:30 AM EDT Office Visit Family Medicine [address] [place]8 Wendi Love, [address] [place] [address] 04/19/2024 11:00 AM EDT Nurse Only Ancillary [address] [place] [address] [place], Nurse [facility] [address] [place] [address] [place] [phone] Health Maintenance Due Date Last Done Comments [...] filedocumented as of this encounter Care Teams Mold Polisher Relationship Specialty Start Date End Date Wendi Love DO [address] [place] [address] [place] [address] PCP - General Internal Medicine 06/07/17 documented as of this encounter
--- OUTSIDE RECORDS SUMMARY | 2023-11-13 03:40 | External Medical Summary | Summary of Care ---
Author Name Unknown Organization [facility] Address [address] [place] [address] Phone [phone] Care Team Providers Care Automobile Body Customizer Name Role Phone Wendi Love DO Primary Care Provider [phone] Reason for Visit * Reason Comments NEW PATIENT Referred by Wendi yuan for sjogrens, extreme dry mouth * Evaluate & Treat - Unlimited Visits (Within 10 days (routine)) - Authorized Specialty Diagnoses / Procedures Referred By Weston schroeder Referred To Contact Rheumatology Diagnoses Dry mouth Wendi Love [address] [place] [address] Referral ID Status Reason Start Date Expiration Date Visits Requested Visits Authorized [id number] Authorized Specialty Services Required 03/10/2023 [id number] Encounter Details Date Type Department Care Team (Late st Contact Info) Description 10/23/2023 11:20 AM EST Office Visit Rheumatology [address] [place] [phone] Akin Will MD [facility] [place] [address] Sjogren's syndrome with dental involvement (HCC)*; Burning mouth syndrome Allergies Active Allergy Reactions Criticality Noted Date Comments No Known Drug Allergy 02/10/2009 documented as of this encounter (statuses as of 10/23/2023) Medications Medication Sig Dispensed Refills Start Date [...] morning. In the morning.. 0 09/26/2023 Active Multi-Vitamins Oral Tablet Take 1 Tablet by mouth in the morning. 30 Tablet 5 08/01/2023 4 Discontinu ed(Medicat ion List Clean Up) Hospital, Clinic, or Other Facility Administered Medication Ordered Dose Route Frequency Start Date End Date Status albuterol sulfate (PROVENTIL) (2.5 MG/3ML) 0.083% inhalation solution 2.5 mgIndications:COPD, moderate (HCC) 2.5 mg NEBULIZER Q4H PRN 06/20/2017 Active documented as of this encounter (statuses as of 10/23/2023) Active Problems Problem Noted Date Diagnosed Date [...] to evaluate pt. Spoke with Carissa. Given [facility] number to call with update [...] Esophageal dysmotility 08/12/2015 Prostate cancer 04/27/2015 Overview: Buhl score = 6. Radiation therapy 10/2020 due to rising PSA following radical prostatectomy Last Assessment & Plan: S/p radical prostatectomy 10/10/17. Referred to RT 10/2020 d/t rising PSA Continues to follow up with [facility] urology JOHN (nonalcoholic steatohepatitis) 04/02/2015 Last Assessment & Plan: Mildly elevated ALT, continue to monitor. Other allergic rhinitis 12/28/2010 Overview: ICD-10 update of inactive term documented as of this encounter (statuses as of 10/23/2023) Resolved Problems Problem Noted Date Diagnosed Date [...] as of this encounter (statuses as of 10/23/2023) Immunizations Name Administration Dates Next Due COVID-19 mRNA, LNP-s, No Pre serve, 2-Dose Series ([employer]) 08/03/2021,12/10/2020,11/12/2020 Covid-19, Mrna, Lnp-s, Pf, B ivalent, 30 Mcg, IM, 12 yrs and above ([employer]) 06/28/2022 Pneumococcal Conjugate Vacc, 13 Valent (Prevnar) [...] Cigars Smokeless Tobacco: Former Chew Quit: 02/25/2012 Tobacco Cessation:Counseling Given: Not Answered Comments:Occasional cigars Alcohol Use Standard Drinks/Week Comments [...] on file documented as of this encounter Last Filed Vital Signs Vital Sign Reading Time Taken Comments Blood Pressure - - Pulse - - Temperature 36.5 C (97.7 F) 10/23/2023 11:[address] Respiratory Rate - - Oxygen Saturation - - Inhaled Oxygen Concentration - - Weight 90.7 kg (200 lb) 10/23/2023 11:15 AM EST Height - - Body Mass Index 31.32 04/17/2023 11:19 AM EDT documented in this encounter Progress Notes * Akin Will MD - 10/23/2023 11:19 AM EST Reason for visit: Rheumatology consultation for sjogren's Referring Provider: Wendi Love DO HPI: Alhaji Walsh is here at the request of Wendi Love DO for further evaluation of sjogren's/burning mouth. Alhaji Walsh pmhx is listed below. He reports that he has been dealing with dry mouth for more than several years. 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 He reports that this am his mouth feels like paste. Dr Love had contacted me about his dryness and tried salagen and evoxac. At one point was taking both. In March salagen was stopped and continued with evoxac. This is notreally helping. He has had several medications stopped or reduced in dose without benefit - lyrica,seroquel, norvasc and lasix. He did have a low + SSA ab of 11. SSB was negative. No MARTHA. He is edentulous at this point. He states times he will use bnzo-llg-lompjky dryness toothpaste. He states that he has tried a lot of fiiv-qhx-nnkpusp products such as Actonel Biotene with little benefit. Does not chew gum or use candies. He states he is use lozanges in the past as well without benefit. He denies any rashes. No chest pain or shortness of breath. He does have tardive dyskinesia as well. Denies any parotid gland swelling. No salivary gland swelling. No dry eyes. Musculoskeletal ROS: . Normal Other ROS: . Constitutional: normal . Head normal . Eyes: normal . Ears, nose, throat, mouth: dry mouth-see above . Cardiovascular: normal . Respiratory: normal . Gastrointestinal: normal . Genitourinary: normal . Skin: normal All other ROS reviewed and negative Outpatient Medications Marked as Taking for the 10/23/23 encounter (Office Visit) with Akin Will MD Medication Sig CertaVite Senior/Antioxidant Oral Tablet Take 1 Tablet by mouth in the morning. In the morning.. Zolpidem Tartrate 5 MG Oral Tablet (Ambien) Take 1 Tablet by mouth at bedtime as needed for Sleep. amLODIPine Besylate 5 MG Oral Tablet (Norvasc) Take 1 Tablet by mouth in the morning. LORazepam 0.5 MG Oral Tablet (Ativan) Take 1 Tablet by mouth every night at bedtime. oxyCODONE HCl 5 MG Oral Tablet (Oxy IR) Take 0.5 Tablets by mouth daily as needed for Pain, Severe. Vitron-C 65-125 MG Oral Tablet (Iron-Vitamin C 65-125 mg per tab) Take 1 Tablet by mouth in the morning. Tamsulosin HCl 0.4 MG Oral Capsule (Flomax) Take 1 Capsule by mouth in the morning. Clotrimazole 10 MG Mouth/Throat Giselle (Mycelex Giselle) Take 1 Lozenge by mouth 5 times a day. Allow tablet to slowly dissolve in your mouth Losartan Potassium 50 MG Oral Tablet (Cozaar) Take 1 Tablet by mouth in the morning. Pantoprazole Sodium 20 MG Oral Tablet Delayed Release (Protonix) TAKE ONE TABLET IN THE MORNING metFORMIN HCl ER 500 MG Oral Tablet Extended Release 24 Hour (Glucophage XR) TAKE ONE TABLET IN THEMORNING Losartan Potassium 25 MG Oral Tablet (Cozaar) Take 1 Tablet by mouth in the morning. Levothyroxine Sodium 50 MCG Oral Tablet (Levoxyl) Take 1 Tablet by mouth in the morning. In the morning.. Cevimeline HCl 30 MG Oral Capsule Take 1 Capsule by mouth in the morning and 1 Capsule at noon and 1 Capsule before bedtime. Mirtazapine 15 MG Oral Tablet (Remeron) Take 1 Tablet by mouth at bedtime. Albuterol Sulfate HFA 108 (90 Base) MCG/ACT Inhalation Aerosol Solution inhale 2 puffs every 4 hours as needed for wheezing, shortness of breath or cough B-12 2000 MCG Oral Tablet Take 2,000 mcg by mouth once. Daily Alpha Lipoic Acid 200 MG CAPS Take 1 Cap by mouth daily. (Patient taking differently: Take 1 Capsule by mouth in the morning. Pt is taking 100mg daily per pharmacy.) aspirin enteric coated 81 MG TBEC Take 1 Tab by mouth daily. Zinc Gluconate 50 MG CAPS Take 1 Cap by mouth daily. Current Facility-Administered Medications for the 10/23/23 encounter (Office Visit) with Akin Will MD Medication albuterol sulfate (PROVENTIL) (2.5 MG/3ML) 0.083% inhalation solution 2.5 mg Past Medical History: Diagnosis Date Allergic rhinitis [...] 08/12/2015 At [facility] Thrush, oral 09/10/2016 Past Surgical History: Procedure Laterality Date COLONOSCOPY 01/02/14 Clfd, diverticulosis, internal hemorrhoids COLONOSCOPY, DIAGNOSTIC (RECTUM) 08/05/11 Dr. Pollard [facility]- tubular adenoma CT ABD/PELVIS W WO IV CONTRAST AND W ORAL CONT 07/25/11 severe prostate enlargement CYSTOSCOPY/REMOVE OBJECT, SIMPLE PAH - removal of kidney stone EGD, FLEXIBLE, DIAGNOSTIC 08/11/15 esophageral stricture- Dr. Garcias- [facility] EGD, FLEXIBLE, W/BIOPSY 11/02/11 biopsies taken await path, monilial esophagitis NASAL/SINUS ENDOSCOPY, SURGICAL PAH - Dr. Mcnamara RADICAL PROSTATE REMOVAL, W/NODES 10/03/2017 Dr. Fernando Duran, [facility] REMOVAL OF APPENDIX [place] REMOVE TONSILS & ADENOIDS, UNDER 12 [place] TOOTH ROOT REMOVAL 02/02/2017 upper teeth removed Family History Problem Relation Age of Onset Arthritis Mother Heart Disorder Mother Arthritis Father Heart Disorder Father Other (Other) Father liver problem Diabetes Sister Diabetes Brother Cancer Grandmother (Maternal) leukemia Social History Social History Tobacco Use Smoking status: Former Types: Cigars Smokeless tobacco: Former Types: Chew Quit date: 02/25/2012 Tobacco comments: Occasional cigars Vaping Use Vaping Use: Never used Substance Use Topics Alcohol use: No Comment: none since 1981 Drug use: No Physical Exam Filed Vitals: 10/23/23 1115 Temp: 36.5 C (97.7 F) TempSrc: Infrared Weight: 90.7 kg (200 lb) General: alert, healthy, and no distress HENT: normocephalic, external ears normal, no mucosal erythema, no mucosal edema, moist mucosa, no oral ulcers. No dryness noted to the mouth. No lesions noted to the mouth. Eye Exam: PERRL, EOMI, conjunctiva are pink and non-injected, sclera clear Neck: supple, no adenopathy, thyroid normal size, non-tender, without nodularity Lymph: no palpable lymphadenopathy Heart: regular rate & rhythm and no gallops Lungs: clear to auscultation , no rales, rhonchi noted at the bases Abdomen: abdomen soft, non-tender, and normal bowel sounds Extremities: no clubbing, no cyanosis Musculoskeletal Exam: . Synovitis: none . 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 On exam his mouth does not look significantly dry but his major complaint is a paced likefeeling to his mouth. He is on Evoxac with little benefit. He reports dry many mtgd-zxv-vdlqkch products with no benefit either. I do wonder if his medications are playing a role even though he has had several discontinued or reduced dosing. Spent time discussing trying different micz-mgt-mlgbpuv products to see if they help as there is not any one good maybe that is for dryness especially given the fact he is tried Salagen and Evoxac. Could consider switching Evoxac to Salagen. Will discuss with PCP. Plan 1. Consider changing evoxac to salagen 2. Discussed OTC products to use 3. Answer with any questions 4. Thank you for the consult and involving me in this patient's care. 5. Copy of today's note to Dr Love 6. Follow up in 6 months Akin Will MD Department of Rheumatology [facility] [phone] I spent a total of 40-54 minutes (exact time 45 mins) on the date of service in preparation, delivery, and documentation of the care provided to Alhaji Walsh excluding any time spent in the performance of separately billed services. documented in this encounter Nursing Notes * Mattie Rosas LPN - 10/23/2023 11:13 AM EST Chief Complaint Patient presents with NEW PATIENT Referred by Wendi Love for sjogrens, extreme dry mouth Pt seems confused, thought he had seen Dr. Will before and received an injection in his groin. documented in this encounter Plan of Treatment Upcoming Encounters Date Type Department Care Team (Late st Contact Info) Description 03/29/2024 10:30 AM EDT Office Visit Family Medicine [address] [place] [phone] Wendi Love, [address] [place] [address] 04/19/2024 11:00 AM EDT Nurse Only Ancillary [address] [place] [address] [place], Nurse [address] [place] [address] 09/23/2024 9:40 AM EST Office Visit Rheumatology [address] [place] [phone] Akin Will MD [facility]0 [facility] [place], [place] [address] Health Maintenance Due Date Last Done Comments [...] as of this encounter Visit Diagnoses Diagnosis Sjogren's syndrome with dental involvement (HCC)- Primary Burning mouth syndrome Glossodynia documented in this encounter Care Teams Automobile Body Customizer Relationship Specialty Start Date End Date Wendi Love DO [address] [place] [address] [place] [phone] PCP - General Internal Medicine 06/07/17 documented as of this encounter
--- OUTSIDE RECORDS SUMMARY | 2023-11-13 03:40 | External Medical Summary | Summary of Care ---
Author Name Unknown Organization [facility] Address [address] [place] [address] Phone [phone] Care Team Providers Care Color Buffer Name Role Phone Wendi Love DO Primary Care Provider [phone] Reason for Visit * Reason Onset Date Comments Advice 10/30/2023 Encounter Details Date Type Department Care Team (Late st Contact Info) Description 10/30/2023 Telephone Ancillary [address] [place] [address] Wendi Love DO [address] [place] [address] [place] [address] Advice Allergies Active Allergy Reactions Criticality Noted [...] to evaluate pt. Spoke with Carissa. Given [facility] number to call with update regarding whether [...] follow up with [facility] urology JOHN (nonalcoholic steatohepatitis) 04/02/2015 Last Assessment [...] mRNA, LNP-s, No Pre serve, 2-Dose Series ([employer]) 08/03/2021,12/10/2020,11/12/2020 Covid-19, Mrna, Lnp-s, Pf, B ivalent, [...] encounter Miscellaneous Notes * Telephone Encounter - Minda Spencer MD - 10/31/2023 8:04 AM EST Ashish gould with his current meds * Telephone [...] 10:30 AM EDT Office Visit Family Medicine [address] [place] [phone] [place] [address] 04/19/2024 11:00 AM EDT Nurse Only Ancillary [address] [place] [address] Mai, Nurse [address] [place] [address] 09/23/2024 9:40 AM EST Office Visit Rheumatology [address] [place] [phone] Akin Will MD [address] [place] [address] [place] [address] Health Maintenance Due Date Last Done Comments Alpha-1 Antitrypsin 12/24/1961 Diabetic Eye Exam 12/24/1961 Hepatitis C Screening 12/24/1961 Zoster Vaccines (2 of 2) 09/28/2022 08/03/2022 COVID-19 Vaccine (5 - 2022- season) 2023 06/28/2022, 08/03/2021, 12/10/2020, Additional history [...] Start Date End Date Wendi Love DO [address] [place] [address] [place] [address] PCP - General Internal Medicine 06/07/17 documented as of this encounter
--- OUTSIDE RECORDS SUMMARY | 2023-11-13 03:40 | External Medical Summary | Summary of Care ---
Author Name Unknown Organization [facility] Address [address] [place] [address] Phone [phone] Care Team Providers Care Thread Winder Automatic Name Role Phone Wendi Love DO Primary Care Provider [phone] Reason for Visit * Reason Onset Date Comments Advice 09/26/2023 Encounter Details Date Type Department Care Team (Late st Contact Info) Description 09/26/2023 Telephone Ancillary [address] [place] [address] Wendi Love DO [address] [place] [address] [place] [address] Advice Allergies Active Allergy Reactions Criticality Noted Date Comments No Known Drug Allergy 02/10/2009 documented as of this encounter (statuses as of 09/29/2023) Medications Medication Sig Dispensed Refills Start Date [...] as of this encounter (statuses as of 09/29/2023) Active Problems Problem Noted Date Diagnosed Date [...] pt. Spoke with Carissa. Given [facility] number to call with update regarding whether [...] Esophageal dysmotility 08/12/2015 Prostate cancer 04/27/2015 Overview: Cranford score = 6. Radiation therapy 10/2020 due [...] as of this encounter (statuses as of 09/29/2023) Resolved Problems Problem Noted Date Diagnosed Date [...] as of this encounter (statuses as of 09/29/2023) Immunizations Name Administration Dates Next Due COVID-19 mRNA, LNP-s, No Pre serve, 2-Dose Series ([employer]) 08/03/2021,12/10/2020,11/12/2020 Covid-19, Mrna, Lnp-s, Pf, B ivalent, [...] Telephone Encounter - Gabby Roberts RN - 09/29/2023 12:37 PM EST Patient notified he will try the fluids, I did discuss trying white noise and progressive relaxation at bedtime or when he is having difficulty falling back asleep * Telephone Encounter - Gabby Roberts RN - 09/29/2023 9:03 AM EST Tried to call patient , n/a I will try again later * Telephone Encounter - Wendi Love DO - 09/29/2023 8:30 AM EST Increase fluid intake during the day. * Telephone Encounter - Gabby Roberts RN - 09/29/2023 8:13 AM EST Patient states his mouth is about the same, burning and sour and paste feeling, but not sleeping well. Patient went to bed at 10:30 and slept until 1:45am and then he has been up ever since. Patient states he thinks his mouth get dry in the night and it wakes him up so he can take a drink. Then he can't get back to sleep. Patient did have cereal for breakfast. Patient is taking 0.5mg of Ativan atbedtime every night. . Message sent to provider for advice. * Telephone Encounter - Gabby Roberts RN - 09/26/2023 10:26 AM EST Spoke to patient and he is ok with advice, he also mentioned the lunch meat and making the "paste" feeling worse, it may also be the sodium in the lunch meet. We did discuss the restlessness, its nothis mouth that gets him up in the night, he states he just wakes up and can't get back to sleep. Patient will call if symptoms worsen. Reason for Call: Advice Contact: Telephone Call Contact Type: Advice Outcome: see note Face to face time spent with Patient (minutes): 0 Total Time including non face to face (minutes): 10 * Telephone Encounter - Wendi Love DO - 09/26/2023 9:42 AM EST Seems like salty foods seem to trigger his symptoms. Did his mouth symptoms prevent him from sleeping? Or why was he sleeping such a short period of time. Glad to hear his hip is feeling better. * Telephone Encounter - Gabby Roberts RN - 09/26/2023 8:07 AM EST Patient called states tongue started burning again on Monday. Last call for mouth concerns was >1mth ago. Patient states hip pain is good just "stiff" in the morning. Patient states last night he went to bed 11pm and slept until 3am and then unable to go back to sleep. Patient states tongue appears pink, no patches noted on tongue. Patient trying to think of what he ate on Monday that may have triggered symptoms. Patient did say he had doritos and he hasn't had them in 10yrs. Counseled patient to keep a list offoods to avoid: Potato Chips Doritos Lunch Meat Pepto These all tend to make symptoms worse Message to Wendi Love DO for advice Reason for Call: Advice Contact: Telephone Call Contact Type: Advice Outcome: see note Face to face time spent with Patient (minutes): 0 Total Time including non face to face (minutes): 10 documented in this encounter Plan of Treatment Upcoming Encounters Date Type Department Care Team (Late st Contact Info) Description 10/23/2023 11:20 AM EST Office Visit Rheumatology [address] [place] [phone] Akin Will MD [facility] [place] [address] 03/29/2024 10:30 AM EDT Office Visit Family Medicine [address] [phone] Wendi Love DO [address] [place] [address] [place] [address] 04/19/2024 11:00 AM EDT Nurse Only Ancillary [address] [place] [address] [place], Nurse Annual [address] [place] [address] Health Maintenance Due Date Last Done Comments [...] Screening 04/17/2024 04/17/2023 Albumin/Creatinine Ratio 06/16/2024 06/16/2023, 1202/2022 GFR 08/29/2024 08/29/2023, 03/28, 03/10/2023, Additional history [...] filedocumented as of this encounter Care Teams Thread Winder Automatic Relationship Specialty Start Date End Date Wendi Love DO [address] [place] [address] [place] [address] PCP - General Internal Medicine 06/07/17 documented as of this encounter
--- OUTSIDE RECORDS SUMMARY | 2023-11-13 03:40 | External Medical Summary | Summary of Care ---
Author Name Unknown Organization [facility] Address [address] [place] [address] Phone [phone] Care Team Providers Care Obiee Consultant Name Role Phone Wendi Love DO Primary Care Provider [phone] Reason for Visit * Reason Onset Date Comments Advice 10/19/2023 I will call nigel ent Monday Encounter Details Date Type Department Care Team (Late st Contact Info) Description 10/19/2023 Refill Ancillary [place] [place] [address] Wendi Love DO [address] [place] [address] [place] [address] Allergies Active Allergy Reactions Criticality Noted Date Comments No Known Drug Allergy 02/10/2009 documented as of this encounter (statuses as of 10/25/2023) Medications Medication Sig Dispensed Refills Start Date [...] for Sleep. 30 Tablet 0 10/20/2023 Active Cevimeline HCl 30 MG Oral Capsule Take 1 Capsule by mouth in the morning and 1 Capsule at noon and 1 Capsule before bedtime. 90 Capsule 5 04/12/2023 4 Discontinu ed(Refill) Losartan Potassium 25 MG Oral Tablet (Cozaar) Take 1 Tablet by mouth in the morning. 90 Tablet 1 05/10/2023 4 Discontinu ed(Refill) Multi-Vitamins Oral Tablet Take 1 Tablet by [...] as of this encounter (statuses as of 10/25/2023) Active Problems Problem Noted Date Diagnosed Date [...] to evaluate pt. Spoke with Carissa. Given [facility] number to call with update regarding [...] Esophageal dysmotility 08/12/2015 Prostate cancer 04/27/2015 Overview: Heath score = 6. Radiation therapy 10/2020 due to rising PSA following radical prostatectomy Last Assessment & Plan: S/p radical prostatectomy 10/10/17. Referred to RT 10/2020 d/t rising PSA Continues to follow up with [facility] urology JOHN (nonalcoholic steatohepatitis) 04/02/2015 Last Assessment & Plan: Mildly elevated ALT, continue to monitor. Other allergic rhinitis 12/28/2010 Overview: ICD-10 update of inactive term documented as of this encounter (statuses as of 10/25/2023) Resolved Problems Problem Noted Date Diagnosed Date [...] as of this encounter (statuses as of 10/25/2023) Immunizations Name Administration Dates Next Due COVID-19 mRNA, LNP-s, No Pre serve, 2-Dose Series ([employer]) 08/03/2021,12/10/2020,11/12/2020 Covid-19, Mrna, Lnp-s, Pf, B ivalent, 30 Mcg, IM, 12 yrs and above ([employer]) 06/28/2022 Pneumococcal Conjugate Vacc, 13 Valent (Prevnar) [...] encounter Miscellaneous Notes * Telephone Encounter - Wendi Love DO - 10/25/2023 8:30 AM EST Advise to brush mouth with toothpaste. Increase fluid intake. * Telephone Encounter - Gabby Roberts RN - 10/24/2023 2:33 PM EST Patient called back states tongue is burning today and paste, and sour today. Again patient notified tongue concerns starts about 30min after he takes his pills in the morning (9) pills total, he does not take his thyroid med separately. Patient states symptoms do not get worse with noon med or night time meds. Patient only slept 3 hrs last night, patient did not take a nap today and will not lay down. I did go speak to the pharmacist Bill to see if any of those meds would interact with each other and possibly cause any burning. He said they should all be fine together. They also noted the change to zolpidem Reason for Call: Advice (I will call [...] 10:30 AM EDT Office Visit Family Medicine [address] [place] [phone] Wendi Love DO [address] [place] [address] [place] [address] 04/19/2024 11:00 AM EDT Nurse Only Ancillary [address] [place] [address] Karie[place], Nurse [address] [place] [address] 09/23/2024 9:40 AM EST Office Visit Rheumatology [address] [place] [phone] Akin Will MD [address] [facility] [place] [address] Health Maintenance Due Date Last Done Comments [...] filedocumented as of this encounter Care Teams Obiee Consultant Relationship Specialty Start Date End Date Wendi Love DO [address] [place] [address] [place] [phone] PCP - General Internal Medicine 06/07/17 documented as of this encounter
--- OUTSIDE RECORDS SUMMARY | 2023-11-13 03:40 | External Medical Summary | Summary of Care ---
Author Name Unknown Organization [facility] Address [address] [place] [address] Phone [phone] Care Team Providers Care Primer Expeditor And Drier Name Role Phone Wendi Love DO Primary Care Provider Reason for Visit * Reason Onset Date Comments Advice 10/19/2023 I will call nigel ent Monday Encounter Details Date Type Department Care Team (Late st Contact Info) Description 10/19/2023 Refill Ancillary [place] [address] [place] [address] Wendi Love DO [address] [place] [address] [place] [address] Allergies Active Allergy Reactions Criticality Noted Date Comments No Known Drug Allergy 02/10/2009 documented as of this encounter (statuses as of 10/24/2023) Medications Medication Sig Dispensed Refills Start Date [...] as of this encounter (statuses as of 10/24/2023) Active Problems Problem Noted Date Diagnosed Date [...] to evaluate pt. Spoke with Carissa. Given [facility] number to call with update regarding [...] Esophageal dysmotility 08/12/2015 Prostate cancer 04/27/2015 Overview: [place] score = 6. Radiation therapy 10/2020 due to rising PSA following radical prostatectomy Last Assessment & Plan: S/p radical prostatectomy 10/10/17. Referred to RT 10/2020 d/t rising PSA Continues to follow up with [facility] urology JOHN (nonalcoholic steatohepatitis) 04/02/2015 Last Assessment & Plan: Mildly elevated ALT, continue to monitor. Other allergic rhinitis 12/28/2010 Overview: ICD-10 update of inactive term documented as of this encounter (statuses as of 10/24/2023) Resolved Problems Problem Noted Date Diagnosed Date [...] as of this encounter (statuses as of 10/24/2023) Immunizations Name Administration Dates Next Due COVID-19 mRNA, LNP-s, No Pre serve, 2-Dose Series (Kiw[employer]) 08/03/2021,12/10/2020,11/12/2020 Covid-19, Mrna, Lnp-s, Pf, B ivalent, 30 Mcg, IM, 12 yrs and above (Kiwig[employer]) 06/28/2022 Pneumococcal Conjugate Vacc, 13 Valent (Prevnar) [...] 10:30 AM EDT Office Visit Family Medicine [address] [place] [phone] Wendi Love DO [address] [place] [address] [place] [address] 04/19/2024 11:00 AM EDT Nurse Only Ancillary [address] [place] [address] [place], Nurse Annual Wellness [address] [place] [address] [place] [address] 09/23/2024 9:40 AM EST Office Visit Rheumatology [address] [place] [phone] Akin Will MD [address] [place], [place] [address] [address] Health Maintenance Due Date Last Done Comments [...] filedocumented as of this encounter Care Teams Primer Expeditor And Drier Relationship Specialty Start Date End Date Wendi Love DO [address] [place] [address] [place] [address] PCP - General Internal Medicine 06/07/17 documented as of this encounter
--- OUTSIDE RECORDS SUMMARY | 2023-11-13 03:40 | External Medical Summary | Summary of Care ---
Author Name Unknown Organization [facility] Address [address] [place] [address] Phone [phone] Care Team Providers Care Paperhanger Name Role Phone Reji Mathews DO Primary Care Provider Reason for Visit * Reason Onset Date Comments Medication Refill 10/23/2023 Encounter Details Date Type Department Care Team (Late st Contact Info) Description 10/23/2023 Refill Family Medicine [address] [place] [phone] Reji Mathews DO [address] [place] [address] [place] [phone] Allergies Active Allergy Reactions Criticality Noted Date [...] before bedtime. 270 Capsule 5 10/23/2023 Active Cevimeline HCl 30 MG Oral Capsule Take 1 Capsule by mouth in the morning and 1 Capsule at noon and 1 Capsule before bedtime. 90 Capsule 5 04/12/2023 10/23/19 24 Discontinu ed(Refill) Losartan Potassium 25 MG Oral Tablet (Cozaar) Take 1 Tablet by mouth in the morning. 90 Tablet 1 05/10/2023 10/23/19 24 Discontinu ed(Refill) Hospital, Clinic, or Other Facility [...] evaluate pt. Spoke with Carissa. Given [facility] number to call with update [...] Esophageal dysmotility 08/12/2015 Prostate cancer 04/27/2015 Overview: [place] score = 6. Radiation therapy 10/2020 due to rising PSA following radical prostatectomy Last Assessment & Plan: S/p radical prostatectomy 10/10/17. Referred to RT 10/2020 d/t rising PSA Continues to follow up with [facility] urology JOHN (nonalcoholic steatohepatitis) 04/02/2015 Last [...] mRNA, LNP-s, No Pre serve, 2-Dose Series ([employer]) 08/03/2021,12/10/2020,11/12/2020 Covid-19, Mrna, Lnp-s, Pf, B ivalent, [...] Telephone Encounter - Reji Mathews DO - 10/23/2023 3:51 PM ESTSigned Prescriptions: Disp Refills Losartan Potassium 25 MG Oral Tablet (Coza*90 Tab*1 Sig: Take 1 Tablet by mouth in the morning. Authorizing Provider: REJI MATHEWS Cevimeline HCl 30 MG Oral Capsule 270 Ca*5 Sig: Take 1 Capsule by mouth in the morning and 1 Capsule at noon and 1 Capsule before bedtime. Authorizing Provider: REJI MATHEWS --- * Telephone Encounter - Amy Mcknight RN - 10/23/2023 2:40 PM ESTPending Prescriptions: Disp Refills Losartan Potassium 25 MG Oral Tablet (Coza*90 Tab*1 Sig: Take 1 Tablet by mouth in the morning. Cevimeline HCl 30 MG Oral Capsule 270 Ca*5 Sig: Take 1 Capsule by mouth in the morning and 1 Capsule at noon and 1 Capsule before bedtime. * Telephone Encounter - Gladis Salas OSA - 10/23/2023 1:10 PM EST Did you pend patient's preferred pharmacy and medication before forwarding?yes [facility] [address] [place] Pending Prescriptions: Disp Refills Losartan Potassium 25 MG Oral Tablet (Coz*90 Tab*1 Sig: Take 1 Tablet by mouth in the morning. Cevimeline HCl 30 MG Oral Capsule 90 Cap*5 Sig: Take 1 Capsule by mouth in the morning and 1 Capsule at noon and 1 Capsule before bedtime. Last Visit: 08/29/2023 (in office), Visit date not found (telemedicine) Next Visit: 03/29/2024 If no future appointments scheduled, and last appointment is greater than a year ago, please schedule patient for a follow-up appointment Last date the medication was ordered: 05.10.23 Is this request for a controlled substance?No [...] AM EDT Office Visit Family Medicine [address] [place] [phone] Reji Mathews, [address] [place] [address] 04/19/2024 11:00 AM EDT Nurse Only Ancillary [address] [place] [address] [place], Nurse Annual [address] [place] [address] 09/23/2024 9:40 AM EST Office Visit Rheumatology [address] [place] [phone] Akin Will MD [address] [facility] [place], [place] [address] Health Maintenance Due Date Last Done Comments [...] filedocumented as of this encounter Care Teams Paperhanger Relationship Specialty Start Date End Date Reji Mathews DO [address] [place] [address] [place] [address] PCP - General Internal Medicine 06/07/17 documented as of this encounter
--- OUTSIDE RECORDS SUMMARY | 2023-11-13 03:40 | External Medical Summary | Summary of Care ---
Author Name Unknown Organization [facility] Address [address] [place] [address] Phone [phone] Care Team Providers Care Orthotic Finish Grinding Technician Name Role Phone Wendi Love DO Primary Care Provider Reason for Visit * Reason Onset Date Comments Advice 10/19/2023 I will call nigel ent Monday Encounter Details Date Type Department Care Team (Late st Contact Info) Description 10/19/2023 Refill Ancillary [place] [address] [place] [address] Wendi Love DO [address] [place] [address] [place] [address] Allergies Active Allergy Reactions Criticality Noted Date [...] to evaluate pt. Spoke with Carissa. Given [facility] number to call with update [...] Esophageal dysmotility 08/12/2015 Prostate cancer 04/27/2015 Overview: [place] score = 6. Radiation therapy 10/2020 due to rising PSA following radical prostatectomy Last Assessment & Plan: S/p radical prostatectomy 10/10/17. Referred to RT 10/2020 d/t rising PSA Continues to follow up with [facility] urology JOHN (nonalcoholic steatohepatitis) 04/02/2015 Last [...] mRNA, LNP-s, No Pre serve, 2-Dose Series (Xspand) 08/03/2021,12/10/2020,11/12/2020 Covid-19, Mrna, Lnp-s, Pf, B ivalent, 30 Mcg, IM, 12 yrs and above (Xspand) 06/28/2022 Pneumococcal Conjugate Vacc, 13 Valent (Prevnar) [...] Telephone Encounter - Gabby Roberts RN - 10/25/2023 8:47 AM EST Patient notified and I also reminded him his sleeping med will be changing with the next pill packs. Reason for Call: Advice (I will call [...] 10:30 AM EDT Office Visit Family Medicine [address] [place] [phone] Wendi Love DO [address] [place] [address] [place] [address] 04/19/2024 11:00 AM EDT Nurse Only Ancillary [address] [place] [address] [place], Nurse [address] [place] [address] 09/23/2024 9:40 AM EST Office Visit Rheumatology [address] [place] [phone] Akin Will MD [address] [facility] [place], [place] [address] Health Maintenance Due Date Last Done Comments [...] filedocumented as of this encounter Care Teams Orthotic Finish Grinding Technician Relationship Specialty Start Date End Date Wendi Love DO [address] [place] [address] [place] [address] PCP - General Internal Medicine 06/07/17 documented as of this encounter
--- OUTSIDE RECORDS SUMMARY | 2023-11-13 03:41 | External Medical Summary | Summary of Care ---
Author Name Unknown Organization [facility] Address [address] [place] [address] Phone [phone] Care Team Providers Care Procurement Analyst Name Role Phone Wendi Love DO Primary Care Provider Reason for Visit * Reason Onset Date Comments Medication Refill 09/08/2023 Encounter Details Date Type Department Care Team (Late st Contact Info) Description 09/08/2023 Refill Ancillary [place] [address] [place] [address] Wendi Love DO [address] [place] [address] [place] [address] Allergies Active Allergy Reactions Criticality Noted Date Comments No Known Drug Allergy 02/10/2009 documented as of this encounter (statuses as of 09/08/2023) Medications Medication Sig Dispensed Refills Start Date [...] as of this encounter (statuses as of 09/08/2023) Active Problems Problem Noted Date Diagnosed Date [...] to Crisis to evaluate pt. Spoke with aCrissa. Given [facility] number to call [...] Esophageal dysmotility 08/12/2015 Prostate cancer 04/27/2015 Overview: [place] score = 6. Radiation therapy 10/2020 due to rising PSA following radical prostatectomy Last Assessment & Plan: S/p radical prostatectomy 10/10/17. Referred to RT 10/2020 d/t rising PSA Continues to follow up with [facility] urology JOHN (nonalcoholic steatohepatitis) 04/02/2015 Last Assessment & Plan: Mildly elevated ALT, continue to monitor. Other allergic rhinitis 12/28/2010 Overview: ICD-10 update of inactive term documented as of this encounter (statuses as of 09/08/2023) Resolved Problems Problem Noted Date Diagnosed Date [...] as of this encounter (statuses as of 09/08/2023) Immunizations Name Administration Dates Next Due COVID-19 mRNA, LNP-s, No Pre serve, 2-Dose Series ([employer]) 08/03/2021,12/10/2020,11/12/2020 Covid-19, Mrna, Lnp-s, Pf, B ivalent, 30 Mcg, IM, 12 yrs and above ([employer]) 06/28/2022 Pneumococcal Conjugate Vacc, 13 Valent (Prevnar) [...] for Pain, Severe. will need sent to [facility], [address] [place] Counseled patient he was [...] Care Team (Late st Contact Info) Description 09/14/2023 9:00 AM EST Office Visit Orthopaedics [address] [place] [phone] Harry Daniel MD [address] [place] [address] 10/23/2023 11:20 AM EST Office Visit Rheumatology [address] [place] [phone] Akin Will MD [address] [place] [address] [place] [address] 03/29/2024 10:30 AM EDT Office Visit Family Medicine [address] [place] [phone] Wendi Love, [address] [place] [address] 04/19/2024 11:00 AM EDT Nurse Only Ancillary [address] [place] [address] [place], Nurse Annual [address] [place] [address] Health Maintenance Due Date Last Done Comments [...] filedocumented as of this encounter Care Teams Procurement Analyst Relationship Specialty Start Date End Date Wendi Love DO [address] [place] [address] [place] [phone] PCP - General Internal Medicine 06/07/17 documented as of this encounter
--- OUTSIDE RECORDS SUMMARY | 2023-11-13 03:41 | External Medical Summary | Summary of Care ---
Author Name Unknown Organization [facility] Address [address] [place] [facility] [place] [address] Phone [phone] Care Team Providers Care Bombsight Specialist Name Role Phone Wendi Love DO Primary Care Provider [phone] Reason for Visit * Reason Comments NEW PATIENT Right hip * Evaluate & Treat - Unlimited Visits (Within 10 days (routine)) - Authorized Specialty Diagnoses / Procedures Referred By Weston schroeder Referred To Contact Orthopaedic Surgery / Orthopedics Diagnoses Primary osteoarthritis of both hips Wendi Love DO [address] [place] [address] [place] [id number] Referral ID Status Reason Start Date Expiration Date Visits Requested Visits Authorized [id number] Authorized Specialty Services Required 08/29/[phone] Encounter Details Date Type Department Care Team (Latest Contact Info) Description 09/14/2023 9:00 AM EST Office Visit Orthopaedics [address] [phone] Harry Daniel MD [address] [place] [address] Primary osteoarthritis of right hip*; Osteoarthritis of [...] to evaluate pt. Spoke with Carissa. Given [facility] number to call with update [...] Esophageal dysmotility 08/12/2015 Prostate cancer 04/27/2015 Overview: [place] score = 6. Radiation therapy 10/2020 due to rising PSA following radical prostatectomy Last Assessment & Plan: S/p radical prostatectomy 10/10/17. Referred to RT 10/2020 d/t rising PSA Continues to follow up with [facility] urology JOHN (nonalcoholic steatohepatitis) 04/02/2015 [...] mRNA, LNP-s, No Pre serve, 2-Dose Series ([employer]) 08/03/2021,12/10/2020,11/12/2020 Covid-19, Mrna, Lnp-s, Pf, B ivalent, 30 Mcg, IM, 12 yrs and above ([employer]) 06/28/2022 Pneumococcal Conjugate Vacc, 13 Valent (Prevnar) [...] - 09/14/2023 9:00 AM EST Alhaji Walsh [phone] Alhaji Walsh is a 77 year old male who presents for consultation for bilateralhip injury/pain to [facility]\. 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 FINDINGS Five qqs-hxb-nadllze lumbar type vertebral bodies. No fracture. Reversal [...] Daniel MD Primary Care Sports Medicine Orthopaedics [address] [phone] documented in this encounter Nursing Notes * [...] 10/23/2023 11:20 AM EST Office Visit Rheumatology [address] [place] [phone] Akin Will MD [address] [place], [place] [address] [address] 03/29/2024 10:30 AM EDT Office Visit Family Medicine [address] [place] [phone] Wendi Love, [address] [place] [address] 04/19/2024 11:00 AM EDT Nurse Only Ancillary [address] [place] [address] [place], Nurse [address] [place] [address] Scheduled Orders Name Type Priority Associated Diagnoses [...] ight documented in this encounter Care Teams Bombsight Specialist Relationship Specialty Start Date End Date Wendi Love DO [address] [place] [address] [place] [phone] PCP - General Internal Medicine 06/07/17 documented as of this encounter
--- OUTSIDE RECORDS SUMMARY | 2023-11-13 03:41 | External Medical Summary | Summary of Care ---
Author Name Unknown Organization [facility] Address [address] [place] [address] Phone [phone] Care Team Providers Care Diffusion Operator Name Role Phone America Lovekenroy Rivera Primary Care Provider Reason for Visit * Reason Comments Outpatient Testing Encounter Details Date Type Department Care Team (Late st Contact Info) Description 08/29/2023 9:40 AM EST Laboratory Laboratory [address] [place] [phone] [place] [address] Diabetes mellitus without complication (HCC); Essential hypertension with goal blood pressure less than 140/90; Acquired hypothyroidism; Iron deficiency anemia, unspecified iron deficiency anemia type; Prostate cancer (HCC) Allergies Active Allergy Reactions Criticality Noted Date Comments No Known Drug Allergy 02/10/2009 documented as of this encounter (statuses as of 08/29/2023) Medications Medication Sig Dispensed Refills Start Date [...] or cough 6.7 g 5 01/18/2022 Active Tamsulosin HCl 0.4 MG Oral Capsule (Flomax)Indications: BPH with obstruction/lower urinary tract symptoms Take 1 Capsule by mouth in the morning. 90 Capsule 3 09/29/2022 Active Vitron-C 65-125 MG Oral Tablet (Iron-Vitamin C 65-125 mg per tab) Take 1 Tablet by mouth in the morning and 1 Tablet before bedtime. 60 Tablet 5 02/09/2023 Active amLODIPine Besylate 5 MG Oral Tablet [...] your mouth 70 Giselle 0 08/18/2023 Active oxyCODONE HCl 5 MG Oral Tablet (Oxy IR) Take 0.5 Tablets by mouth daily as needed for Pain, Severe. 5 Tablet 0 08/29/2023 Active Hospital, Clinic, or Other Facility Administered Medication Ordered Dose Route Frequency Start Date End Date Status albuterol sulfate (PROVENTIL) (2.5 MG/3ML) 0.083% inhalation solution 2.5 mgIndications:COPD, moderate (HCC) 2.5 mg NEBULIZER Q4H PRN 06/20/2017 Active documented as of this encounter (statuses as of 08/29/2023) Active Problems Problem Noted Date Diagnosed Date [...] to evaluate pt. Spoke with Carissa. Given [facility] number to call with update regarding [...] Esophageal dysmotility 08/12/2015 Prostate cancer 04/27/2015 Overview: [place] score = 6. Radiation therapy 10/2020 due to rising PSA following radical prostatectomy Last Assessment & Plan: S/p radical prostatectomy 10/10/17. Referred to RT 10/2020 d/t rising PSA Continues to follow up with [facility] urology JOHN (nonalcoholic steatohepatitis) 04/02/2015 Last Assessment & Plan: Mildly elevated ALT, continue to monitor. Other allergic rhinitis 12/28/2010 Overview: ICD-10 update of inactive term documented as of this encounter (statuses as of 08/29/2023) Resolved Problems Problem Noted Date Diagnosed Date [...] as of this encounter (statuses as of 08/29/2023) Immunizations Name Administration Dates Next Due COVID-19 mRNA, LNP-s, No Pre serve, 2-Dose Series (Crow[employer]cer) 08/03/2021,12/10/2020,11/12/2020 Covid-19, Mrna, Lnp-s, Pf, B ivalent, 30 Mcg, IM, 12 yrs and above (Crow[employer]ouncer) 06/28/2022 Pneumococcal Conjugate Vacc, 13 Valent (Prevnar) [...] 10/23/2023 11:20 AM EST Office Visit Rheumatology [address] [place] [phone] Akin Will MD [address] [place] [address] [place] [address] 04/19/2024 11:00 AM EDT Nurse Only Ancillary [address] [place] [address] [place], Nurse Annual [address] [place] [address] Pending Results Name Type Priority Associated Diagnoses Date /Time LIPID PANEL WITH DIRECT LDL IF TG IS HIGH Lab Routine Diabetes mellitus without complication (HCC) 08/29/2023 9:36 AM EST COMPREHENSIVE METABOLIC PANEL Lab Routine Essential hypertension with goal blood pressure less than 140/90 08/29/2023 9:36 AM EST HEMOGLOBIN A1C Lab Routine Diabetes mellitus without complication (HCC) 08/29/2023 9:36 AM EST TSH Lab Routine Acquired hypothyroidism 08/29/2023 9:36 AM EST CBC WITH WBC DIFFERENTIAL Lab Routine Iron deficiency anemia, unspecified iron deficiency anemia type 08/29/2023 9:36 AM EST IRON SCREEN, INCLUDING TIBC Lab Routine Iron deficiency anemia, unspecified iron deficiency anemia type 08/29/2023 9:36 AM EST FERRITIN Lab Routine Iron deficiency anemia, unspecified iron deficiency anemia type 08/29/2023 9:36 AM EST PSA Lab Routine Prostate cancer (HCC) 08/29/2023 9:36 AM EST CBC Lab Routine Iron deficiency anemia, unspecified iron deficiency anemia type 08/29/2023 9:36 AM EST DIFFERENTIAL, AUTOMATED Lab Routine Iron deficiency anemia, unspecified iron deficiency anemia type 08/29/2023 9:36 AM EST Health Maintenance Due Date Last Done Comments Alpha-1 Antitrypsin 12/24/1961 Diabetic Eye Exam 12/24/1961 Hepatitis C Screening 12/24/1961 Hepatitis B (1 of 3 - Risk 3-dose series) 2003 Zoster Vaccines (2 of 2) 09/28/2022 08/03/2022 COVID-19 Vaccine ( season) 2023 06/28/2022, 08/03/2021, 12/10/2020, Additional history exists HbA1c 07/29/2023 01/27/2023, 12/27, 01/26/2021, Additional history exists TSH 11/29/2023 11/28/2022, 02/2022, 07/01/2022, Additional history exists Diabetic Foot Exam 02/18/2024 02/17/2023 GFR 04/12/2024 04/12/2023, 0711/2022, 08/03/2022, Additional history exists Depression Screening 04/17/2024 04/17/2023 O2 ASSESSMENT COMPLETED IN PAST YEAR FOR COPD 05/10/2024 05/10/2023, 02/15/2017 Albumin/Creatinine Ratio 06/16/2024 06/16/2023, 1202/2022 DTaP,Tdap,and Td Vaccines (2 - Td or [...] as of this encounter Visit Diagnoses Diagnosis Diabetes mellitus without complication (HCC) Type II or unspecified type diabetes mellitus without mention of complication, not stated as uncontrolled Essential hypertension with goal blood pressure less than 140/90 Acquired hypothyroidism Unspecified hypothyroidism Iron deficiency anemia, unspecified iron deficiency anemia type Prostate cancer (HCC) Malignant neoplasm of prostate documented in this encounter Care Teams Diffusion Operator Relationship Specialty Start Date End Date Wendi Love DO [address] [place] [address] [place] [address] PCP - General Internal Medicine 06/07/17 documented as of this encounter
--- OUTSIDE RECORDS SUMMARY | 2023-11-13 03:41 | External Medical Summary | Summary of Care ---
Author Name Unknown Organization [facility] Address [address] [place] [address] Phone [phone] Care Team Providers Care Spa Host Name Role Phone Reji Mathews DO Primary Care Provider [phone] Reason for Visit * Reason Onset Date Comments Medication Refill 08/30/2023 Encounter Details Date Type Department Care Team (Late st Contact Info) Description 08/30/2023 Refill Family Medicine [address] [place] [phone] Reji Mathews DO [address] [place] [address] [place] [address] BPH with obstruction/lower urinary tract symptoms Allergies Active Allergy Reactions Criticality Noted Date Comments No Known Drug Allergy 02/10/2009 documented as of this encounter (statuses as of 08/30/2023) Medications Medication Sig Dispensed Refills Start Date [...] or cough 6.7 g 5 01/18/2022 Active Vitron-C 65-125 MG Oral Tablet (Iron-Vitamin [...] Pain, Severe. 5 Tablet 0 08/29/2023 Active Tamsulosin HCl 0.4 MG Oral Capsule (Flomax)Indications :BPH with obstruction/lower urinary tract symptoms Take 1 Capsule by mouth in the morning. 90 Capsule 3 08/30/2023 Active Tamsulosin HCl 0.4 MG Oral Capsule (Flomax)Indications :BPH with obstruction/lower urinary tract symptoms Take 1 Capsule by mouth in the morning. 90 Capsule 3 09/29/2022 4 Discontinu ed(Refill) Hospital, Clinic, or Other Facility Administered Medication Ordered Dose Route Frequency Start Date End Date Status albuterol sulfate (PROVENTIL) (2.5 MG/3ML) 0.083% inhalation solution 2.5 mgIndications:COPD, moderate (HCC) 2.5 mg NEBULIZER Q4H PRN 06/20/2017 Active documented as of this encounter (statuses as of 08/30/2023) Active Problems Problem Noted Date Diagnosed Date [...] to evaluate pt. Spoke with Carissa. Given [facility] number to call with update [...] Esophageal dysmotility 08/12/2015 Prostate cancer 04/27/2015 Overview: Chantilly score = 6. Radiation therapy 10/2020 due to rising PSA following radical prostatectomy Last Assessment & Plan: S/p radical prostatectomy 10/10/17. Referred to [facility] 10/2020 d/t rising PSA Continues to follow up with [facility] urology JOHN (nonalcoholic steatohepatitis) 04/02/2015 Last Assessment & Plan: Mildly elevated ALT, continue to monitor. Other allergic rhinitis 12/28/2010 Overview: ICD-10 update of inactive term documented as of this encounter (statuses as of 08/30/2023) Resolved Problems Problem Noted Date Diagnosed Date [...] as of this encounter (statuses as of 08/30/2023) Immunizations Name Administration Dates Next Due COVID-19 mRNA, LNP-s, No Pre serve, 2-Dose Series ([employer]) 08/03/2021,12/10/2020,11/12/2020 Covid-19, Mrna, Lnp-s, Pf, B [...] encounter Miscellaneous Notes * Telephone Encounter - Traci Nathan RP - 08/30/2023 12:15 PM EST Signed Prescriptions: Disp Refills Tamsulosin HCl 0.4 MG Oral Capsule (Flomax)90 Cap*3 Sig: Take 1 Capsule by mouth in the morning. Authorizing Provider: REJI MATHEWS Ordering User: TRACI NATHAN * Telephone Encounter - Nicki Jones data support analyst - 08/30/2023 11:41 AM EST [facility] calling to check on status of medication refill request. Rerouted to [facility] for refill. Pt is compliance package- requesting high priority. Thank you, Nicki Jones Tube Handler II Certified [facility] ([facility]) 08/30/2023,11:41 AM * Telephone Encounter - Gabby Roberts RN - 08/30/2023 11:27 AM ESTPending Prescriptions: Disp Refills Tamsulosin HCl 0.4 MG Oral Capsule (Flomax)90 Cap*3 Sig: Take 1 Capsule by mouth in the morning. * Telephone Encounter - Gabby Roberts RN - 08/30/2023 11:26 AM EST Message sent to Reji Mathews DO for signature. Pending Prescriptions: Disp Refills Tamsulosin HCl 0.4 MG Oral Capsule (Floma*90 Cap*3 Sig: Take 1 Capsule by mouth in the morning. will need sent to [facility], [address] [place] * Telephone Encounter - Leonora Cantor OSA - 08/30/2023 7:53 AM EST Did you pend patient's preferred pharmacy and medication before forwarding?yes Pharmacy: [email or web address] [place] Pending Prescriptions: Disp Refills Tamsulosin HCl 0.4 MG Oral Capsule (Floma*90 Cap*3 Sig: Take 1 Capsule by mouth in the morning. Last Visit: 08/29/2023 (in office), Visit date not found (telemedicine) Next Visit: 03/29/2024 If no future appointments scheduled, and last appointment is greater than a year ago, please schedule patient for a follow-up appointment Last date the medication was ordered: 09/29/2022 Is this request for a controlled substance?No [...] 09/14/2023 9:00 AM EST Office Visit Orthopaedics [address] [place] [phone] Harry Daniel MD [address] [place] [address] 10/23/2023 11:20 AM EST Office Visit Rheumatology [address] [place] [phone] Akin Will MD [email or web address] [place], [place] [address] 03/29/2024 10:30 AM EDT Office Visit Family Medicine [address] [place] [phone] Reji [address] [place] [address] 04/19/2024 11:00 AM EDT Nurse Only Ancillary [address] [place] [address] [place], Nurse Annual [address] [place] [address] Health Maintenance Due Date Last Done Comments [...] as of this encounter Visit Diagnoses Diagnosis BPH with obstruction/lower urinary tract symptoms Hypertrophy of prostate with urinary obstruction and other lower urinary tract symptoms (LUTS) documented in this encounter Care Teams Spa Host Relationship Specialty Start Date End Date Reji Mathews DO [address] [place] [address] [place] [address] PCP - General Internal Medicine 06/07/17 documented as of this encounter
--- OUTSIDE RECORDS SUMMARY | 2023-11-13 03:41 | External Medical Summary | Summary of Care ---
Author Name Unknown Organization [facility] Address [address] [place] [address] Phone [phone] Care Team Providers Care Rn Lactation Consultant Name Role Phone Wendi Love DO Primary Care Provider Reason for Visit * Reason Onset Date Comments Appointment 08/29/2023 Upper/lower endo scopy Encounter Details Date Type Department Care Team (Late st Contact Info) Description 08/29/2023 Telephone Family Medicine [address] [phone] Wendi Love DO [address] [place] [address] [place] [address] Appointment (Upper/lower endoscopy ) Allergies Active Allergy Reactions Criticality Noted Date [...] to evaluate pt. Spoke with Carissa. Given [facility] number to call with update [...] Esophageal dysmotility 08/12/2015 Prostate cancer 04/27/2015 Overview: Chaplin score = 6. Radiation therapy 10/2020 due [...] mRNA, LNP-s, No Pre serve, 2-Dose Series ([employer]) 08/03/2021,12/10/2020,11/12/2020 Covid-19, Mrna, Lnp-s, Pf, B ivalent, [...] encounter Miscellaneous Notes * Telephone Encounter - Jessica [place] OSA - 08/29/2023 11:08 AM EST Bill needs scheduled for an upper/lower endoscopy for: Iron deficiency anemia, unspecified iron deficiency anemia type [D50.9] - Primary documented in this encounter Plan of Treatment Upcoming Encounters Date Type Department Care Team (Late st Contact Info) Description 09/14/2023 9:00 AM EST Office Visit Orthopaedics [address] [place] [phone] Harry Daniel MD [address] [place] [address] 10/23/2023 11:20 AM EST Office Visit Rheumatology [address] [place] [phone] Akin Will [facility] [address] [facility] [place] [address] 03/29/2024 10:30 AM EDT Office Visit Family Medicine [address] [place] [phone] Wendi Love, [address] [place] [address] 04/19/2024 11:00 AM EDT Nurse Only Ancillary [address] [place] [address] [place], Nurse Annual [address] [place] [address] Health Maintenance Due Date Last Done Comments [...] filedocumented as of this encounter Care Teams Rn Lactation Consultant Relationship Specialty Start Date End Date Wendi Love DO [address] [place] [address] [place] [address] PCP - General Internal Medicine 06/07/17 documented as of this encounter
--- OUTSIDE RECORDS SUMMARY | 2023-11-13 03:41 | External Medical Summary | Summary of Care ---
Author Name Unknown Organization [facility] Address [address] [place] [address] Phone [phone] Care Team Providers Care Armhole Sewer Name Role Phone Reji Mathews DO Primary Care Provider Reason for Visit * Reason Onset Date Comments Medication Refill 09/08/2023 Make sure nigel ent keeps ortho appointment 09/14 Encounter Details Date Type Department Care Team (Late st Contact Info) Description 09/08/2023 Telephone Ancillary [address] [place] [address] Reji Mathews DO [address] [place] [address] [place] [address] Medication Refill (Make sure patient keeps... Allergies Active Allergy Reactions Criticality Noted Date Comments No Known Drug Allergy 02/10/2009 documented as of this encounter (statuses as of 09/13/2023) Medications Medication Sig Dispensed Refills Start Date [...] as of this encounter (statuses as of 09/13/2023) Active Problems Problem Noted Date Diagnosed Date [...] to evaluate pt. Spoke with Carissa. Given [facility] number to call with update regarding [...] Continues to follow up with [facility] urology JOHN (nonalcoholic steatohepatitis) 04/02/2015 Last Assessment & Plan: Mildly elevated ALT, continue to monitor. Other allergic rhinitis 12/28/2010 Overview: ICD-10 update of inactive term documented as of this encounter (statuses as of 09/13/2023) Resolved Problems Problem Noted Date Diagnosed Date [...] as of this encounter (statuses as of 09/13/2023) Immunizations Name Administration Dates Next Due COVID-19 mRNA, LNP-s, No Pre serve, 2-Dose Series ([employer]) 08/03/2021,12/10/2020,11/12/2020 Covid-19, Mrna, Lnp-s, Pf, B ivalent, [...] for Pain, Severe. will need sent to [facility], [address] [place] Counseled patient he was [...] 09/14/2023 9:00 AM EST Office Visit Orthopaedics [address] [phone] Harry Daniel MD [address] [place] [address] 10/23/2023 11:20 AM EST Office Visit Rheumatology [address] [place] [phone] Akin Will MD [address] [place] [address] [place] [address] 03/29/2024 10:30 AM EDT Office Visit Family Medicine [address] [phone] Reji Mathews[address] [place] [address] 04/19/2024 11:00 AM EDT Nurse Only Ancillary Zillaheliot Rivera[address] [place] [address] [place], Nurse Annual [address] [place] [address] Health Maintenance Due Date Last Done Comments [...] filedocumented as of this encounter Care Teams Armhole Sewer Relationship Specialty Start Date End Date Reji Mathews DO [address] [place] [address] [place] [address] PCP - General Internal Medicine 06/07/17 documented as of this encounter
--- OUTSIDE RECORDS SUMMARY | 2023-11-13 03:41 | External Medical Summary ---
Author Name Unknown Address Unknown Organization [id number]:[facility] [place] [address] [facility] [address] Laboratory Report Ordering Provider Test Date Status REID MENDOZA 08/29/2023 09:36:48 Final Observation Date Value Abnormality Reference (Units ) Status Triglyceride 08/29/2023 09:36:48 111 <=174 ( mg/dL) Final Triglyceride Reference Range s (mg/dL):
<150 Acceptable
150-174 Borderline high
175-499 High
>=500 Very high Cholesterol 08/29/2023 09:36:48 135 <200 (mg /dL) Final Total Cholesterol Reference Ranges (mg/dL):
<200 Desirable
200-239 Borderline high
>=240 High HDL 08/29/2023 09:36:48 48 >39 (mg/dL ) Final HDL Cholesterol Reference Ra nges (mg/dL):
>=60 High (Desirable)
<50 Low (Undesirable) For Females
<40 Low (Undesirable) For Males NON-HDL CHOLESTEROL 08/29/2023 09:36:48 87 <=159 (mg/dL) Final Non-HDL Cholesterol Referenc e Range (mg/dL):
<100 Target level for high risk ASCVD patient
<130 Optimal for general population
130-159 Near optimal for general population
160-189 Borderline High
190-219 High
>=220 Very High LDL, (calculated) 08/29/2023 09:36:48 65 <= 129 (mg/dL) Final LDL Cholesterol Reference Ra nges (mg/dL):
<70 Target level for high risk ASCVD patient
<100 Optimal for general population
100-129 Near optimal for general population
130-159 Borderline high
160-189 High
>=190 Very high Performing Location [facility] [place] [facility] [address] [facility] [address]
--- OUTSIDE RECORDS SUMMARY | 2023-11-13 03:41 | External Medical Summary | Summary of Care ---
Author Name Unknown Organization [facility] Address [address] [place] [address] Phone [phone] Care Team Providers Care Pilot Steam Yacht Name Role Phone Wendi Love DO Primary Care Provider Reason for Referral * Ancillary Services (Within 10 days (routine)) - Authorized Specialty Diagnoses / Procedures Referred By [facility] Referred To Contact Gastroenterology Diagnoses Iron deficiency anemia, unspecified iron deficiency anemia type Wendi Love DO [address] [place] [address] [place] [address] Referral ID Status Reason Start Date Expiration Date Visits Requested Visits Authorized [id number] Authorized Ancillary Services Required 08/29/[phone] Question Answer Referral Priority Within 10 days (routine) Where should this appointment be scheduled? [facility] ASGE Guidelines Anorexia and weight loss ADDITIONAL INFORMATION 1. Is the patient on Coumadin? No 2. Is the patient on Pradaxa? No * Ancillary Services (Within 10 days (routine)) - Authorized Specialty Diagnoses / Procedures [facility] Referred To Contact Gastroenterology Diagnoses Iron deficiency anemia, unspecified iron deficiency anemia type Wendi Love DO [address] [place] [address] [place] [address] Referral ID Status Reason Start Date Expiration Date Visits Requested Visits Authorized [id number] Authorized Ancillary Services Required 08/29/[phone] Question Answer Referral Priority Within 10 days (routine) Where should this appointment be scheduled? [facility] Comments ALERT: Do not order for pediatric patients (18 years or younger). Cancel off screen and order PEDS GASTROENTEROLOGY CONSULT (Type: 1 visit only-Evaluate and Treat) The following Pt. Instructions are available: - Gastro Colonoscopy Prep Instructions [[id number]] - Gastro Colonoscopy Prep Instructions (Djiboutian Version) [[id number]] Go to the Pt. Instructions section within the Visit Navigator to access. Colonoscopy ASGE Guidelines: Iron deficiency anemia ADDITIONAL INFORMATION 1. Is the patient on Coumadin? No 2. Is the patient on Pradaxa? No * Evaluate & Treat - Unlimited Visits (Within 10 days (routine)) - Authorized Specialty Diagnoses / Procedures Referred By Weston schroeder Referred To Contact Orthopaedic Surgery / Orthopedics Diagnoses Primary osteoarthritis of both hips Wendi Love[address] [place] [address] Referral ID Status Reason Start Date Expiration Date Visits Requested Visits Authorized [id number] Authorized Specialty Services Required 08/29/[phone] Question Answer Referral Priority Within 10 days (routine) Where should this appointment be scheduled? [facility] What body part is the patient being seen for? Hip What condition is the patient being seen for? Arthritis including related infection Comments Dr. Daniel Reason for Visit * Reason Comments Re-Check Pt c/o worsening rig ht hip pain, arthritis, takes tylenol but it doesn't help. Encounter Details Date Type Department Care Team (Latest Contact Info) Description 08/29/2023 8:50 AM EST Office Visit Family Medicine [address] [place] [phone] [place] [address] Iron deficiency anemia, unspecified iron deficiency anemia type*; COPD, group B, by GOLD 2017 classification (HCC); Major depressive disorder, single episode, mild (HCC); Prostate cancer (HCC); Diabetes mellitus without complication ([facility]); Essential hypertension with goal blood pressure less than 140/90; Sjogren's syndrome with dental involvement ([facility]); Acquired hypothyroidism; Primary osteoarthritis of left hip; Primary osteoarthritis of both hips Allergies Active Allergy Reactions Criticality Noted Date [...] Sjogren's syndrome 04/04/2023 Diabetes mellitus without complication Subclinical hypothyroidism 08/03/2022 Gastro-esophageal reflux disease without [...] to evaluate pt. Spoke with Carissa. Given [facility] number to call with update regarding [...] Continues to follow up with [facility] urology JOHN (nonalcoholic steatohepatitis) 04/02/2015 Last Assessment [...] mRNA, LNP-s, No Pre serve, 2-Dose Series (manetch) 08/03/2021,12/10/2020,11/12/2020 Covid-19, Mrna, Lnp-s, Pf, B ivalent, 30 Mcg, IM, 12 yrs and above (manetch) 06/28/2022 Pneumococcal Conjugate Vacc, 13 Valent (Prevnar) [...] Sign Reading Time Taken Comments Blood Pressure 152/82 08/29/2023 8:46 AM EST Pulse 86 08/29/2023 8:46 AM EST Temperature 36.2 C (97.1 F) 08/29/2023 8:46 AM ES T Respiratory Rate - - Oxygen Saturation 99% 08/29/2023 8:46 AM EST Inhaled Oxygen Concentration - - Weight 90.6 kg (199 lb 12.8 oz) 08/29/2023 8:46 AM EST Height - - Body Mass Index 31.29 04/17/2023 11:19 AM EDT documented in this encounter Progress Notes * Wendi Love, DO - 08/29/2023 9:06 AM EST Subjective: Alhaji Walsh is a 77 year old male. Chief Complaint Patient presents with Re-Check Pt c/o worsening right hip pain, arthritis, takes tylenol but it doesn't help. HPI: Alhaji Walsh presents today for routine follow up. Concerns today include right hip pain x several months. This is making it difficult for him to sleep. Pain is worst when he walks, but is okay when he is sitting. He had x-rays last year which showedsevere OA. He is not interested in hip replacement but would consider injections. Mouth is greasy and sour here today - wet paste. He was recently given clotrimazole troches and that is helping with the burning in his mouth. Breathing feels okay. He does not have to use his inhaler. No wheezing. BP is high here today, but he did take his morning pills. Uses pill packs. Sometimes forgets to take his one pill at noon. Weight is down about 20# in 3 months. He has known iron deficiency anemia. Was previously advised to have a colonoscopy but declined. Willing to schedule today. Bowels are moving today. No heartburn or early satiety. 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 Essential hypertension with goal blood pressure less than 140/90 I10 Major depressive disorder, single episode, mild (HCC) F32.0 On high dose antipsychotic drug therapy Z79.899 Dry mouth R68.2 History of MRSA infection Z86.14 Tardive dyskinesia G24.01 Chronic pain of right knee M25.561, G89.29 Unspecified asthma, uncomplicated J45.909 History of 2019 novel coronavirus disease (COVID-19) Z86.16 Primary osteoarthritis of left hip M16.12 Gastro-esophageal reflux disease without esophagitis K21.9 Subclinical hypothyroidism E03.8 Diabetes mellitus without complication ([facility]) E11.9 Sjogren's syndrome ([facility]) M35.00 COPD, group B, by GOLD 2017 classification ([facility]) J44.9 Current Outpatient Medications Medication Sig Dispense Refill aspirin enteric coated 81 MG TBEC Take 1 Tab by mouth daily. 100 Tab 0 Zinc Gluconate 50 MG CAPS Take 1 Cap by mouth daily. 30 Cap 0 Alpha Lipoic Acid 200 MG CAPS Take 1 Cap by mouth daily. (Patient taking differently: Take 1 Capsule by mouth in the morning. Pt is taking 100mg daily per pharmacy.) 30 Cap 2 B-12 2000 MCG Oral Tablet Take 2,000 mcg by mouth once. Daily Albuterol Sulfate HFA 108 (90 Base) MCG/ACT Inhalation Aerosol Solution inhale 2 puffs every 4 hours as needed for wheezing, shortness of breath or cough 6.7 g 5 Tamsulosin HCl 0.4 MG Oral Capsule (Flomax) Take 1 Capsule by mouth in the morning. 90 Capsule 3 Vitron-C 65-125 MG Oral Tablet (Iron-Vitamin C 65-125 mg per tab) Take 1 Tablet by mouth in the morning and 1 Tablet before bedtime. 60 Tablet 5 amLODIPine Besylate 5 MG Oral Tablet (Norvasc) Take 1 Tablet by mouth in the morning. 30 Tablet 5 Cevimeline HCl 30 MG Oral Capsule Take 1 Capsule by mouth in the morning and 1 Capsule at noon and 1 Capsule before bedtime. 90 Capsule 5 Mirtazapine 15 MG Oral Tablet (Remeron) Take 1 Tablet by mouth at bedtime. 30 Tablet 5 Levothyroxine Sodium 50 MCG Oral Tablet (Levoxyl) Take 1 Tablet by mouth in the morning. In the morning.. 90 Tablet 3 Losartan Potassium 25 MG Oral Tablet (Cozaar) Take 1 Tablet by mouth in the morning. 90 Tablet 1 metFORMIN HCl ER 500 MG Oral Tablet Extended Release 24 Hour (Glucophage XR) TAKE ONE TABLET IN THEMORNING 90 Tablet 1 LORazepam 0.5 MG Oral Tablet (Ativan) Take 1 Tablet by mouth every night at bedtime. 30 Tablet 0 Pantoprazole Sodium 20 MG Oral Tablet Delayed Release (Protonix) TAKE ONE TABLET IN THE MORNING 90 Tablet 3 Losartan Potassium 50 MG Oral Tablet (Cozaar) Take 1 Tablet by mouth in the morning. 90 Tablet 3 Multi-Vitamins Oral Tablet Take 1 Tablet by mouth in the morning. 30 Tablet 5 Clotrimazole 10 MG Mouth/Throat Giselle (Mycelex Giselle) Take 1 Lozenge by mouth 5 times a day. Allow tablet to slowly dissolve in your mouth 70 Giselle 0 Current Facility-Administered Medications Medication Dose Route Frequency Provider Last Rate Last Admin albuterol sulfate (PROVENTIL) (2.5 MG/3ML) 0.083% inhalation solution 2.5 mg 2.5 mg Nebulizer Q4H PRN Wendi Love DO 2.5 mg at 06/30/17 1203 Review of patient's allergies indicates: Allergen Reactions No Known Drug Allergy Objective: BP 152/82 | Pulse 86 | Temp 36.2 C (97.1 F) | Wt 90.6 kg (199 lb 12.8 oz) | SpO2 99% | BMI 31.29 kg/m | BSA 2.07 m General: alert, healthy, no distress, well nourished, and well developed Mouth: no discharge, mouth is moist Neck: supple, no adenopathy, thyroid normal size, non-tender, without nodularity Heart: regular rate & rhythm and no murmur Lungs: chest symmetric with normal AP diameter, no chest deformities noted, normal respiratory rateand rhythm, lungs clear to auscultation Abdomen: abdomen soft, non-tender, and obese Extremities: no joint deformities, effusion, or inflammation, no edema, there is pain to palpation of the right lateral hip Neuro Exam: alert & oriented x 3 with fluent speech, no focal motor/sensory deficits, ambulateswith a cane Skin: skin color, texture, turgor are normal, no rashes or significant lesions ASSESSMENT/PLAN: Iron deficiency anemia, unspecified iron deficiency anemia type (Primary) - continue vitron-C. Check labs as below and refer for bidirectional endoscopy given his iron deficiency anemia and weight loss. - CBC WITH WBC DIFFERENTIAL; Future; Expected date: 08/29/2023 - IRON SCREEN, INCLUDING TIBC; Future; Expected date: 08/29/2023 - FERRITIN; Future; Expected date: 08/29/2023 - COLONOSCOPY, GI REFERRAL OP - UPPER ENDOSCOPY GI REFERRAL OP COPD, group B, by GOLD 2017 classification (HCC) Major depressive disorder, single episode, mild (HCC) - continue remeron Prostate cancer (HCC) - PSA; Future; Expected date: 08/29/2023 Diabetes mellitus without complication (HCC) - diet controlled. - LIPID PANEL WITH DIRECT LDL IF TG IS HIGH; Future; Expected date: 08/29/2023 - HEMOGLOBIN A1C; Future; Expected date: 08/29/2023 Essential hypertension with goal blood pressure less than 140/90 - high here today. If remains high, will adjust meds at next appointment. - COMPREHENSIVE METABOLIC PANEL; Future; Expected date: 08/29/2023 Sjogren's syndrome with dental involvement (HCC) - continue cevimeline Acquired hypothyroidism - continue levothyroxine. - TSH; Future; Expected date: 08/29/2023 Primary osteoarthritis of both hips - right is most bothersome. ?trochanteric bursitis vs due to his severe OA. Oxycodone given to be used sparingly as needed for pain. - ORTHOPAEDICS REFERRAL OP Other orders - oxyCODONE HCl 5 MG Oral Tablet (Oxy IR); Take 0.5 Tablets by mouth daily as needed for Pain, Severe. Follow-up: Return in about 6 months (around 02/27/2024). | Check-out note: Labs today Wendi Love DO documented in this encounter Plan of Treatment Upcoming Encounters Date Type Department Care Team (Late st Contact Info) Description 10/23/2023 11:20 AM EST Office Visit Rheumatology [address] [place] [phone] Akin Will MD [address] [facility] [place], [place] [address] 04/19/2024 11:00 AM EDT Nurse Only Ancillary [address] [place] [address] [place], Nurse Annual [address] [place] [address] Pending Results Name Type Priority Associated Diagnoses [...] Prostate cancer (HCC) 08/29/2023 9:36 AM EST Scheduled Orders Name Type Priority Associated Diagnoses Orde r Schedule LIPID PANEL WITH DIRECT LDL IF TG IS HIGH Lab Routine Diabetes mellitus without complication (HCC) Expected: 08/29/2023, Expires: 08/29/2024 COMPREHENSIVE METABOLIC PANEL Lab Routine Essential hypertension with goal blood pressure less than 140/90 Expected: 08/29/2023 (Approximate), Expires: 08/28/2024 HEMOGLOBIN A1C Lab Routine Diabetes mellitus without complication (HCC) Expected: 08/29/2023 (Approximate), Expires: 08/28/2024 TSH Lab Routine Acquired hypothyroidism Expected: 08/29/2023 (Approximate), Expires: 08/28/2024 CBC WITH WBC DIFFERENTIAL Lab Routine Iron deficiency anemia, unspecified iron deficiency anemia type Expected: 08/29/2023 (Approximate), Expires: 08/29/2024 IRON SCREEN, INCLUDING TIBC Lab Routine Iron deficiency anemia, unspecified iron deficiency anemia type Expected: 08/29/2023 (Approximate), Expires: 08/28/2024 FERRITIN Lab Routine Iron deficiency anemia, unspecified iron deficiency anemia type Expected: 08/29/2023 (Approximate), Expires: 08/28/2024 PSA Lab Routine Prostate cancer (HCC) Expected: 08/29/2023 (Approximate), Expires: 08/28/2024 Scheduled Referrals Name Type Priority Associated Diagnoses Orde r Schedule ORTHOPAEDICS REFERRAL OP Referral Within 10 days (routine) Primary osteoarthritis of both hips Ordered: 08/29/2023 COLONOSCOPY, GI REFERRAL OP Referral Within 10 days (routine) Iron deficiency anemia, unspecified iron deficiency anemia type Ordered: 08/29/2023 UPPER ENDOSCOPY GI REFERRAL OP Referral Within 10 days (routine) Iron deficiency anemia, unspecified iron deficiency anemia type Ordered: 08/29/2023 Health Maintenance Due Date Last Done Comments Alpha-1 Antitrypsin 12/24/1961 Diabetic Eye Exam 12/24/1963 Hepatitis C Screening 12/24/1963 Hepatitis B (1 of 3 - Risk 3-dose series) 2003 Zoster Vaccines (2 of 2) 09/28/2022 08/03/2022 COVID-19 Vaccine ( season) 2023 06/28/2022, 08/03/2021, 12/10/2020, Additional history exists HbA1c 07/29/2023 01/27/2023, 05/2 11/2021, 01/26/2021, Additional history exists TSH 11/29/2023 11/28/2022, 12/0 02/2022, 07/01/2022, Additional history exists Diabetic Foot Exam 02/18/2024 02/17/2023 GFR 04/12/2024 04/12/2023, 0711/2022, 08/03/2022, Additional history exists Depression Screening 04/17/2024 04/17/2023 O2 ASSESSMENT COMPLETED IN PAST YEAR FOR COPD 05/10/2024 05/10/2023, 02/15/2017 Albumin/Creatinine Ratio 06/16/2024 06/16/2023, 12/0 02/2022 DTaP,Tdap,and Td Vaccines (2 - Td or [...] as of this encounter Visit Diagnoses Diagnosis Iron deficiency anemia, unspecified iron deficiency anemia type- Primary COPD, group B, by GOLD 2017 classification (HCC) Major depressive disorder, single episode, mild (HCC) Major depressive disorder, single episode, mild Prostate cancer (HCC) Malignant neoplasm of prostate Diabetes mellitus without complication (HCC) Type II or unspecified type diabetes mellitus without mention of complication, not stated as uncontrolled Essential hypertension with goal blood pressure less than 140/90 Sjogren's syndrome with dental involvement (HCC) Acquired hypothyroidism Unspecified hypothyroidism Primary osteoarthritis of left hip Primary localized osteoarthrosis, pelvic region and thigh Primary osteoarthritis of both hips Primary localized osteoarthrosis, pelvic region and thigh documented in this encounter Care Teams Pilot Steam Yacht Relationship Specialty Start Date End Date Wendi Love DO [address] [place] [address] [place] [address] PCP - General Internal Medicine 06/07/17 documented as of this encounter"
--- OUTSIDE RECORDS SUMMARY | 2023-11-13 03:41 | External Medical Summary | Summary of Care ---
Author Name Unknown Organization [facility] Address [address] [place] [address] Phone [phone] Care Team Providers Care Field Care Advocate Name Role Phone Wendi Love DO Primary Care Provider Reason for Visit * Reason Onset Date Comments Test Results 08/31/2023 Encounter Details Date Type Department Care Team (Late st Contact Info) Description 08/31/2023 Telephone Family Medicine [address] [phone] Wendi Love [address] [place] [address] Test Results Allergies Active Allergy Reactions Criticality Noted Date Comments No Known Drug Allergy 02/10/2009 documented as of this encounter (statuses as of 09/06/2023) Medications Medication Sig Dispensed Refills Start Date [...] the morning. 30 Tablet 5 08/31/2023 Active Vitron-C 65-125 MG Oral Tablet (Iron-Vitamin C 65-125 mg per tab) Take 1 Tablet by mouth in the morning and 1 Tablet before bedtime. 60 Tablet 5 02/09/2023 4 Discontinu ed(Refill) Hospital, Clinic, or Other Facility Administered Medication Ordered Dose Route Frequency Start Date End Date Status albuterol sulfate (PROVENTIL) (2.5 MG/3ML) 0.083% inhalation solution 2.5 mgIndications:COPD, moderate (HCC) 2.5 mg NEBULIZER Q4H PRN 06/20/2017 Active documented as of this encounter (statuses as of 09/06/2023) Active Problems Problem Noted Date Diagnosed Date [...] to evaluate pt. Spoke with Carissa. Given [facility] number to call with update [...] as of this encounter (statuses as of 09/06/2023) Resolved Problems Problem Noted Date Diagnosed Date [...] as of this encounter (statuses as of 09/06/2023) Immunizations Name Administration Dates Next Due COVID-19 mRNA, LNP-s, No Pre serve, 2-Dose Series (BitStash) 08/03/2021,12/10/2020,11/12/2020 Covid-19, Mrna, Lnp-s, Pf, B ivalent, [...] encounter Miscellaneous Notes * Telephone Encounter - Radha Cardona OSA - 09/06/2023 11:04 AM EST Pt is scheduled for tomorrow for [facility]egd at [facility]. Received message from [facility] stating pt told PAT thathe wants to cancel both procedures. They tried calling pt and I tried calling pt to confirm and to see if he wants to reschedule but was unable to leave a message. * Telephone Encounter - Ana Koenig LPN - 09/01/2023 4:17 PM EST Patient called. Informed of message. Verbalized understanding. Transferred to Beth in GI scheduling. * Telephone Encounter - Wendi Love DO - 08/31/2023 1:57 PM EST Please call patient: His labs look okay, EXCEPT that he continues to lose blood. He needs a colonoscopy/upper endoscopy as soon as possible. Is he agreeable to scheduling now? He was previously offered an appointment and declined to schedule. Please reinforce the needs to schedule now as there is a delay in getting in and this really needs to be done as soon as possible. documented in this encounter Plan of Treatment Upcoming Encounters Date Type Department Care Team (Late st Contact Info) Description 09/14/2023 9:00 AM EST Office Visit Orthopaedics [address] [place] [phone] Harry Daniel MD [address] [facility] [place] [address] 10/23/2023 11:20 AM EST Office Visit Rheumatology [address] [place] [phone] [facility] [facility] [address] 03/29/2024 10:30 AM EDT Office Visit Family Medicine [address] [place] [phone] Wendi Love DO [address] [place] [address] [place] [address] 04/19/2024 11:00 AM EDT Nurse Only Ancillary [address] [place] [address] [place], Nurse Annual Wellness [address] [place] [address] [place] [address] Health Maintenance Due Date Last Done Comments Alpha-1 Antitrypsin 12/24/1961 Diabetic Eye Exam 12/24/1961 Hepatitis C Screening 12/24/1961 Hepatitis B (1 of 3 - Risk 3-dose series) 2003 Zoster Vaccines (2 of 2) 09/28/2022 08/03/2022 COVID-19 Vaccine ( - season) 2023 06/28/2022, 08/03/2021, 12/10/2020, Additional history [...] filedocumented as of this encounter Care Teams Field Care Advocate Relationship Specialty Start Date End Date Wendi Love DO [address] [place] [address] [place] [phone] PCP - General Internal Medicine 06/07/17 documented as of this encounter
--- OUTSIDE RECORDS SUMMARY | 2023-11-13 03:41 | External Medical Summary | Summary of Care ---
Author Name Unknown Organization [facility] Address [address] [place] [address] Phone [phone] Care Team Providers Care Hair Blender Name Role Phone Reji Mathews DO Primary Care Provider Reason for Visit * Reason Onset Date Comments Medication Refill 09/08/2023 Make sure nigel ent keeps ortho appointment 09/14 Encounter Details Date Type Department Care Team (Late st Contact Info) Description 09/08/2023 Telephone Ancillary [address] [place] [address] Reji Mathews DO [address] [place] [address] [place] [id number] Medication Refill (Make sure patient keeps... Allergies Active Allergy Reactions Criticality Noted Date Comments No Known Drug Allergy 02/10/2009 documented as of this encounter (statuses as of 09/12/2023) Medications Medication Sig Dispensed Refills Start Date [...] as of this encounter (statuses as of 09/12/2023) Active Problems Problem Noted Date Diagnosed Date [...] to evaluate pt. Spoke with Carissa. Given [facility] number to call with update regarding [...] as of this encounter (statuses as of 09/12/2023) Resolved Problems Problem Noted Date Diagnosed Date [...] as of this encounter (statuses as of 09/12/2023) Immunizations Name Administration Dates Next Due COVID-19 mRNA, LNP-s, No Pre serve, 2-Dose Series (MymCart) 08/03/2021,12/10/2020,11/12/2020 Covid-19, Mrna, Lnp-s, Pf, B ivalent, [...] for Pain, Severe. will need sent to [facility], [address] RONALD CARRERO Counseled patient he was [...] 09/14/2023 9:00 AM EST Office Visit Orthopaedics [address] [phone] Harry Daniel MD [address] [place] [address] 10/23/2023 11:20 AM EST Office Visit Rheumatology [address] [place] [phone] Akin Will MD [address] [place] [address] [place] [address] 03/29/2024 10:30 AM EDT Office Visit Family Medicine [address] [phone] Reji Mathews[address] [place] [address] 04/19/2024 11:00 AM EDT Nurse Only Ancillary Bancrofteliot Rivera[address] [place] [address] [place], Nurse Annual [address] [place] [address] Health Maintenance Due Date Last Done Comments [...] filedocumented as of this encounter Care Teams Hair Blender Relationship Specialty Start Date End Date Reji Mathews DO [address] [place] [address] [place] [address] PCP - General Internal Medicine 06/07/17 documented as of this encounter
--- OUTSIDE RECORDS SUMMARY | 2023-11-13 03:41 | External Medical Summary | Summary of Care ---
Author Name Unknown Organization [facility] Address [address] [place] [address] Phone [phone] Care Team Providers Care Weatherseal Technician Name Role Phone Wendi Love DO Primary Care Provider [phone] Reason for Visit * Reason Onset Date Comments Appointment 08/29/2023 Upper/lower endo scopy Encounter Details Date Type Department Care Team (Late st Contact Info) Description 08/29/2023 Telephone Family Medicine [address] [phone] Wendi Love DO [address] [place] [address] [place] [address] Appointment (Upper/lower endoscopy ) Allergies Active Allergy [...] pt. Spoke with Carissa. Given [facility] number to call with update regarding [...] Esophageal dysmotility 08/12/2015 Prostate cancer 04/27/2015 Overview: [place] score = 6. Radiation therapy 10/2020 due to rising PSA following radical prostatectomy Last Assessment & Plan: S/p radical prostatectomy 10/10/17. Referred to RT 10/2020 d/t rising PSA Continues to follow up with [facility] urology JOHN (nonalcoholic steatohepatitis) 04/02/2015 [...] mRNA, LNP-s, No Pre serve, 2-Dose Series ([employer]) 08/03/2021,12/10/2020,11/12/2020 Covid-19, Mrna, Lnp-s, Pf, B [...] encounter Miscellaneous Notes * Telephone Encounter - Mattie Castro OSA - 08/29/2023 5:07 PM EST Spoke to pt and he wants to call back in the Spring to schedule. * Telephone Encounter - Jessica Elizabeth OSA - 08/29/2023 11:08 AM EST Bill needs scheduled for an upper/lower endoscopy for: Iron deficiency anemia, unspecified iron deficiency anemia type [D50.9] - Primary documented in this encounter Plan of Treatment Upcoming Encounters Date Type Department Care Team (Late st Contact Info) Description 09/14/2023 9:00 AM EST Office Visit Orthopaedics [address] [phone] Harry Daniel MD [address] [place] [address] 10/23/2023 11:20 AM EST Office Visit Rheumatology [address] [place] [phone] Akin Will MD [facility] [address] 03/29/2024 10:30 AM EDT Office Visit Family Medicine [address] [place] [phone] Wendi Love, [address] [place] [address] 04/19/2024 11:00 AM EDT Nurse Only Ancillary [address] [place] [address] [place], Nurse Annual [address] [place] [address] Health Maintenance Due Date Last Done Comments Alpha-1 Antitrypsin 12/24/1961 Diabetic Eye Exam 12/24/1961 Hepatitis C Screening 12/24/1961 Hepatitis B (1 of 3 - Risk 3-dose series) 2003 Zoster Vaccines (2 of 2) 09/28/2022 08/03/2022 COVID-19 Vaccine ( season) 2023 06/28/2022, 08/03/2021, 12/10/2020, Additional history exists HbA1c 07/29/2023 01/27/2023, 052 11/2021, 01/26/2021, Additional history exists TSH 11/29/2023 11/28/2022, 12/0 02/2022, 07/01/2022, Additional history exists Diabetic Foot Exam 02/18/2024 02/17/2023 GFR 04/12/2024 04/12/2023, 02/25, 08/03/2022, Additional history exists Depression Screening 04/17/2024 04/17/2023 O2 ASSESSMENT COMPLETED IN PAST YEAR FOR COPD 05/10/2024 08/29/2023, 02/15/2017 Albumin/Creatinine Ratio 06/16/2024 06/16/2023, 12/0 02/2022 [...] filedocumented as of this encounter Care Teams Weatherseal Technician Relationship Specialty Start Date End Date Wendi Love DO [address] [place] [address] [place] [address] PCP - General Internal Medicine 06/07/17 documented as of this encounter
--- OUTSIDE RECORDS SUMMARY | 2023-11-13 03:41 | External Medical Summary | Summary of Care ---
Author Name Unknown Organization [facility] Address [address] [place] [place] [place] [address] Phone [phone] Care Team Providers Care Manager Dish Name Role Phone Wendi Love DO Primary Care Provider [phone] Reason for Visit * Reason Comments NEW PATIENT Right hip * Evaluate & Treat - Unlimited Visits (Within 10 days (routine)) - Authorized Specialty Diagnoses / Procedures Referred By Weston schroeder Referred To Contact Orthopaedic Surgery / Orthopedics Diagnoses Primary osteoarthritis of both hips Wendi Love DO [address] [place] [address] [place] [address] Referral ID Status Reason Start Date Expiration Date Visits Requested Visits Authorized [id number] Authorized Specialty Services Required 08/29/[phone] Encounter Details Date Type Department Care Team (Latest Contact Info) Description 09/14/2023 9:00 AM EST Office Visit Orthopaedics [address] [phone] Harry Daniel MD [address] [place] [address] Primary osteoarthritis of right hip*; Osteoarthritis of [...] hip 40 mg IX ONCE 09/14/2023 09/14/2023 Active lidocaine 1 % inj 10 mgIndications:Primary osteoarthritis of right hip 10 mg IX ONCE 09/14/2023 09/14/2023 Active documented as of this encounter (statuses [...] to evaluate pt. Spoke with Carissa. Given [facility] number to call with update [...] rising PSA Continues to follow up with [facility] urology JOHN (nonalcoholic steatohepatitis) 04/02/2015 [...] mRNA, LNP-s, No Pre serve, 2-Dose Series ([employer]) 08/03/2021,12/10/2020,11/12/2020 Covid-19, Mrna, Lnp-s, Pf, B ivalent, 30 Mcg, IM, 12 yrs and above ([employer]) 06/28/2022 Pneumococcal Conjugate Vacc, 13 Valent (Prevnar) [...] - 09/14/2023 9:00 AM EST Alhaji Walsh [id number] Alhaji Walsh is a 77 year old male who presents for consultation for bilateralhip injury/pain to [facility]\. Consult requested [...] intestine tubular adenoma Prostate cancer (HCC) 04/27/2015 [place] score = 6. 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 FINDINGS Five [id number] lumbar type vertebral bodies. No fracture. Reversal [...] Daniel MD Primary Care Sports Medicine Orthopaedics [address] [phone] documented in this encounter Nursing Notes * [...] 10/23/2023 11:20 AM EST Office Visit Rheumatology [address] [place] [phone] Akin Will MD [address] [place], [place] [address] [address] 03/29/2024 10:30 AM EDT Office Visit Family Medicine [address] [place] [phone] Wendi Love, [address] [place] [address] 04/19/2024 11:00 AM EDT Nurse Only Ancillary [address] [place] [address] [place], Nurse [address] [place] [address] Scheduled Orders Name Type Priority Associated Diagnoses [...] osteoarthritis complication status documented in this encounter Care Teams Manager Dish Relationship Specialty Start Date End Date Wendi Love DO [address] [place] [address] [place] [address] PCP - General Internal Medicine 06/07/17 documented as of this encounter
--- OUTSIDE RECORDS SUMMARY | 2023-11-13 03:42 | External Medical Summary | Summary of Care ---
Author Name Unknown Organization [facility] Address [address] [place] [address] Phone [phone] Care Team Providers Care Demurrage Clerk Name Role Phone Wendi Love DO Primary Care Provider Reason for Visit * Reason Onset Date Comments Advice 08/11/2023 Encounter Details Date Type Department Care Team (Late st Contact Info) Description 08/11/2023 Telephone Ancillary [address] [place] [address] Wendi Love DO [address] [place] [address] [place] [address] Advice Allergies Active Allergy Reactions Criticality Noted Date Comments No Known Drug Allergy 02/10/2009 documented as of this encounter (statuses as of 08/17/2023) Medications Medication Sig Dispensed Refills Start Date [...] the morning. 30 Tablet 5 08/01/2023 Active Hospital, Clinic, or Other Facility Administered Medication Ordered Dose Route Frequency Start Date End Date Status albuterol sulfate (PROVENTIL) (2.5 MG/3ML) 0.083% inhalation solution 2.5 mgIndications:COPD, moderate (HCC) 2.5 mg NEBULIZER Q4H PRN 06/20/2017 Active documented as of this encounter (statuses as of 08/17/2023) Active Problems Problem Noted Date Diagnosed Date COPD, group B, by GOLD 2017 classification [...] to evaluate pt. Spoke with Carissa. Given [facility] number to call with update [...] Esophageal dysmotility 08/12/2015 Prostate cancer 04/27/2015 Overview: [place] score = 6. Radiation therapy 10/2020 due [...] as of this encounter (statuses as of 08/17/2023) Resolved Problems Problem Noted Date Diagnosed Date [...] Prediabetes protocol H/O prostate cancer 05/18/2018 01/27/20 Moderate persistent asthma w ithout complication 06/07/2017 [...] as of this encounter (statuses as of 08/17/2023) Immunizations Name Administration Dates Next Due COVID-19 mRNA, LNP-s, No Pre serve, 2-Dose Series ([employer]) 08/03/2021,12/10/2020,11/12/2020 Covid-19, Mrna, Lnp-s, Pf, B ivalent, [...] Telephone Encounter - Wendi Love DO - 08/17/2023 1:34 PM EST Noted. He does have intermittent back pain problems and that certainly could interfere with his sleep. * Telephone Encounter - Gabby Roberts RN - 08/17/2023 8:11 AM EST Patient called this morning, mouth is bothering him, but he is not sleeping and his back is bothering him. Patient states he has had lower back pain for mths and came and had xrays that showed arthritis. Patient denies any burning or pain with urination, tried tylenol and not helping. Patient counseled to use tylenol as needed and try a heating pad. Counseled patient to make sure he goes to family for the holiday even if mouth is bothering him. Patient to call back if symptoms worsen. * Telephone Encounter - Wendi Love DO - 08/15/2023 1:05 PM EST Any idea why he didn't sleep well at night? Is he napping during the day? Any discharge on his tongue to suggest thrush? * Telephone Encounter - Gabby Roberts RN - 08/14/2023 8:57 AM EST Patient called today, states his mouth is burning and "paste feeling" patient also mentioned he is not sleeping well again, patient only slept 3 hrs on Sat and 4hrs last night. Patient states his tongue is pink and moist. Patient has continued to do bottled water. Counseled patient I will speak to Dr. Love tomorrow for advice. Reason for Call: Advice Contact: Telephone Call Contact Type: Advice Outcome: see note Face to face time spent with Patient (minutes): 0 Total Time including non face to face (minutes): 20 * Telephone Encounter - Wendi Love DO - 08/11/2023 8:36 AM EST Noted. Thank you * Telephone Encounter - Gabby Roberts RN - 08/11/2023 7:57 AM EST Patient called states yesterday he started with symptoms . Patient states he mouth is "sour and paste-like today". Patient states tongue is not burning. Patient to continue the bottled water. Patientstates he did notice when he went to the [employer] and got an ice cream on a stick his symptoms were worse. Counseled patient to be careful with his sweets around the holiday, continue bottled waterif affordable and keep that food log of foods that make symptoms worse. Patient states symptoms arenot during the night. He will keep us updated. Reason for Call: Advice Contact: Telephone Call Contact Type: Advice Outcome: see note Face to face time spent with Patient (minutes): 0 Total Time including non face to face (minutes): 20 documented in this encounter Plan of Treatment Upcoming Encounters Date Type Department Care Team (Late st Contact Info) Description 08/29/2023 8:50 AM EST Office Visit Family Medicine [address] [place] [phone] Wendi Love DO [address] [place] [address] [place] [address] 10/23/2023 11:20 AM EST Office Visit Rheumatology [address] [place] [phone] Akin Will MD [address] [facility] [place] [address] 04/19/2024 11:00 AM EDT Nurse Only Ancillary [address] [place] [address] [place], Nurse Annual [address] [place] [address] Health Maintenance Due Date Last Done Comments [...] filedocumented as of this encounter Care Teams Demurrage Clerk Relationship Specialty Start Date End Date Wendi Love DO [address] [place] [address] [place] [address] PCP - General Internal Medicine 06/07/17 documented as of this encounter
--- OUTSIDE RECORDS SUMMARY | 2023-11-13 03:42 | External Medical Summary ---
Author Name Unknown Address Unknown Organization K01:[facility] [place] [address] [facility] [place] [address] Laboratory Report Ordering Provider Test Date Status REID MENDOZA 08/29/2023 09:36:48 Final Observation Date Value Abnormality Reference (Units ) Status BUN 08/29/2023 09:36:48 15 6-20 (mg/dL) Final Creatinine 08/29/2023 09:36:48 0.8 0.6-1.2 (mg/dL) Final Glomerular filtration rate/1.73 sq M.predicted [Volume Rate/Area] in Serum, Plasma or Blood by Creatinine-based formula (CKD-EPI) 08/29/2023 09:36:48 90 >=60 (mL/min) Final eGFR is calculated based on the CKD-EPI 2020 equation SODIUM 08/29/2023 09:36:48 140 135-146 (m mol/L) Final Potassium 08/29/2023 09:36:48 4.2 3.5-5.1 (m mol/L) Final Cl 08/29/2023 09:36:48 102 98-107 (mm ol/L) Final CO2 08/29/2023 09:36:48 26 22-32 (mmo l/L) Final Anion gap 08/29/2023 09:36:48 12 7-15 (mmol /L) Final Glucose 08/29/2023 09:36:48 113 70-120 (mg /dL) Final Albumin 08/29/2023 09:36:48 4.5 3.8-5.0 (g /dL) Final AST (Aspartate aminotransferase) 08/29/2023 09:36:48 29 10-50 (U/L) Final Alk Phos 08/29/2023 09:36:48 122 35-130 (U/ L) Final Bilirubin, Total 08/29/2023 09:36:48 0.3 <=1 .2 (mg/dL) Final Calcium 08/29/2023 09:36:48 9.6 8.4-10.2 ( mg/dL) Final Protein 08/29/2023 09:36:48 6.9 6.0-8.3 (g /dL) Final ALT (Alanine aminotransferase) 08/29/2023 09:36:48 28 10-50 (U/L) Final Performing Location [facility] [place] - [facility] N [place]. [facility] [address]
--- OUTSIDE RECORDS SUMMARY | 2023-11-13 03:42 | External Medical Summary | Summary of Care ---
Author Name Unknown Organization [facility] Address [address] [place] [address] Phone [phone] Care Team Providers Care Rn Otolaryngology Name Role Phone Reji Mathews DO Primary Care Provider Reason for Visit * Reason Onset Date Comments Medication Refill 08/01/2023 Encounter Details Date Type Department Care Team (Late st Contact Info) Description 08/01/2023 Refill Family Medicine [address] [phone] Reji Mathews DO [address] [place] [address] [place] [address] Essential hypertension with goal blood pressure less than 140/90 Allergies Active Allergy Reactions Criticality Noted Date Comments No Known Drug Allergy 02/10/2009 documented as of this encounter (statuses as of 08/01/2023) Medications Medication Sig Dispensed Refills Start Date [...] the morning. 90 Tablet 3 08/01/2023 Active Losartan Potassium 50 MG Oral Tablet (Cozaar)Indications :Essential hypertension with goal blood pressure less than 140/90 Take 1 Tablet by mouth in the morning. 90 Tablet 3 08/23/2022 3 Discontinu ed(Refill) Multi-Vitamins Oral Tablet Take 1 Tablet by mouth in the morning. 30 Tablet 5 02/17/2023 3 Discontinu ed(Refill) Hospital, Clinic, or Other Facility Administered Medication Ordered Dose Route Frequency Start Date End Date Status albuterol sulfate (PROVENTIL) (2.5 MG/3ML) 0.083% inhalation solution 2.5 mgIndications:COPD, moderate (HCC) 2.5 mg NEBULIZER Q4H PRN 06/20/2017 Active documented as of this encounter (statuses as of 08/01/2023) Active Problems Problem Noted Date Diagnosed Date [...] to evaluate pt. Spoke with Carissa. Given [facility] number to call with update regarding whether [...] Esophageal dysmotility 08/12/2015 Prostate cancer 04/27/2015 Overview: [place] score = 6. Radiation therapy 10/2020 due to rising PSA following radical prostatectomy Last Assessment & Plan: S/p radical prostatectomy 10/10/17. Referred to RT 10/2020 d/t rising PSA Continues to follow up with [facility] urology JOHN (nonalcoholic steatohepatitis) 04/02/2015 Last Assessment & Plan: Mildly elevated ALT, continue to monitor. Other allergic rhinitis 12/28/2010 Overview: ICD-10 update of inactive term documented as of this encounter (statuses as of 08/01/2023) Resolved Problems Problem Noted Date Diagnosed Date [...] as of this encounter (statuses as of 08/01/2023) Immunizations Name Administration Dates Next Due COVID-19 mRNA, LNP-s, No Pre serve, 2-Dose Series ([employer]) 08/03/2021,12/10/2020,11/12/2020 Covid-19, Mrna, Lnp-s, Pf, B ivalent, 30 Mcg, IM, 12 yrs and above ([employer]) 06/28/2022 Pneumococcal Conjugate Vacc, 13 Valent (Prevnar) 10/16/2014 Pneumococcal Polysaccharide PPV23 (Pneumovax) 02/10/2009 SEASONAL INFLUENZA, PF, 6 M & Above, IM , (FLULAVAL or FLUZONE) 05/18/2018,06/07/2017 Season Influenza, Quad, PF, Adjuvanted, 65+ Yrs, IM (FLUAD) 05/14/2020 Seasonal Influenza Virus Vac cine, Unspecified Formulation 05/11/2021,05/14/2020,05/07/2019,05/18,06/07/2017,05/18/2016,06/30/2014 ,06/11/2013,06/02/2012,05/23/2011,05/28,10/13/2009 Seasonal Influenza, Quadriva lent Hd (Fluzone Hd) [...] Telephone Encounter - Reji Mathews DO - 08/01/2023 3:35 PM ESTSigned Prescriptions: Disp Refills Losartan Potassium 50 MG Oral Tablet (Coza*90 Tab*3 Sig: Take 1 Tablet by mouth in the morning. Authorizing Provider: REJI MATHEWS * Telephone Encounter - Amy Mcknight RN - 08/01/2023 1:37 PM ESTPending Prescriptions: Disp Refills Losartan Potassium 50 MG Oral Tablet (Coza*90 Tab*3 Sig: Take 1 Tablet by mouth in the morning. * Telephone Encounter - Gladis Salas OSA - 08/01/2023 11:04 AM EST Did you pend patient's preferred pharmacy and medication before forwarding?yes Pharmacy: [facility], [address] [place] Pending Prescriptions: Disp Refills Losartan Potassium 50 MG Oral Tablet (Coz*90 Tab*3 Sig: Take 1 Tablet by mouth in the morning. Last Visit: 05/10/2023 (in office), Visit date not found (telemedicine) Next Visit: 08/29/2023 If no future appointments scheduled, and last appointment is greater than a year ago, please schedule patient for a follow-up appointment Last date the medication was ordered: 08.23.22 Is this request for a controlled substance?No Urine Drug Screen:No results found. However, due to the size of the patient record, not all encounters were searched. Please check Results Review for a complete set of results. Patient Phone Numbers Labs: Lab Results Component Value Date/Time CREAT 1.2 04/12/2023 12:31 PM CREAT 1.14 03/10/2023 12:00 AM CREAT 1.0 07/08/2020 08:13 AM POTASSIUM 4.3 04/12/2023 12:31 PM POTASSIUM 4.1 03/10/2023 12:00 AM POTASSIUM 4.0 07/08/2020 08:13 AM TSH 2.81 11/28/2022 09:47 AM TSH 2.90 07/31/2019 09:51 AM LDLCALC 59 08/03/2022 02:54 PM LDLCALC 52 02/21/2020 03:49 PM LDLDIRECT NOT APPLICABLE 02/21/2020 03:49 PM ALT 48 01/26/2022 02:12 PM ALT 52 (H) 07/08/2020 08:13 AM HGBA1C 6.6 (H) 01/27/2023 02:44 PM HGBA1C 6.0 (H) 07/08/2020 08:13 AM documented in this encounter Plan of Treatment Upcoming Encounters Date Type Department Care Team (Late st Contact Info) Description 08/29/2023 8:50 AM EST Office Visit Family Medicine [address] [place] [phone] Reji Mathews, [address] [place] [address] 10/23/2023 11:20 AM EST Office Visit Rheumatology [address] [place] [phone] Akin Will MD [facility] [place] [address] 04/19/2024 11:00 AM EDT Nurse Only Ancillary [address] [place] [address] Mai, Nurse [address] [place] [address] Health Maintenance Due Date Last Done Comments [...] as of this encounter Visit Diagnoses Diagnosis Essential hypertension with goal blood pressure less than 140/90 documented in this encounter Care Teams Rn Otolaryngology Relationship Specialty Start Date End Date Reji Mathews DO [address] [place] [address] [place] [address] PCP - General Internal Medicine 06/07/17 documented as of this encounter
--- OUTSIDE RECORDS SUMMARY | 2023-11-13 03:42 | External Medical Summary ---
Author Name Unknown Address Unknown Organization K01:[facility] [place] [address] [place] [address] Laboratory Report Ordering Provider Test Date Status REID MENDOZA 08/29/2023 09:36:48 Final Observation Date Value Abnormality Reference (Units ) Status SYNC LEUKOCYTES IN BLOOD BY AUTOMATED COUNT 08/29/2023 09:36:48 5.38 4.00-10.80 (K/uL) Final Segs 08/29/2023 09:36:48 64.9 40.0-75.0 (%) Final Lymphs % 08/29/2023 09:36:48 21.0 18.0-42.0 (%) Final Monos 08/29/2023 09:36:48 11.2 Above high normal 1.0-11.0 (%) Final Eosinophils 08/29/2023 09:36:48 2.0 0.0-6.0 (%) Final Basos 08/29/2023 09:36:48 0.7 0.0-2.0 (%) Final Immature Granulocyte, Percent 08/29/2023 09:36:48 0.2 0.0-2.0 (%) Final Absolute Segs 08/29/2023 09:36:48 3.49 1.80-7.70 (K/uL) Final Lymphs, absolute 08/29/2023 09:36:48 1.13 1.00-4.80 (K/ul) Final Monos, Abs 08/29/2023 09:36:48 0.60 0.00-1.10 (K/uL) Final Eos, Abs 08/29/2023 09:36:48 0.11 0.00-0.70 (K/uL) Final Basos, Abs 08/29/2023 09:36:48 0.04 0.00-0.20 (K/uL) Final Immature Granulocytes, Number 08/29/2023 09:36:48 0.01 0.00-0.20 (K/uL) Final Performing Location [facility] [place] [facility] [place] [address]
--- OUTSIDE RECORDS SUMMARY | 2023-11-13 03:42 | External Medical Summary | Summary of Care ---
Author Name Unknown Organization [facility] Address [address] [place] [address] Phone [phone] Care Team Providers Care Antique Furniture Reproducer Name Role Phone Wendi Love DO Primary Care Provider [phone] Reason for Visit * Reason Onset Date Comments Advice 08/11/2023 Encounter Details Date Type Department Care Team (Late st Contact Info) Description 08/11/2023 Telephone Ancillary [address] [place] [address] Wendi Love DO [address] [place] [address] [place] [address] Advice Allergies Active Allergy Reactions Criticality Noted Date Comments No Known Drug Allergy 02/10/2009 documented as of this encounter (statuses as of 08/11/2023) Medications Medication Sig Dispensed Refills Start Date [...] as of this encounter (statuses as of 08/11/2023) Active Problems Problem Noted Date Diagnosed Date [...] to evaluate pt. Spoke with Carissa. Given [facility] number to call with update [...] Esophageal dysmotility 08/12/2015 Prostate cancer 04/27/2015 Overview: [place] score = 6. Radiation therapy 10/2020 due to rising PSA following radical prostatectomy Last Assessment & Plan: S/p radical prostatectomy 10/10/17. Referred to RT 10/2020 d/t rising PSA Continues to follow up with [facility] urology JOHN (nonalcoholic steatohepatitis) 04/02/2015 Last Assessment & Plan: Mildly elevated ALT, continue to monitor. Other allergic rhinitis 12/28/2010 Overview: ICD-10 update of inactive term documented as of this encounter (statuses as of 08/11/2023) Resolved Problems Problem Noted Date Diagnosed Date [...] as of this encounter (statuses as of 08/11/2023) Immunizations Name Administration Dates Next Due COVID-19 mRNA, LNP-s, No Pre serve, 2-Dose Series ([employer]) 08/03/2021,12/10/2020,11/12/2020 Covid-19, Mrna, Lnp-s, Pf, B ivalent, [...] did notice when he went to the [employer] and got an ice cream on a [...] 8:50 AM EST Office Visit Family Medicine [address] [place] [phone] Wendi Love DO [address] [place] [address] [place] [address] 10/23/2023 11:20 AM EST Office Visit Rheumatology [address] [place] [phone] Akin Will MD [address] [facility], [place] [address] 04/19/2024 11:00 AM EDT Nurse Only Ancillary [address] [place] [address] [place], Nurse [address] [place] [address] Health Maintenance Due Date Last Done Comments [...] 05/10/2024 05/10/2023, 02/15/2017 Albumin/Creatinine Ratio 06/16/2024 06/16/2023, 02/2022 DTaP,Tdap,and Td Vaccines (2 - Td [...] filedocumented as of this encounter Care Teams Antique Furniture Reproducer Relationship Specialty Start Date End Date Wendi Love DO [address] [place] [address] [place] [phone] PCP - General Internal Medicine 06/07/17 documented as of this encounter
--- OUTSIDE RECORDS SUMMARY | 2023-11-13 03:42 | External Medical Summary ---
Author Name Unknown Address Unknown Organization K01:LAB[facility]ORY [facility] [place] [address] [place] [address] Laboratory Report Ordering Provider Test Date Status REJIMATHEWS 08/29/2023 09:36:48 Final Observation Date Value Abnormality Reference (Units ) Status TSH 08/29/2023 09:36:48 3.10 0.27-4.20 (uIU/mL) Final Performing Location [facility] - [address] [facility] [address]
--- OUTSIDE RECORDS SUMMARY | 2023-11-13 03:42 | External Medical Summary | Summary of Care ---
Author Name Unknown Organization [facility] Address [address] [place] [address] Phone [phone] Care Team Providers Care Director Regulatory Affairs Name Role Phone Wendi Love DO Primary Care Provider [phone] Reason for Visit * Reason Onset Date Comments Advice 08/11/2023 Encounter Details Date Type Department Care Team (Late st Contact Info) Description 08/11/2023 Telephone Ancillary [address] [place] [address] Wendi Love DO [address] [place] [address] [place] [address] Advice Allergies Active Allergy Reactions Criticality Noted Date Comments No Known Drug Allergy 02/10/2009 documented as of this encounter (statuses as of 08/14/2023) Medications Medication Sig Dispensed Refills Start Date [...] as of this encounter (statuses as of 08/14/2023) Active Problems Problem Noted Date Diagnosed Date [...] evaluate pt. Spoke with Carissa. Given [facility] number to call with update [...] Esophageal dysmotility 08/12/2015 Prostate cancer 04/27/2015 Overview: [place] score = 6. Radiation therapy 10/2020 due to rising PSA following radical prostatectomy Last Assessment & Plan: S/p radical prostatectomy 10/10/17. Referred to RT 10/2020 d/t rising PSA Continues to follow up with [facility] urology JOHN (nonalcoholic steatohepatitis) 04/02/2015 Last Assessment & Plan: Mildly elevated ALT, continue to monitor. Other allergic rhinitis 12/28/2010 Overview: ICD-10 update of inactive term documented as of this encounter (statuses as of 08/14/2023) Resolved Problems Problem Noted Date Diagnosed Date [...] as of this encounter (statuses as of 08/14/2023) Immunizations Name Administration Dates Next Due COVID-19 mRNA, LNP-s, No Pre serve, 2-Dose Series ([employer]) 08/03/2021,12/10/2020,11/12/2020 Covid-19, Mrna, Lnp-s, Pf, B ivalent, [...] did notice when he went to the [employer] and got an ice cream on [...] 8:50 AM EST Office Visit Family Medicine [address] [place] [phone] Wendi Love, [address] [place] [address] 10/23/2023 11:20 AM EST Office Visit Rheumatology [address] [place] [phone] Akin Will MD [facility] [place] [address] 04/19/2024 11:00 AM EDT Nurse Only Ancillary [address] [place] [address] [place], Nurse Annual [address] [place] [address] Health Maintenance Due Date Last Done Comments [...] filedocumented as of this encounter Care Teams Director Regulatory Affairs Relationship Specialty Start Date End Date Wendi Love DO [address] [place] [address] [place] [phone] PCP - General Internal Medicine 06/07/17 documented as of this encounter
--- OUTSIDE RECORDS SUMMARY | 2023-11-13 03:42 | External Medical Summary | Summary of Care ---
Author Name Unknown Organization [facility] Address [address] [place] [address] Phone [phone] Care Team Providers Care Fire Extinguisher Mechanic Name Role Phone Wendi Love DO Primary Care Provider Reason for Visit * Reason Onset Date Comments Advice 08/11/2023 Encounter Details Date Type Department Care Team (Late st Contact Info) Description 08/11/2023 Telephone Ancillary [address] [place] [address] Wendi Love DO [address] [place] [address] [place] [address] Advice Allergies Active Allergy Reactions Criticality Noted Date Comments No Known Drug Allergy 02/10/2009 documented as of this encounter (statuses as of 08/15/2023) Medications Medication Sig Dispensed Refills Start Date [...] as of this encounter (statuses as of 08/15/2023) Active Problems Problem Noted Date Diagnosed Date [...] evaluate pt. Spoke with Carissa. Given [facility] number to call with update regarding [...] Esophageal dysmotility 08/12/2015 Prostate cancer 04/27/2015 Overview: [place] score = 6. Radiation therapy 10/2020 due to rising PSA following radical prostatectomy Last Assessment & Plan: S/p radical prostatectomy 10/10/17. Referred to RT 10/2020 d/t rising PSA Continues to follow up with [facility] urology JOHN (nonalcoholic steatohepatitis) 04/02/2015 Last Assessment & Plan: Mildly elevated ALT, continue to monitor. Other allergic rhinitis 12/28/2010 Overview: ICD-10 update of inactive term documented as of this encounter (statuses as of 08/15/2023) Resolved Problems Problem Noted Date Diagnosed Date [...] as of this encounter (statuses as of 08/15/2023) Immunizations Name Administration Dates Next Due COVID-19 mRNA, LNP-s, No Pre serve, 2-Dose Series ([employer]) 08/03/2021,12/10/2020,11/12/2020 Covid-19, Mrna, Lnp-s, Pf, B ivalent, [...] did notice when he went to the [employer] and got an ice cream on [...] 8:50 AM EST Office Visit Family Medicine [address] [place] [phone] Wendi Love, [address] [place] [address] 10/23/2023 11:20 AM EST Office Visit Rheumatology [address] [place] [phone] Akin Will MD [facility] [place] [address] 04/19/2024 11:00 AM EDT Nurse Only Ancillary [address] [place] [address] Mai, Nurse Annual [address] [place] [address] Health Maintenance Due Date Last Done Comments Alpha-1 Antitrypsin 12/24/1963 Diabetic Eye Exam 12/24/1961 Hepatitis C Screening 12/24/1963 Hepatitis B (1 of 3 - Risk 3-dose series) 2003 Zoster Vaccines (2 of 2) 09/28/2022 08/03/2022 COVID-19 Vaccine ( season) 2023 06/28/2022, 08/03/2021, 12/10/2020, Additional history exists HbA1c 07/29/2023 01/27/2023, 05/2 11/2021, 01/26/2021, Additional history exists TSH 11/29/2023 11/28/2022, 0 02/2022, 07/01/2022, Additional history exists Diabetic Foot [...] filedocumented as of this encounter Care Teams Fire Extinguisher Mechanic Relationship Specialty Start Date End Date Wendi Love DO [address] [place] [address] [place] [address] PCP - General Internal Medicine 06/07/17 documented as of this encounter
--- OUTSIDE RECORDS SUMMARY | 2023-11-13 03:42 | External Medical Summary ---
Author Name Unknown Address Unknown Organization K01:[place] [facility] [place] [address] [facility] [address] Laboratory Report Ordering Provider Test Date Status REID MENDOZA 08/29/2023 09:36:48 Final Observation Date Value Abnormality Reference (Units ) Status HbA1C 08/29/2023 09:36:48 5.8 Above high normal 4. 0-5.6 (%) Final The use of HbA1c to monitor glycemic status is based on normal hemoglobin and HbA composition. This test should not be used in patients with abnormal hemoglobin that affects the half life of the red blood cell or the in vivo glycation rates. Glucose, estimated average 08/29/2023 09:36:48 120 <126 (mg/dL) Final Performing Location [place] [facility] [place] [address] [facility] [address]
--- OUTSIDE RECORDS SUMMARY | 2023-11-13 03:42 | External Medical Summary | Summary of Care ---
Author Name Unknown Organization [facility] Address [address] [place] [address] Phone [phone] Care Team Providers Care Regional Vice President Life Sales Name Role Phone Wendi Love DO Primary Care Provider Reason for Visit * Reason Onset Date Comments Advice 08/11/2023 Encounter Details Date Type Department Care Team (Late st Contact Info) Description 08/11/2023 Telephone Ancillary [address] [place] [address] Wendi Love DO [address] [place] [address] [place] [address] Advice Allergies Active Allergy Reactions Criticality Noted [...] to evaluate pt. Spoke with Carissa. Given [facility] number to call with update regarding [...] Esophageal dysmotility 08/12/2015 Prostate cancer 04/27/2015 Overview: [place] score = 6. Radiation therapy 10/2020 due to rising PSA following radical prostatectomy Last Assessment & Plan: S/p radical prostatectomy 10/10/17. Referred to RT 10/2020 d/t rising PSA Continues to follow up with [facility] urology JOHN (nonalcoholic steatohepatitis) 04/02/2015 [...] mRNA, LNP-s, No Pre serve, 2-Dose Series ([employer]) 08/03/2021,12/10/2020,11/12/2020 Covid-19, Mrna, Lnp-s, Pf, B ivalent, [...] did notice when he went to the [employer] and got an ice cream on a [...] 8:50 AM EST Office Visit Family Medicine [address] [place] [phone] Wendi Love DO [address] [place] [address] [place] [address] 10/23/2023 11:20 AM EST Office Visit Rheumatology [address] [place] [phone] Akin Will MD [address] [facility] [place], [place] [address] 04/19/2024 11:00 AM EDT Nurse Only Ancillary [address] [place] [address] [place], Nurse [address] [place] [address] Health Maintenance Due Date Last Done Comments [...] filedocumented as of this encounter Care Teams Regional Vice President Life Sales Relationship Specialty Start Date End Date Wendi Love DO [address] [place] [address] [place] [phone] PCP - General Internal Medicine 06/07/17 documented as of this encounter
--- OUTSIDE RECORDS SUMMARY | 2023-11-13 03:42 | External Medical Summary | Summary of Care ---
Author Name Unknown Organization [facility] Address [address] [place] [address] Phone [phone] Care Team Providers Care Children Counselor Name Role Phone Reji Mathews DO Primary Care Provider Reason for Visit * Reason Onset Date Comments Medication Refill 08/01/2023 Encounter Details Date Type Department Care Team (Late st Contact Info) Description 08/01/2023 Refill Family Medicine [address] [place] [phone] Reji Mathews DO [address] [place] [address] [place] [address] Allergies Active Allergy Reactions Criticality Noted Date [...] the morning. 30 Tablet 5 08/01/2023 Active Multi-Vitamins Oral Tablet Take 1 [...] evaluate pt. Spoke with Carissa. Given [facility] number to call with update regarding [...] Esophageal dysmotility 08/12/2015 Prostate cancer 04/27/2015 Overview: [place] score = 6. Radiation therapy 10/2020 due to rising PSA following radical prostatectomy Last Assessment & Plan: S/p radical prostatectomy 10/10/17. Referred to RT 10/2020 d/t rising PSA Continues to follow up with [facility] urology JOHN (nonalcoholic steatohepatitis) 04/02/2015 Last [...] mRNA, LNP-s, No Pre serve, 2-Dose Series ([employer]) 08/03/2021,12/10/2020,11/12/2020 Covid-19, Mrna, Lnp-s, Pf, B ivalent, [...] Encounter - Reji Mathews DO - 08/01/2023 3:47 PM ESTSigned Prescriptions: Disp Refills Multi-Vitamins Oral Tablet 30 Tab*5 Sig: Take 1 Tablet by mouth in the morning. Authorizing Provider: REJI MATHEWS * Telephone Encounter - Radha Sargent [facility] - 08/01/2023 3:37 PM EST Pharmacy needs ordered today Did you pend patient's pref erred pharmacy and medication before forwarding?yes Pharmacy: [facility], [facility] [place] Pending Prescriptions: Disp Refills Multi-Vitamins Oral Tablet 30 Tab*5 Sig: Take 1 Tablet by mouth in the morning. Last Visit: 05/10/2023 (in office), Visit date not found (telemedicine) Next Visit: 08/29/2023 If no future appointments scheduled, and last appointment is greater than a year ago, please schedule patient for a follow-up appointment Last date the medication was ordered: [id number] Is this request for a controlled substance?No [...] 8:50 AM EST Office Visit Family Medicine [address] [place] [phone] [address] [place] [address] 10/23/2023 11:20 AM EST Office Visit Rheumatology [address] [place] [phone] Akin Will MD [address] [place] [address] [place] [address] 04/19/2024 11:00 AM EDT Nurse Only Ancillary [address] [place] [address] Kariey, Nurse [address] [place] [address] Health Maintenance Due Date Last Done Comments Alpha-1 Antitrypsin 12/24/1963 Diabetic Eye Exam 12/24/1961 Hepatitis C Screening 12/24/1963 Hepatitis B (1 of 3 - Risk 3-dose series) 2003 Zoster Vaccines (2 of 2) 09/28/2022 08/03/2022 COVID-19 Vaccine ( season) 2023 06/28/2022, 08/03/2021, 12/10/2020, Additional history exists HbA1c 07/29/2023 01/27/2023, 2 11/2021, 01/26/2021, Additional history exists TSH 11/29/2023 11/28/2022, 120 02/2022, 07/01/2022, Additional history exists Diabetic Foot [...] filedocumented as of this encounter Care Teams Children Counselor Relationship Specialty Start Date End Date Reji Mathews DO [address] [place] [address] [place] [address] PCP - General Internal Medicine 06/07/17 documented as of this encounter
--- OUTSIDE RECORDS SUMMARY | 2023-11-13 03:42 | External Medical Summary | Summary of Care ---
Author Name Unknown Organization [facility] Address [address] [place] [address] Phone [phone] Care Team Providers Care Exchange Operator Name Role Phone Wendi Love DO Primary Care Provider Reason for Visit * Reason Onset Date Comments Advice 08/18/2023 Encounter Details Date Type Department Care Team (Late st Contact Info) Description 08/18/2023 Telephone Family Medicine [address] [phone] Wendi Love [address] [address] Advice Allergies Active Allergy Reactions Criticality Noted Date Comments No Known Drug Allergy 02/10/2009 documented as of this encounter (statuses as of 08/22/2023) Medications Medication Sig Dispensed Refills Start Date [...] your mouth 70 Giselle 0 08/18/2023 Active Clotrimazole 10 MG Mouth/Throat Giselle (Mycelex Giselle) Take 1 Lozenge by mouth 5 times a day for 14 days. Allow tablet to slowly dissolve in your mouth 70 Giselle 0 06/30/2023 3 Discontinu ed(Refill) Hospital, Clinic, or Other Facility Administered Medication Ordered Dose Route Frequency Start Date End Date Status albuterol sulfate (PROVENTIL) (2.5 MG/3ML) 0.083% inhalation solution 2.5 mgIndications:COPD, moderate (HCC) 2.5 mg NEBULIZER Q4H PRN 06/20/2017 Active documented as of this encounter (statuses as of 08/22/2023) Active Problems Problem Noted Date Diagnosed Date [...] to Crisis to evaluate pt. Spoke with Given [facility] number to call with update regarding [...] as of this encounter (statuses as of 08/22/2023) Resolved Problems Problem Noted Date Diagnosed Date [...] as of this encounter (statuses as of 08/22/2023) Immunizations Name Administration Dates Next Due COVID-19 mRNA, LNP-s, No Pre serve, 2-Dose Series ([employer]) 08/03/2021,12/10/2020,11/12/2020 Covid-19, Mrna, Lnp-s, Pf, B ivalent, [...] encounter Miscellaneous Notes * Telephone Encounter - Geneva Jimenez CMA - 08/22/2023 3:57 PM EST I called and let him know. * Telephone Encounter - Wendi Love DO - 08/18/2023 1:14 PM EST I sent the clotrimazole troches to the pharmacy. Notify pt. * Telephone Encounter - Ana Koenig LPN - 08/18/2023 8:16 AM EST Patient is calling. His mouth is like paste. Has been for about 4 months. Tip of his tongue is burning. Has not been sleeping well because of it. Has white paste all over his tongue and the roof of his mouth. documented in this encounter Plan of Treatment Upcoming Encounters Date Type Department Care Team (Late st Contact Info) Description 08/29/2023 8:50 AM EST Office Visit Family Medicine [address] [place] [phone] Wendi Love, [address] [place] [address] 10/23/2023 11:20 AM EST Office Visit Rheumatology [address] [place] [phone] Akin Will MD [facility] [place] [address] 04/19/2024 11:00 AM EDT Nurse Only Ancillary [address] [place] [address] [place], Nurse [address] [place] [address] Health Maintenance Due Date Last Done Comments [...] filedocumented as of this encounter Care Teams Exchange Operator Relationship Specialty Start Date End Date Wendi Love DO [address] [place] [address] [place] [address] PCP - General Internal Medicine 06/07/17 documented as of this encounter
--- OUTSIDE RECORDS SUMMARY | 2023-11-13 03:42 | External Medical Summary ---
Author Name Unknown Address Unknown Organization K01:[facility]ATORY [facility] [place] [address] [place] [address] Laboratory Report Ordering Provider Test Date Status REID MENDOZA 08/29/2023 09:36:48 Final Observation Date Value Abnormality Reference (Units ) Status Iron 08/29/2023 09:36:48 17 Below low normal 45-176 (ug/dL) Final Iron-binding capacity 08/29/2023 09:36:48 386 250-425 (ug/dL) Final Transferrin Sat % 08/29/2023 09:36:48 4 Below low normal 15-55 (%) Final Performing Location LABORATORY [facility] - [address] [place] [address]
--- OUTSIDE RECORDS SUMMARY | 2023-11-13 03:42 | External Medical Summary ---
Author Name Unknown Address Unknown Organization K01:[facility]ATORY [facility] [place] - [address] [place] [address] Laboratory Report Ordering Provider Test Date Status REID MENDOZA 08/29/2023 09:36:48 Final Observation Date Value Abnormality Reference (Units ) Status Ferritin 08/29/2023 09:36:48 12 Below low normal 30- 400 (ng/mL) Final Performing Location [facility] - [address] [place] [address]
--- OUTSIDE RECORDS SUMMARY | 2023-11-13 03:42 | External Medical Summary | Summary of Care ---
Author Name Unknown Organization [facility] Address [address] [place] [address] Phone [phone] Care Team Providers Care Clinical Research Director Name Role Phone Wendi Lvoe DO Primary Care Provider Reason for Visit * Reason Onset Date Comments Advice 08/11/2023 Encounter Details Date Type Department Care Team (Late st Contact Info) Description 08/11/2023 Telephone Ancillary [address] [place] [address] Wendi Love DO [address] [place] [address] [place] [address] Advice Allergies Active Allergy Reactions Criticality Noted [...] to evaluate pt. Spoke with Carissa. Given [facility] number to call with update [...] Esophageal dysmotility 08/12/2015 Prostate cancer 04/27/2015 Overview: [place] score = 6. Radiation therapy 10/2020 due to rising PSA following radical prostatectomy Last Assessment & Plan: S/p radical prostatectomy 10/10/17. Referred to RT 10/2020 d/t rising PSA Continues to follow up with [facility] urology JOHN (nonalcoholic steatohepatitis) [...] mRNA, LNP-s, No Pre serve, 2-Dose Series ([employer]) 08/03/2021,12/10/2020,11/12/2020 Covid-19, Mrna, Lnp-s, Pf, B ivalent, [...] did notice when he went to the [employer] and got an ice cream on [...] 8:50 AM EST Office Visit Family Medicine [address] [place] [phone] Wendi Love DO [address] [place] [address] [place] [address] 10/23/2023 11:20 AM EST Office Visit Rheumatology [address] [place] [phone] Akin Will MD [facility] [facility] [place] [address] 04/19/2024 11:00 AM EDT Nurse Only Ancillary [address] [place] [address] [place], Nurse Annual [address] [place] [address] Health Maintenance Due Date Last Done Comments [...] filedocumented as of this encounter Care Teams Clinical Research Director Relationship Specialty Start Date End Date Wendi Love DO [address] [place] [address] [place] [address] PCP - General Internal Medicine 06/07/17 documented as of this encounter
--- OUTSIDE RECORDS SUMMARY | 2023-11-13 03:42 | External Medical Summary | Summary of Care ---
Author Name Unknown Organization [facility] Address [address] [place] [address] Phone [phone] Care Team Providers Care Oakes Machine Operator Name Role Phone Wendi Love DO Primary Care Provider Reason for Visit * Reason Onset Date Comments Advice 08/11/2023 Encounter Details Date Type Department Care Team (Late st Contact Info) Description 08/11/2023 Telephone Ancillary [address] [place] [address] Wendi Love DO [address] [place] [address] [place] [address] Advice Allergies Active Allergy Reactions Criticality Noted [...] to evaluate pt. Spoke with Carissa. Given [facility] number to call with update regarding [...] Esophageal dysmotility 08/12/2015 Prostate cancer 04/27/2015 Overview: [place] score = 6. Radiation therapy 10/2020 due to rising PSA following radical prostatectomy Last Assessment & Plan: S/p radical prostatectomy 10/10/17. Referred to RT 10/2020 d/t rising PSA Continues to follow up with [facility] urology JOHN (nonalcoholic steatohepatitis) [...] mRNA, LNP-s, No Pre serve, 2-Dose Series ([employer]) 08/03/2021,12/10/2020,11/12/2020 Covid-19, Mrna, Lnp-s, Pf, B ivalent, [...] did notice when he went to the [employer] and got an ice cream on [...] 8:50 AM EST Office Visit Family Medicine [address] [place] [phone] Wendi Love DO [address] [place] [address] [place] [address] 10/23/2023 11:20 AM EST Office Visit Rheumatology [address] [place] [phone] Akin Will MD [facility] [place] [address] 04/19/2024 11:00 AM EDT Nurse Only Ancillary Efrain Rivera [address] [place] [address] Mai, Nurse [address] [place] [address] Health Maintenance Due Date Last Done Comments Alpha-1 Antitrypsin 12/24/1963 Diabetic Eye Exam 12/24/1961 Hepatitis C Screening 12/24/1963 Hepatitis B (1 of 3 - Risk 3-dose series) 2003 Zoster Vaccines (2 of 2) 09/28/2022 08/03/2022 COVID-19 Vaccine ( season) 2023 06/28/2022, 08/03/2021, 12/10/2020, Additional history exists HbA1c 07/29/2023 01/27/2023, 052 11/2021, 01/26/2021, Additional history exists TSH 11/29/2023 11/28/2022, 1202/2022, 07/01/2022, Additional history exists Diabetic Foot Exam [...] filedocumented as of this encounter Care Teams Oakes Machine Operator Relationship Specialty Start Date End Date Wendi Love DO [address] [place] [address] [place] [phone] PCP - General Internal Medicine 06/07/17 documented as of this encounter
--- OUTSIDE RECORDS SUMMARY | 2023-11-13 03:42 | External Medical Summary ---
Author Name Unknown Address Unknown Organization K01:[place] [facility] [place] [address] [facility] [address] [facility] [address] [facility] [address] Laboratory Report Ordering Provider Test Date Status REID MENDOZA 08/29/2023 09:36:48 Final Observation Date Value Abnormality Reference (Units ) Status WBC, Total 08/29/2023 09:36:48 5.38 4.00-10.80 (K/uL) Final RBC 08/29/2023 09:36:48 4.19 4.50-5.25 (M/uL) Final Hemoglobin 08/29/2023 09:36:48 10.2 Below low normal 14.0-16.8 (g/dL) Final HCT 08/29/2023 09:36:48 35.3 Below low normal 40.0-48.4 (%) Final MCV 08/29/2023 09:36:48 84.2 82.0-99.5 (fL) Final MCH 08/29/2023 09:36:48 24.3 27.0-34.0 (pg) Final MCHC 08/29/2023 09:36:48 28.9 32.0-36.0 (g/dL) Final RDW 08/29/2023 09:36:48 17.0 11.5-15.5 (%) Final Platelets 08/29/2023 09:36:48 243 140-400 (K/uL) Final MPV 08/29/2023 09:36:48 10.5 6.6-11.1 (fL) Final Nucleated erythrocytes/100 leukocytes [Ratio] in Blood by Automated count 08/29/2023 09:36:48 0 <=0 (/100 WBCs) Final Performing Location LABOR[facility]ORY [facility] [place] [address] [facility] [address]
--- OUTSIDE RECORDS SUMMARY | 2023-11-13 03:42 | External Medical Summary ---
Author Name Unknown Address Unknown Organization K01:LABORATORY [facility] [place] - [address] [place] [address] Laboratory Report Ordering Provider Test Date Status REID MENDOZA 08/29/2023 09:36:48 Final Observation Date Value Abnormality Reference (Units ) Status PSA 08/29/2023 09:36:48 <0.02 <4.10 (ng/ mL) Final Performing Location [facility] - [address] [place] [address]
--- OUTSIDE RECORDS SUMMARY | 2023-11-13 03:43 | External Medical Summary | Summary of Care ---
Author Name Unknown Organization [facility] Address [address] [place] [address] Phone [phone] Care Team Providers Care Associate Account Director Name Role Phone Wendi Love DO Primary Care Provider Reason for Visit * Reason Onset Date Comments Advice 07/17/2023 Patient will upd ate me on Mon Encounter Details Date Type Department Care Team (Late st Contact Info) Description 07/17/2023 Telephone Family Medicine [address] [place] [address] Wendi Love [address] [place] [address] Advice (Patient will update me on Mon) Allergies Active Allergy Reactions Criticality Noted Date Comments No Known Drug Allergy 02/10/2009 documented as of this encounter (statuses as of 07/28/2023) Medications Medication Sig Dispensed Refills Start Date [...] or cough 6.7 g 5 01/18/2022 Active Losartan Potassium 50 MG Oral Tablet (Cozaar)Indications: Essential hypertension with goal blood pressure less than 140/90 Take 1 Tablet by mouth in the morning. 90 Tablet 3 08/23/2022 Active Tamsulosin HCl 0.4 MG Oral Capsule (Flomax)Indications: BPH with obstruction/lower urinary tract symptoms Take 1 Capsule by mouth in the morning. 90 Capsule 3 09/29/2022 Active Pantoprazole Sodium 20 MG Oral Tablet Delayed Release (Protonix)Indication s:Burning mouth syndrome,Gastro-esop hageal reflux disease without esophagitis Take 1 Tablet by mouth in the morning. 30 minutes before the first meal of the day. Do not crush, split or chew the tablet. 90 Tablet 1 01/31/2023 Active Vitron-C 65-125 MG Oral Tablet (Iron-Vitamin C 65-125 mg per tab) Take 1 Tablet by mouth in the morning and 1 Tablet before bedtime. 60 Tablet 5 02/09/2023 Active Multi-Vitamins Oral Tablet Take 1 Tablet by mouth in the morning. 30 Tablet 5 02/17/2023 Active amLODIPine Besylate 5 MG Oral Tablet [...] at bedtime. 30 Tablet 0 06/30/2023 Active Hospital, Clinic, or Other Facility Administered Medication Ordered Dose Route Frequency Start Date End Date Status albuterol sulfate (PROVENTIL) (2.5 MG/3ML) 0.083% inhalation solution 2.5 mgIndications:COPD, moderate (HCC) 2.5 mg NEBULIZER Q4H PRN 06/20/2017 Active documented as of this encounter (statuses as of 07/28/2023) Active Problems Problem Noted Date Diagnosed Date [...] to evaluate pt. Spoke with Carissa. Given [facility] number to call with update regarding [...] PSA Continues to follow up with [facility] urology JOHN (nonalcoholic steatohepatitis) 04/02/2015 Last Assessment & Plan: Mildly elevated ALT, continue to monitor. Other allergic rhinitis 12/28/2010 Overview: ICD-10 update of inactive term documented as of this encounter (statuses as of 07/28/2023) Resolved Problems Problem Noted Date Diagnosed Date [...] as of this encounter (statuses as of 07/28/2023) Immunizations Name Administration Dates Next Due COVID-19 mRNA, LNP-s, No Pre serve, 2-Dose Series ([employer]) 08/03/2021,12/10/2020,11/12/2020 Covid-19, Mrna, Lnp-s, Pf, B ivalent, [...] Telephone Encounter - Gabby Roberts RN - 07/28/2023 8:00 AM EST Patient called states this morning his tongue is burning,sour taste and paste. Patient states it was fine at night. Patient got up took his pills and ate cereal. Counseled patient to try to stick with bottled water for one week and see if that improves anything. Patient ok with advice, discussed message below from Dr. Love. * Telephone Encounter - Wendi Love DO - 07/26/2023 10:57 AM EST Nothing further to add. Pt may have good days and bad days. Try not to get too down on the bad days. * Telephone Encounter - Gabby Roberts RN - 07/26/2023 10:38 AM EST Patient call mouth is bad today, he states Thanksgiving was good, he went to sons for a meal, tongue began burning yesterday. Patient states its just the tip of the tongue that gomes and then the "greasy feeling" on the tip and roof of mouth. Patient also states he hasn't slept the last couple of nights, patient states he wake up with a dry mouth and tongue burning but no "greasy feeling". Most of the time the greasy feeling is only during the day. I continued to reassure patient , continue good oral care, no pepto, no boost, continue food log. Discussed importance of good sleep habits, it does seem when patient is not resting well he does have more symptoms. Message to Wendi Love DO for advice, but patient to keep me updated with his symptoms Reason for Call: Advice (Patient will update me on Mon) Contact: Telephone Call Contact Type: Assessment Outcome: see note Face to face time spent with Patient (minutes): 0 Total Time including non face to face (minutes): 20 * Telephone Encounter - Wendi Love DO - 07/18/2023 12:32 PM EST Noted. Thank you. * Telephone Encounter - Gabby Roberts RN - 07/18/2023 10:54 AM EST Spoke to patient , counseled him again to make a list of things we want him to avoid, like salt, pepto and now boost, just to see if they may be triggers. We talked about thanksgiving and he said he wasn't sure if he was going to his son's, it depended on how his tongue feels. I encouraged patient to go to [place] no matter what. Patient also will discuss son's helping get him some bottled water to try. He does drink a lot of tap water but his food stamps were lowered to 23$ so it would beexpensive for him. He said he will call me tomorrow if no better. I counseled patient I am off and Monday, but will be back next week. Reason for Call: Advice Contact: Telephone Call Contact Type: Advice Outcome: see note Face to face time spent with Patient (minutes): 0 Total Time including non face to face (minutes): 20 * Telephone Encounter - Wendi Love DO - 07/18/2023 9:57 AM EST Reassure. Note that Boost may cause some of his symptoms. * Telephone Encounter - Gabby Roberts RN - 07/17/2023 4:26 PM EST Spoke to patient he states while on meds, tongue was good for almost 2wks. Patient states mouth is worse than its ever been. Burning is not bad, but the sour taste and "greasiness" is worse. Patient tends to have worsening symptoms after a weekend. Patient did have a boost today for breakfast and symptoms worsened. Patient did not eat lunch. He did look at his tongue and states it is pink in color. Patient did brush his tongue today. Counseled patient to increase his water, he does not use bottled water because of the cost and only drinks tap water. Message to Wendi Love DO for advice. Reason for Call: Advice Contact: Telephone Call Contact Type: Advice Outcome: see note Face to face time spent with Patient (minutes): 0 Total Time including non face to face (minutes): 10 * Telephone Encounter - Melody Palomo OSA - 07/17/2023 9:23 AM EST Pt calling regarding he is having problems with his tongue, indicated it is burning and tastes grease. Indicated that he has not eaten or drank anything different. Did not wish to schedule an appointment just would like a return call. documented in this encounter Plan of Treatment Upcoming Encounters Date Type Department Care Team (Late st Contact Info) Description 07/31/2023 4:20 PM EST Office Visit Family Medicine [address] [place] [phone] Xiomy Thomas PA-C [address] [place] [address] [place] [address] 08/29/2023 8:50 AM EST Office Visit Family Medicine [address] [place] [phone] Wendi Love, [address] [place] [address] 10/23/2023 11:20 AM EST Office Visit Rheumatology [address] [place] [phone] Akin Will MD [facility] [place] [address] 04/19/2024 11:00 AM EDT Nurse Only Ancillary [address] [place] [address] [place], Nurse Annual [address] [place] [address] Health Maintenance Due Date Last Done Comments [...] filedocumented as of this encounter Care Teams Associate Account Director Relationship Specialty Start Date End Date Wendi Love DO [address] [place] [address] [place] [address] PCP - General Internal Medicine 06/07/17 documented as of this encounter
--- OUTSIDE RECORDS SUMMARY | 2023-11-13 03:43 | External Medical Summary | Summary of Care ---
Author Name Unknown Organization [facility] Address [address] [place] [address] Phone [phone] Care Team Providers Care Ream Cutter Name Role Phone Wendi Love DO Primary Care Provider Reason for Visit * Reason Onset Date Comments Advice 07/17/2023 Encounter Details Date Type Department Care Team (Late st Contact Info) Description 07/17/2023 Telephone Family Medicine [address] [phone] Wendi Love [address] [address] Advice Allergies Active Allergy Reactions Criticality Noted Date Comments No Known Drug Allergy 02/10/2009 documented as of this encounter (statuses as of 07/31/2023) Medications Medication Sig Dispensed Refills Start Date [...] as of this encounter (statuses as of 07/31/2023) Active Problems Problem Noted Date Diagnosed Date [...] to evaluate pt. Spoke with Carissa. Given [facility] number to call with update regarding whether [...] as of this encounter (statuses as of 07/31/2023) Resolved Problems Problem Noted Date Diagnosed Date [...] as of this encounter (statuses as of 07/31/2023) Immunizations Name Administration Dates Next Due COVID-19 mRNA, LNP-s, No Pre serve, 2-Dose Series ([employer]) 08/03/2021,12/10/2020,11/12/2020 Covid-19, Mrna, Lnp-s, Pf, B [...] Telephone Encounter - Wendi Love DO - 07/31/2023 10:57 AM EST I would be cautious with the use of antihistamines in his case, as it could dry him out more, especially if he tries to use benadryl. I would recommend something like claritin daily to see if this helps. I would avoid it in pill packs for now. Is he even complaining of allergy symptoms?? If not, would avoid use altogether. Regarding his sleep - we could try adding low dose remeron if this is a persistent problem. I'd like to not knee jerk react to his complaints as they seem to change quite frequently, but if a regularproblem we can add it as I mentioned above. * Telephone Encounter - Gabby Roberts RN - 07/31/2023 8:15 AM EST Patient called states his mouth is sl "slimy" and burning. Patient also states he has not been sleeping well the last week. Patient falls asleep without any problems then sleeps 3 hrs and is back up at 1am for the rest of the night. Patient states he did get bottled water to start drinking, he alsostates he has had allergies in the past and used to be on meds from Dr. Dias, I did addictions counselor assistant patient that we will try bottled water and OTC allergy meds for at least one week. I will talk to Wendi Love DO for any other advice for his sleeping. I have noticed his symptoms are worse when he is not sleeping well. He states he does not notice burning or "greasy" "slimy" issues at night, his sy mptoms are mostly during the day. Patient also states he needs to cancel his appointment with [facility] to day for his hip pain. Patient states he did have X-rays and it showed arthritis. Patient states he will reschedule that appointment. Reason for Call: Advice Contact: Telephone Call Contact Type: Follow-up Outcome: [...] they may be triggers. We talked about seema and he said he wasn't sure if he was going to his son's, it depended on how his tongue feels. I encouraged patient [facility] no matter what. Patient also will discuss [...] of his symptoms. * Telephone Encounter - aGbby Roberts RN - 07/17/2023 4:26 PM EST [...] 8:50 AM EST Office Visit Family Medicine [address] [place] [address] Wendi Love DO [address] [place] [address] [place] [address] 10/23/2023 11:20 AM EST Office Visit Rheumatology [address] [place] [phone] Akin Will MD [address] [facility] [place] [address] 04/19/2024 11:00 AM EDT Nurse Only Ancillary [address] [place] [address] [place], Nurse Annual [address] [place] [address] Health Maintenance Due Date Last Done Comments [...] filedocumented as of this encounter Care Teams Ream Cutter Relationship Specialty Start Date End Date Wendi Love DO [address] [place] [address] [place] [address] PCP - General Internal Medicine 06/07/17 documented as of this encounter
--- OUTSIDE RECORDS SUMMARY | 2023-11-13 03:43 | External Medical Summary | Summary of Care ---
Author Name Unknown Organization [facility] Address [address] [place] [address] Phone [phone] Care Team Providers Care Diesel Engine Engineer Name Role Phone Wendi Love DO Primary Care Provider Reason for Visit * Reason Onset Date Comments Advice 07/17/2023 Patient will upd ate me on Mon Encounter Details Date Type Department Care Team (Late st Contact Info) Description 07/17/2023 Telephone Family Medicine [address] [place] [address] Wendi Love [address] [place] [address] Advice (Patient will update me on Mon) Allergies Active Allergy Reactions Criticality Noted Date Comments No Known Drug Allergy 02/10/2009 documented as of this encounter (statuses as of 07/26/2023) Medications Medication Sig Dispensed Refills Start Date [...] as of this encounter (statuses as of 07/26/2023) Active Problems Problem Noted Date Diagnosed Date [...] to evaluate pt. Spoke with Carissa. Given [facility] number to call with update regarding [...] as of this encounter (statuses as of 07/26/2023) Resolved Problems Problem Noted Date Diagnosed Date [...] as of this encounter (statuses as of 07/26/2023) Immunizations Name Administration Dates Next Due COVID-19 mRNA, LNP-s, No Pre serve, 2-Dose Series ([email or web address]) 08/03/2021,12/10/2020,11/12/2020 Covid-19, Mrna, Lnp-s, Pf, B ivalent, [...] feels. I encouraged patient to go to [employer] no matter what. Patient also will discuss [...] 4:20 PM EST Office Visit Family Medicine [address] [place] [phone] Xiomy Thomas PA-C [address] [place] [address] [place] [address] 08/29/2023 8:50 AM EST Office Visit Family Medicine [address] [place] [phone] Wendi Love DO [address] [place] [address] [place] [address] 10/23/2023 11:20 AM EST Office Visit Rheumatology [address] [place] [phone] Akin Will MD [address] [facility] [place] [address] 04/19/2024 11:00 AM EDT Nurse Only Ancillary [place] [address] [place] [address] [place], Nurse [address] [place] [address] Health Maintenance Due Date Last Done Comments [...] as of this encounter Care Teams Diesel Engine Engineer Relationship Specialty Start Date End Date Wendi Love DO [address] [place] [address] [place] [address] PCP - General Internal Medicine 06/07/17 documented as of this encounter
--- OUTSIDE RECORDS SUMMARY | 2023-11-13 03:43 | External Medical Summary | Summary of Care ---
Author Name Unknown Organization [facility] Address [address] [place] [address] Phone [phone] Care Team Providers Care Manager Project Name Role Phone Wendi Love Primary Care Provider [phone] Encounter Details Date Type Department Care Team (Late st Contact Info) Description 07/18/2023 Population Health External Data Unspecified Department Allergies Active Allergy Reactions Criticality Noted Date Comments No Known Drug Allergy 02/10/2009 documented as of this encounter (statuses as of 07/18/2023) Medications Medication Sig Dispensed Refills Start Date [...] as of this encounter (statuses as of 07/18/2023) Active Problems Problem Noted Date Diagnosed Date [...] to evaluate pt. Spoke with Carissa. Given [facility] number to call with update regarding [...] Esophageal dysmotility 08/12/2015 Prostate cancer 04/27/2015 Overview: [place] score = 6. Radiation therapy 10/2020 due [...] as of this encounter (statuses as of 07/18/2023) Resolved Problems Problem Noted Date Diagnosed Date [...] as of this encounter (statuses as of 07/18/2023) Immunizations Name Administration Dates Next Due COVID-19 mRNA, LNP-s, No Pre serve, 2-Dose Series ([employer]) 08/03/2021,12/10/2020,11/12/2020 Covid-19, Mrna, Lnp-s, Pf, B ivalent, 30 Mcg, IM, 12 yrs and above ([employer]) 06/28/2022 Pneumococcal Conjugate Vacc, 13 Valent (Prevnar) [...] 8:50 AM EST Office Visit Family Medicine [address] [place] [phone] Wendi Love, [address] [place] [address] 10/23/2023 11:20 AM EST Office Visit Rheumatology [address] [place] [phone] Akin Will MD [facility] [facility] [place] [address] 04/19/2024 11:00 AM EDT Nurse Only Ancillary [address] [place] [address] [place], Nurse Annual [address] [place] [address] Health Maintenance Due Date Last Done Comments [...] 05/10/2024 05/10/2023, 02/15/2017 Albumin/Creatinine Ratio 06/16/2024 06/16/2023, 12/02/2022 DTaP,Tdap,and Td Vaccines (2 - Td or [...] filedocumented as of this encounter Care Teams Manager Project Relationship Specialty Start Date End Date Wedni Love DO [address] [place] [address] [place] [address] PCP - General Internal Medicine 06/07/17 documented as of this encounter
--- OUTSIDE RECORDS SUMMARY | 2023-11-13 03:43 | External Medical Summary | Summary of Care ---
Author Name Unknown Organization [facility] Address [address] [place] [address] Phone [phone] Care Team Providers Care Welder Tech Name Role Phone Wendi Love DO Primary Care Provider Reason for Visit * Reason Onset Date Comments Advice 07/17/2023 Patient will upd ate me on Mon Encounter Details Date Type Department Care Team (Late st Contact Info) Description 07/17/2023 Telephone Family Medicine [address] [place] [address] Wendi Love [address] [place] [address] Advice (Patient will update me on Mon) [...] to evaluate pt. Spoke with Carissa. Given [facility] number to call with update [...] rising PSA Continues to follow up with [facility] urology JOHN (nonalcoholic steatohepatitis) 04/02/2015 [...] mRNA, LNP-s, No Pre serve, 2-Dose Series ([employer]) 08/03/2021,12/10/2020,11/12/2020 Covid-19, Mrna, Lnp-s, Pf, B ivalent, [...] feels. I encouraged patient to go to [facility] no matter what. Patient also will discuss [...] 4:20 PM EST Office Visit Family Medicine [address] [place] [phone] Xiomy Thomas PA-C [address] [place] [address] [place] [address] 08/29/2023 8:50 AM EST Office Visit Family Medicine [address] [place] [phone] Wendi Love DO [address] [place] [address] [place] [address] 10/23/2023 11:20 AM EST Office Visit Rheumatology [address] [place] [phone] Akin Will MD [facility] [place] [address] 04/19/2024 11:00 AM EDT Nurse Only Ancillary [address] [place] [address] Mai, Nurse [address] [place] [address] Health Maintenance Due Date Last Done Comments [...] filedocumented as of this encounter Care Teams Welder Tech Relationship Specialty Start Date End Date Wendi Love DO [address] [place] [address] [place] [address] PCP - General Internal Medicine 06/07/17 documented as of this encounter
--- OUTSIDE RECORDS SUMMARY | 2023-11-13 03:43 | External Medical Summary | Summary of Care ---
Author Name Unknown Organization [facility] Address [address] [place] [address] Phone [phone] Care Team Providers Care Bag End Sewer Name Role Phone Wendi Love DO Primary Care Provider Reason for Visit * Reason Onset Date Comments Appointment 07/21/2023 Encounter Details Date Type Department Care Team (Late st Contact Info) Description 07/21/2023 Telephone Family Medicine [address] [phone] Wendi Love [address] [address] Appointment Allergies Active Allergy Reactions Criticality Noted Date Comments No Known Drug Allergy 02/10/2009 documented as of this encounter (statuses as of 07/21/2023) Medications Medication Sig Dispensed Refills Start Date [...] as of this encounter (statuses as of 07/21/2023) Active Problems Problem Noted Date Diagnosed Date [...] to evaluate pt. Spoke with Carissa. Given [facility] number to call with update regarding [...] Esophageal dysmotility 08/12/2015 Prostate cancer 04/27/2015 Overview: [place] score = 6. Radiation therapy 10/2020 due [...] as of this encounter (statuses as of 07/21/2023) Resolved Problems Problem Noted Date Diagnosed Date [...] as of this encounter (statuses as of 07/21/2023) Immunizations Name Administration Dates Next Due COVID-19 mRNA, LNP-s, No Pre serve, 2-Dose Series ([employer]) 08/03/2021,12/10/2020,11/12/2020 Covid-19, Mrna, Lnp-s, Pf, B ivalent, [...] Telephone Encounter - Geneva Jimenez CMA - 07/21/2023 1:04 PM EST Scheduled. * Telephone Encounter - Minda Spencer MD - 07/21/2023 12:54 PM EST Pt's tongue symptom is chronic For the hip pain I recommend a clinic visit * Telephone Encounter - Geneva Jimenez CMA - 07/21/2023 12:50 PM EST Here are the call details that he was requesting an appointment for. Please advise. Pain and/or Headache PAIN: Yes Pain Level: 6/10 Describe the Pain: Hot/burning Location of Pain: Right side to salgado How long has the pain lasted? Couple weeks Does the pain radiate? No Is there a clear cause for the pain? No Has the pain changed? No Does anything make the pain better? sitting on recliner Does anything make the pain worse? no Patient's Action(s) What have you done or taken for this problem? Pt tried Tylenol but doesn't help Additional Comment(s) Additional Comments: Pt calling for an appointment; Pt also has complaint of a greasy/sour taste onhis tongue. Pain on right side runs down his hip into his salgado. Feels ok when he is sitting in recliner but when he get's up he can't walk and is in a lot of pain. Patient Request Patient Requesting: Appointment,Advice * Telephone Encounter - Melody Palomo OSA - 07/21/2023 8:18 AM EST No Appointments Available Patient declined appointments?: No What Visit Type is needed? Acute If Acute Visit Type is needed, were surrounding clinics offered to patient (Yes/No)? Yes Was patient offered appointments with other available providers (Yes/No)? N/A See Call Details? (Yes or No): Yes documented in this encounter Plan of Treatment Upcoming Encounters Date Type Department Care Team (Late st Contact Info) Description 07/31/2023 4:20 PM EST Office Visit Family Medicine [address] [place] [phone] Xiomy Thomas PA-C [address] [place] [address] [place] [address] 08/29/2023 8:50 AM EST Office Visit Family Medicine [address] [place] [phone] Wendi Love DO [address] [place] [address] [place] [address] 10/23/2023 11:20 AM EST Office Visit Rheumatology [address] [place] [phone] Akin Will MD [facility] [address] 04/19/2024 11:00 AM EDT Nurse Only Ancillary [address] [place] [address] Mai, Nurse Annual [facility] [address] [place] [address] [place] [address] Health Maintenance Due Date Last Done Comments Alpha-1 Antitrypsin 12/24/1961 Diabetic Eye Exam 12/24/1961 Hepatitis C Screening 12/24/1961 Hepatitis B (1 of 3 - Risk 3-dose series) 2003 Zoster Vaccines (2 of 2) 09/28/2022 08/03/2022 COVID-19 Vaccine (5 - 24 season) 2023 06/28/2022, 08/03/2021, 12/10/2020, Additional history [...] filedocumented as of this encounter Care Teams Bag End Sewer Relationship Specialty Start Date End Date Wendi Love DO [address] [place] [address] [place] [address] PCP - General Internal Medicine 06/07/17 documented as of this encounter
--- OUTSIDE RECORDS SUMMARY | 2023-11-13 03:43 | External Medical Summary | Summary of Care ---
Author Name Unknown Organization [facility] Address [address] [place] [address] Phone [phone] Care Team Providers Care Head Turning Machine Operator Name Role Phone Wendi Love DO Primary Care Provider [phone] Reason for Visit * Reason Onset Date Comments Advice 07/17/2023 Patient will upd ate me on Mon Encounter Details Date Type Department Care Team (Late st Contact Info) Description 07/17/2023 Telephone Family Medicine [address] [place] [address] Wendi Love [address] [place] [address] Advice (Patient will update me on Mon) [...] to evaluate pt. Spoke with Carissa. Given [facility] number to call with update [...] mRNA, LNP-s, No Pre serve, 2-Dose Series ([employer]) 08/03/2021,12/10/2020,11/12/2020 Covid-19, Mrna, Lnp-s, Pf, B ivalent, [...] feels. I [email or web address] no [facility]. Patient also will discuss [...] 8:50 AM EST Office Visit Family Medicine [address] [place] [phone] Wendi Love DO [address] [place] [address] [place] [address] 10/23/2023 11:20 AM EST Office Visit Rheumatology [address] [place] [phone] Akin Will MD [address] [place] [address] [place] [address] 04/19/2024 11:00 AM EDT Nurse Only Ancillary [address] [place] [address] [place], Nurse Annual [address] [place] [address] Health Maintenance Due Date Last Done Comments [...] filedocumented as of this encounter Care Teams Head Turning Machine Operator Relationship Specialty Start Date End Date Wendi Love DO [address] [place] [address] [place] [id number] PCP - General Internal Medicine 06/07/17 documented as of this encounter
--- OUTSIDE RECORDS SUMMARY | 2023-11-13 03:43 | External Medical Summary | Summary of Care ---
Author Name Unknown Organization [facility] Address [address] [place] [address] Phone [phone] Care Team Providers Care Reconditioning Associate Name Role Phone Wendi Love DO Primary Care Provider Reason for Visit * Reason Onset Date Comments Appointment 07/21/2023 Encounter Details Date Type Department Care Team (Late st Contact Info) Description 07/21/2023 Telephone Family Medicine [address] [phone] Wendi Love [address] [address] Appointment Allergies Active Allergy Reactions Criticality Noted [...] to evaluate pt. Spoke with Carissa. Given [facility] number to call with update regarding [...] Esophageal dysmotility 08/12/2015 Prostate cancer 04/27/2015 Overview: [place] score = 6. Radiation therapy 10/2020 due [...] mRNA, LNP-s, No Pre serve, 2-Dose Series ([employer]) 08/03/2021,12/10/2020,11/12/2020 Covid-19, Mrna, Lnp-s, Pf, B ivalent, [...] 4:20 PM EST Office Visit Family Medicine [address] [place] [phone] Xiomy Thomas PA-C [address] [place] [address] [place] [address] 08/29/2023 8:50 AM EST Office Visit Family Medicine [address] [place] [phone] Wendi Love DO [address] [place] [address] [place] [address] 10/23/2023 11:20 AM EST Office Visit Rheumatology [address] [place] [phone] Akin Will MD [facility] [place] [address] 04/19/2024 11:00 AM EDT Nurse Only Ancillary [address] [place] [address] Mai, Nurse [facility] [address] [place] [address] [place] [address] Health Maintenance Due Date Last Done Comments [...] filedocumented as of this encounter Care Teams Reconditioning Associate Relationship Specialty Start Date End Date Wendi Love DO [address] [place] [address] [place] [address] PCP - General Internal Medicine 06/07/17 documented as of this encounter
--- OUTSIDE RECORDS SUMMARY | 2023-11-13 03:43 | External Medical Summary | Summary of Care ---
Author Name Unknown Organization [facility] Address [address] [place] [address] Phone [phone] Care Team Providers Care Tube Turner Name Role Phone Wendi Love DO Primary Care Provider [phone] Reason for Visit * Reason Onset Date Comments Advice 07/17/2023 Encounter Details Date Type Department Care Team (Late st Contact Info) Description 07/17/2023 Telephone Family Medicine [address] [phone] Wendi Love [address] [address] Advice Allergies Active Allergy Reactions Criticality Noted [...] to evaluate pt. Spoke with Carissa. Given [facility] number to call with update regarding [...] mRNA, LNP-s, No Pre serve, 2-Dose Series ([employer]) 08/03/2021,12/10/2020,11/12/2020 Covid-19, Mrna, Lnp-s, Pf, B ivalent, [...] used to be on meds from Dr. 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 I encouraged patient to [facility] no matter what. Patient also will [...] 8:50 AM EST Office Visit Family Medicine [address] [place] [phone] Wendi Love DO [address] [place] [address] [place] [address] 10/23/2023 11:20 AM EST Office Visit Rheumatology [address] [place] [phone] Akin Will MD [facility] [place] [address] 04/19/2024 11:00 AM EDT Nurse Only Ancillary [address] [place] [address] [place], Nurse Annual [address] [place] [address] Health Maintenance Due Date Last Done Comments [...] filedocumented as of this encounter Care Teams Tube Turner Relationship Specialty Start Date End Date Wendi Love DO [address] [place] [address] [place] [address] PCP - General Internal Medicine 06/07/17 documented as of this encounter
--- OUTSIDE RECORDS SUMMARY | 2023-11-13 03:43 | External Medical Summary | Summary of Care ---
Author Name Unknown Organization [facility] Address [address] [place] [address] Phone [phone] Care Team Providers Care Logging Engineer Name Role Phone Reji Mathews DO Primary Care Provider [phone] Reason for Visit * Reason Comments eRx-Medication Refill Encounter Details Date Type Department Care Team (Late st Contact Info) Description 07/31/2023 Refill Family Medicine [address] [place] [phone] Reji Mathews [address] [address] Burning mouth syndrome; Gastro-esophageal reflux disease without esophagitis Allergies Active Allergy Reactions Criticality Noted Date Comments No Known Drug Allergy 02/10/2009 documented as of this encounter (statuses as of 08/01/2023) Medications Medication Sig Dispensed Refills Start Date End Date Status aspirin enteric coated 81 MG TBEC Take 1 Tab by mouth daily. 100 Tab 0 8 Active Zinc Gluconate 50 MG CAPS Take 1 Cap by mouth daily. 30 Cap 0 8 Active Alpha Lipoic Acid 200 MG CAPSIndications:Bur antoine mouth syndrome Take 1 Cap by mouth daily. 30 Cap 2 0 Active Additional Information Patient taking differently:1 Capsule Oral Daily(AM),Pt is taking 100mg daily per pharmacy, Reported on 04/26/2023 B-12 2000 MCG Oral Tablet Take 2,000 mcg by mouth once. Daily 0 Active Albuterol Sulfate HFA 108 (90 Base) MCG/ACT Inhalation Aerosol SolutionIndications :COPD, moderate (HCC) inhale 2 puffs every 4 hours as needed for wheezing, shortness of breath or cough 6.7 g 5 2 Active Losartan Potassium 50 MG Oral Tablet (Cozaar)Indications :Essential hypertension with goal blood pressure less than 140/90 Take 1 Tablet by mouth in the morning. 90 Tablet 3 2 Active Tamsulosin HCl 0.4 MG Oral Capsule (Flomax)Indications :BPH with obstruction/lower urinary tract symptoms Take 1 Capsule by mouth in the morning. 90 Capsule 3 3 Active Vitron-C 65-125 MG Oral Tablet (Iron-Vitamin C 65-125 mg per tab) Take 1 Tablet by mouth in the morning and 1 Tablet before bedtime. 60 Tablet 5 3 Active Multi-Vitamins Oral Tablet Take 1 Tablet by mouth in the morning. 30 Tablet 5 3 Active amLODIPine Besylate 5 MG Oral Tablet (Norvasc) Take 1 Tablet by mouth in the morning. 30 Tablet 5 3 Active Cevimeline HCl 30 MG Oral Capsule Take 1 Capsule by mouth in the morning and 1 Capsule at noon and 1 Capsule before bedtime. 90 Capsule 5 3 Active Mirtazapine 15 MG Oral Tablet (Remeron) Take 1 Tablet by mouth at bedtime. 30 Tablet 5 3 Active Levothyroxine Sodium 50 MCG Oral Tablet (Levoxyl)Indication s:Subclinical hypothyroidism Take 1 Tablet by mouth in the morning. In the morning.. 90 Tablet 3 3 Active Losartan Potassium 25 MG Oral Tablet (Cozaar) Take 1 Tablet by mouth in the morning. 90 Tablet 1 3 Active metFORMIN HCl ER 500 MG Oral Tablet Extended Release 24 Hour (Glucophage XR)Indications:Diab etes mellitus without complication (HCC),Burning mouth syndrome TAKE ONE TABLET IN THE MORNING 90 Tablet 1 3 Active LORazepam 0.5 MG Oral Tablet (Ativan) Take 1 Tablet by mouth every night at bedtime. 30 Tablet 0 3 Active Pantoprazole Sodium 20 MG Oral Tablet Delayed Release (Protonix)Indicatio ns:Burning mouth syndrome,Gastro-eso phageal reflux disease without esophagitis TAKE ONE TABLET IN THE MORNING 90 Tablet 3 3 Active Pantoprazole Sodium 20 MG Oral Tablet Delayed Release (Protonix)Indicatio ns:Burning mouth syndrome,Gastro-eso phageal reflux disease without esophagitis Take 1 Tablet by mouth in the morning. 30 minutes before the first meal of the day. Do not crush, split or chew the tablet. 90 Tablet 1 3 08/01/20 23 Discontinued Hospital, Clinic, or Other Facility Administered Medication [...] to evaluate pt. Spoke with Carissa. Given [facility] number to call with [...] Esophageal dysmotility 08/12/2015 Prostate cancer 04/27/2015 Overview: [place] score = 6. Radiation therapy 10/2020 due to rising PSA following radical prostatectomy Last Assessment & Plan: S/p radical prostatectomy 10/10/17. Referred to [facility] 10/2020 d/t rising PSA Continues to follow up with [facility] urology JOHN (nonalcoholic steatohepatitis) 04/02/2015 Last [...] mRNA, LNP-s, No Pre serve, 2-Dose Series ([employer]) 08/03/2021,12/10/2020,11/12/2020 Covid-19, Mrna, Lnp-s, Pf, B ivalent, [...] encounter Miscellaneous Notes * Telephone Encounter - Hortencia Matthews RPh - 08/01/2023 9:49 AM ESTSigned Prescriptions: Disp Refills Pantoprazole Sodium 20 MG Oral Tablet Puja*90 Tab*3 Sig: TAKE ONE TABLET IN THE MORNINGAuthorizing Provider: REJI MATHEWSOrderjose User: HORTENCIA MATTHEWS---- documented in this encounter Plan of Treatment Upcoming Encounters Date Type Department Care Team (Late st Contact Info) Description 08/29/2023 8:50 AM EST Office Visit Family Medicine [address] [place] [phone] Reji Mathews [address] [place] [address] 10/23/2023 11:20 AM EST Office Visit Rheumatology [address] [place] [phone] Akin Will MD [address] [place] [address] 04/19/2024 11:00 AM EDT Nurse Only Ancillary [address] [place] [address] [place], Nurse [address] [place] [address] Health Maintenance Due Date Last Done Comments [...] as of this encounter Visit Diagnoses Diagnosis Burning mouth syndrome Glossodynia Gastro-esophageal reflux disease without esophagitis Esophageal reflux documented in this encounter Care Teams Logging Engineer Relationship Specialty Start Date End Date Reji Mathews DO [address] [place] [address] [place] [phone] PCP - General Internal Medicine 06/07/17 documented as of this encounter
--- OUTSIDE RECORDS SUMMARY | 2023-11-13 03:43 | External Medical Summary | Summary of Care ---
Author Name Unknown Organization [facility] Address [address] [place] [address] Phone [phone] Care Team Providers Care Plug Grower Name Role Phone Wendi Love DO Primary Care Provider Reason for Visit * Reason Onset Date Comments Advice 07/17/2023 Encounter Details Date Type Department Care Team (Late st Contact Info) Description 07/17/2023 Telephone Family Medicine [address] [phone] Wendi Love [address] [address] Advice Allergies Active Allergy Reactions Criticality Noted [...] rising PSA Continues to follow up with [facility] urology JOHN (nonalcoholic steatohepatitis) 04/02/2015 Last [...] mRNA, LNP-s, No Pre serve, 2-Dose Series ([employer])) 08/03/2021,12/10/2020,11/12/2020 Covid-19, Mrna, Lnp-s, Pf, B ivalent, [...] Telephone Encounter - Gabby Roberts RN - 08/01/2023 8:36 AM EST Spoke to patient review advice below, today complaining of sour and paste. Counseled patient we will monitor his sleep concerns and if it persist patient will let me know. Patient to hold off on any antihistamines. * Telephone Encounter - Wendi Love DO [...] on meds from Dr. Dias, I did career guidance counselor patient that we will try [...] feels. I encouraged patient to go to [facility] no matter what. Patient also will discuss [...] 8:50 AM EST Office Visit Family Medicine [address] [place] [phone] Wendi Love, [address] [place] [address] 10/23/2023 11:20 AM EST Office Visit Rheumatology [address] [place] [phone] Akin Will MD [facility] [place] [address] 04/19/2024 11:00 AM EDT Nurse Only Ancillary [address] [place] [address] [place], Nurse [address] [place] [address] Health Maintenance Due Date Last Done Comments [...] filedocumented as of this encounter Care Teams Plug Grower Relationship Specialty Start Date End Date Wendi Love DO [address] [place] [address] [place] [phone] PCP - General Internal Medicine 06/07/17 documented as of this encounter
--- OUTSIDE RECORDS SUMMARY | 2023-11-13 03:43 | External Medical Summary | Summary of Care ---
Author Name Unknown Organization [facility] Address [address] [place] [address] Phone [phone] Care Team Providers Care Order Processing Manager Name Role Phone Wendi Love DO Primary Care Provider Reason for Visit * Reason Onset Date Comments Advice 07/17/2023 Encounter Details Date Type Department Care Team (Late st Contact Info) Description 07/17/2023 Telephone Family Medicine [address] [phone] Wendi Love [address] [address] Advice Allergies Active Allergy Reactions Criticality Noted [...] to evaluate pt. Spoke with Carissa. Given [facility] number to call with update regarding whether [...] rising PSA Continues to follow up with [facility] urology JOHN (nonalcoholic steatohepatitis) 04/02/2015 [...] mRNA, LNP-s, No Pre serve, 2-Dose Series ([employer]) 08/03/2021,12/10/2020,11/12/2020 Covid-19, Mrna, Lnp-s, Pf, B ivalent, [...] on meds from Dr. Dias, I did aids counselor patient that we will try bottled [...] feels. I encouraged patient to go to [facility] no matter what. Patient also will discuss [...] AM EST Office Visit Family Medicine [address] [place] [phone] Wendi Love DO [address] [place] [address] [place] [address] 10/23/2023 11:20 AM EST Office Visit Rheumatology [address] [place] [phone] Akin Will MD [address] [place], [place] [address] [address] 04/19/2024 11:00 AM EDT Nurse Only Ancillary [address] [place] [address] Mai, Nurse [address] [place] [address] Health Maintenance Due Date Last Done Comments [...] 05/10/2024 05/10/2023, 02/15/2017 Albumin/Creatinine Ratio 06/16/2024 06/16/2023, 120 02/2022 DTaP,Tdap,and Td Vaccines (2 - Td [...] filedocumented as of this encounter Care Teams Order Processing Manager Relationship Specialty Start Date End Date Wendi Love DO [address] [place] [address] [place] [address] PCP - General Internal Medicine 06/07/17 documented as of this encounter
--- OUTSIDE RECORDS SUMMARY | 2023-11-13 03:44 | External Medical Summary | Summary of Care ---
Author Name Unknown Organization [facility] Address [address] [place] [address] Phone [phone] Care Team Providers Care Bakery Pastry Internship Name Role Phone Wendi Love DO Primary Care Provider Reason for Visit * Reason Onset Date Comments Advice 06/30/2023 Encounter Details Date Type Department Care Team (Late st Contact Info) Description 06/30/2023 Telephone Family Medicine [address] [phone] Wendi Love [address] [address] Advice Allergies Active Allergy Reactions Criticality Noted Date Comments No Known Drug Allergy 02/10/2009 documented as of this encounter (statuses as of 07/03/2023) Medications Medication Sig Dispensed Refills Start Date [...] at bedtime. 30 Tablet 0 06/30/2023 Active Clotrimazole 10 MG Mouth/Throat Giselle (Mycelex Giselle) Take 1 Lozenge by mouth 5 times a day for 14 days. Allow tablet to slowly dissolve in your mouth 70 Giselle 0 06/30/2023 3 Active Hospital, Clinic, or Other Facility Administered Medication Ordered Dose Route Frequency Start Date End Date Status albuterol sulfate (PROVENTIL) (2.5 MG/3ML) 0.083% inhalation solution 2.5 mgIndications:COPD, moderate (HCC) 2.5 mg NEBULIZER Q4H PRN 06/20/2017 Active documented as of this encounter (statuses as of 07/03/2023) Active Problems Problem Noted Date Diagnosed Date [...] to evaluate pt. Spoke with Carissa. Given [facility] number to call with update [...] Esophageal dysmotility 08/12/2015 Prostate cancer 04/27/2015 Overview: [place] score = 6. Radiation therapy 10/2020 due [...] as of this encounter (statuses as of 07/03/2023) Resolved Problems Problem Noted Date Diagnosed Date [...] as of this encounter (statuses as of 07/03/2023) Immunizations Name Administration Dates Next Due COVID-19 mRNA, LNP-s, No Pre serve, 2-Dose Series ([employer]) 08/03/2021,12/10/2020,11/12/2020 Covid-19, Mrna, Lnp-s, Pf, B ivalent, [...] Telephone Encounter - Gabby Roberts RN - 07/03/2023 9:54 AM EST Spoke to patient today to see if he did fill his prescription , he did his tongue is not burning today but it is "greasy", counseled patient the importance of taking the medication as directed for the entire 14days, patient ok with advice. * Telephone Encounter - Gabby Roberts RN - 06/30/2023 4:20 PM EDT Patient notified that prescription was sent . Clotrimazole 10 MG Mouth/Throat Giselle (Mycelex Giselle) 70 Giselle 0 06/30/2023 07/14/2023 Sig - Route: Take 1 Lozenge by mouth 5 times a day for 14 days. Allow tablet to slowly dissolve in your mouth - Oral Sent to pharmacy as: Clotrimazole 10 MG Mouth/Throat Giselle (Mycelex Giselle) Class: ePrescribing * Telephone Encounter - Gabby Roberts RN - 06/30/2023 4:14 PM EDT See other encounter patient complain of burning tongue today again. Message sent to Wendi Love DO for med. documented in this encounter Plan of Treatment Upcoming Encounters Date Type Department Care Team (Late st Contact Info) Description 08/29/2023 8:50 AM EST Office Visit Family Medicine [address] [place] [phone] Wendi Love DO [address] [place] [address] [place] [address] 10/23/2023 11:20 AM EST Office Visit Rheumatology [address] [place] [phone] Akin Will MD [address] [facility] [place] [address] 04/19/2024 11:00 AM EDT Nurse Only Ancillary [address] [place] [address] [place], Nurse Annual [address] [place] [address] Health Maintenance Due Date Last Done Comments [...] filedocumented as of this encounter Care Teams Bakery Pastry Internship Relationship Specialty Start Date End Date Wendi Love DO [address] [place] [address] [place] [address] PCP - General Internal Medicine 06/07/17 documented as of this encounter
--- OUTSIDE RECORDS SUMMARY | 2023-11-13 03:44 | External Medical Summary | Summary of Care ---
Author Name Unknown Organization [facility] Address [address] [place] [place] [address] Phone [phone] Care Team Providers Care Section 8 Property Manager Name Role Phone Kate Wendi Rivera Primary Care Provider Reason for Visit * Reason Comments Outpatient Testing Encounter Details Date Type Department Care Team Description 06/07/2023 Laboratory Laboratory [address] [place] [address] , Specimen Drop Off [address] [place] [address] Diarrhea of presumed infectious origin Allergies Active Allergy Reactions Severity Noted Date Comments No Known Drug Allergy 02/10/2009 documented as of this encounter (statuses as of 06/07/2023) Medications Medication Sig Dispensed Refills Start Date [...] the morning. 90 Capsule 3 09/29/2022 Active metFORMIN HCl ER 500 MG Oral Tablet Extended Release 24 Hour (Glucophage XR)Indications:Diabe nam mellitus without complication (HCC),Burning mouth syndrome Take 1 Tablet by mouth in the morning. 90 Tablet 1 01/31/2023 Active Pantoprazole Sodium 20 MG Oral Tablet [...] the morning. 90 Tablet 1 05/10/2023 Active LORazepam 0.5 MG Oral Tablet (Ativan) Take 1 Tablet by mouth every night at bedtime. 30 Tablet 1 05/23/2023 Active Hospital, Clinic, or Other Facility Administered Medication Ordered Dose Route Frequency Start Date End Date Status albuterol sulfate (PROVENTIL) (2.5 MG/3ML) 0.083% inhalation solution 2.5 mgIndications:COPD, moderate (HCC) 2.5 mg NEBULIZER Q4H PRN 06/20/2017 Active documented as of this encounter (statuses as of 06/07/2023) Active Problems Problem Noted Date COPD, group B, by GOLD 2017 classificati on 05/08/2023 Overview: Per COPD GOLD Classification Sjogren's syndrome 04/04/2023 Diabetes mellitus without complication 0 01/31/2023 Subclinical hypothyroidism 08/03/2022 Gastro-esophageal reflux disease without esophagitis 12/27/2021 History of 2019 novel coronavirus diseas e (COVID-19) 01/26/2021 Overview: 08/2020 Primary osteoarthritis of left hip 01/26 Unspecified asthma, uncomplicated 2020 Chronic pain of right knee 02/21/2020 Tardive dyskinesia 01/16/2019 History of MRSA infection 09/11/2018 Dry mouth 06/13/2018 Overview: (+) RO antibody. On high dose antipsychotic drug therapy 11/01/2017 Overview: Seroquel therapy for sleep Major depressive disorder, single episod e, mild 05/12/2017 Last Assessment & Plan: Difficult [...] to evaluate pt. Spoke with Carissa. Given [facility] number to call with update regarding whether he is agreeable to support. Advised pt to keep pcp appt tomorrow. Update/chart routed to provider seeing pt and pcp. Essential hypertension with goal blood p ressure less than 140/90 07/26/2016 Burning mouth syndrome [...] which been unremarkable. Lumbar degenerative disc disease 015 Esophageal dysmotility 08/12/2015 Prostate cancer 04/27/2015 Overview: Giovanna score = 6. Radiation therapy 10/2020 due to rising PSA following radical prostatectomy Last Assessment & Plan: S/p radical prostatectomy 10/10/17. Referred to RT 10/2020 d/t rising PSA Continues to follow up with [facility] urology JOHN (nonalcoholic steatohepatitis) 01/2015 Last Assessment & Plan: Mildly elevated ALT, continue to monitor. Other allergic rhinitis 12/28/2010 Overview: ICD-10 update of inactive term documented as of this encounter (statuses as of 06/07/2023) Resolved Problems Problem Noted Date Resolved Date Hypokalemia 03/25/2022 02/17/2023 Hyponatremia 03/25/2022 02/17/2023 Morbid (severe) obesity due to excess calories 0 03/02/2022 08/03/2022 Type 2 diabetes mellitus with diabetic nephropat hy 03/02/2022 03/02/2022 BPH with obstruction/lower urinary tract symptom s 01/26/2022 02/17/2023 Acute respiratory failure with hypoxia 1 01/26/2021 Morbid (severe) obesity due to excess calories 0 10/16/2020 01/26/2021 Acquired coagulation factor deficiency 1 01/26/2021 Type 2 diabetes mellitus wit h hemoglobin A1c goal of less than 8.0% 08/05/2019 03/02/2022 Overview: Per Prediabetes protocol H/O prostate cancer 05/18/2018 01/26/2021 Moderate persistent asthma without complication 06/07/2017 06/07/2017 Esophageal ring, acquired 10/13/20152016 Benign esophageal stricture 10/13/201505/28 Gastroesophageal reflux disease with esophagitis 08/19/2015 01/17/2022 Esophageal stricture 08/17/2015 08/17/2015 Stricture esophagus 08/12/2015 06/07/2017 Overview: At GE junction Degenerative disc disease, cervical 08/03/2015 06/07/2017 Gastroesophageal reflux disease without esophagi tis 06/15/2015 06/15/2015 Constipation due to slow transit 10/16/2014 06/07/2017 COPD, moderate 08/02/2013 05/11/2023 Overview: Per COPD GOLD Classification Impaired fasting glucose 07/26/2013 017 Asthma, mild persistent 07/18/2013 07/26/20 16 Benign prostatic hyperplasia with urinary obstru ction 02/06/2013 05/18/2018 Overview: ICD-10 update of inactive term MRSA (methicillin resistant staph aureus) cultur e positive 06/07/2012 09/11/2018 Persistent insomnia 10/27/2011 02/21/2020 BPH without obstruction/lower urinary tract symp toms 10/05/2011 02/06/2013 Slow transit constipation 09/24/20112014 HTN, goal below 140/90 08/12/2009 6 Degeneration of lumbosacral intervertebral disc 03/07/2009 06/07/2017 HYPERTENSION NOS 07/15/2009 Overview: Modified per HTN protocol #16. SPINAL STENOSIS-LUMBAR 7 Anemia 06/15/2010 Calculus of kidney 06/07/2017 Localized osteoarthrosis not specified whether primary or secondary, pelvic region and thigh 06/07/2017 Polyp of intestine 06/07/2017 Jessie esophagitis 06/07/2012 Diverticulosis 02/26/2014 documented as of this encounter (statuses as of 06/07/2023) Immunizations Name Administration Dates Next Due COVID-19 mRNA, LNP-s, No Pre serve, 2-Dose Series (Pfizer) 08/03/2021,12/10/2020,11/12/2020 Covid-19, Mrna, Lnp-s, Pf, B ivalent, [...] oz pur e alcohol) none since 1981 Food Insecurity Answer Date Recorded Within the past 12 months, y ou worried that your food would run out before you got money to buy more. Never true 04/17/2023 Within the past 12 months, t he food you bought just didn't last and you didn't have money to get more. Never true 04/17/2023 Sex Assigned at Date Recorded Male 03/23/2021 10:08 AM EDT Job Start Date Occupation Industry Not on file Not on file Not on file documented as of this encounter Plan of Treatment Upcoming Encounters Date Type Specialty Care Team Description 08/29/2023 Office Visit Family Medicine Wendi Love, [address] [place] [address] 10/23/2023 Office Visit Rheumatology Akin Will MD [address] [place] [address] 04/19/2024 Nurse Only Ancillary Movkanwaley, Nurse [address] [place] [address] Pending Results Name Type Priority Associated Diagnoses Date /Time CLOSTRIDIUM DIFFICILE, PCR Lab Routine Diarrhea of presumed infectious origin 06/07/2023 8:18 AM EDT Health Maintenance Due Date Last Done Comments Alpha-1 Antitrypsin 12[birth year]24/1963 DIABETES-EYE EXAM 12/24/1963 Hepatitis C Screening 12/24/1963 Zoster Vaccines (2 of 2) 09/28/2022 08/03/2022 COVID-19 Vaccine ( season) 2023 06/28/2022, 08/03/2021, 12/10/2020, Additional history exists HbA1c 07/29/2023 01/27/2023, 05/2 11/2021, 01/26/2021, Additional history exists Albumin/Creatinine Ratio 08/03/2023 08/03/2022 TSH 11/29/2023 11/28/2022, 1202/2022, 07/01/2022, Additional history exists Diabetic Foot Exam 02/18/2024 02/17/2023 GFR 04/12/2024 04/12/2023, 0711/2022, 08/03/2022, Additional history exists Depression Screening 04/17/2024 04/17/2023 O2 ASSESSMENT COMPLETED IN PAST YEAR FOR COPD 05/10/2024 05/10/2023, 02/15/2017 DTaP,Tdap,and Td Vaccines (2 - Td or [...] as of this encounter Visit Diagnoses Diagnosis Diarrhea of presumed infectious origin documented in this encounter Additional Health Concerns Infection Onset Date Last Indicated Resolved Time C. difficile Rule-Out 06/07/2023 06/07/2023 documented as of this encounter Care Teams Section 8 Property Manager Relationship Specialty Start Date End Date Wendi Love, [address] [place] [address] PCP - General Internal Medicine 06/07/17 documented as of this encounter
--- OUTSIDE RECORDS SUMMARY | 2023-11-13 03:44 | External Medical Summary | Summary of Care ---
Author Name Unknown Organization [facility] Address [address] [place] [address] Phone [phone] Care Team Providers Care Notereader Name Role Phone Wendi Love DO Primary Care Provider Reason for Visit * Reason Onset Date Comments Advice 06/19/2023 Encounter Details Date Type Department Care Team (Late st Contact Info) Description 06/19/2023 Telephone Family Medicine [address] [address] [address]i Love [address] [address] Advice Allergies Active Allergy Reactions Criticality Noted Date Comments No Known Drug Allergy 02/10/2009 documented as of this encounter (statuses as of 06/20/2023) Medications Medication Sig Dispensed Refills Start Date [...] as of this encounter (statuses as of 06/20/2023) Active Problems Problem Noted Date Diagnosed Date [...] to evaluate pt. Spoke with Carissa. Given [facility] number to call with update regarding [...] PSA Continues to follow up with [facility] urology JOHN (nonalcoholic steatohepatitis) 04/02/2015 Last Assessment & Plan: Mildly elevated ALT, continue to monitor. Other allergic rhinitis 12/28/2010 Overview: ICD-10 update of inactive term documented as of this encounter (statuses as of 06/20/2023) Resolved Problems Problem Noted Date Diagnosed Date [...] as of this encounter (statuses as of 06/20/2023) Immunizations Name Administration Dates Next Due COVID-19 mRNA, LNP-s, No Pre serve, 2-Dose Series ([employer]) 08/03/2021,12/10/2020,11/12/2020 Covid-19, Mrna, Lnp-s, Pf, B ivalent, [...] Telephone Encounter - Wendi Love DO - 06/20/2023 10:16 AM EDT Noted. Thank you. * Telephone Encounter - Gabby Roberts RN - 06/20/2023 10:07 AM EDT Spoke to patient re colonoscopy, patient states he will think about it, but doesn't want to scheduled it right now. Patient last one was done at [facility] . Counseled him we can sched it there or at [facility]. Patient states he will let us know if he wants to schedule. * Telephone Encounter - Gabby Roberts RN - 06/19/2023 3:39 PM EDT Patient n/a unable to leave a message, I will try again later. * Telephone Encounter - Wendi Love DO - 06/19/2023 2:16 PM EDT I'm not sure what that was. I do not believe a Cologuard was ordered for him. [facility] often sends out stuff this time of year to fill caregaps - maybe it had something to do with that? Regardless, Colonoscopy is the only appropriate test in his situation. Is he willing to have it done? * Telephone Encounter - Gabby Roberts RN - 06/19/2023 10:58 AM EDT He said he does not go out to eat or any other place on the weekend. I did tell him to just keep aneye and be more aware of things on the weekend. He did say he got the big square box in the mail and just took it to the post office, so Im thinking it may have been a cologuard? He was not sure. I did not see a recent order in [employer] * Telephone Encounter - Wendi Love DO - 06/19/2023 10:42 AM EDT I'm glad to hear that he is doing so much better overall! Unfortunately, he may still have bad days here and there. Does he drink anything different on Saturdays? Go out to eat? With his diarrhea and iron deficiency anemia, he really needs to have a colonoscopy. Can I order this for him? * Telephone Encounter - Gabby Roberts RN - 06/19/2023 10:16 AM EDT Patient called today, he states the last 2 weeks were really good. Patient states Monday he started with the burning and "paste" feeling again. It has been 20 days since he called with concerns, patient states he has not had diarrhea since Monday and its not every day. Patient feels that is better than it was. Stool culture was neg for C diff. Patient states he continues to stay away from salt and chips. Patient is still sleeping well, it seems to me when he does have a flare up its always a Monday. Patient states his eating habits don'tchange on the weekend. I counseled patient I will let Dr. Valentine know how he is doing. Reassured himhe is doing well , hopefully we can get at least 3 wks out of the month that he doesn't have concerns. documented in this encounter Plan of Treatment Upcoming Encounters Date Type Department Care Team (Late st Contact Info) Description 08/29/2023 8:50 AM EST Office Visit Family Medicine [address] [place] [phone] Wendi Love, [address] [place] [address] 10/23/2023 11:20 AM EST Office Visit Rheumatology [address] [place] [phone] Akin Will MD [facility] [address] 04/19/2024 11:00 AM EDT Nurse Only Ancillary [address] [place] [address] Kariey, Nurse Annual [address] [place] [address] Health Maintenance Due Date Last Done Comments Alpha-1 Antitrypsin 12/24/1963 DIABETES-EYE EXAM 12/24/1963 Hepatitis C Screening 12/24/1963 Hepatitis B [...] filedocumented as of this encounter Care Teams Notereader Relationship Specialty Start Date End Date Wendi Love DO [address] [place] [address] [place] [address] PCP - General Internal Medicine 06/07/17 documented as of this encounter
--- OUTSIDE RECORDS SUMMARY | 2023-11-13 03:44 | External Medical Summary | Summary of Care ---
Author Name Unknown Organization [facility] Address [address] [place] [address] Phone [phone] Care Team Providers Care Melter Supervisor Oxygen Furnace Name Role Phone Kate Wendi Rivera Primary Care Provider Reason for Visit * Reason Comments Outpatient Testing Encounter Details Date Type Department Care Team Description 06/07/2023 Laboratory Laboratory [address] [place] [address] , Specimen Drop Off [address] [place] [phone] Diarrhea of presumed infectious origin Allergies Active Allergy Reactions Severity Noted Date Comments No Known Drug Allergy 02/10/2009 documented as of this encounter (statuses as of 06/12/2023) Medications Medication Sig Dispensed Refills Start Date [...] as of this encounter (statuses as of 06/12/2023) Active Problems Problem Noted Date COPD, group [...] to evaluate pt. Spoke with Carissa. Given [facility] number to call with update [...] [facility] urology JOHN (nonalcoholic steatohepatitis) 01/2015 Last Assessment & Plan: Mildly elevated ALT, continue to monitor. Other allergic rhinitis 12/28/2010 Overview: ICD-10 update of inactive term documented as of this encounter (statuses as of 06/12/2023) Resolved Problems Problem Noted Date Resolved Date [...] as of this encounter (statuses as of 06/12/2023) Immunizations Name Administration Dates Next Due COVID-19 [...] 08/29/2023 Office Visit Family Medicine Wendi Love, [address] [place] [address] 10/23/2023 Office Visit Rheumatology Akin Will MD [address] [facility] [place] [address] 04/19/2024 Nurse Only Ancillary Movkanwaley, Nurse [address] [place] [address] Health Maintenance Due Date Last Done Comments [...] Procedure Name Priority Date/Time Associated Diagnosis Comments CLOSTRIDIUM DIFFICILE, PCR Routine 06/07/2023 8:18 AM EDT Diarrhea of presumed infectious origin documented in this encounter Results * CLOSTRIDIUM DIFFICILE, PCR (06/07/2023 8:18 AM EDT) Stool Consistency Semi-liquid 06/07/2023 2:33 PM EDT [facility] Clostridium difficile Result Negative. No C. difficile toxin B gene DNA detected by PCR (Amplified Probe). Negative 06/07/2023 2:33 PM EDT [facility] Stool Stool specimen / Unknown Non-blood Collection / Unknown 06/07/2023 8:18 AM EDT 06/07/2023 8:18 AM EDT Wendi Love DO LAB MICRO - GENERAL ORDERABLES [facility] [address] [place] [facility] [place] [place] [address] documented in this encounter Visit Diagnoses Diagnosis Diarrhea of presumed infectious origin documented in this encounter Additional Health Concerns Infection Onset Date Last Indicated Resolved Time C. difficile Rule-Out 06/07/2023 06/07/20232022 2:33 PM EDT documented as of this encounter Care Teams Melter Supervisor Oxygen Furnace Relationship Specialty Start Date End Date Wendi Love DO [address] [place] [address] [place] [address] PCP - General Internal Medicine 06/07/17 documented as of this encounter
--- OUTSIDE RECORDS SUMMARY | 2023-11-13 03:44 | External Medical Summary | Summary of Care ---
Author Name Unknown Organization [facility] Address [address] [place] [address] Phone [phone] Care Team Providers Care Telecasting Technician Name Role Phone Wendi Love DO Primary Care Provider Reason for Visit * Reason Onset Date Comments Advice 06/30/2023 Encounter Details Date Type Department Care Team (Late st Contact Info) Description 06/30/2023 Telephone Family Medicine [address] [address] [address]i Love [address] [address] Advice Allergies Active Allergy Reactions Criticality Noted Date Comments No Known Drug Allergy 02/10/2009 documented as of this encounter (statuses as of 07/10/2023) Medications Medication Sig Dispensed Refills Start Date [...] as of this encounter (statuses as of 07/10/2023) Active Problems Problem Noted Date Diagnosed Date [...] to evaluate pt. Spoke with Carissa. Given [facility] number to call with update regarding [...] as of this encounter (statuses as of 07/10/2023) Resolved Problems Problem Noted Date Diagnosed Date [...] as of this encounter (statuses as of 07/10/2023) Immunizations Name Administration Dates Next Due COVID-19 mRNA, LNP-s, No Pre serve, 2-Dose Series ([employer]) 08/03/2021,12/10/2020,11/12/2020 Covid-19, Mrna, Lnp-s, Pf, B [...] Telephone Encounter - Gabby Roberts RN - 07/10/2023 12:59 PM EST I called patient to see how he was doing, patient states the burning has been better since he started the meds, he still has about another week of meds. Now today he said his mouth is like paste, counseled patient to finished meds as directed and continue to increase his water. * Telephone Encounter - Gabby Roberts RN [...] 8:50 AM EST Office Visit Family Medicine [address] [place] [phone] Wendi Love DO [address] [place] [address] [place] [address] 10/23/2023 11:20 AM EST Office Visit Rheumatology [address] [place] [phone] Akin Will MD [address] [facility] [place] [address] 04/19/2024 11:00 AM EDT Nurse Only Ancillary [address] [place] [address] Mai, Nurse Annual [facility] [address] [place] [address] [place] [address] Health Maintenance Due Date Last Done Comments [...] filedocumented as of this encounter Care Teams Telecasting Technician Relationship Specialty Start Date End Date Wendi Love DO [address] [place] [address] [place] [address] PCP - General Internal Medicine 06/07/17 documented as of this encounter
--- OUTSIDE RECORDS SUMMARY | 2023-11-13 03:44 | External Medical Summary | Summary of Care ---
Author Name Unknown Organization [facility] Address [address] [place] [address] Phone [phone] Care Team Providers Care Retail Supervisor Name Role Phone Wendi Love DO Primary Care Provider Reason for Visit * Reason Onset Date Comments Order Request 06/30/2023 Encounter Details Date Type Department Care Team (Late st Contact Info) Description 06/30/2023 Telephone Family Medicine [address] [address] Wendi Love [address] [place] [address] Order Request (/) Allergies Active Allergy Reactions Criticality Noted Date Comments No Known Drug Allergy 02/10/2009 documented as of this encounter (statuses as of 06/30/2023) Medications Medication Sig Dispensed Refills Start Date [...] as of this encounter (statuses as of 06/30/2023) Active Problems Problem Noted Date Diagnosed Date [...] to evaluate pt. Spoke with Carissa. Given [facility] number to call with update regarding [...] as of this encounter (statuses as of 06/30/2023) Resolved Problems Problem Noted Date Diagnosed Date [...] region and thigh 06/07/2017 Polyp of intestine 10/11/201 7 Jessie esophagitis 06/07/20 12 Diverticulosis 02/26/2014 documented as of this encounter (statuses as of 06/30/2023) Immunizations Name Administration Dates Next Due COVID-19 mRNA, LNP-s, No Pre serve, 2-Dose Series ([employer]) 08/03/2021,12/10/2020,11/12/2020 Covid-19, Mrna, Lnp-s, Pf, B ivalent, 30 Mcg, IM, 12 yrs and above ([employer]iniu) 06/28/2022 Pneumococcal Conjugate Vacc, 13 Valent (Prevnar) [...] Telephone Encounter - Wendi Love DO - 06/30/2023 4:04 PM EDT See other encounter. Clotrimazole troches sent to pharmacy. documented in this encounter Plan of Treatment Upcoming Encounters Date Type Department Care Team (Late st Contact Info) Description 08/29/2023 8:50 AM EST Office Visit Family Medicine [address] [place] [phone] Wendi Love DO [address] [place] [address] [place] [address] 10/23/2023 11:20 AM EST Office Visit Rheumatology [address] [place] [phone] Akin Will MD [facility] [address] 04/19/2024 11:00 AM EDT Nurse Only Ancillary [address] [place] [address] Mai, Nurse [address] [place] [address] Health Maintenance Due Date Last Done Comments [...] filedocumented as of this encounter Care Teams Retail Supervisor Relationship Specialty Start Date End Date Wendi Love DO [address] [place] [address] [place] [address] PCP - General Internal Medicine 06/07/17 documented as of this encounter
--- OUTSIDE RECORDS SUMMARY | 2023-11-13 03:44 | External Medical Summary ---
Author Name Unknown Address Unknown Organization K01:[facility] [place] [address] [place] [address] Laboratory Report Ordering Provider Test Date Status REID MENDOZA 06/07/2023 08:18:46 Final Observation Date Value Abnormality Reference (Units) Status Source 06/07/2023 08:18:46 Semi-liquid Final Clostridioides difficile toxin and [id number] strain DNA panel - Stool by STEVE with probe detection 06/07/2023 08:18:46 Negative. No C. difficile toxin B gene DNA detected by PCR (Amplified Probe). Negative Final Performing Location [facility] [place] [address] [place] [address]
--- OUTSIDE RECORDS SUMMARY | 2023-11-13 03:44 | External Medical Summary | Summary of Care ---
Author Name Unknown Organization [facility] Address [address] [place] [address] Phone [phone] Care Team Providers Care Business Mgr Name Role Phone Wendi Love DO Primary Care Provider [phone] Reason for Visit * Reason Onset Date Comments Advice 06/30/2023 Encounter Details Date Type Department Care Team (Late st Contact Info) Description 06/30/2023 Telephone Family Medicine [address] [address] [address]i Love [address] [address] Advice Allergies Active Allergy Reactions Criticality Noted [...] to evaluate pt. Spoke with Carissa. Given [facility] number to call with update [...] rising PSA Continues to follow up with [facility] urology JOHN (nonalcoholic steatohepatitis) 04/02/2015 [...] mRNA, LNP-s, No Pre serve, 2-Dose Series ([employer]) 08/03/2021,12/10/2020,11/12/2020 Covid-19, Mrna, Lnp-s, Pf, B ivalent, [...] 8:50 AM EST Office Visit Family Medicine [address] [phone] Wendi Love DO [address] [place] [address] [place] [address] 10/23/2023 11:20 AM EST Office Visit Rheumatology [address] [place] [phone] Akin Will MD [address] [facility] [place] [address] 04/19/2024 11:00 AM EDT Nurse Only Ancillary [address] [place] [address] [place], Nurse Annual [address] [place] [address] Health Maintenance Due Date Last Done Comments [...] filedocumented as of this encounter Care Teams Business Mgr Relationship Specialty Start Date End Date Wendi Love DO [address] [place] [address] [place] [phone] PCP - General Internal Medicine 06/07/17 documented as of this encounter
--- OUTSIDE RECORDS SUMMARY | 2023-11-13 03:44 | External Medical Summary | Summary of Care ---
Author Name Unknown Organization [facility] Address [address] [place] [address] Phone [phone] Care Team Providers Care Coffee Maker Name Role Phone Wendi Love DO Primary Care Provider [phone] Reason for Visit * Reason Onset Date Comments Advice 05/22/2023 Encounter Details Date Type Department Care Team Description 05/22/[address] [place] [address] Wendi Love DO [address] [place] [address] [place] [address] Advice Allergies Active Allergy Reactions Severity Noted Date Comments No Known Drug Allergy 02/10/2009 documented as of this encounter (statuses as of 05/23/2023) Medications Medication Sig Dispensed Refills Start Date [...] etes mellitus without complication (HCC),Burning mouth syndrome Take [...] at bedtime. 30 Tablet 1 05/23/2023 Active LORazepam 0.5 MG Oral Tablet (Ativan) Take 1 Tablet by mouth every night at bedtime. 30 Tablet 0 04/26/2023 3 Discontinu ed(Refill) Hospital, Clinic, or Other Facility Administered Medication Ordered Dose Route Frequency Start Date End Date Status albuterol sulfate (PROVENTIL) (2.5 MG/3ML) 0.083% inhalation solution 2.5 mgIndications:COPD, moderate (HCC) 2.5 mg NEBULIZER Q4H PRN 06/20/2017 Active documented as of this encounter (statuses as of 05/23/2023) Active Problems Problem Noted Date COPD, group [...] pt. Spoke with Carissa. Given [facility] number to call with update regarding [...] follow up with [facility] urology JOHN (nonalcoholic steatohepatitis) 01/2015 Last Assessment & Plan: Mildly elevated ALT, continue to monitor. Other allergic rhinitis 12/28/2010 Overview: ICD-10 update of inactive term documented as of this encounter (statuses as of 05/23/2023) Resolved Problems Problem Noted Date Resolved Date [...] as of this encounter (statuses as of 05/23/2023) Immunizations Name Administration Dates Next Due COVID-19 mRNA, LNP-s, No Pre serve, 2-Dose Series ([employer]) 08/03/2021,12/10/2020,11/12/2020 Covid-19, Mrna, Lnp-s, Pf, B ivalent, 30 Mcg, IM, 12 yrs and above (Pfizer) 06/28/2022 Pneumococcal Conjugate Vacc, 13 Valent (Prevnar) 10/16/2014 Pneumococcal Polysaccharide PPV23 (Pneumovax) 02/10/2009 Season Influenza, Quad, PF, Adjuvanted, 65+ Yrs, IM (FLUAD) 05/14/2020 Seasonal Influenza Virus Vac cine, Unspecified Formulation 05/11/2021,05/14/2020,05/07/2019,05/18,06/07/2017,05/18/2016,06/30/2014 ,06/11/2013,06/02/2012,05/23/2011,05/28,10/13/2009 Seasonal Influenza, PF, 6 mo ns & Above, IM , (Flulaval) 05/18/2018,06/07/2017 Seasonal Influenza, Quadriva lent Hd (Fluzone [...] Telephone Encounter - Wendi Love DO - 05/23/2023 12:43 PM EDT Noted. Thank you. * Telephone Encounter - Gabby Roberts RN - 05/23/2023 11:36 AM EDT Spoke to pt and Kamille, she will have pt come to the pharmacy to bead picker enough to get him until hisnew pill packs and then she will put it in the new pill pack. Pt notified and will come up tomorrow. Pt states he is sleeping well, he did not mention any concerns with the tongue or paste today. Pt ok with advice. * Telephone Encounter - Wendi Love DO - 05/23/2023 8:31 AM EDT New script sent. I have asked the pharmacy to add this to his pill packs. Continue same for the mouth problems. Reassure patient that he may have better days and worse days. I have reviewed the patients controlled substance dispensing history in the Prescription Drug Monitoring Program in compliance with the [place] regulations before prescribing a controlled substance. Last Tox Screen Results: No results found. However, due to the size of the patient record, not all encounters were searched.Please check Results Review for a complete set of results. * Telephone Encounter - Gabby Roberts RN - 05/22/2023 12:51 PM EDT Pt called states his tongue was good for a week, pt is also sleeping well but needs a refill sent to the pharmacy. Pending Prescriptions: Disp Refills LORazepam 0.5 MG Oral Tablet (Ativan) 30 Tab*1 Sig: Take 1 Tablet by mouth every night at bedtime. will need sent to [facility], [address] [place]ON[place] CARRERO Pt states his tongue started burning yesterday and he "tried to eat potato chips and they stuck to his tongue. I counseled pt that Im glad he had a week of feeling better, and Im glad he is sleeping better. Pt to continue to use the mouthwash and brushing his tongue. I will message Wendi Love DO for a RF and any other advice. Reason for Call: Advice Contact: Telephone Call Contact Type: Advice Outcome: see above Face to face time spent with Patient (minutes): 0 Total Time including non face to face (minutes): 20 documented in this encounter Plan of Treatment Upcoming Encounters Date Type Specialty Care Team Description 08/29/2023 Office Visit Family Medicine Wendi Love DO [address] [place] [address] [place] [address] 10/23/2023 Office Visit [facility]ology [facility] [address] 04/19/2024 Nurse Only Ancillary Mai Nurse Annual [facility] [address] [place] [address] [place] [address] Health Maintenance Due Date Last Done Comments Alpha-1 Antitrypsin 12/24/1963 DIABETES-EYE EXAM 12/24/1963 Hepatitis C Screening 12/24/1963 Zoster Vaccines (2 of 2) 09/28/2022 08/03/2022 HbA1c 07/29/2023 01/27/2023, 12/27, 01/26/2021, Additional history exists Albumin/Creatinine Ratio 08/03/2023 08/03/2022 TSH 11/29/2023 11/28/2022, 12/0 02/2022, 07/01/2022, Additional history exists Diabetic Foot Exam 02/18/2024 02/17/2023 GFR 04/12/2024 04/12/2023, 02/25, 08/03/2022, Additional history exists Depression Screening 04/17/2024 04/17/2023 O2 ASSESSMENT COMPLETED IN PAST YEAR FOR COPD 05/10/2024 05/10/2023, 02/15/2017 DTaP,Tdap,and Td Vaccines (2 - Td or Tdap) 09/27/2027 09/27/2017 Pneumococcal Vaccine: 65+ Years Completed 10/16/2014, 02/10/2009 COVID-19 Vaccine Completed 06/28/2022, 02/2021, 12/10/2020, Additional history exists Influenza Vaccine (FLU shot) Completed , 05/12/2022, [...] filedocumented as of this encounter Care Teams Coffee Maker Relationship Specialty Start Date End Date Wendi Love, [address] [place] [address] PCP - General Internal Medicine 06/07/17 documented as of this encounter
--- OUTSIDE RECORDS SUMMARY | 2023-11-13 03:44 | External Medical Summary | Summary of Care ---
Author Name Unknown Organization [facility] Address [address] [place] [address] Phone [phone] Care Team Providers Care Housing Project Manager Name Role Phone Reji Mathews Primary Care Provider [phone] Reason for Visit * Reason Comments eRx-Medication Refill Encounter Details Date Type Department Care Team (Late st Contact Info) Description 06/29/2023 Refill Family Medicine [address] [address] Agnieszka Reyna MD [address] [place], [place] [address] [id number] Diabetes mellitus without complication (HCC); Burning mouth syndrome Allergies Active Allergy Reactions [...] the morning. 90 Capsule 3 3 Active Pantoprazole Sodium 20 MG Oral Tablet Delayed Release (Protonix)Indicatio ns:Burning mouth syndrome,Gastro-eso phageal reflux disease without esophagitis Take 1 Tablet by mouth in the morning. 30 minutes before the first meal of the day. Do not crush, split or chew the tablet. 90 Tablet 1 3 Active Vitron-C 65-125 MG Oral Tablet [...] THE MORNING 90 Tablet 1 3 Active metFORMIN HCl ER 500 MG Oral Tablet Extended Release 24 Hour (Glucophage XR)Indications:Diab etes mellitus without complication (HCC),Burning mouth syndrome Take 1 Tablet by mouth in the morning. 90 Tablet 1 3 06/30/20 23 Discontinued Hospital, Clinic, or Other Facility [...] rising PSA Continues to follow up with [facility] urology JOHN (nonalcoholic steatohepatitis) 04/02/2015 [...] mRNA, LNP-s, No Pre serve, 2-Dose Series ([employer]) 08/03/2021,12/10/2020,11/12/2020 Covid-19, Mrna, Lnp-s, Pf, B ivalent, [...] encounter Miscellaneous Notes * Telephone Encounter - Alexandro Boykin RPh - 06/30/2023 11:05 AM EDT Signed Prescriptions: Disp Refills metFORMIN HCl ER 500 MG Oral Tablet Extend*90 Tab*1 Sig: TAKE ONE TABLET IN THE MORNINGAuthorizing Provider: REJI MATHEWSOrderjose User: ALEXANDRO BOYKIN-- documented in this encounter Plan of Treatment Upcoming Encounters Date Type Department Care Team (Late st Contact Info) Description 08/29/2023 8:50 AM EST Office Visit Family Medicine [address] [place] [phone] Reji Mathews [address] [place] [address] 10/23/2023 11:20 AM EST Office Visit Rheumatology [address] [place] [phone] Akin Will MD [address] [place] [address] [place] [address] 04/19/2024 11:00 AM EDT Nurse Only Ancillary [place] Rivera[address] [place] [address] Mai, Nurse [address] [place] [address] Health Maintenance Due Date Last Done Comments [...] mention of complication, not stated as uncontrolled Burning mouth syndrome Glossodynia documented in this encounter Care Teams Housing Project Manager Relationship Specialty Start Date End Date Reji Mathews DO [address] [place] [address] [place] [phone] PCP - General Internal Medicine 06/07/17 documented as of this encounter
--- OUTSIDE RECORDS SUMMARY | 2023-11-13 03:44 | External Medical Summary | Summary of Care ---
Author Name Unknown Organization [facility] Address [address] [place] [address] Phone [phone] Care Team Providers Care Lock Operator Name Role Phone Wendi Love DO Primary Care Provider Reason for Visit * Reason Onset Date Comments Advice 06/21/2023 Encounter Details Date Type Department Care Team (Late st Contact Info) Description 06/21/2023 Telephone Family Medicine [address] [address] [address]i Love [address] [address] Advice Allergies Active Allergy Reactions Criticality Noted Date Comments No Known Drug Allergy 02/10/2009 documented as of this encounter (statuses as of 06/23/2023) Medications Medication Sig Dispensed Refills Start Date [...] as of this encounter (statuses as of 06/23/2023) Active Problems Problem Noted Date Diagnosed Date [...] PSA Continues to follow up with [facility] urology JOHN (nonalcoholic steatohepatitis) 04/02/2015 Last Assessment & Plan: Mildly elevated ALT, continue to monitor. Other allergic rhinitis 12/28/2010 Overview: ICD-10 update of inactive term documented as of this encounter (statuses as of 06/23/2023) Resolved Problems Problem Noted Date Diagnosed Date [...] as of this encounter (statuses as of 06/23/2023) Immunizations Name Administration Dates Next Due COVID-19 mRNA, LNP-s, No Pre serve, 2-Dose Series ([employer]) 08/03/2021,12/10/2020,11/12/2020 Covid-19, Mrna, Lnp-s, Pf, B ivalent, [...] Telephone Encounter - Wendi Love DO - 06/23/2023 1:27 PM EDT Noted. Thank you. * Telephone Encounter - Gabby Roberts RN - 06/23/2023 10:01 AM EDT Clostridium difficile Result Negative Negative. No C. difficile t Done on 06/07/23 * Telephone Encounter - Wendi Love DO - 06/23/2023 8:33 AM EDT Agree with avoiding pepto in the future. Imodium is appropriate for his diarrhea, although if he has persistent watery diarrhea more than 3xper day, we should check him for C. Diff. Otherwise continue same meds. * Telephone Encounter - Gabby Roberts RN - 06/22/2023 3:52 PM EDT Spoke to patient he states his tongue is really bad today, the only thing he has done or taken differently today was he took pepto Bismol Ultra for his diarrhea. Patient states yesterday he had diarrhea and belly was upset. He states he has always used Pepto in the past but he has not used it within the last month. (Patient symptoms have been good the for 3 weeks until just recently) I counseled patient not to use Pepto anymore to see if the tongue symptoms improve the next couple days, if he continues to have problems with diarrhea I recommended try immodium in pill form not the liquid pepto. I will message provider for any other advice and just to make her aware of pepto. I did search pepto in his chart and on 05/29 he was taking it too. Im not sure if something in the pepto could be triggering his symptoms, I did notice on the side effects of bepto it can cause a bitter taste and nauseas, which patient has complained of before too. Reason for Call: Advice Contact: Telephone Call Contact Type: Advice Outcome: see note Face to face time spent with Patient (minutes): 0 Total Time including non face to face (minutes): 20 * Telephone Encounter - Chelo Lino CMA - 06/21/2023 10:24 AM EDT Patient requesting call from nurse .states his tongue is bothering him today and will like to speakto someone regards of issue. documented in this encounter Plan of Treatment Upcoming Encounters Date Type Department Care Team (Late st Contact Info) Description 08/29/2023 8:50 AM EST Office Visit Family Medicine [address] [place] [phone] Wendi Love[address] [place] [address] 10/23/2023 11:20 AM EST Office Visit Rheumatology [address] [place] [phone] Akin Will MD [address] [facility] [place] [address] 04/19/2024 11:00 AM EDT Nurse Only Ancillary [address] [place] [address] Mai, Nurse [facility] [address] [place] [address] [place] [address] Health Maintenance Due Date Last Done Comments [...] filedocumented as of this encounter Care Teams Lock Operator Relationship Specialty Start Date End Date Wendi Love DO [address] [place] [address] [place] [address] PCP - General Internal Medicine 06/07/17 documented as of this encounter
--- OUTSIDE RECORDS SUMMARY | 2023-11-13 03:44 | External Medical Summary ---
Author Name Unknown Address Unknown Organization [facility] - [address] [place] [id number] Laboratory Report Ordering Provider Test Date Status ALONMYNOR 06/16/2023 06:28:00 Final Normal: <30 mg/g creatinine< br/>High: 30-300 mg/g creatinine
Very High: >300 mg/g creatinine
Nephrotic: >2200 mg/g creatinine Observation Date Value Abnormality Reference (Units ) Status Albumin, Urine 06/16/2023 06:28:00 1.50 (mg/d L) Final This testing was performed a s part of a [facility] [employer] fulfillment initiative Creatinine, Urine 06/16/2023 06:28:00 81 (m g/dL) Final Albumin/Creatinine [Mass Rat io] in Urine 06/16/2023 06:28:00 19 <30 (mg/g Creat) Carol bailey Performing Location [facility] - [address] [facility] [address]
--- OUTSIDE RECORDS SUMMARY | 2023-11-13 03:44 | External Medical Summary | Summary of Care ---
Author Name Unknown Organization [facility] Address [address] [place] [address] Phone [phone] Care Team Providers Care Slice Cutting Machine Operator Name Role Phone Wendi Love DO Primary Care Provider [phone] Reason for Visit * Reason Onset Date Comments Advice 06/30/2023 Encounter Details Date Type Department Care Team (Late st Contact Info) Description 06/30/2023 Telephone Family Medicine [address] [address] Wendi Love [address] [address] Advice Allergies Active Allergy Reactions Criticality Noted [...] to evaluate pt. Spoke with Carissa. Given [facility] number to call with update regarding [...] rising PSA Continues to follow up with [facility] urology JOHN (nonalcoholic steatohepatitis) 04/02/2015 [...] mRNA, LNP-s, No Pre serve, 2-Dose Series ([employer]) 08/03/2021,12/10/2020,11/12/2020 Covid-19, Mrna, Lnp-s, Pf, B ivalent, [...] Encounter - Wendi Love DO - 06/30/2023 11:19 AM EDT Lorazepam sent. * Telephone Encounter - Brooklyn Guo OSA - 06/30/2023 8:21 AM EDT Pt called & his tongue has been bothering him. Pt has a sour taste & the tip is burning documented in this encounter Plan of Treatment Upcoming Encounters Date Type Department Care Team (Late st Contact Info) Description 08/29/2023 8:50 AM EST Office Visit Family Medicine [address] [place] [phone] Wendi Love DO [address] [place] [address] [place] [address] 10/23/2023 11:20 AM EST Office Visit Rheumatology [address] [place] [phone] Akin Will MD [address] [place] [address] [place] [address] 04/19/2024 11:00 AM EDT Nurse Only Ancillary [address] [place] [address] Mai, Nurse [address] [place] [address] Health Maintenance Due Date Last Done Comments [...] filedocumented as of this encounter Care Teams Slice Cutting Machine Operator Relationship Specialty Start Date End Date Wendi Love DO [address] [place] [address] [place] [address] PCP - General Internal Medicine 06/07/17 documented as of this encounter
--- OUTSIDE RECORDS SUMMARY | 2023-11-13 03:44 | External Medical Summary | Summary of Care ---
Author Name Unknown Organization [facility] Address [address] [place] [address] Phone [phone] Care Team Providers Care Wrapper Hands Sprayer Name Role Phone Wendi Love DO Primary Care Provider [phone] Reason for Visit * Reason Onset Date Comments Advice 05/29/2023 Encounter Details Date Type Department Care Team Description 05/29/[address] [place] [address] Wendi Love DO [address] [place] [address] [place] [address] Advice Allergies Active Allergy Reactions Severity Noted [...] to evaluate pt. Spoke with Carissa. Given [facility] number to call with update regarding [...] Esophageal dysmotility 08/12/2015 Prostate cancer 04/27/2015 Overview: [place] score = 6. Radiation therapy 10/2020 due to rising PSA following radical prostatectomy Last Assessment & Plan: S/p radical prostatectomy 10/10/17. Referred to [facility] 10/2020 d/t rising PSA Continues to follow up with [facility] urology JOHN (nonalcoholic steatohepatitis) 01/2015 Last Assessment [...] mRNA, LNP-s, No Pre serve, 2-Dose Series ([employer]) 08/03/2021,12/10/2020,11/12/2020 Covid-19, Mrna, Lnp-s, Pf, B ivalent, [...] Telephone Encounter - Gabby Roberts RN - 06/12/2023 2:20 PM EDT 06.07.23 C.Diff was negative * Telephone Encounter - Gabby Roberts RN - 06/05/2023 8:12 AM EDT Patient states he did have diarrhea at least 3 times a day, all weekend. I counseled patient Dr. Love did put an order in to check for C dif if diarrhea persist. Patient aware and will come up to the lab for a kit. Order already placed. Patient states his tongue did start to burn Monday again, today he is just feeling nauseas and thought he was going to "throw up" tongue feels "greasy" Patientstates he has not had any chips and has tried to stay away from salt. Patient says he continues to brush and use mouthwash. * Telephone Encounter - Gabby Roberts RN - 05/31/2023 11:38 AM EDT I tried to call patient again. Spoke to patient he states he is not doing too bad today, he didn't sleep well last night. Patient states tongue is dry, no complaints of paste or burning. Patient has not had potato chips today. Counseled him to stay away from foods that have salt or high sodium. Patient states his diarrhea is better he feels he is constipated now. Counseled patient to continue staying hydrated with water, no salt foods, continue mouth wash and oral hygiene. Patient ok with advice and will keep me updated. * Telephone Encounter - Gabby Roberts RN - 05/30/2023 8:54 AM EDT Tried to call patient , n/a no answering machine to leave a message. I'll try back later. Reason for Call: Advice (Pt said not well / pt declined appt ) Contact: Telephone Call Contact Type: Advice Outcome: see above Face to face time spent with Patient (minutes): 0 Total Time including non face to face (minutes): 10 * Telephone Encounter - Wendi Love DO - 05/29/2023 12:45 PM EDT Avoid potato chips or any other foods that seem to exacerbate the "paste." I wonder if salty food may be a trigger? Agree with oral hygiene. If diarrhea persists, or is foul-smelling, watery, and occurring more than 3 times per day he needsto submit a stool sample to the lab for C. Diff. * Telephone Encounter - Gabby Roberts RN - 05/29/2023 10:22 AM EDT Spoke to patient he states he had a rough weekend, patient states this weekend and again today complain of "paste" burning is good. Patient did sleep well last week but not so much this weekend. Patient states the only food that seems to cause issues with the past is potatoe chips, patient was ableto eat cereal and sandwiches without any problems. Patient to continue the mouthwash, tooth brushing, but he is unsure if he has tried the mucinex. I waited on the phone until he checked his meds, hedid not have mucinex. Dr. Love did recommend this at one point. Patient has had diarrhea since finishing his antibiotic, counseled him the importance of staying hydrated . He is taking pepto for thediarrhea. Patient to call me in a few days with an update. I explained him that he needs to take the mucinex for a week as directed. Patient tends to try advice for one day only. Patient to call backwith an update. Message sent to pcp to make aware. Reason for Call: Advice (Pt said not well / pt declined appt ) Contact: Telephone Call Contact Type: Assessment Outcome: see above Face to face time spent with Patient (minutes): 0 Total Time including non face to face (minutes): 20 * Telephone Encounter - CECILIA Huggins - 05/29/2023 8:08 AM EDT Pt said he is not feeling well, has a sore in mouth, diarrhea, overall not feeling well Pt declined an appt documented in this encounter Plan of Treatment Upcoming Encounters Date Type Specialty Care Team Description 08/29/2023 Office Visit Family Medicine Wendi Love, [address] [place] [address] 10/23/2023 Office Visit Rheumatology Akin Will MD [address] [place] [address] 04/19/2024 Nurse Only Ancillary Mai, Nurse Annual [address] [place] [address] Health Maintenance Due Date Last Done Comments Alpha-1 Antitrypsin 12[birth year]24/1963 DIABETES-EYE EXAM 12[birth year]24/1963 Hepatitis C Screening 12/24/1963 Zoster Vaccines (2 of 2) 09/28/2022 08/03/2022 COVID-19 Vaccine ( season) 2023 06/28/2022, 08/03/2021, 12/10/2020, Additional history exists HbA1c 07/29/2023 01/27/2023, 0511/2021, 01/26/2021, Additional history exists Albumin/Creatinine Ratio 08/03/2023 08/03/2022 TSH 11/29/2023 11/28/2022, 12/02/2022, 07/01/2022, Additional history exists Diabetic Foot Exam [...] Not on filedocumented as of this encounter Results * CLOSTRIDIUM DIFFICILE, PCR (06/07/2023 8:18 AM EDT) Stool Consistency Semi-liquid 06/07/2023 2:33 PM EDT [facility] Clostridium difficile Result Negative. No C. difficile toxin B gene DNA detected by PCR (Amplified Probe). Negative 06/07/2023 2:33 PM EDT [facility] Stool Stool specimen / Unknown Non-blood Collection / Unknown 06/07/2023 8:18 AM EDT 06/07/2023 8:18 AM EDT Wendi Love DO LAB MICRO - GENERAL ORDERABLES [facility] [address] [place] [address] documented in this encounter Visit Diagnoses Diagnosis Diarrhea of presumed infectious origin- Primary documented in this encounter Additional Health Concerns Infection Onset Date Last Indicated Resolved Time C. difficile Rule-Out 06/07/2023 06/07/20232022 2:33 PM EDT documented as of this encounter Care Teams Wrapper Hands Sprayer Relationship Specialty Start Date End Date Wendi Love[address] [place] [address] PCP - General Internal Medicine 06/07/17 documented as of this encounter
--- OUTSIDE RECORDS SUMMARY | 2023-11-13 03:44 | External Medical Summary | Summary of Care ---
Author Name Unknown Organization [facility] Address [address] [place] [address] Phone [phone] Care Team Providers Care Importer Or Exporter Name Role Phone Wendi Love Primary Care Provider [phone] Reason for Visit * Reason Onset Date Comments Advice 06/26/2023 Tongue is burnin g Encounter Details Date Type Department Care Team (Late st Contact Info) Description 06/26/2023 Telephone RN NURSE TRIAGE [address] [place] [address] Services, Scheduling [address] [place] [address] Advice (Tongue is burning ) Allergies Active Allergy Reactions Criticality Noted Date Comments No Known Drug Allergy 02/10/2009 documented as of this encounter (statuses as of 06/26/2023) Medications Medication Sig Dispensed Refills Start Date [...] as of this encounter (statuses as of 06/26/2023) Active Problems Problem Noted Date Diagnosed Date [...] to evaluate pt. Spoke with Carissa. Given [facility] number to call with update regarding whether [...] Esophageal dysmotility 08/12/2015 Prostate cancer 04/27/2015 Overview: Diboll score = 6. Radiation therapy 10/2020 due [...] as of this encounter (statuses as of 06/26/2023) Resolved Problems Problem Noted Date Diagnosed Date [...] as of this encounter (statuses as of 06/26/2023) Immunizations Name Administration Dates Next Due COVID-19 mRNA, LNP-s, No Pre serve, 2-Dose Series ([employer]) 08/03/2021,12/10/2020,11/12/2020 Covid-19, Mrna, Lnp-s, Pf, B ivalent, [...] encounter Miscellaneous Notes * Telephone Encounter - Sophie Dooley OSA - 06/26/2023 10:21 AM EDT What is the reason for call? Pt states his tongue feels like he has paste on it and gomes but no swollen What Clinic is the patient trying to reach? [facility]- [facility]: [facility] - CallType: Red Flag- route the telephone encounter as routine to employment supervisor p [phone]: Caller: patient Return Phone #: [phone] Call was routed "routine" to the [facility] nurse triage basket (p [phone]). documented in this encounter Plan of Treatment Upcoming Encounters Date Type Department Care Team (Late st Contact Info) Description 08/29/2023 8:50 AM EST Office Visit Family Medicine [address] [place] [phone] [address] [place] [address] 10/23/2023 11:20 AM EST Office Visit Rheumatology [address] [place] [phone] Akin Will MD [address] [facility] [place] [address] 04/19/2024 11:00 AM EDT Nurse Only Ancillary [address] [place] [address] Mai, Nurse [address] [place] [address] Health Maintenance Due Date Last Done Comments [...] filedocumented as of this encounter Care Teams Importer Or Exporter Relationship Specialty Start Date End Date Wendi Love DO [address] [place] [address] [place] [address] PCP - General Internal Medicine 06/07/17 documented as of this encounter
--- OUTSIDE RECORDS SUMMARY | 2023-11-13 03:45 | External Medical Summary | Summary of Care ---
Author Name Unknown Organization [facility] Address [address] [place] [address] Phone [phone] Care Team Providers Care City Carrier Name Role Phone Wendi Love DO Primary Care Provider [phone] Reason for Visit * Reason Onset Date Comments Advice 05/17/2023 Encounter Details Date Type Department Care Team Description 05/17/[address] [place] [phone] Wendi Love DO [address] [place] [address] [place] [address] Advice Allergies Active Allergy Reactions Severity Noted Date Comments No Known Drug Allergy 02/10/2009 documented as of this encounter (statuses as of 05/22/2023) Medications Medication Sig Dispensed Refills Start Date [...] at bedtime. 30 Tablet 5 04/12/2023 Active LORazepam 0.5 MG Oral Tablet (Ativan) Take 1 Tablet by mouth every night at bedtime. 30 Tablet 0 04/26/2023 Active Levothyroxine Sodium 50 MCG Oral Tablet (Levoxyl)Indications :Subclinical hypothyroidism Take 1 Tablet by mouth in the morning. In the morning.. 90 Tablet 3 05/08/2023 Active Losartan Potassium 25 MG Oral Tablet (Cozaar) Take 1 Tablet by mouth in the morning. 90 Tablet 1 05/10/2023 Active Hospital, Clinic, or Other Facility Administered Medication Ordered Dose Route Frequency Start Date End Date Status albuterol sulfate (PROVENTIL) (2.5 MG/3ML) 0.083% inhalation solution 2.5 mgIndications:COPD, moderate (HCC) 2.5 mg NEBULIZER Q4H PRN 06/20/2017 Active documented as of this encounter (statuses as of 05/22/2023) Active Problems Problem Noted Date COPD, group [...] [facility] urology JOHN (nonalcoholic steatohepatitis) 01/2015 Last Assessment & Plan: Mildly elevated ALT, continue to monitor. Other allergic rhinitis 12/28/2010 Overview: ICD-10 update of inactive term documented as of this encounter (statuses as of 05/22/2023) Resolved Problems Problem Noted Date Resolved Date [...] as of this encounter (statuses as of 05/22/2023) Immunizations Name Administration Dates Next Due COVID-19 mRNA, LNP-s, No Pre serve, 2-Dose Series ([employer]) 08/03/2021,12/10/2020,11/12/2020 Covid-19, Mrna, Lnp-s, Pf, B ivalent, [...] Encounter - Gabby Roberts RN - 05/22/2023 1:34 PM EDT Pt called me today. See other encounter. * Telephone Encounter - Gabby Roberts RN - 05/17/2023 1:06 PM EDT Pt called states he woke up today and his mouth just "feels like paste and sour taste", pt is stillon his antibiotic and he states Monday he was headed to his [facility] [place] and got this terrible abdominal cramping and then had a BM accident and had to return to home. Pt is not c/o any diarrehea now. Counseled pt sometimes GI upset can happen with antibiotics. Also counseled to try to use some mouthwash to see if that would help with the sour taste, he is to continue using the tooth brush and increasing his water. Pt also not sure if he is sleeping better or not. He does sound much better on the phone. Pt states sometimes his symptoms are better but he doesn't know what causes that, he said he will call me if symptoms are worse tomorrow. Fyi to Wendi Love DO Reason for Call: Advice Contact: Telephone Call Contact Type: Advice Outcome: see above Face to face time spent with Patient (minutes): 0 Total Time including non face to face (minutes): 20 documented in this encounter Plan of Treatment Upcoming Encounters Date Type Specialty Care Team Description 08/29/2023 Office Visit Family Medicine Wendi Love DO [address] [place] [address] [place] [phone] 10/23/2023 Office Visit Rheumatology Akin Will MD [address] [facility] [place], [place] [address] 04/19/2024 Nurse Only Ancillary Mai Nurse Annual [address] [place] [address] Health Maintenance Due Date Last Done Comments Alpha-1 Antitrypsin 12/24/1961 DIABETES-EYE EXAM 12/24/1961 Hepatitis C Screening 12/24/1963 Zoster Vaccines (2 of 2) 09/28/2022 08/03/2022 HbA1c 07/29/2023 01/27/2023, 12/27, 01/26/2021, Additional history exists Albumin/Creatinine Ratio 08/03/2023 08/03/2022 TSH 11/29/2023 11/28/2022, 120 02/2022, 07/01/2022, Additional [...] filedocumented as of this encounter Care Teams City Carrier Relationship Specialty Start Date End Date Wendi Love, [address] [place] [address] PCP - General Internal Medicine 06/07/17 documented as of this encounter
--- NOTE | 2023-11-13 04:03 | Emergency Department Note ---
Impression & Plan Acute GI bleeding, Dry mouth, Anemia Admit to the [facility] ED Provider Note NAME: RAYSA BELLE AGE: 77 SEX: Male INFORMANT: Patient ED PROVIDER(S): Karla Haque DO CHIEF COMPLAINT: Dry mouth; right-sided low back pain PLAN: Disposition: Admit to the [facility] MEDICAL DECISION MAKING: This is a 77-year-old male patient with a chronic history of dry mouth which he has been seen here in the emergency department multiple times. Patient states the dry mouth became so bad that he is now having difficulty eating. He is not taking his medications. Patient also has some chronic right-sided hip pain and right-sided low back pain for which she had x-rays at [facility] 3 to 4 weeks ago which showed arthritis but no other acute findings. Patient describes not sleeping for the past 2 to 3 days because of the dry mouth and the low back pain. Laboratory studies show evidence of significant anemia with hemoglobin less than 8. Hemoccult testing of stool was positive for bright red blood and clots. Patient was typed and crossed for 1 unit of packed red blood cells and will be transfused. Other laboratory studies revealed no leukocytosis. Renal function tests were normal. Glucose was normal. Urinalysis was positive for trace ketones. Initially upon arrival, patient's only complaint was dry mouth. He denied any low back pain stating that the back pain had been a chronic problem and actually was not bothering him today. He was most concerned about the burning sensation in his mouth. He asked for pain medication was given a dose of IV Toradol. Patient wanted to try to eat something and was given a turkey sandwich and nick ba. Once the hemoglobin was noted to be so low, I questioned his bowel movements and he denied that they were dark in color today but states they have been in the past. He denies any bright red blood. Care/management discussed with: renal case manager and the [facility] Triage Nursing notes: Reviewed and agree with them. Vital Signs: reviewed and remarkable for hypertension Chronic Medical/Social Conditions affecting care: Chronic dry mouth Prior/ Outside/ External records reviewed: Multiple previous ER visits for dry mouth Differential Diagnosis: Medication side effects, hyponatremia, stomatitis, dehydration, lumbar strain, sciatica Diagnostics, independently interpreted by me: ECG: Sinus bradycardia at a rate of 53 with first-degree heart block and PACs Cardiac Monitoring: Sinus bradycardia at a rate of 55 Imaging studies: Portable chest x-ray: No acute pulmonary infiltrates or consolidations. There is cardiomegaly. This is per my independent interpretation. HPI: 77 year old Male arrives for evaluation of dry mouth and right-sided low back pain. Patient has had a long history of dry mouth which has been seen here in the ER. Patient states that the symptoms have worsened over the past 2 to 3 days to the point he is unable to eat or take his medications. He is not sleeping. Patient developed right-sided low back pain and right hip pain approximately 3 to 4 weeks ago. At that time, he was seen by his PCP and x-rays were performed at [facility] which she describes as unremarkable except for arthritis. Patient describes being at [facility] 2 weeks ago because his urine was dribbling. This has since resolved. PAST MEDICAL HISTORY: See Below, PAST SURGICAL HISTORY: See Below, SOCIAL HISTORY: See Below, HOME MEDICATIONS: See list ALLERGIES: None VITALS: See Below PHYSICAL EXAMINATION: HEENT: Head - normocephalic and atraumatic. Pupils are equal, round, and reactive to light. Extraocular eye muscles are intact, and sclera are anicteric. Nose - moist nasal mucosa without discharge. Mouth - moist buccal mucosa. Oropharynx is nonerythematous and there is no tonsillar exudate or edema noted. Neck: Supple; no cervical lymphadenopathy noted Heart: Bradycardic rate and regular rhythm. There is a normal S1 and S2 with no murmurs, clicks, or gallops appreciated. Lungs: Clear to auscultation bilaterally with no wheezes, rales, or rhonchi. Abdomen: Soft, completely nontender, nondistended, with good bowel sounds. There are no palpable pulsatile masses or hepatosplenomegaly. There is no guarding, rigidity, or rebound noted. Extremities: No evidence of cyanosis, clubbing, or edema. There are easily palpable peripheral pulses. Skin: Pale, warm and dry with good turgor and no rashes. Back: The patient has reproducible discomfort with palpation over the right posterior superior iliac spine. Has a mild discomfort over the right piriformis muscle. Emergency department treatment: monitoring tech, IV normal saline bolus, IV Toradol, IV packed red blood cell transfusion Emergency department course: The patient was evaluated in room A-11. A complete history and physical was performed. An order was placed for continuous cardiac monitoring. The patient was in a sinus bradycardia at a rate of 55. A twelve- lead EKG was obtained as described above. Portable chest x-ray was performed as described above. Rectal exam was performed. The patient was typed and crossed for packed red blood cells. He was consented and transfused with blood. I have personally spent greater than 45 minutes of critical care time in the direct management of this patient. This includes bedside care, interpretation of diagnostic studies, and testing, discussion with consultants, patient, and family members, and other required patient management activities. This 45 minutes is in excess of all separately billable procedures. Past Med/Surg History Medical History Hyponatremia Lightheadedness Xerostomia DVT prophylaxis Hyponatremia MRSA (methicillin resistant Staphylococcus aureus) Allergic rhinitis Degenerative disc disease Osteoarthritis Prostate cancer (04/21/15) Rising PSA level Depression Renal calculus GERD (gastroesophageal reflux disease) BPH (benign prostatic hyperplasia) HTN (hypertension) Anemia Insomnia Chronic back pain Surgical History H/O prostatectomy 10/03/17 Dr. Duran H/O esophagogastroduodenoscopy H/O sinus surgery H/O adenoidectomy Hx of tonsillectomy H/O colonoscopy History of cystoscopy Hx of appendectomy Family History Mother , 75yo Myocardial infarction Father , 74yo Myocardial infarction Liver disease "Drank too much beer" Brother Prostate cancer Brother Myocardial infarction Brother Suicide Brother Accident Sister Cancer Sister Natural with unknown cause Son No problems noted. Son Hypertension Other Family history non-contributory Social History Smoking Status: Former smoker Second Hand Exposure: No; Do You Dip or Chew Tobacco: No; Hx Alcohol Use: Yes Alcohol type: beer Hx Substance Use: No Preferred Language: Cypriot Communication Ability: Effective Visual Impairment: No Limitations Hearing Ability: Normal Wastewater Design Engineer Required: No Beliefs That Will Affect Care: None marital status: / Current Living Situation: Alone current occupational status: retired Other Information That Helps Us Care for You: No Feels Safe at Home: Yes Safety Concerns: Feels Safe At This Time Diet: regular caffeine: Yes (3 cups/day) during the past year weight has: remained stable Assistive Devices: Cane Allergies Allergies Allergy/AdvReac Type Severity Reaction Status Date / Time No Known Allergies Allergy Verified 01/10/22 02:31 Home Meds Home Medications Medication Instructions Recorded Confirmed albuterol sulfate 2.5 mg/3 mL 2.5 mg inhalation Q4H PRN sob 11/13/23 11/13/23 (0.083 %) solution for nebulization albuterol sulfate 90 mcg/actuation 2 puff inhalation Q6H PRN sob 11/13/23 11/13/23 aerosol inhaler (Proventil HFA) alpha lipoic acid 200 mg capsule 200 mg PO DAILY 11/13/23 11/13/23 amlodipine 5 mg tablet 5 mg PO DAILY 11/13/23 11/13/23 aspirin 81 mg tablet,delayed 81 mg PO DAILY 11/13/23 11/13/23 release cevimeline 30 mg capsule 30 mg PO TID 11/13/23 11/13/23 iron,carbonyl 65 mg-vitamin C 125 1 tab PO HS 11/13/23 11/13/23 mg tablet,delayed release (Vitron-C) levothyroxine 50 mcg tablet 50 mcg PO DAILY 11/13/23 11/13/23 lorazepam 0.5 mg tablet 0.5 mg PO HS 11/13/23 11/13/23 losartan 25 mg tablet 25 mg PO DAILY 11/13/23 11/13/23 losartan 50 mg tablet 50 mg PO DAILY 11/13/23 11/13/23 metformin 500 mg tablet,extended 500 mg PO DAILY 11/13/23 11/13/23 release 24 hr mirtazapine 15 mg tablet 15 mg PO HS 11/13/23 11/13/23 [id number] acid 0.4 1 tab PO DAILY 11/13/23 11/13/23 mg-lycopene 300 mcg-lutein 250 mcg tablet (CertaVite Senior) oxycodone 5 mg tablet 0.25 mg PO DAILY PRN Pain 11/13/23 11/13/23 pantoprazole 20 mg tablet,delayed 20 mg PO DAILY 11/13/23 11/13/23 release ramelteon 8 mg tablet 8 mg PO HS 11/13/23 11/13/23 tamsulosin 0.4 mg capsule 0.4 mg PO DAILY 11/13/23 11/13/23 zolpidem 5 mg tablet 5 mg PO HS 11/13/23 11/13/23 Results & Data (ED) Vital Signs Vital Signs - 24 hr 11/13/23 03:37 Temperature 36.9 C Temperature Source Oral Pulse Rate 59 L Respiratory Rate 12 Respiratory Effort / Characteristics Non-Labored Respiratory Depth Normal Blood Pressure 182/91 H Blood Pressure Mean 121 Pulse Oximetry 100 Oxygen Delivery Method Room Air Sepsis Recent Fever Within 48 Hours No Sepsis New/Unexplained Change in Mental Status No Sepsis Action Taken by Nursing No Action Required Laboratory Data 11/14/23 05:39 11/14/23 05:39 Lab Results 11/13/23 11/13/23 11/13/23 Range/Units 04:07 04:25 04:55 WBC Cancelled 4.03 L RBC Cancelled 3.35 L Hgb Cancelled 7.8 L Hct Cancelled 25.3 L MCV Cancelled 75.5 L MCH Cancelled 23.3 L MCHC Cancelled 30.8 L RDW Std Deviation Cancelled 48.8 H RDW Coeff of Thanh Cancelled 18.0 H Plt Count Cancelled 154 MPV Cancelled 9.4 Immature Gran % (Auto) Cancelled 0.2 Neut % (Auto) Cancelled 77.3 Lymph % (Auto) Cancelled 13.9 [place] % (Auto) Cancelled 7.7 Eos % (Auto) Cancelled 0.7 Baso % (Auto) Cancelled 0.2 Neut # (Auto) Cancelled 3.11 Lymph # (Auto) Cancelled 0.56 L [place] # (Auto) Cancelled 0.31 Eos # (Auto) Cancelled 0.03 Baso # (Auto) Cancelled 0.01 Immature Gran # (Auto) Cancelled 0.01 Absolute Nucleated RBC Cancelled Nucleated RBC % (auto) Cancelled Neutrophils % (Manual) Cancelled Band Neutrophils % Cancelled Lymphocytes % (Manual) Cancelled Prolymphocyte % Cancelled Reactive Lymphs % (Man) Cancelled Monocytes % (Manual) Cancelled Eosinophils % (Manual) Cancelled Basophils % (Manual) Cancelled Metamyelocytes % (Man) Cancelled Myelocytes % (Man) Cancelled Promyelocytes % (Man) Cancelled Blast Cells % (Manual) Cancelled Plasma Cell % (Manual) Cancelled Other Cells % Cancelled Nucleated RBC % Cancelled Neutrophils # (Manual) Cancelled Band Neutrophils # Cancelled Total Absolute Neuts Cancelled Lymphocytes # (Manual) Cancelled Prolymphocyte # Cancelled Reactive Lymphs # Cancelled Total Abs Lymphocytes Cancelled Monocytes # (Manual) Cancelled Eosinophils # (Manual) Cancelled Basophils # (Manual) Cancelled Metamyelocytes # (Man) Cancelled Myelocytes # (Manual) Cancelled Promyelocytes # (Man) Cancelled Blast Cells # (Man) Cancelled Plasma Cell # (Manual) Cancelled Other Cells # Cancelled Nucleated RBCs # (Man) Cancelled Hypersegmented Neuts Cancelled Hyposegmented Neuts Cancelled Hypogranular Neuts Cancelled Large Granular Lymphs Cancelled # Lrg Granular Lymphs Cancelled Hairy Cells Cancelled Smudge Cells Cancelled Toxic Granulation Cancelled Toxic Vacuolation Cancelled Dohle Bodies Cancelled Amy Rods Cancelled Platelet Estimate Cancelled Hypogranular Platelets Cancelled Giant Platelets Cancelled Platelet Satelliting Cancelled RBC Morphology Cancelled Unremarkable Polychromasia Cancelled Hypochromasia Cancelled Poikilocytosis Cancelled Basophilic Stippling Cancelled Anisocytosis Cancelled Microcytosis Cancelled Macrocytosis Cancelled Spherocytes Cancelled Pappenheimer Bodies Cancelled Sickle Cells Cancelled Target Cells Cancelled Tear Drop Cells Cancelled Ovalocytes Cancelled Stomatocytes Cancelled [place] Bodies Cancelled Echinocytes Cancelled Acanthocytes (Spur) Cancelled Rouleaux Cancelled RBC Agglutinates Cancelled Schistocytes Cancelled Sezary Cell Cancelled Sodium 134 L (136-145) mmol/L Potassium 3.6 (3.5-5.1) mmol/L Chloride 100 (98-107) mmol/L Carbon Dioxide 26 (21-32) mmol/L Anion Gap 8 (3-11) BUN 18 (6-23) mg/dl Creatinine 0.77 (0.6-1.4) mg/dl Est Cr Clr Drug Dosing 85.2 ml/min Est GFR ( Amer) 100.0 ml/min Est GFR (Non-Af Amer) 86.3 ml/min BUN/Creatinine Ratio 23.4 H (10-20) Glucose 112 H (70-99(Fasting)) mg/dl Calcium 9.2 (8.6-10.3) mg/dl Total Bilirubin 0.6 (0.2-1.0) mg/dl AST 28 (13-39) U/L ALT 22 (7-52) U/L Alkaline Phosphatase 93 (34-104) U/L Total Protein 7.5 (6.0-8.3) gm/dl Albumin 4.5 (3.4-5.0) gm/dl Globulin 3.0 (2.5-4.0) gm/dl Albumin/Globulin Ratio 1.5 (0.9-2) TSH 1.882 (0.300-4.500) uIu/ml Urine Color Yellow Urine Appearance Clear (Clear) Urine pH 6.0 (4.5-7.5) Ur Specific [place] 1.014 (1.000-1.030) Urine Protein Negative (Negative) Urine Glucose (UA) Negative (Negative) Urine Ketones Trace H (Negative) Urine Blood Negative (Negative) Urine Nitrite Negative (Negative) Urine Bilirubin Negative (Negative) Urine Urobilinogen Negative (Negative) Ur Leukocyte Esterase Negative (Negative) Blood Parasites ID Cancelled Blood Type Antibody Screen Crossmatch 11/13/23 Range/Units 06:05 WBC RBC Hgb Hct MCV MCH MCHC RDW Std Deviation RDW Coeff of Thanh Plt Count MPV Immature Gran % (Auto) Neut % (Auto) Lymph % (Auto) [place] % (Auto) Eos % (Auto) Baso % (Auto) Neut # (Auto) Lymph # (Auto) [place] # (Auto) Eos # (Auto) Baso # (Auto) Immature Gran # (Auto) Absolute Nucleated RBC Nucleated RBC % (auto) Neutrophils % (Manual) Band Neutrophils % Lymphocytes % (Manual) Prolymphocyte % Reactive Lymphs % (Man) Monocytes % (Manual) Eosinophils % (Manual) Basophils % (Manual) Metamyelocytes % (Man) Myelocytes % (Man) Promyelocytes % (Man) Blast Cells % (Manual) Plasma Cell % (Manual) Other Cells % Nucleated RBC % Neutrophils # (Manual) Band Neutrophils # Total Absolute Neuts Lymphocytes # (Manual) Prolymphocyte # Reactive Lymphs # Total Abs Lymphocytes Monocytes # (Manual) Eosinophils # (Manual) Basophils # (Manual) Metamyelocytes # (Man) Myelocytes # (Manual) Promyelocytes # (Man) Blast Cells # (Man) Plasma Cell # (Manual) Other Cells # Nucleated RBCs # (Man) Hypersegmented Neuts Hyposegmented Neuts Hypogranular Neuts Large Granular Lymphs # Lrg Granular Lymphs Hairy Cells Smudge Cells Toxic Granulation Toxic Vacuolation Dohle Bodies Amy Rods Platelet Estimate Hypogranular Platelets Giant Platelets Platelet Satelliting RBC Morphology Polychromasia Hypochromasia Poikilocytosis Basophilic Stippling Anisocytosis Microcytosis Macrocytosis Spherocytes Pappenheimer Bodies Sickle Cells Target Cells Tear Drop Cells Ovalocytes Stomatocytes [place]ondon-[place] Bodies Echinocytes Acanthocytes (Spur) Rouleaux RBC Agglutinates Schistocytes Sezary Cell Sodium (136-145) mmol/L Potassium (3.5-5.1) mmol/L Chloride (98-107) mmol/L Carbon Dioxide (21-32) mmol/L Anion Gap (3-11) BUN (6-23) mg/dl Creatinine (0.6-1.4) mg/dl Est Cr Clr Drug Dosing ml/min Est GFR ( Amer) ml/min Est GFR (Non-Af Amer) ml/min BUN/Creatinine Ratio (10-20) Glucose (70-99(Fasting)) mg/dl Calcium (8.6-10.3) mg/dl Total Bilirubin (0.2-1.0) mg/dl AST (13-39) U/L ALT (7-52) U/L Alkaline Phosphatase (34-104) U/L Total Protein (6.0-8.3) gm/dl Albumin (3.4-5.0) gm/dl Globulin (2.5-4.0) gm/dl Albumin/Globulin Ratio (0.9-2) TSH (0.300-4.500) uIu/ml Urine Color Urine Appearance (Clear) Urine pH (4.5-7.5) Ur Specific [place] (1.000-1.030) Urine Protein (Negative) Urine Glucose (UA) (Negative) Urine Ketones (Negative) Urine Blood (Negative) Urine Nitrite (Negative) Urine Bilirubin (Negative) Urine Urobilinogen (Negative) Ur Leukocyte Esterase (Negative) Blood Parasites ID Blood Type O Positive Antibody Screen NEGATIVE Crossmatch See Detail Administered Medications Acetaminophen (Acetaminophen 325 Mg Tab) 650 mg PO Q4H PRN PRN Reason: Pain or Fever Stop: 12/13/23 07:13 Last Admin: 11/14/23 14:09 Dose: 650 mg Documented By: CECELIA Amlodipine Besylate (Amlodipine Besylate 5 Mg Tab) 5 mg PO DAILY [facility] Stop: 12/13/23 08:59 Last Admin: 11/14/23 12:23 Dose: 5 mg Documented By: Admin: 11/13/23 09:44 Dose: 5 mg Documented By: TRUDI Cevimeline HCl (Cevimeline Hcl) 1 each PO TID EVANGELINA Stop: 12/13/23 20:59 Last Admin: 11/14/23 14:07 Dose: 1 each Documented By: Admin: 11/14/23 14:05 Dose: Not Given Documented By: Admin: 11/13/23 20:20 Dose: 1 each Documented By: SANDRA Pantoprazole Sodium 40 mg/ (Dextrose) 100 mls @ 20 mls/hr IV Q5H EVANGELINA Stop: 12/13/23 06:59 Last Admin: 11/14/23 14:36 Dose: 8 mg/hr, 20 mls/hr Documented By: Infusion: 11/14/23 14:36 Dose: Infused Documented By: Infusion: 11/14/23 10:35 Dose: 8 mg/hr, 20 mls/hr Documented By: Infusion: 11/14/23 08:41 Dose: 0 mg/hr, 0 mls/hr Documented By: Admin: 11/14/23 08:29 Dose: 8 mg/hr, 20 mls/hr Documented By: Infusion: 11/14/23 08:29 Dose: Infused Documented By: Admin: 11/14/23 03:46 Dose: 8 mg/hr, 20 mls/hr Documented By: Infusion: 11/14/23 03:46 Dose: Infused Documented By: Admin: 11/13/23 23:16 Dose: 8 mg/hr, 20 mls/hr Documented By: Infusion: 11/13/23 23:16 Dose: Infused Documented By: Admin: 11/13/23 17:50 Dose: 8 mg/hr, 20 mls/hr Documented By: Infusion: 11/13/23 17:50 Dose: Infused Documented By: Admin: 11/13/23 13:11 Dose: 8 mg/hr, 20 mls/hr Documented By: Infusion: 11/13/23 12:13 Dose: Infused Documented By: Admin: 11/13/23 07:13 Dose: 8 mg/hr, 20 mls/hr Documented By: KATHY Sodium Chloride (Nss) 1,000 mls @ 80 mls/hr IV .[id number] EVANGELINA Stop: 12/13/23 06:44 Last Infusion: 11/14/23 10:35 Dose: 80 mls/hr Documented By: Infusion: 11/14/23 08:41 Dose: 0 mls/hr Documented By: Admin: 11/14/23 08:29 Dose: 80 mls/hr Documented By: Infusion: 11/14/23 08:08 Dose: Infused Documented By: Admin: 11/13/23 19:38 Dose: 80 mls/hr Documented By: Infusion: 11/13/23 19:38 Dose: Infused Documented By: Admin: 11/13/23 17:51 Dose: 80 mls/hr Documented By: Infusion: 11/13/23 17:51 Dose: Infused Documented By: Admin: 11/13/23 06:47 Dose: 80 mls/hr Documented By: DAKOTA Levothyroxine Sodium (Levothyroxine Sodium 50 Mcg Tablet) 50 mcg PO DAILY EVANGELINA Stop: 12/13/23 07:44 Last Admin: 11/14/23 06:15 Dose: Not Given Documented By: Admin: 11/13/23 09:44 Dose: 50 mcg Documented By: TRUDI Lorazepam (Lorazepam 0.5 Mg Tab) 0.5 mg PO HS EVANGELINA Stop: 12/13/23 20:59 Last Admin: 11/13/23 20:20 Dose: 0.5 mg Documented By: SANDRA Losartan Potassium (Losartan Potassium 50 Mg Tab) 50 mg PO DAILY EVANGELINA Stop: 12/13/23 08:59 Last Admin: 11/14/23 12:24 Dose: 50 mg Documented By: Admin: 11/13/23 09:44 Dose: 50 mg Documented By: TRUDI Losartan Potassium (Losartan Potassium 25 Mg Tab) 25 mg PO DAILY EVANGELINA Stop: 12/13/23 08:59 Last Admin: 11/14/23 12:24 Dose: 25 mg Documented By: Admin: 11/13/23 09:44 Dose: 25 mg Documented By: TRUDI Mirtazapine (Mirtazapine Tab 15 Mg Tab) 15 mg PO HS EVANGELINA Stop: 12/13/23 20:59 Last Admin: 11/13/23 20:20 Dose: 15 mg Documented By: SANDRA Miscellaneous (Ramelteon~Order Awaiting Action) 1 each N/A QS EVANGELINA Stop: 12/13/23 07:59 Last Admin: 11/14/23 16:15 Dose: Not Given Documented By: Admin: 11/14/23 12:28 Dose: Not Given Documented By: Admin: 11/13/23 23:27 Dose: Not Given Documented By: Admin: 11/13/23 16:49 Dose: Not Given Documented By: Admin: 11/13/23 09:24 Dose: Not Given Documented By: TRUDI Multivitamins/Minerals (Cerovite Adv Formula Tab) 1 tab PO DAILY EVANGELINA Stop: 12/13/23 08:59 Last Admin: 11/14/23 12:25 Dose: 1 tab Documented By: Admin: 11/13/23 09:44 Dose: 1 tab Documented By: TRUDI Oxycodone HCl (Oxycodone Hcl Ir 5 Mg Tab (Immediate Release)) 0.25 mg PO DAILY PRN PRN Reason: Pain Stop: 11/27/23 07:13 Last Admin: 11/14/23 16:24 Dose: 0.25 mg Documented By: LELIA Tamsulosin HCl (Tamsulosin Hcl 0.4 Mg Cap) 0.4 mg PO DAILY EVANGELINA Stop: 12/13/23 08:59 Last Admin: 11/14/23 14:35 Dose: 0.4 mg Documented By: Admin: 11/13/23 09:50 Dose: 0.4 mg Documented By: TRUDI Zolpidem Tartrate (Zolpidem Tartrate 5 Mg Tab) 5 mg PO HS EVANGELINA Stop: 12/13/23 20:59 Last Admin: 11/13/23 20:20 Dose: 5 mg Documented By: SANDRA Discontinued Medications Sodium Chloride (Nss) 500 mls @ 999 mls/hr IV .Q31M ONE Stop: 11/13/23 04:27 Last Infusion: 11/13/23 04:43 Dose: Infused Documented By: Admin: 11/13/23 04:09 Dose: 999 mls/hr Documented By: GIOVANNY Pantoprazole Sodium 80 mg/ (Dextrose) 120 mls @ 480 mls/hr IV NOW ONE Stop: 11/13/23 06:56 Last Infusion: 11/13/23 07:22 Dose: Infused Documented By: Admin: 11/13/23 06:54 Dose: 480 mls/hr Documented By: DAKOTA Insulin Aspart (Insulin Aspart Per Unit Charge) 0 units SC Q6 [facility] Stop: 12/13/23 07:14 Last Admin: 11/14/23 12:51 Dose: Not Given Documented By: Admin: 11/14/23 06:37 Dose: Not Given Documented By: Admin: 11/13/23 23:27 Dose: Not Given Documented By: Admin: 11/13/23 17:50 Dose: Not Given Documented By: Admin: 11/13/23 13:11 Dose: Not Given Documented By: Admin: 11/13/23 08:45 Dose: Not Given Documented By: TRUDI Ketorolac Tromethamine (Ketorolac 30 Mg/Ml Vial) 30 mg IV NOW ONE Stop: 11/13/23 03:58 Last Admin: 11/13/23 04:13 Dose: 30 mg Documented By: GIOVANNY Lidocaine HCl (Lidocaine 2% 2 Ml Vial/Amp(20mg/Ml)) Confirm Administered Dose 4 ml INFIL .STK-MED ONE Stop: 11/14/23 09:58 Last Admin: 11/14/23 12:25 Dose: Not Given Documented By: CECELIA Miscellaneous (Cevimeline~Order Awaiting Action) 1 each N/A QS [facility] Stop: 12/13/23 07:59 Last Admin: 11/13/23 16:48 Dose: Not Given Documented By: Admin: 11/13/23 09:24 Dose: Not Given Documented By: TRUDI Propofol (Propofol Iv Emulsion 10 Mg/Ml 20 Ml Vial) Confirm Administered Dose 200 mg IV .STK-MED ONE Stop: 11/14/23 09:58 Last Admin: 11/14/23 12:25 Dose: Not Given Documented By: CECELIA Discharge Plan Visit Data Chief Complaint: Back Injury/Pain Stated Complaint: Back pain ED Provider: Karla Haque Discharge Problem: Acute GI bleeding, Dry mouth, Anemia Patient Disposition: Admitted As Inpatient Discharge Instructions Interventions: ED Discharge Assessment Last Done: 11/13/23 07:04 Discharge Problem: Anemia Qualifiers: Anemia type: unspecified type Qualified Code(s): D64.9 - Anemia, unspecified
[2023-11-13] MEDS: SODIUM CHLORIDE 0.9% 500 ML IV ONE (04:09)
[2023-11-13] MEDS: KETOROLAC 30 MG/ML VIAL IV ONE (04:13)
[2023-11-13 04:32] LABS: Appearance Urine Clear (Clear); Bilirubin Urine Negative (Negative); Blood Urine Negative (Negative); Color Urine Yellow; Glucose Urine UA Negative (Negative); Ketones Urine Trace (Negative); Leukocyte Esterase Urine Negative (Negative); Nitrite Urine Negative (Negative); Protein Urine Negative (Negative); Specific Gravity Urine 1.014 (1.000-1.030); Urobilinogen Urine Negative (Negative)
[2023-11-13 04:49] LABS: Albumin Globulin Ratio 1.5 (0.9-2); Albumin Level 4.5 gm/dl (3.4-5.0); BUN Creatinine Ratio 23.4 (10-20); Bilirubin,Total 0.6 mg/dl (0.2-1.0); Calcium 9.2 mg/dl (8.6-10.3); Creatinine Clr Calc Pharmacy 85.2 ml/min; Est GFR (Non-African American) 86.3 ml/min; Potassium 3.6 mmol/L (3.5-5.1); Total Protein 7.5 gm/dl (6.0-8.3)
[2023-11-13 05:03] LABS: Thyroid Stimulating Hormone 1.882 uIu/ml (0.300-4.500)
[2023-11-13 05:16] LABS: Basophils # (auto) 0.01 K/uL (0.00-0.20); Basophils % (auto) 0.2 %; Eosinophils # (auto) 0.03 K/uL (0.00-0.50); Eosinophils % (auto) 0.7 %; Hematocrit (blood only) 25.3 % (42.0-52.0); Hemoglobin 7.8 g/dl (14.0-18.0); Immature Granulocytes # (auto) 0.01 K/uL (0.01-0.20); Immature Granulocytes % (auto) 0.2 %; Lymphocytes # (auto) 0.56 K/uL (1.20-3.40); Lymphocytes % (auto) 13.9 %; Mean Corpuscular Hemoglobin 23.3 pg (25.0-34.0); Mean Corpuscular Hgb Conc 30.8 g/dL (32.0-36.0); Mean Corpuscular Volume 75.5 fL (80.0-100.0); Mean Platelet Volume 9.4 fL (9.4-12.4); Monocytes # (auto) 0.31 K/uL (0.11-0.59); Monocytes % (auto) 7.7 %; Neutrophils # (auto) 3.11 K/uL (1.40-6.50); Neutrophils % (auto) 77.3 %; Platelet Count 154 K/uL (130-400); RDW Standard Deviation 48.8 fL (36.4-46.3); Red Blood Count 3.35 M/uL (4.70-6.10); White Blood Count 4.03 K/ul (4.8-10.8)
[2023-11-13] MEDS ORDERED: SODIUM CHLORIDE 0.9% 250 ML IV PRN (05:37)
[2023-11-13 05:38] LABS: RBC Morphology Unremarkable
[2023-11-13] MEDS ORDERED: PANTOPRAZOLE BOLUS/DRIP IV STA (06:42)
[2023-11-13] MEDS: SODIUM CHLORIDE 0.9% 1,000 ML IV SCH (06:47)
[2023-11-13] MEDS: PANTOprazole 80 MG in DEXTROSE 5% 100 ML IV ONE (06:54)
[2023-11-13] MEDS: PANTOprazole 40 MG in DEXTROSE 5% MINI-B 100 ML IV SCH (07:13)
[2023-11-13] MEDS ORDERED: NITROGLYCERIN SL 0.4 MG/TAB TAB SL PRN (07:14)
[2023-11-13] MEDS ORDERED: GLUCOSE 40% GEL 15 GM TUBE PO PRN (07:14)
[2023-11-13] MEDS ORDERED: CARBOHYDRATES FOR HYPOGLYCEMIA PO PRN (07:14)
[2023-11-13] MEDS ORDERED: GLUCAGON FOR INJ 1 MG VIAL SQ PRN (07:14)
[2023-11-13] MEDS ORDERED: GLUCOSE 10 TAB/TUBE PO PRN (07:14)
[2023-11-13] MEDS ORDERED: ALBUTEROL HFA 8 GM INHALER INH PRN (07:14)
[2023-11-13] MEDS ORDERED: DEXTROSE 50% 50 ML SYRINGE IV PRN (07:14)
[2023-11-13] MEDS ORDERED: ALBUTEROL 0.083% NEBU SOLN 3 ML VIAL INH PRN (07:14)
--- NOTE | 2023-11-13 07:28 | XRay Report ---
SINGLE VIEW CHEST CLINICAL HISTORY: Generalized weakness. FINDINGS: 2 AP, portable, upright chest radiographs are compared to study dated 03/30/2023. Correlation is made with chest CT dated 12/16/2015. The examination is degraded by portable technique, apical forrest dotic positioning, and patient rotation. The heart is enlarged. The pulmonary vasculature is noncong ested. There is bibasilar scarring/atelectasis. The lungs and pleural spaces are otherwise clear. No pneumothorax is seen. The skeletal structures are osteopenic. The bony thorax is grossly intact. IMPRESSION: Cardiomegaly with no acute cardiopulmonary abnormality identified. ACT 112: Negative or not required by law. Electronically signed by: Adrian De Jesus M.D. 11/13/2023 7:27 AM
--- NOTE | 2023-11-13 07:57 | History & Physical Report ---
Date of Service November 13, 2023 Assessment & Plan (1) GI bleed: Plan: 77-year-old male with past medical significant for hypothyroidism, diabetes, COPD, unspecified asthma, hypertension, Marvin, esophageal dysmotility, burning mouth syndrome, dry mouth, Sjogren"s syndrome with dental involvement, GERD, history of prostate cancer, chronic pain of right knee, primary osteoarthritis of left hip, tardive dyskinesia, history of MRSA infection, depression, history of COVID presents with dry mouth and not able to eat much because of dry mouth and having back pain and found to have hemoglobin of 7.8 and Hemoccult positive in ER. Patient also states that he has had black stools on and off. Denies any abdominal pain. Denies any nausea. No chest pain or shortness of breath. Has some cough. No fevers. No headache. No blurred vision. No runny nose or sore throat. Complains of pain in the right hip region. States having difficulty micturating, having weak stream. States ambulates with a cane. Lives alone. Hemodynamics are okay. GI bleed Acute blood loss anemia Hemoccult positive in the ER Patient states he has black stools on and off Hemoglobin 7.8 Hemoglobin 10.29 August 2023 ER ordered 1 unit of PRBC Will follow H&H every 6 hours Hold aspirin Protonix drip N.p.o. IV fluids Telemetry GI consult for further recommendations Close monitor Diabetes Hold metformin Sliding scale Will monitor COPD Continue home inhalers Dry mouth Sjogren's syndrome Follows with rheumatology Will consult rheumatology once GI issues resolved Continue home medications of cevimeline BPH On Flomax States having difficulty urinating Will monitor for urine retention Hypertension On amlodipine, losartan(needs to verify losartan dose) Monitor Depression on Remeron Tardive dyskinesia Avoid medication causing tardive dyskinesia DVT prophylaxis SCDs Disposition Telemetry Full code Admission and Anticipated Discharge Date Admission Date: November 13, 2023 History of Present Illness Chief Complaint: Dry mouth, GI bleed Primary Care Provider: Wendi Love DO 77-year-old male with past medical significant for hypothyroidism, diabetes, COPD, unspecified asthma, hypertension, Marvin, esophageal dysmotility, burning mouth syndrome, dry mouth, Sjogren"s syndrome with dental involvement, GERD, history of prostate cancer, chronic pain of right knee, primary osteoarthritis of left hip, tardive dyskinesia, history of MRSA infection, depression, history of COVID presents with dry mouth and not able to eat much because of dry mouth and having back pain and found to have hemoglobin of 7.8 and Hemoccult positive in ER. Patient also states that he has had black stools on and off. Denies any abdominal pain. Denies any nausea. No chest pain or shortness of breath. Has some cough. No fevers. No headache. No blurred vision. No runny nose or sore throat. Complains of pain in the right hip region. States having difficulty micturating, having weak stream. States ambulates with a cane. Lives alone. Hemodynamics are okay. Past medical history. As mentioned above Past surgical history. Colonoscopy. Cystoscopy. EGD. EGD with biopsy. Nasal endoscopy. Radical prostate removal. Appendectomy. Tonsillectomy and adenoidectomy. Upper teeth removed. Social history. Occasional cigars. No alcohol use. No drug use. Family history. Father had arthritis. Heart disorder. Liver problems. Mother had arthritis. Heart disorder. Maternal grandmother had leukemia. Brother had diabetes. Sister had diabetes. Allergies Allergy/AdvReac Type Severity Reaction Status Date / Time No Known Allergies Allergy Verified 01/10/22 02:31 Home Medications Medication Instructions Recorded Confirmed Type albuterol sulfate 2.5 mg/3 mL 2.5 mg inhalation Q4H PRN sob 11/13/23 11/13/23 History (0.083 %) solution for nebulization albuterol sulfate 90 mcg/actuation 2 puff inhalation Q6H PRN sob 11/13/23 11/13/23 History aerosol inhaler (Proventil HFA) alpha lipoic acid 200 mg capsule 200 mg PO DAILY 11/13/23 11/13/23 History amlodipine 5 mg tablet 5 mg PO DAILY 11/13/23 11/13/23 History aspirin 81 mg tablet,delayed 81 mg PO DAILY 11/13/23 11/13/23 History release cevimeline 30 mg capsule 30 mg PO TID 11/13/23 11/13/23 History iron,carbonyl 65 mg-vitamin C 125 1 tab PO HS 11/13/23 11/13/23 History mg tablet,delayed release (Vitron-C) levothyroxine 50 mcg tablet 50 mcg PO DAILY 11/13/23 11/13/23 History lorazepam 0.5 mg tablet 0.5 mg PO HS 11/13/23 11/13/23 History losartan 25 mg tablet 25 mg PO DAILY 11/13/23 11/13/23 History losartan 50 mg tablet 50 mg PO DAILY 11/13/23 11/13/23 History metformin 500 mg tablet,extended 500 mg PO DAILY 11/13/23 11/13/23 History release 24 hr mirtazapine 15 mg tablet 15 mg PO HS 11/13/23 11/13/23 History kcpirczm-rmp-nexgm acid 0.4 1 tab PO DAILY 11/13/23 11/13/23 History mg-lycopene 300 mcg-lutein 250 mcg tablet (CertaVite Senior) oxycodone 5 mg tablet 0.25 mg PO DAILY PRN Pain 11/13/23 11/13/23 History pantoprazole 20 mg tablet,delayed 20 mg PO DAILY 11/13/23 11/13/23 History release ramelteon 8 mg tablet 8 mg PO HS 11/13/23 11/13/23 History tamsulosin 0.4 mg capsule 0.4 mg PO DAILY 11/13/23 11/13/23 History zolpidem 5 mg tablet 5 mg PO HS 11/13/23 11/13/23 History Past Med/Surg History Medical History Allergic rhinitis Anemia BPH (benign prostatic hyperplasia) Chronic back pain Degenerative disc disease Depression DVT prophylaxis GERD (gastroesophageal reflux disease) HTN (hypertension) Hyponatremia Hyponatremia Insomnia Lightheadedness MRSA (methicillin resistant Staphylococcus aureus) Osteoarthritis Prostate cancer (04/21/15) Renal calculus Rising PSA level Xerostomia Surgical History H/O adenoidectomy H/O colonoscopy H/O esophagogastroduodenoscopy H/O prostatectomy 10/03/17 Dr. Duran H/O sinus surgery History of cystoscopy Hx of appendectomy Hx of tonsillectomy Family History Mother , 75yo Myocardial infarction Father , 74yo Myocardial infarction Liver disease "Drank too much beer" Brother Prostate cancer Brother Myocardial infarction Brother Suicide Brother Accident Sister Cancer Sister Natural with unknown cause Son No problems noted. Son Hypertension Other Family history non-contributory Social History Smoking Status: Former smoker Second Hand Exposure: No; Do You Dip or Chew Tobacco: No; Hx Alcohol Use: Yes Alcohol type: beer Hx Substance Use: No Preferred Language: Portuguese Communication Ability: Effective Visual Impairment: No Limitations Hearing Ability: Normal Can Tester Required: No Beliefs That Will Affect Care: None marital status: / Current Living Situation: Alone current occupational status: retired Other Information That Helps Us Care for You: No Feels Safe at Home: Yes Safety Concerns: Feels Safe At This Time Diet: regular caffeine: Yes (3 cups/day) during the past year weight has: remained stable Assistive Devices: Cane Review of Systems Review of Systems: All systems reviewed & are unremarkable except as noted in HPI & below Physical Exam Physical Exam: General- adult Head- atraumatic Eyes- PERRL ENT- oropharynx dry Neck- supple, no JVD. Lungs- clear to auscultation no wheezing or crackles. Heart- regular rhythm; no murmur, no gallop. Abdomen- normal bowel sounds, soft, nontender, no distension Extremities- no pretibial edema, no erythema seen. Neuro- alert, oriented PERRL, EOMI; no facial palsy; no dysarthria; moves extremities. Results & Data Results & Data Vital Signs (Past 12 Hours) Vital Signs Temp Pulse Pulse Resp BP BP Pulse Ox 11/13/23 07:40 11/13/23 07:40 36.8 C 54 L 22 168/103 H 98 11/13/23 07:19 57 L 11/13/23 06:05 61 20 166/91 H 98 11/13/23 05:50 58 L 20 99 11/13/23 05:40 59 L 23 99 11/13/23 05:36 62 24 99 11/13/23 05:36 62 24 180/97 H 99 11/13/23 05:20 64 17 100 11/13/23 05:10 60 20 100 11/13/23 05:01 66 24 100 11/13/23 05:01 66 24 175/60 H 100 11/13/23 05:00 68 19 11/13/23 04:50 58 L 21 100 11/13/23 04:40 68 20 100 11/13/23 04:30 54 L 20 173/81 H 100 11/13/23 04:30 54 L 20 100 11/13/23 04:20 54 L 21 99 11/13/23 04:17 100 11/13/23 04:10 54 L 22 99 11/13/23 04:00 52 L 28 H 11/13/23 04:00 52 L 28 H 174/104 H 100 11/13/23 03:50 57 L 24 100 11/13/23 03:47 60 22 100 11/13/23 03:47 55 L 11/13/23 03:37 36.9 C 59 L 12 182/91 H 100 O2 Del Method 11/13/23 07:40 Room Air 11/13/23 07:40 Room Air 11/13/23 07:19 11/13/23 06:05 Room Air 11/13/23 05:50 11/13/23 05:40 11/13/23 05:36 11/13/23 05:36 11/13/23 05:20 11/13/23 05:10 11/13/23 05:01 11/13/23 05:01 11/13/23 05:00 11/13/23 04:50 11/13/23 04:40 11/13/23 04:30 11/13/23 04:30 11/13/23 04:20 11/13/23 04:17 Room Air 11/13/23 04:10 11/13/23 04:00 11/13/23 04:00 11/13/23 03:50 11/13/23 03:47 11/13/23 03:47 11/13/23 03:37 Room Air Diagnostic Findings Laboratory Results WBC 4.03 K/ul (4.8-10.8) L 11/13/23 04:55 RBC 3.35 M/uL (4.70-6.10) L 11/13/23 04:55 Hgb 7.8 g/dl (14.0-18.0) L 11/13/23 04:55 Hct 25.3 % (42.0-52.0) L 11/13/23 04:55 MCV 75.5 fL (80.0-100.0) L 11/13/23 04:55 MCH 23.3 pg (25.0-34.0) L 11/13/23 04:55 MCHC 30.8 g/dL (32.0-36.0) L 11/13/23 04:55 RDW Std Deviation 48.8 fL (36.4-46.3) H 11/13/23 04:55 RDW Coeff of Thanh 18.0 % (11.5-14.5) H 11/13/23 04:55 Plt Count 154 K/uL (130-400) 11/13/23 04:55 MPV 9.4 fL (9.4-12.4) 11/13/23 04:55 Immature Gran % (Auto) 0.2 % 11/13/23 04:55 Neut % (Auto) 77.3 % 11/13/23 04:55 Lymph % (Auto) 13.9 % 11/13/23 04:55 [place] % (Auto) 7.7 % 11/13/23 04:55 Eos % (Auto) 0.7 % 11/13/23 04:55 Baso % (Auto) 0.2 % 11/13/23 04:55 Neut # (Auto) 3.11 K/uL (1.40-6.50) 11/13/23 04:55 Lymph # (Auto) 0.56 K/uL (1.20-3.40) L 11/13/23 04:55 [place] # (Auto) 0.31 K/uL (0.11-0.59) 11/13/23 04:55 Eos # (Auto) 0.03 K/uL (0.00-0.50) 11/13/23 04:55 Baso # (Auto) 0.01 K/uL (0.00-0.20) 11/13/23 04:55 Immature Gran # (Auto) 0.01 K/uL (0.01-0.20) 11/13/23 04:55 Absolute Nucleated RBC Cancelled 11/13/23 04:07 Nucleated RBC % (auto) Cancelled 11/13/23 04:07 Neutrophils % (Manual) Cancelled 11/13/23 04:07 Band Neutrophils % Cancelled 11/13/23 04:07 Lymphocytes % (Manual) Cancelled 11/13/23 04:07 Prolymphocyte % Cancelled 11/13/23 04:07 Reactive Lymphs % (Man) Cancelled 11/13/23 04:07 Monocytes % (Manual) Cancelled 11/13/23 04:07 Eosinophils % (Manual) Cancelled 11/13/23 04:07 Basophils % (Manual) Cancelled 11/13/23 04:07 Metamyelocytes % (Man) Cancelled 11/13/23 04:07 Myelocytes % (Man) Cancelled 11/13/23 04:07 Promyelocytes % (Man) Cancelled 11/13/23 04:07 Blast Cells % (Manual) Cancelled 11/13/23 04:07 Plasma Cell % (Manual) Cancelled 11/13/23 04:07 Other Cells % Cancelled 11/13/23 04:07 Nucleated RBC % Cancelled 11/13/23 04:07 Neutrophils # (Manual) Cancelled 11/13/23 04:07 Band Neutrophils # Cancelled 11/13/23 04:07 Total Absolute Neuts Cancelled 11/13/23 04:07 Lymphocytes # (Manual) Cancelled 11/13/23 04:07 Prolymphocyte # Cancelled 11/13/23 04:07 Reactive Lymphs # Cancelled 11/13/23 04:07 Total Abs Lymphocytes Cancelled 11/13/23 04:07 Monocytes # (Manual) Cancelled 11/13/23 04:07 Eosinophils # (Manual) Cancelled 11/13/23 04:07 Basophils # (Manual) Cancelled 11/13/23 04:07 Metamyelocytes # (Man) Cancelled 11/13/23 04:07 Myelocytes # (Manual) Cancelled 11/13/23 04:07 Promyelocytes # (Man) Cancelled 11/13/23 04:07 Blast Cells # (Man) Cancelled 11/13/23 04:07 Plasma Cell # (Manual) Cancelled 11/13/23 04:07 Other Cells # Cancelled 11/13/23 04:07 Nucleated RBCs # (Man) Cancelled 11/13/23 04:07 Hypersegmented Neuts Cancelled 11/13/23 04:07 Hyposegmented Neuts Cancelled 11/13/23 04:07 Hypogranular Neuts Cancelled 11/13/23 04:07 Large Granular Lymphs Cancelled 11/13/23 04:07 # Lrg Granular Lymphs Cancelled 11/13/23 04:07 Hairy Cells Cancelled 11/13/23 04:07 Smudge Cells Cancelled 11/13/23 04:07 Toxic Granulation Cancelled 11/13/23 04:07 Toxic Vacuolation Cancelled 11/13/23 04:07 Dohle Bodies Cancelled 11/13/23 04:07 Amy Rods Cancelled 11/13/23 04:07 Platelet Estimate Cancelled 11/13/23 04:07 Hypogranular Platelets Cancelled 11/13/23 04:07 Giant Platelets Cancelled 11/13/23 04:07 Platelet Satelliting Cancelled 11/13/23 04:07 RBC Morphology Unremarkable 11/13/23 04:55 Polychromasia Cancelled 11/13/23 04:07 Hypochromasia Cancelled 11/13/23 04:07 Poikilocytosis Cancelled 11/13/23 04:07 Basophilic Stippling Cancelled 11/13/23 04:07 Anisocytosis Cancelled 11/13/23 04:07 Microcytosis Cancelled 11/13/23 04:07 Macrocytosis Cancelled 11/13/23 04:07 Spherocytes Cancelled 11/13/23 04:07 Pappenheimer Bodies Cancelled 11/13/23 04:07 Sickle Cells Cancelled 11/13/23 04:07 Target Cells Cancelled 11/13/23 04:07 Tear Drop Cells Cancelled 11/13/23 04:07 Ovalocytes Cancelled 11/13/23 04:07 Stomatocytes Cancelled 11/13/23 04:07 Rondon-Salyer Bodies Cancelled 11/13/23 04:07 Echinocytes Cancelled 11/13/23 04:07 Acanthocytes (Spur) Cancelled 11/13/23 04:07 Rouleaux Cancelled 11/13/23 04:07 RBC Agglutinates Cancelled 11/13/23 04:07 Schistocytes Cancelled 11/13/23 04:07 Sezary Cell Cancelled 11/13/23 04:07 Sodium 134 mmol/L (136-145) L 11/13/23 04:07 Potassium 3.6 mmol/L (3.5-5.1) 11/13/23 04:07 Chloride 100 mmol/L (98-107) 11/13/23 04:07 Carbon Dioxide 26 mmol/L (21-32) 11/13/23 04:07 Anion Gap 8 (3-11) 11/13/23 04:07 BUN 18 mg/dl (6-23) 11/13/23 04:07 Creatinine 0.77 mg/dl (0.6-1.4) 11/13/23 04:07 Est Cr Clr Drug Dosing 85.2 ml/min 11/13/23 04:07 Est GFR ( Amer) 100.0 ml/min 11/13/23 04:07 Est GFR (Non-Af Amer) 86.3 ml/min 11/13/23 04:07 BUN/Creatinine Ratio 23.4 (10-20) H 11/13/23 04:07 Glucose 112 mg/dl (70-99(Fasting)) H 11/13/23 04:07 Calcium 9.2 mg/dl (8.6-10.3) 11/13/23 04:07 Total Bilirubin 0.6 mg/dl (0.2-1.0) 11/13/23 04:07 AST 28 U/L (13-39) 11/13/23 04:07 ALT 22 U/L (7-52) 11/13/23 04:07 Alkaline Phosphatase 93 U/L (34-104) 11/13/23 04:07 Total Protein 7.5 gm/dl (6.0-8.3) 11/13/23 04:07 Albumin 4.5 gm/dl (3.4-5.0) 11/13/23 04:07 Globulin 3.0 gm/dl (2.5-4.0) 11/13/23 04:07 Albumin/Globulin Ratio 1.5 (0.9-2) 11/13/23 04:07 TSH 1.882 uIu/ml (0.300-4.500) 11/13/23 04:07 Urine Color Yellow 11/13/23 04:25 Urine Appearance Clear (Clear) 11/13/23 04:25 Urine pH 6.0 (4.5-7.5) 11/13/23 04:25 Ur Specific [place] 1.014 (1.000-1.030) 11/13/23 04:25 Urine Protein Negative (Negative) 11/13/23 04:25 Urine Glucose (UA) Negative (Negative) 11/13/23 04:25 Urine Ketones Trace (Negative) H 11/13/23 04:25 Urine Blood Negative (Negative) 11/13/23 04:25 Urine Nitrite Negative (Negative) 11/13/23 04:25 Urine Bilirubin Negative (Negative) 11/13/23 04:25 Urine Urobilinogen Negative (Negative) 11/13/23 04:25 Ur Leukocyte Esterase Negative (Negative) 11/13/23 04:25 Blood Parasites ID Cancelled 11/13/23 04:07 Blood Type O Positive 11/13/23 06:05 Blood Type Recheck O Positive 11/13/23 07:14 Antibody Screen NEGATIVE 11/13/23 06:05 Crossmatch See Detail 11/13/23 06:05 Impressions Chest X-Ray 11/13/23 03:57 SINGLE VIEW CHEST CLINICAL HISTORY: Generalized weakness. FINDINGS: 2 AP, portable, upright chest radiographs are compared to study dated 03/30/2023. Correlation is made with chest CT dated 12/16/2015. The examination is degraded by portable technique, apical lordotic positioning, and patient rotation. The heart is enlarged. The pulmonary vasculature is noncongested. There is bibasilar scarring/atelectasis. The lungs and pleural spaces are otherwise clear. No pneumothorax is seen. The skeletal structures are osteopenic. The bony thorax is grossly intact. IMPRESSION: Cardiomegaly with no acute cardiopulmonary abnormality identified. ACT 112: Negative or not required by law. Electronically signed by: Adrian De Jesus M.D. 11/13/2023 7:27 AM ECG Additional Comments: ECG. Sinus bradycardia with PACs at a rate of 53. No acute ST changes seen. Code Status & VTE Plan VTE Prophylaxis Plan VTE Prophylaxis will be ordered: Yes
--- NOTE | 2023-11-13 08:42 | Gastrointestinal Consultation ---
Date of Consultation November 13, 2023 Assessment & Plan (1) Fecal occult blood test positive: Pt is a 77 yo male seen for anemia, fobt +, ? melena. - NPO for EGD today - Monitor blood ct and transfuse for goal Hgb >7 - Further GI recs after EGD completed - Anemia workup Supervising Physician Co-Signing Physician Notes I saw and evaluated the patient. Patient is somewhat of a poor historian. Plan on doing an upper endoscopy today as there was a question of melena as an outpatient. Fortunately the patient did have a sandwich earlier this morning while in the emergency room. Given this we will plan to do the patient's upper endoscopy at next available which will be on Monday a.m. Recommendations n.p.o., Protonix drip, avoid nonsteroidals, avoid anticoagulation History of Present Illness Reason for Consultation: GI bleeding Requesting Physician: Dr. Ishan Martin Attending Physician: Dr. Laura Padron History of Present Illness 77-year-old male with past medical as noted below seen for possible GI bleed. He presented w dry mouth symptoms and c/o back pain. On eval, found be anemia w Hgb of 7.8. He also noticed black stools intermittently and tested FOBT positive. BUN/Cr normal. He denies any light headedness, dizziness, CP, SOB, abd pain ,n/v otherwise. He denies any blood thinners, NSAIDs. Does take baby ASA. Denies ETOH, tobacco, marijuana. Hx of EGD, colonoscopy - unable to access records. Allergies Allergy/AdvReac Type Severity Reaction Status Date / Time No Known Allergies Allergy Verified 01/10/22 02:31 Home Medications Medication Instructions Recorded Confirmed Type albuterol sulfate 2.5 mg/3 mL 2.5 mg inhalation Q4H PRN sob 11/13/23 11/13/23 History (0.083 %) solution for nebulization albuterol sulfate 90 mcg/actuation 2 puff inhalation Q6H PRN sob 11/13/23 11/13/23 History aerosol inhaler (Proventil HFA) alpha lipoic acid 200 mg capsule 200 mg PO DAILY 11/13/23 11/13/23 History amlodipine 5 mg tablet 5 mg PO DAILY 11/13/23 11/13/23 History aspirin 81 mg tablet,delayed 81 mg PO DAILY 11/13/23 11/13/23 History release cevimeline 30 mg capsule 30 mg PO TID 11/13/23 11/13/23 History iron,carbonyl 65 mg-vitamin C 125 1 tab PO HS 11/13/23 11/13/23 History mg tablet,delayed release (Vitron-C) levothyroxine 50 mcg tablet 50 mcg PO DAILY 11/13/23 11/13/23 History lorazepam 0.5 mg tablet 0.5 mg PO HS 11/13/23 11/13/23 History losartan 25 mg tablet 25 mg PO DAILY 11/13/23 11/13/23 History losartan 50 mg tablet 50 mg PO DAILY 11/13/23 11/13/23 History metformin 500 mg tablet,extended 500 mg PO DAILY 11/13/23 11/13/23 History release 24 hr mirtazapine 15 mg tablet 15 mg PO HS 11/13/23 11/13/23 History fzedpihx-dzc-cbbpq acid 0.4 1 tab PO DAILY 11/13/23 11/13/23 History mg-lycopene 300 mcg-lutein 250 mcg tablet (CertaVite Senior) oxycodone 5 mg tablet 0.25 mg PO DAILY PRN Pain 11/13/23 11/13/23 History pantoprazole 20 mg tablet,delayed 20 mg PO DAILY 11/13/23 11/13/23 History release ramelteon 8 mg tablet 8 mg PO HS 11/13/23 11/13/23 History tamsulosin 0.4 mg capsule 0.4 mg PO DAILY 11/13/23 11/13/23 History zolpidem 5 mg tablet 5 mg PO HS 11/13/23 11/13/23 History Patient History Medical History Hyponatremia Lightheadedness Xerostomia DVT prophylaxis Hyponatremia MRSA (methicillin resistant Staphylococcus aureus) Allergic rhinitis Degenerative disc disease Osteoarthritis Prostate cancer (04/21/15) Rising PSA level Depression Renal calculus GERD (gastroesophageal reflux disease) BPH (benign prostatic hyperplasia) HTN (hypertension) Anemia Insomnia Chronic back pain Surgical History H/O prostatectomy 10/03/17 Dr. Duran H/O esophagogastroduodenoscopy H/O sinus surgery H/O adenoidectomy Hx of tonsillectomy H/O colonoscopy History of cystoscopy Hx of appendectomy Family History Mother , 75yo Myocardial infarction Father , 74yo Myocardial infarction Liver disease "Drank too much beer" Brother Prostate cancer Brother Myocardial infarction Brother Suicide Brother Accident Sister Cancer Sister Natural with unknown cause Son No problems noted. Son Hypertension Other Family history non-contributory Social History Smoking Status: Former smoker Second Hand Exposure: No; Do You Dip or Chew Tobacco: No; Hx Alcohol Use: Yes Alcohol type: beer Hx Substance Use: No Preferred Language: Azeri Communication Ability: Effective Visual Impairment: No Limitations Hearing Ability: Normal Group Fitness Department Head Required: No Beliefs That Will Affect Care: None marital status: / Current Living Situation: Alone current occupational status: retired Other Information That Helps Us Care for You: No Feels Safe at Home: Yes Safety Concerns: Feels Safe At This Time Diet: regular caffeine: Yes (3 cups/day) during the past year weight has: remained stable Assistive Devices: Cane Review of Systems Review of Systems: All systems reviewed & are unremarkable except as noted in HPI & below Physical Exam Constitutional: WD/WN, vitals as above well groomed, cooperative and comfortable Eyes: PERRL, conjunctivae normal, anicteric sclerae ENMT: external ear and nose normal, oropharynx normal Respiratory: normal respiratory effort, lungs clear to auscultation Cardiovascular: RRR, no murmur, no edema Gastrointestinal (Abdomen): normal bowel sounds, soft, nontender, no hepatosplenomegaly Skin: no rashes, warm and dry no jaundice Psychiatric: A+Ox3, euthymic affect Lymphatic: no lymphedema Results & Data Vital Signs (Past 12 Hours) Vital Signs Temp Pulse Pulse Resp BP BP Pulse Ox 11/13/23 08:30 36.6 C 53 L 20 178/86 H 99 11/13/23 08:15 55 L 24 175/89 H 99 11/13/23 08:14 36.4 C L 55 L 24 181/93 H 99 11/13/23 08:11 55 L 22 99 03/18/24 08:00 54 L 25 H 99 11/13/23 07:45 57 L 27 H 98 11/13/23 07:40 11/13/23 07:40 36.8 C 54 L 22 168/103 H 98 11/13/23 07:39 55 L 21 168/103 H 99 11/13/23 07:30 55 L 27 H 98 11/13/23 07:19 57 L 11/13/23 07:15 58 L 28 H 98 11/13/23 07:00 54 L 21 98 11/13/23 06:05 61 20 166/91 H 98 11/13/23 05:50 58 L 20 99 11/13/23 05:40 59 L 23 99 11/13/23 05:36 62 24 99 11/13/23 05:36 62 24 180/97 H 99 11/13/23 05:20 64 17 100 11/13/23 05:10 60 20 100 11/13/23 05:01 66 24 100 11/13/23 05:01 66 24 175/60 H 100 11/13/23 05:00 68 19 11/13/23 04:50 58 L 21 100 11/13/23 04:40 68 20 100 11/13/23 04:30 54 L 20 173/81 H 100 11/13/23 04:30 54 L 20 100 11/13/23 04:20 54 L 21 99 11/13/23 04:17 100 11/13/23 04:10 54 L 22 99 11/13/23 04:00 52 L 28 H 11/13/23 04:00 52 L 28 H 174/104 H 100 11/13/23 03:50 57 L 24 100 11/13/23 03:47 60 22 100 11/13/23 03:47 55 L 11/13/23 03:37 36.9 C 59 L 12 182/91 H 100 O2 Del Method O2 Flow Rate 11/13/23 08:30 0 11/13/23 08:15 Room Air 11/13/23 08:14 11/13/23 08:11 11/13/23 08:00 11/13/23 07:45 11/13/23 07:40 Room Air 11/13/23 07:40 Room Air 11/13/23 07:39 11/13/23 07:30 03/18/24 07:19 11/13/23 07:15 11/13/23 07:00 11/13/23 06:05 Room Air 11/13/23 05:50 11/13/23 05:40 11/13/23 05:36 11/13/23 05:36 11/13/23 05:20 11/13/23 05:10 11/13/23 05:01 11/13/23 05:01 11/13/23 05:00 11/13/23 04:50 11/13/23 04:40 11/13/23 04:30 11/13/23 04:30 11/13/23 04:20 11/13/23 04:17 Room Air 11/13/23 04:10 11/13/23 04:00 11/13/23 04:00 11/13/23 03:50 11/13/23 03:47 11/13/23 03:47 11/13/23 03:37 Room Air
[2023-11-13] MEDS: INSULIN ASPART PER UNIT CHARGE SC SCH (08:45)
--- NOTE | 2023-11-13 09:02 | Electrocardiogram Report ---
Test Reason : Blood Pressure : / mmHG Vent. Rate : 053 BPM Atrial Rate : 053 BPM P-R Int : 200 ms QRS Dur : 104 ms QT Int : 408 ms P-R-T Axes : -24 002 038 degrees QTc Int : 382 ms Sinus bradycardia with Premature atrial complexes 1st degree AV block Otherwise normal ECG When compared with ECG of 30-MAR-2023 08:10, Premature atrial complexes are now Present Vent. rate has decreased BY 28 BPM QT has shortened Confirmed by Robbin Balderas ([id number]) on 11/13/2023 9:01:41 AM Referred By: REFERRED SELF Confirmed By:Goldy Balderas
[2023-11-13] MEDS: CEVIMELINE~ORDER AWAITING ACTION SCH (09:24)
[2023-11-13] MEDS: LOSARTAN POTASSIUM 25 MG TAB PO SCH (09:44)
[2023-11-13] MEDS: LEVOTHYROXINE SODIUM 50 MCG TABLET PO SCH (09:44)
[2023-11-13] MEDS: amLODIPine BESYLATE 5 MG TAB PO SCH (09:44)
[2023-11-13] MEDS: CEROVITE ADV FORMULA TAB PO SCH (09:44)
[2023-11-13] MEDS: LOSARTAN POTASSIUM 50 MG TAB PO SCH (09:44)
[2023-11-13] MEDS: TAMSULOSIN HCL 0.4 MG CAP PO SCH (09:50)
--- NOTE | 2023-11-13 12:51 | Communication Note ---
Date of Service: November 13, 2023 Patient seen and examined Poor historian Per RN, patient had reported eating earlier and GI postponed EGD to tomorrow Patient reports dry mouth Patient got 1 pRBC I called patient's son and updated him. I also asked him to bring patient's cevimeline and ramelton Other plans as detailed in H/P this AM
[2023-11-13 13:20] LABS: Hematocrit (blood only) 32.7 % (42.0-52.0); Hemoglobin 10.6 g/dl (14.0-18.0)
[2023-11-13 17:18] LABS: Hematocrit (blood only) 32.3 % (42.0-52.0); Hemoglobin 10.2 g/dl (14.0-18.0)
[2023-11-13] MEDS: MIRTAZAPINE TAB 15 MG TAB PO SCH (20:20)
[2023-11-13] MEDS: ZOLPIDEM TARTRATE 5 MG TAB PO SCH (20:20)
[2023-11-13] MEDS: LORazepam 0.5 MG TAB PO SCH (20:20)
[2023-11-13] MEDS: CEVIMELINE HCL PO SCH (20:20)
[2023-11-13] MEDS ORDERED: NON-FORMULARY MEDICATION (Iron,Carbonyl-Vitamin C [Vitron-C] 65 mg iron- 125 mg tablet,del PO SCH (21:00)
[2023-11-13 23:11] LABS: Hematocrit (blood only) 32.9 % (42.0-52.0); Hemoglobin 10.5 g/dl (14.0-18.0)
[2023-11-14 06:30] LABS: Basophils # (auto) 0.02 K/uL (0.00-0.20); Basophils % (auto) 0.5 %; Eosinophils % (auto) 2.4 %; Hematocrit (blood only) 34.6 % (42.0-52.0); Hemoglobin 11.1 g/dl (14.0-18.0); Immature Granulocytes # (auto) 0.01 K/uL (0.01-0.20); Immature Granulocytes % (auto) 0.2 %; Lymphocytes # (auto) 0.86 K/uL (1.20-3.40); Lymphocytes % (auto) 20.6 %; Mean Corpuscular Hemoglobin 23.8 pg (25.0-34.0); Mean Corpuscular Hgb Conc 32.1 g/dL (32.0-36.0); Mean Corpuscular Volume 74.1 fL (80.0-100.0); Mean Platelet Volume 9.9 fL (9.4-12.4); Monocytes # (auto) 0.38 K/uL (0.11-0.59); Monocytes % (auto) 9.1 %; Neutrophils # (auto) 2.81 K/uL (1.40-6.50); Neutrophils % (auto) 67.2 %; Platelet Count 222 K/uL (130-400); RDW Coefficient of Variation 18.7 % (11.5-14.5); RDW Standard Deviation 49.8 fL (36.4-46.3); Red Blood Count 4.67 M/uL (4.70-6.10); White Blood Count 4.18 K/ul (4.8-10.8)
[2023-11-14 06:40] LABS: BUN Creatinine Ratio 11.7 (10-20); Calcium 9.2 mg/dl (8.6-10.3); Creatinine Clr Calc Pharmacy 85.3 ml/min; Est GFR (Non-African American) 86.3 ml/min; Magnesium 1.9 mg/dl (1.7-2.4)
--- NOTE | 2023-11-14 08:39 | Gastroenterology Progress Note ---
Date of Service November 14, 2023 Assessment & Plan (1) Fecal occult blood test positive: Plan: Pt is a 77 yo male seen for anemia, fobt +, ? melena. - NPO for EGD today - Monitor blood ct and transfuse for goal Hgb >7 - Further GI recs after EGD completed - Anemia workup Admission and Anticipated Discharge Date Admission Date: November 13, 2023 Supervising Physician Co-Signing Physician Notes I saw and evaluated the patient, there was a question of melena and new onset anemia thus upper endoscopy has been requested for further evaluation. I discussed the risks and benefits of the procedure with the patient to include bleeding, infection, perforation, pain, cardiovascular problems and the need for follow-up studies. We have also discussed the increased risk of perioperative complications to include cardiac and pulmonary problems due to the patient's age and comorbid medical conditions. Subjective Pt denies abd pain, n/v. BM overnight, nurse reports it's bloody Review of Systems Review of Systems: All systems reviewed & are unremarkable except as noted in HPI & below Physical Exam Constitutional: WD/WN, vitals as above well groomed, cooperative and comfortable Eyes: PERRL, conjunctivae normal, anicteric sclerae ENMT: external ear and nose normal, oropharynx normal Respiratory: normal respiratory effort, lungs clear to auscultation Cardiovascular: RRR, no murmur, no edema Gastrointestinal (Abdomen): normal bowel sounds, soft, nontender, no hepatosplenomegaly Skin: no rashes, warm and dry no jaundice Psychiatric: A+Ox3, euthymic affect Lymphatic: no lymphedema Results & Data Vital Signs (Past 12 Hours) Vital Signs Temp Pulse Pulse Resp BP BP Pulse Ox 11/14/23 08:03 55 L 11/14/23 08:01 36.5 C 54 L 19 176/88 H 90 11/14/23 07:59 11/14/23 03:08 36.8 C 64 20 147/83 H 97 11/13/23 23:18 36.8 C 57 L 20 148/75 H 95 11/13/23 23:00 55 L O2 Del Method 11/14/23 08:03 11/14/23 08:01 Room Air 11/14/23 07:59 Room Air 11/14/23 03:08 Room Air 11/13/23 23:18 Room Air 11/13/23 23:00
--- NOTE | 2023-11-14 09:15 | Anesthesiology Consultation ---
Date of Service November 14, 2023 Assessment & Plan Chart Review Chart Review: Acceptable Risk for Surgery Consults Requested none History Surgery Operation Date: 11/14/23 16:30 Proposed Procedures p Esophagogastroduodenoscopy Dr Vito Padron, DO Height/Weight Height: 5 ft 7 in Weight: 94.6 kg Allergies Allergy/AdvReac Type Severity Reaction Status Date / Time No Known Allergies Allergy Verified 01/10/22 02:31 Medications Home Medications Medication Instructions Recorded Confirmed Last Taken albuterol sulfate 2.5 mg/3 mL 2.5 mg inhalation Q4H PRN sob 11/13/23 11/13/23 Unknown (0.083 %) solution for nebulization albuterol sulfate 90 mcg/actuation 2 puff inhalation Q6H PRN sob 11/13/23 11/13/23 Unknown aerosol inhaler (Proventil HFA) alpha lipoic acid 200 mg capsule 200 mg PO DAILY 11/13/23 11/13/23 Unknown amlodipine 5 mg tablet 5 mg PO DAILY 11/13/23 11/13/23 Unknown aspirin 81 mg tablet,delayed 81 mg PO DAILY 11/13/23 11/13/23 Unknown release cevimeline 30 mg capsule 30 mg PO TID 11/13/23 11/13/23 Unknown iron,carbonyl 65 mg-vitamin C 125 1 tab PO HS 11/13/23 11/13/23 Unknown mg tablet,delayed release (Vitron-C) levothyroxine 50 mcg tablet 50 mcg PO DAILY 11/13/23 11/13/23 Unknown lorazepam 0.5 mg tablet 0.5 mg PO HS 11/13/23 11/13/23 Unknown losartan 25 mg tablet 25 mg PO DAILY 11/13/23 11/13/23 Unknown losartan 50 mg tablet 50 mg PO DAILY 11/13/23 11/13/23 Unknown metformin 500 mg tablet,extended 500 mg PO DAILY 11/13/23 11/13/23 Unknown release 24 hr mirtazapine 15 mg tablet 15 mg PO HS 11/13/23 11/13/23 Unknown rzdfgtlo-aal-isgko acid 0.4 1 tab PO DAILY 11/13/23 11/13/23 Unknown mg-lycopene 300 mcg-lutein 250 mcg tablet (CertaVite Senior) oxycodone 5 mg tablet 0.25 mg PO DAILY PRN Pain 11/13/23 11/13/23 Unknown pantoprazole 20 mg tablet,delayed 20 mg PO DAILY 11/13/23 11/13/23 Unknown release ramelteon 8 mg tablet 8 mg PO HS 11/13/23 11/13/23 Unknown tamsulosin 0.4 mg capsule 0.4 mg PO DAILY 11/13/23 11/13/23 Unknown zolpidem 5 mg tablet 5 mg PO HS 11/13/23 11/13/23 Unknown Active Medications Generic Name Dose Route Start Last Admin Trade Name Parth PRN Reason Stop Dose Admin Amlodipine Besylate 5 mg 11/13/23 09:00 11/13/23 09:44 Amlodipine Besylate 5 Mg Tab PO 12/13/23 08:59 5 mg DAILY EVANGELINA Administration Cevimeline HCl 1 each 11/13/23 21:00 11/13/23 20:20 Cevimeline Hcl PO 12/13/23 20:59 1 each TID EVANGELINA Administration Pantoprazole Sodium 40 mg/ 100 mls @ 20 mls/hr 11/13/23 07:00 11/14/23 08:41 Dextrose IV 12/13/23 06:59 0 mg/hr Q5H EVANGELNIA 0 mls/hr Infusion 8 MG/HR Sodium Chloride 1,000 mls @ 80 mls/hr 11/13/23 06:45 11/14/23 08:29 Nss IV 12/13/23 06:44 80 mls/hr .[id number] EVANGELINA Administration Insulin Aspart 0 units 11/13/23 07:15 11/14/23 06:37 Insulin Aspart Per Unit Charge SC 12/13/23 07:14 Not Given Q6 EVANGELINA Levothyroxine Sodium 50 mcg 11/13/23 07:45 11/14/23 06:15 Levothyroxine Sodium 50 Mcg Tablet PO 12/13/23 07:44 Not Given DAILYBB EVANGELINA Lorazepam 0.5 mg 11/13/23 21:00 11/13/23 20:20 Lorazepam 0.5 Mg Tab PO 12/13/23 20:59 0.5 mg HS EVANGELINA Administration Losartan Potassium 50 mg 11/13/23 09:00 11/13/23 09:44 Losartan Potassium 50 Mg Tab PO 12/13/23 08:59 50 mg DAILY EVANGELINA Administration Losartan Potassium 25 mg 11/13/23 09:00 11/13/23 09:44 Losartan Potassium 25 Mg Tab PO 12/13/23 08:59 25 mg DAILY EVANGELINA Administration Mirtazapine 15 mg 11/13/23 21:00 11/13/23 20:20 Mirtazapine Tab 15 Mg Tab PO 12/13/23 20:59 15 mg HS EVANGELINA Administration Miscellaneous 1 each 11/13/23 08:00 11/13/23 23:27 Ramelteon~Order Awaiting Action N/A 12/13/23 07:59 Not Given QS EVANGELINA Multivitamins/Minerals 1 tab 11/13/23 09:00 11/13/23 09:44 Cerovite Adv Formula Tab PO 12/13/23 08:59 1 tab DAILY EVANGELINA Administration Tamsulosin HCl 0.4 mg 11/13/23 09:00 11/13/23 09:50 Tamsulosin Hcl 0.4 Mg Cap PO 12/13/23 08:59 0.4 mg DAILY EVANGELINA Administration Zolpidem Tartrate 5 mg 11/13/23 21:00 11/13/23 20:20 Zolpidem Tartrate 5 Mg Tab PO 12/13/23 20:59 5 mg HS EVANGELINA Administration NPO Date Last Intake of Fluids: 11/13/23 Time Last Intake of Fluids: 21:00 Date Last Intake of Solids: 11/13/23 Time Last Intake of Solids: 08:00 Past Medical History Medical History Hyponatremia Lightheadedness Xerostomia DVT prophylaxis Hyponatremia MRSA (methicillin resistant Staphylococcus aureus) Allergic rhinitis Degenerative disc disease Osteoarthritis Prostate cancer (04/21/15) Rising PSA level Depression Renal calculus GERD (gastroesophageal reflux disease) BPH (benign prostatic hyperplasia) HTN (hypertension) Anemia Insomnia Chronic back pain Past Family History Family History Mother , 75yo Myocardial infarction Father , 74yo Myocardial infarction Liver disease "Drank too much beer" Brother Prostate cancer Brother Myocardial infarction Brother Suicide Brother Accident Sister Cancer Sister Natural with unknown cause Son No problems noted. Son Hypertension Other Family history non-contributory Past Surgical History Surgical History H/O prostatectomy 10/03/17 Dr. Duran H/O esophagogastroduodenoscopy H/O sinus surgery H/O adenoidectomy Hx of tonsillectomy H/O colonoscopy History of cystoscopy Hx of appendectomy Social History Smoking Status: Former smoker Do You Dip or Chew Tobacco: No Hx Alcohol Use: Yes Alcohol type: beer alcohol intake frequency: holidays/special occasions only Hx Substance Use: No Physical Exam Vital Signs Last Vital Signs Temp 36.5 C 11/14/23 08:01 Pulse 60 11/14/23 09:00 Resp 16 11/14/23 09:00 BP 194/81 H 11/14/23 09:00 Pulse Ox 95 11/14/23 09:00 O2 Del Method Room Air 11/14/23 09:00 O2 Flow Rate 0 11/13/23 11:40 Constitutional WD/WN, vitals as above well groomed, cooperative and comfortable Eyes PERRL, conjunctivae normal, anicteric sclerae ENMT external ear and nose normal, oropharynx normal Respiratory normal respiratory effort, lungs clear to auscultation Cardiovascular RRR, no murmur, no edema Gastrointestinal (Abdomen) normal bowel sounds, soft, nontender, no hepatosplenomegaly Skin no rashes, warm and dry no jaundice Psychiatric A+Ox3, euthymic affect Lymphatic no lymphedema Testing Laboratory Results 11/14/23 05:39 11/14/23 05:39 Urine Color Yellow 11/13/23 04:25 Urine Appearance Clear (Clear) 11/13/23 04:25 Urine pH 6.0 (4.5-7.5) 11/13/23 04:25 Ur Specific Pharr 1.014 (1.000-1.030) 11/13/23 04:25 Urine Protein Negative (Negative) 11/13/23 04:25 Urine Glucose (UA) Negative (Negative) 11/13/23 04:25 Urine Ketones Trace (Negative) H 11/13/23 04:25 Urine Nitrite Negative (Negative) 11/13/23 04:25 Ur Leukocyte Esterase Negative (Negative) 11/13/23 04:25 Blood Type O Positive 11/13/23 06:05 Antibody Screen NEGATIVE 11/13/23 06:05 11/14/23 11/13/23 06:36 23:09 POC Glucose 101 H 94
--- NOTE | 2023-11-14 09:32 | GI REPORT ---
Patient Name: Alhaji Donnelly Procedure Date: 11/14/2023 9:05 AM Date of : 1945 Admit Type: Inpatient Age: 77 Gender: Male Attending MD: Laura Padron DO, Procedure: Upper GI endoscopy Providers: Laura Padron DO Referring MD: Marylin France Md Indications: Heme positive stool Medicines: General Anesthesia Complications: No immediate complications. Estimated blood loss: Minimal. Estimated Blood Loss: Estimated blood loss was minimal. Procedure: Pre-Anesthesia Assessment: - Prior to the procedure, a History and Physical was performed, and patient medications, allergies and sensitivities were reviewed. The patient's tolerance of previous anesthesia was reviewed. - The risks and benefits of the procedure and the sedation options and risks were discussed with the patient. All questions were answered and informed consent was obtained. - Patient identification and proposed procedure were verified prior to the procedure by the physician, the nurse and the part time flexible clerk. The procedure was verified in the procedure room. - Pre-procedure physical examination revealed no contraindications to sedation. - ASA Grade Assessment: III - A patient with severe systemic disease. - After reviewing the risks and benefits, the patient was deemed in satisfactory condition to undergo the procedure. - The anesthesia plan was to use monitored anesthesia care (MAC). - Immediately prior to administration of medications, the patient was re-assessed for adequacy to receive sedatives. - The heart rate, respiratory rate, oxygen saturations, blood pressure, adequacy of pulmonary ventilation, and response to care were monitored throughout the procedure. - The physical status of the patient was re-assessed after the procedure. After obtaining informed consent, the endoscope was passed under direct vision. Throughout the procedure, the patient's blood pressure, pulse, and oxygen saturations were monitored continuously. The Scope was introduced through the mouth, and advanced to the third part of duodenum. The upper GI endoscopy was accomplished without difficulty. The patient tolerated the procedure well. Findings: The examined esophagus was normal. The Z-line was regular and was found 38 cm from the incisors. The entire examined stomach was normal. The examined duodenum was normal. Impression: - Normal esophagus. - Z-line regular, 38 cm from the incisors. - Normal stomach. - Normal examined duodenum. - No specimens collected. Recommendation: - Return patient to hospital conn for ongoing care. - Perform a colonoscopy at appointment to be scheduled as an outpatient. Laura Padron D.O. Laura Padron, DO 11/14/2023 9:31:40 AM This report has been signed electronically. Note Initiated On: 11/14/2023 9:05 AM Number of Addenda: 0 I attest to the content of the Intraoperative Record and orders documented therein, exceptions below {[id number]}
--- NOTE | 2023-11-14 09:35 | Communication Note ---
Date of Service: November 14, 2023 The patient underwent upper endoscopy this morning for evaluation of heme positive stool and anemia. Endoscopy was within normal limits. Given the histo ry I would suggest that the patient have an outpatient colonoscopy performed. Recommendation Outpatient colonsocopy to be scheduled Please call with any questions or concerns GI to sign off
[2023-11-14] MEDS: PROPOFOL IV EMULSION 10 MG/ML 20 ML VIAL IV ONE (12:25)
[2023-11-14] MEDS: LIDOCAINE 2% 2 ML VIAL/AMP(20MG/ML) INFIL ONE (12:25)
[2023-11-14] MEDS: ACETAMINOPHEN 325 MG TAB PO PRN (14:09)
--- NOTE | 2023-11-14 14:23 | Anesthesiology Progress Note ---
Date of Service November 14, 2023 Anesthesia Post Procedure Vital Signs Vital Signs: Temp Pulse Pulse Resp BP BP Pulse Ox 11/14/23 11:35 36.4 C L 104 H 19 180/77 H 92 11/14/23 10:01 52 L 16 184/95 H 99 11/14/23 09:46 52 L 16 165/89 H 98 11/14/23 09:31 48 L 16 137/76 99 11/14/23 09:00 60 16 194/81 H 95 11/14/23 08:03 55 L 11/14/23 08:01 36.5 C 54 L 19 176/88 H 90 11/14/23 07:59 11/14/23 03:08 36.8 C 64 20 147/83 H 97 11/13/23 23:18 36.8 C 57 L 20 148/75 H 95 11/13/23 23:00 55 L 11/13/23 20:25 50 L 11/13/23 19:46 36.7 C 58 L 16 136/73 95 11/13/23 19:25 11/13/23 14:47 36.6 C 65 20 171/76 H 97 O2 Del Method 11/14/23 11:35 Room Air 11/14/23 10:01 Room Air 11/14/23 09:46 Room Air 11/14/23 09:31 Room Air 11/14/23 09:00 Room Air 11/14/23 08:03 11/14/23 08:01 Room Air 11/14/23 07:59 Room Air 11/14/23 03:08 Room Air 11/13/23 23:18 Room Air 11/13/23 23:00 11/13/23 20:25 11/13/23 19:46 Room Air 11/13/23 19:25 Room Air 11/13/23 14:47 Room Air Pain Intensity Lower Back: Pain Intensity: 6 Right Hip: Pain Intensity: 4 Transfer of Care Handoff Completed per policy Notes Mental Status: alert / awake / arousable Patient Amnestic to Procedure: Yes Nausea / Vomiting: adequately controlled Pain: adequately controlled Airway Patency, RR, SpO2: stable & adequate BP & HR: stable & adequate Hydration State: stable & adequate Anesthetic Complications: no major complications apparent and Pt Satisfied with anesthetic care
[2023-11-14] MEDS ORDERED: Nursing to Pharmacy Communication SCH (15:30)
[2023-11-14] MEDS: oxyCODONE HCL IR 5 MG TAB (IMMEDIATE RELEASE) PO PRN (16:24)
--- NOTE | 2023-11-14 16:42 | Hospitalist Progress Note ---
Date of Service November 14, 2023 Assessment & Plan (1) GI bleed: Plan: 77-year-old male with past medical significant for hypothyroidism, diabetes, COPD, unspecified asthma, hypertension, Marvin, esophageal dysmotility, burning mouth syndrome, dry mouth, Sjogren"s syndrome with dental involvement, GERD, history of prostate cancer, chronic pain of right knee, primary osteoarthritis of left hip, tardive dyskinesia, history of MRSA infection, depression, history of COVID presents with dry mouth and not able to eat much because of dry mouth and having back pain and found to have hemoglobin of 7.8 and Hemoccult positive in ER. Patient also states that he has had black stools on and off. Acute on chronic anemia Possible GI bleed Hemoccult positive in the ER Patient stated he has black stools on and off Hemoglobin on presentation was 7.8 Hemoglobin 10.29 August 2023 S/P 1 unit of PRBC Hb is 11.1 today S/p EGD today which showed normal esophagus, normal stomach and normal examined duodenum. GI recommend performing colonoscopy outpatient. Diabetes Hold metformin Sliding scale Will monitor COPD Continue home inhalers Dry mouth Sjogren's syndrome Follows with rheumatology Continue home medications of cevimeline BPH On Flomax States having difficulty urinating Monitor Hypertension On amlodipine, losartan Monitor Depression on Remeron Tardive dyskinesia Avoid medication causing tardive dyskinesia Will get PT/OT eval prior to dc DVT prophylaxis SCDs Full code I spent a total of 50 minutes coordinating, documenting and providing care for this patient excluding time spent in performance of separately billed services Admission and Anticipated Discharge Date Admission Date: November 13, 2023 Subjective Patient seen and examined. Patient had EGD today which showed normal esophagus, normal stomach and normal examined duodenum. GI recommend performing colonoscopy outpatient. Patient currently reports pain in knees and hip. Stated that he usually has chronic intermittent pain from arthritis but it worsened today after manipulation during procedure. Reports dry mouth is significantly improved since son brought his home cevimeline Denies any other complaints Physical Exam Constitutional: + well hydrated; no acute distress ENMT: external ear and nose normal, oropharynx normal Respiratory: normal respiratory effort, lungs clear to auscultation Cardiovascular: Rate/Rhythm: regular rate and regular rhythm S1-S2 Gastrointestinal (Abdomen): normal bowel sounds, soft, nontender, no hepatosplenomegaly Musculoskeletal: No pedal edema. No swelling or tenderness around the knees Neurologic: PERRL, EOMI, accommodation nl, no face palsy, no dysarthria Psychiatric: A+Ox3, euthymic affect Results & Data Results & Data Vital Signs (Past 12 Hours) Vital Signs Temp Pulse Pulse Resp BP BP Pulse Ox 11/14/23 16:18 11/14/23 15:45 36.6 C 62 19 162/97 H 97 11/14/23 11:35 36.4 C L 104 H 19 180/77 H 92 11/14/23 10:01 52 L 16 184/95 H 99 11/14/23 09:46 52 L 16 165/89 H 98 11/14/23 09:31 48 L 16 137/76 99 11/14/23 09:00 60 16 194/81 H 95 11/14/23 08:03 55 L 11/14/23 08:01 36.5 C 54 L 19 176/88 H 90 11/14/23 07:59 O2 Del Method 11/14/23 16:18 Room Air 11/14/23 15:45 Room Air 11/14/23 11:35 Room Air 11/14/23 10:01 Room Air 11/14/23 09:46 Room Air 11/14/23 09:31 Room Air 11/14/23 09:00 Room Air 11/14/23 08:03 11/14/23 08:01 Room Air 11/14/23 07:59 Room Air Laboratory Results Abnormal lab results 11/13/23 11/13/23 11/14/23 Range/Units 17:00 23:01 05:39 WBC 4.18 L (4.8-10.8) K/ul RBC 4.67 L (4.70-6.10) M/uL Hgb 10.2 L 10.5 L 11.1 L (14.0-18.0) g/dl Hct 32.3 L 32.9 L 34.6 L (42.0-52.0) % MCV 74.1 L (80.0-100.0) fL MCH 23.8 L (25.0-34.0) pg RDW Std Deviation 49.8 H (36.4-46.3) fL RDW Coeff of Thanh 18.7 H (11.5-14.5) % Lymph # (Auto) 0.86 L (1.20-3.40) K/uL POC Glucose (70-99) mg/dl 11/14/23 Range/Units 06:36 WBC (4.8-10.8) K/ul RBC (4.70-6.10) M/uL Hgb (14.0-18.0) g/dl Hct (42.0-52.0) % MCV (80.0-100.0) fL MCH (25.0-34.0) pg RDW Std Deviation (36.4-46.3) fL RDW Coeff of Thanh (11.5-14.5) % Lymph # (Auto) (1.20-3.40) K/uL POC Glucose 101 H (70-99) mg/dl
[2023-11-14] MEDS: INSULIN ASPART PER UNIT CHARGE SC SCH (17:30)
[2023-11-15 08:14] LABS: Hematocrit (blood only) 35.1 % (42.0-52.0); Hemoglobin 11.2 g/dl (14.0-18.0); Mean Corpuscular Hemoglobin 23.7 pg (25.0-34.0); Mean Corpuscular Hgb Conc 31.9 g/dL (32.0-36.0); Mean Corpuscular Volume 74.4 fL (80.0-100.0); Mean Platelet Volume 9.2 fL (9.4-12.4); Platelet Count 214 K/uL (130-400); RDW Coefficient of Variation 19.3 % (11.5-14.5); RDW Standard Deviation 50.9 fL (36.4-46.3); Red Blood Count 4.72 M/uL (4.70-6.10)
[2023-11-15 08:33] LABS: BUN Creatinine Ratio 14.5 (10-20); Calcium 9.4 mg/dl (8.6-10.3); Creatinine Clr Calc Pharmacy 59.5 ml/min; Est GFR (African American) 73.6 ml/min; Est GFR (Non-African American) 63.5 ml/min
[2023-11-15 11:19] VITALS: RESP 18; TEMP 97.9; O2SAT 90
--- NOTE | 2023-11-15 13:25 | Discharge Summary ---
Date of Service November 15, 2023 Admission HPI Per Admitting Provider 77-year-old male with past medical significant for hypothyroidism, diabetes, COPD, unspecified asthma, hypertension, Marvin, esophageal dysmotility, burning mouth syndrome, dry mouth, Sjogren"s syndrome with dental involvement, GERD, history of prostate cancer, chronic pain of right knee, primary osteoarthritis of left hip, tardive dyskinesia, history of MRSA infection, depression, history of COVID presents with dry mouth and not able to eat much because of dry mouth and having back pain and found to have hemoglobin of 7.8 and Hemoccult positive in ER. Patient also states that he has had black stools on and off. Denies any abdominal pain. Denies any nausea. No chest pain or shortness of breath. Has some cough. No fevers. No headache. No blurred vision. No runny nose or sore throat. Complains of pain in the right hip region. States having difficulty micturating, having weak stream. States ambulates with a cane. Lives alone. Hemodynamics are okay. Past medical history. As mentioned above Past surgical history. Colonoscopy. Cystoscopy. EGD. EGD with biopsy. Nasal endoscopy. Radical prostate removal. Appendectomy. Tonsillectomy and adenoidectomy. Upper teeth removed. Social history. Occasional cigars. No alcohol use. No drug use. Family history. Father had arthritis. Heart disorder. Liver problems. Mother had arthritis. Heart disorder. Maternal grandmother had leukemia. Brother had diabetes. Sister had diabetes. Admission Exam Per Admitting Provider General- adult Head- atraumatic Eyes- PERRL ENT- oropharynx dry Neck- supple, no JVD. Lungs- clear to auscultation no wheezing or crackles. Heart- regular rhythm; no murmur, no gallop. Abdomen- normal bowel sounds, soft, nontender, no distension Extremities- no pretibial edema, no erythema seen. Neuro- alert, oriented PERRL, EOMI; no facial palsy; no dysarthria; moves extremities. Principal Diagnosis Anemia Possible Gastrointestinal bleeding Discharge Exam Constitutional + well hydrated; no acute distress ENMT external ear and nose normal, oropharynx normal Respiratory normal respiratory effort, lungs clear to auscultation Cardiovascular Rate/Rhythm: regular rate and regular rhythm S1 S2 Gastrointestinal (Abdomen) normal bowel sounds, soft, nontender, no hepatosplenomegaly Musculoskeletal No pedal edema Neurologic PERRL, EOMI, accommodation nl, no face palsy, no dysarthria Psychiatric A+Ox3, euthymic affect Discharge Data Allergies Allergy/AdvReac Type Severity Reaction Status Date / Time No Known Allergies Allergy Verified 01/10/22 02:31 Consultations 11/13/23 06:41 ED Decision to Admit Stat 11/13/23 08:00 Consult Gastroenterology Routine Procedures Performed Operation Date: 11/14/23 16:30 Actual Procedures p Esophagogastroduodenoscopy - Laura Padron DO Hospital Course (1) GI bleed: 77-year-old male with past medical significant for hypothyroidism, diabetes, 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 Patient also states that he has had black stools on and off. Acute on chronic anemia Possible GI bleed Hemoccult positive in the ER Patient stated he has black stools on and off Hemoglobin on presentation was 7.8 Hemoglobin 10.29 August 2023 S/P 1 unit of PRBC Hb has been stable in 11s since transfusion S/p EGD on 11/14/23 which showed normal esophagus, normal stomach and normal examined duodenum. GI recommends performing colonoscopy outpatient. Diabetes Continue metformin COPD Continue home inhalers Dry mouth Sjogren's syndrome Follows with rheumatology Continue home medications of cevimeline BPH On Flomax Hypertension On amlodipine, losartan Depression on Remeron Tardive dyskinesia Avoid medication causing tardive dyskinesia Called patient's son and updated him Total Time Total Time Spent Total Time Spent (In Minutes): 35 Total Time Includes: Examination of the Patient, Discharge Planning and Medication Reconciliation Discharge Plan Discharge Items Patient Disposition: Home - Home Health Services Reason For Visit: GI BLEED, DRY MOUTH Discharge Diagnosis: Anemia Possible Gastrointestinal bleeding Activity: Resume your previous activity Activity Comment: Use rolling walker Non-emergency contact: Primary Care Provider and Marina Manager Call non-emergency contact if: you have any medication questions and your symptoms worsen Follow-up/Referrals: Laura Padron DO [Physician] - (The GI office will contact you for a follow up appointment/testing.) Wendi Love DO [Primary Care Provider] - (Date & Time 11/22/2023 11:50 AM Provider Wendi Love DO Department Family Medicine [facility] ) Diet: Heart Healthy Addtl Attending Provider Instructions: Mr Donnelly. You were evaluated in the hospital for anemia (low blood count) You had upper endoscopy which was unremarkable You need to follow up with Marina Manager for colonoscopy as we discussed Please use rolling walker as instructed. Please ensure follow up with your Family doctor. It was a pleasure taking care of you. Pending Studies at Discharge: No Stand-Alone Forms: My [facility] Basic-Fit, Smoking Cessation Medications and DC Order Prescriptions: Continued losartan 50 mg tablet 50 mg PO DAILY amlodipine 5 mg tablet 5 mg PO DAILY pantoprazole 20 mg tablet,delayed release (DR/EC) 20 mg PO DAILY lorazepam 0.5 mg tablet 0.5 mg PO HS tamsulosin 0.4 mg capsule 0.4 mg PO DAILY levothyroxine 50 mcg tablet 50 mcg PO DAILY cevimeline 30 mg capsule 30 mg PO TID losartan 25 mg tablet 25 mg PO DAILY zolpidem 5 mg tablet 5 mg PO HS mirtazapine 15 mg tablet 15 mg PO HS metformin 500 mg tablet extended release 24 hr 500 mg PO DAILY oxycodone 5 mg tablet 0.25 mg PO DAILY PRN (Reason: Pain) CertaVite Senior 0.4 mg-300 mcg- 250 mcg tablet 1 tab PO DAILY ramelteon 8 mg tablet 8 mg PO HS Vitron-C 65 mg iron- 125 mg tablet,delayed release (DR/EC) 1 tab PO HS alpha lipoic acid 200 mg capsule 200 mg PO DAILY albuterol sulfate 2.5 mg /3 mL (0.083 %) Solution For Nebulization 2.5 mg INHALATION Q4H PRN (Reason: sob) aspirin 81 mg Tablet,Delayed Release (Dr/Ec) 81 mg PO DAILY albuterol sulfate [Proventil HFA] 90 mcg/actuation Hfa Aerosol Inhaler 2 puff INHALATION Q6H PRN (Reason: sob) Discharge Orders: Discharge Order (Routine); Ordered 11/15/23 Ordered By: Marylin France Admission Data Admit Date/Time: 11/13/23 06:46 Attending Provider: Marylin France I. Admit Provider: Ishan Martin Primary Care Provider: Wendi Love Other Providers: Ishan Martin; Rolando [facility] Other Interventions: Discharge Summary Assessment (RN) Last Done: 11/15/23 13:28
[2023-11-15 13:29] VITALS: BP 125/69
[2023-11-15 15:43] VITALS: PULSE 72
--- NOTE | 2023-11-16 14:25 | Coding Query ---
CODING QUERY To promote full compliance with coding requirements relating to patient care, provider participation is requested in all cases of electro tech uncertainty. Please assist us with the question(s) below: Coding Question(s): There is documentation of Acute on Chronic Anemia, and the H&P documents Acute Blood Loss Anemia, however there is no further documentation of Acute Blood Loss Anemia in the record. Please specify below, in your clinical opinion, regarding the Acute Anemia for accurate coding of the diagnosis: ( ) Likely Acute Blood Loss Anemia ( ) Likely Acute Anemia, Other: Please Specify ( ) Likely Acute Anemia, Unspecified Physician's Response(s): Possible acute blood loss anemia Thank you Krystin Sy Principal Diagnosis: "that condition established after study, to be chiefly responsible for occasioning the admission of the patient to the hospital for care." Co-Existing Principal Diagnosis: "when two or more diagnoses equally meet the criteria for principal diagnosis as determined by the circumstances of admission, diagnostic work up, and/or therapy provided, and the Alphabetic Index, Tabular List, or another coding guideline does not provide sequencing direction, any one of the diagnoses may be sequenced first." "When the physician has documented what appears to be a current diagnosis in the body of the record, but has not included the diagnosis in the final diagnostic statement, the physician should be asked whether the diagnosis should be added." (Source Coding Clinic 2 QTR90. p3-4) ABENA
== END 2023-11-15 16:28 | disposition home health service (06) | DRG 378 ==
LOC: ED 03:32 → EDINP 06:46 → 4W 07:04